=== PATIENT | female | born 1955 | race Caucasian/White ===

== ENCOUNTER 2017-05-10 08:22 | Day surgery (SDC) | payer BC, MEDICARE ==
[2017-05-08 14:17] VITALS: BMI 33.3
[~2017-05-10 08:22] MED LIST: DEXAMETHASONE SOD PHOSPHATE 10 MG/ML 1 ML VIAL IV ONE; DEXAMETHASONE SOD PHOSPHATE 4 MG/ML 1 ML VIAL IV ONE; FAMOTIDINE 20 MG/2 ML VIAL IV ONE; FAMOTIDINE 20 MG/2 ML VIAL IV PRN; LACTATED RINGERS 1,000 ML IV SCH; LIDOCAINE 1% 20 ML VIAL (10MG/ML) FOR IV START INTRADERMA PRN; ONDANSETRON 4 MG/2 ML VIAL IVP ONE; ceFAZolin 1,000 MG in DEXTROSE/WATER 1 50ML.BAG IV ONE; fentaNYL (PF) 50 MCG/ML 2 ML AMP IV PRN
[2017-05-10 09:01] LABS: Glucose,Whole Blood 120 mg/dL (75-99)
[2017-05-10] MEDS ORDERED: MIDAZOLAM 2 MG/2 ML VIAL ONE (09:25)
[2017-05-10] MEDS ORDERED: SUCCINYLCHOLINE CHLORIDE VIAL 200 MG/10 ML VIAL IV ONE (09:25)
[2017-05-10] MEDS ORDERED: PROPOFOL 10 MG/ML 20 ML VIAL IV ONE (09:25)
[2017-05-10] MEDS ORDERED: PHENYLEPHRINE-0.9% NACL SYG 1 MG/10 ML SYRINGE ONE (09:25)
[2017-05-10] MEDS ORDERED: ePHEDrine SULFATE/0.9% NACL/PF 50 MG/5 ML SYRINGE IV ONE (09:25)
[2017-05-10] MEDS ORDERED: DEXAMETHASONE SOD PHOS (MDV) 100 MG/10 ML VIAL ONE (09:25)
[2017-05-10] MEDS ORDERED: fentaNYL (PF) 50 MCG/ML 2 ML AMP ONE (09:25)
[2017-05-10] MEDS ORDERED: LACTATED RINGERS 1,000 ML IV ONE ×2 (09:58→11:47)
[2017-05-10] MEDS ORDERED: LIDOCAINE 1%-EPI 1:100,000 30 ML VIAL SUBMUCOSAL ONE ×2 (10:04→11:46)
[2017-05-10 12:11] VITALS: TEMP 97.2
[2017-05-10 12:19] LABS: Glucose,Whole Blood 179 mg/dL (75-99)
--- NOTE | 2017-05-10 12:39 | P.OP ---
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 Anesthesia: KARTHIKEYANA Surgeon: Eamon Linda Estimated Blood Loss (ml): 10 Pathology: other (As above) Condition: stable Disposition: PACU Indications for Procedure: This patient is 3 lesions that she is concerned about. She has an exophytic fungating mass on the right nasal LR rim. This went bleeds when rubbed. She has another lesion of the nasal tip was also friable that she is concerned about and she has a skin-type mass of the right buttock that is quite large and is protuberant. She is requesting surgical removal of all these lesions. We will be performing frozen section on the nasal tip and right nasal alar rim. All risks, benefits, and alternative therapies were discussed in detail. Consent was obtained and all questions were answered. Operative Findings: Frozen sections showed clean margins on the nasal tip and right nasal alar rim lesions. Both of them were cancer. Description of Procedure: This patient was taken to the operative room and placed in the supine position. A general inhalation anesthetic was administered to the patient by mask and subsequently intubated with a cuffed endotracheal tube by the department of anesthesia with a functioning IV line in place. The patient was monitored throughout the entire case by the department of anesthesia. The face was sterilely prepped and draped in usual fashion and these lesions were marked. The nasal tip lesion measured 2.1 x 1 cm and the right nasal alar rim measured 2.3 x 2 cm. We marked these lesions anesthetize these lesions with lidocaine 1% with epinephrine 1 100,000. 10 minutes were allowed wait for full vasoconstrictive effects to take place. The nasal tip lesion was excised for sampling and sent for frozen section. It came back as a cancer. We then made a wider excision measuring 2.1 x 1 cm and sent this for frozen section and all margins came back negative for tumor. We then did extensive undermining and raised bilateral advancement flaps with a secondary defect measuring 4.2 x 2 cm. We rotated the skin into position and developed an H-type incision with removal of burrows triangles. We rotated the skin into position and close the defect with use advancement flaps. We closed the deep subcutaneous tissue with a 4-0 Monocryl we closed the skin with a 6-0 nylon in a running nonlocking fashion. Excellent approximation was obtained. Attention was then paid to the right nasal alar rim lesion which measured 2.3 x 2 cm. This was excised with a 15 blade and delicate plastic scissors and a Brown-Adson forceps. We sent the specimen for frozen section and all margins were negative for tumor. We took a secondary medial margin and sent that for frozen section which came back negative for tumor. We then prepped the right postauricular region and harvested a 4 x 2 cm area of skin from the postauricular region defatted this skin and cut to size and placed it as an overlay graft. We did extensive undermining in all directions and the donor site and we closed the donor site in a complex fashion utilizing a 4-0 Monocryl in the deep subcutaneous tissue. 4-0 Monocryl in the mid dermal layer and the skin was closed with a 50 rapid Vicryl in a running nonlocking fashion. Excellent approximation was obtained. The skin again was cut to size and placed as an overlay graft a bolster dressing was applied and the patient tolerated this well. Attention was then paid to the right buttocks which was sterilely prepped and draped anesthetized and this large 4 cm mass was excised with a 15 blade. This measured 4 x 4 cm. We did extensive undermining in all directions. We developed an H-type incision and utilized in advancement flap for closure measuring a secondary defect of 8 x 8 cm. We rotated the skin into position and close this large defect. Excellent closure was obtained the patient tolerated this well and follow-up will be in the office in 1 week. Dressings were applied accordingly.
[2017-05-10 15:13] VITALS: RESP 18
[2017-05-10 16:11] VITALS: BP 131/86; PULSE 99
== END 2017-05-10 16:32 | disposition home or self-care (01) ==
LOC: OR 08:22
PROVIDERS: ATTEND Otolaryngology
DX: C44.311 Basal cell carcinoma of skin of nose (principal); L57.8 Other skin changes due to chronic exposure to nonionizing radiation; L57.0 Actinic keratosis; D17.39 Benign lipomatous neoplasm of skin and subcutaneous tissue of other sites; D68.9 Coagulation defect, unspecified; F32.9 Major depressive disorder, single episode, unspecified; E11.9 Type 2 diabetes mellitus without complications; J43.9 Emphysema, unspecified; G25.0 Essential tremor; I10 Essential (primary) hypertension; E78.5 Hyperlipidemia, unspecified; M79.7 Fibromyalgia; Z86.718 Personal history of other venous thrombosis and embolism; Z86.711 Personal history of pulmonary embolism; Z86.73 Personal history of transient ischemic attack (TIA), and cerebral infarction without residual deficits; Z79.2 Long term (current) use of antibiotics; Z79.01 Long term (current) use of anticoagulants; Z79.84 Long term (current) use of oral hypoglycemic drugs; Z79.52 Long term (current) use of systemic steroids; Z79.899 Other long term (current) drug therapy; Z87.891 Personal history of nicotine dependence
CPT/HCPCS: 88304; 88305; 88331; 88332; 14060; 11643; 15260; 14301; 14302; J2250; J0330; J2405; J3010; J0690; J1100; J2370; J2704

== ENCOUNTER 2018-03-18 23:41 | Inpatient (IN) | payer BC, MEDICARE ==
[2018-03-19] MEDS: SODIUM CHLORIDE 0.9% 500 ML 500 ML IV SCH (00:27)
[2018-03-19 00:40] LABS: Basophils % (A) 0 %; Eosinophils # (A) 0.1 k/uL (0-0.7); Eosinophils % (A) 0 %; HCT 39.8 % (34.0-46.0); Lymphocytes # (A) 1.9 k/uL (1.0-4.8); Lymphocytes % (A) 14 %; MCH 28.2 pg (25.0-35.0); MCHC 32.7 g/dL (31.0-37.0); MCV 86.4 fL (80.0-100.0); Mean Platelet Volume 7.1; Monocytes # (A) 1.1 k/uL (0-1.0); Monocytes % (A) 8 %; Neutrophils # (A) 9.7 k/uL (1.3-7.7); Neutrophils % (A) 73 %; Platelet Count 315 k/uL (150-450); RDW 15.4 % (11.5-15.5); WBC 13.3 k/uL (3.8-10.6)
[2018-03-19 00:58] LABS: Albumin 4.2 g/dL (3.5-5.0); Calcium 9.8 mg/dL (8.4-10.2); Total Bilirubin 0.8 mg/dL (0.2-1.3); Total Protein 7.3 g/dL (6.3-8.2)
[2018-03-19 01:00] LABS: INR 0.9 (<1.2); Partial Thromboplastin Time 23.9 sec (22.0-30.0); Prothrombin Time 9.7 sec (9.0-12.0)
[2018-03-19 01:02] LABS: Potassium 4.4 mmol/L (3.5-5.1)
[2018-03-19 01:12] LABS: Creatine Kinase MB 9.4 ng/mL (0.0-2.4); Troponin I 0.027 ng/mL (0.000-0.034)
[2018-03-19] MEDS ORDERED: SODIUM CHLORIDE 0.9% 1,000 ML IV ONE (01:15)
--- NOTE | 2018-03-19 01:30 | XR ---
EXAMINATION TYPE: XR chest 2V DATE OF EXAM: 03/19/2018 COMPARISON: January 20, 2017 HISTORY: Fever TECHNIQUE: Frontal and lateral views of the chest are obtained. FINDINGS: There is some patchy infiltrate in the left lung. The right lung is fairly clear. Heart si ze is normal. Thoracic aorta is atheromatous. There is no heart failure. There are chest leads. There is neurostimulator in the lower thoracic spine. IMPRESSION: New patchy infiltrate in the left lung consistent with pneumonia compared to old exam. N ormal heart.
[2018-03-19] MEDS ORDERED: AZITHROMYCIN 500 MG in SODIUM CHLORIDE 0.9% 250 ML IVPB STA (01:59)
--- NOTE | 2018-03-19 02:05 | ED ---
General Adult HPI - General Chief complaint: Nausea/Vomiting/Diarrhea Stated complaint: Confusion Poss Stroke Time Seen by Provider: 03/19/18 00:00 Source: patient, family Mode of arrival: wheelchair Limitations: no limitations - History of Present Illness Initial comments: Sole is a 62-year-old female is brought to the emergency department today by her for evaluation of altered mental status. History is provided primarily by the . He reports that over the course of the week and the patient was feeling unwell she had multiple episodes of nonbloody nonbilious emesis and persistent nausea. She would not eat or drink throughout the weekend. He reports that he has mostly been sleeping and has been hard to wake. He noticed that her breathing sounded crackly though she wasn't coughing he was concerned she may be developing pneumonia or COPD exacerbation. He became concerned that she may be getting sick so he brought to the ER for evaluation. Patient is sleeping comfortably upon exam, she appears overtly dehydrated, she wakes to voice or touch. She answers questions slowly but appropriately. Patient just reports feeling generalized malaise. - Related Data Home Medications Medication Instructions Recorded Confirmed DULoxetine HCL [Cymbalta] 60 mg PO QAM 06/19/14 05/08/17 Montelukast [Singulair] 10 mg PO HS 06/19/14 05/10/17 Verapamil HCl [Calan] 120 mg PO QAM 06/19/14 05/10/17 OLANZapine [ZyPREXA] 10 mg PO TID 06/23/14 05/10/17 Acetaminophen Tab [Tylenol] 1,000 mg PO Q6HR PRN 03/19/17 05/10/17 Albuterol Sulfate [Proventil Hfa] 1 - 2 puff INHALATION Q6HR PRN 03/19/17 Apixaban [Eliquis] 5 mg PO BID 03/19/17 05/08/17 Atorvastatin [Lipitor] 10 mg PO HS 03/19/17 05/10/17 Gabapentin [Neurontin] 600 mg PO TID 03/19/17 05/10/17 Metoprolol Tartrate [Lopressor] 25 mg PO BID 03/19/17 05/08/17 traMADol HCl [Ultram] 50 mg PO Q8HR PRN 03/19/17 05/10/17 Lisinopril [Zestril] 20 mg PO QAM 05/08/17 05/10/17 Previous Rx's Medication Instructions Recorded Hydrochlorothiazide [Hydrodiuril] 25 mg PO DAILY #30 tab 12/18/16 metFORMIN HCL [Glucophage] 500 mg PO BID-W/MEALS #60 tab 12/18/16 Amoxicillin/Potassium Clav 1 each PO Q12HR #20 tab 05/10/17 [Augmentin 875-125 Tablet] Meloxicam [Mobic] 15 mg PO DAILY #14 tab 05/10/17 Allergies Allergy/AdvReac Type Severity Reaction Status Date / Time No Known Allergies Allergy Verified 03/18/18 23:53 Review of Systems ROS Statement: Those systems with pertinent positive or pertinent negative responses have been documented in the HPI. ROS Other: All systems not noted in ROS Statement are negative. Past Medical History Past Medical History: Asthma, COPD, CVA/TIA, Diabetes Mellitus, Fibromyalgia, Hyperlipidemia, Hypertension, Musculoskeletal Disorder, Osteoarthritis (OA), Pulmonary Embolus (PE), Skin Disorder Additional Past Medical History / Comment(s): current skin lesions to right nasal area and rt buttocks.hx. migraines, chronic low back pain, urinary incontinence History of Any Multi-Drug Resistant Organisms: None Reported Past Surgical History: Back Surgery, Cholecystectomy, Hysterectomy, Joint Replacement, Orthopedic Surgery Additional Past Surgical History / Comment(s): Back pain procedures, pain stimulator implant in back, left wrist surg with pins since removed, colonoscopy , total L hip arthroplasty. Past Anesthesia/Blood Transfusion Reactions: No Reported Reaction Additional Past Anesthesia/Blood Transfusion Reaction / Comment(s): no hx blood transfusion Past Psychological History: Anxiety, Depression Smoking Status: Former smoker - Past Family History Mother Family Medical History: COPD Additional Family Medical History / Comment(s): Mother at the age of 78yrs. Father Family Medical History: Myocardial Infarction ([place]) Additional Family Medical History / Comment(s): Father of a massive [place] at the age of 50 yrs. Pt is not sure if schrapnel may have moved to his heart-he had injury in WWII. Sister(s) Family Medical History: Cancer General Exam - General Exam Comments Initial Comments: Physical Exam GENERAL: Profoundly dehydrated HENT: Dry mucous membranes EYES: PERRL, EOMI PULMONARY: Crackles at the left lung olson CARDIOVASCULAR: Tachycardic, regular ABDOMEN: Soft and nontender with normal bowel sounds. SKIN: Dry : Deferred NEUROLOGIC: Patient is alert and oriented x3 But slow and delayed MUSCULOSKELETAL: Normal extremities with adequate strength and full range of motion. No lower extremity swelling or edema. No calf tenderness. PSYCHIATRIC: Normal psychiatric evaluation. Limitations: no limitations Limitations: no limitations Course Vital Signs 03/18/18 03/19/18 23:48 00:44 Temperature 99 F Pulse Rate 110 H 111 H Respiratory 20 18 Rate Blood Pressure 93/54 111/84 O2 Sat by Pulse 91 L 94 L Oximetry EKG Findings - EKG Comments: EKG Findings:: EKG was obtained at 12:30 AM, rate is 111 rhythm is sinus, leftward axis with evidence of LVH, normal intervals, NJ 152, QRS 72, QTc 448. There is no acute ST elevations or depressions evidence of acute skin or infarction Medical Decision Making - Medical Decision Making Patient was seen and evaluated history was obtained from patient and at bedside next line history and physical exam are concerning for pneumonia with left-sided crackles, tachycardia, fever, patient also appears to be per family dehydrated Sepsis workup was initiated IV fluids infusing Workup confirms left-sided pneumonia as well as acute kidney injury patient has a baseline creatinine of 0.8 creatinine today is 2.2 Rocephin and azithromycin were ordered for treatment of community-acquired pneumonia Additional IV fluids ordered Vergara catheter was ordered for accurate urine output assessment Patient care was discussed with the patient's primary care physician Dr. Hartley who recommends admission with a consult pulmonology for management of patient's COPD in the setting of pneumonia Admission orders placed Patient was reassessed at 2 AM, she received 2 L of IV fluids, she remains tachycardic with oxygen saturation has improved, skin turgor is improving. We' ll continue to fluid resuscitate upon admission. - Lab Data Result diagrams: 03/19/18 00:21 03/19/18 00:21 Lab Results 03/19/18 03/19/18 03/19/18 Range/Units 00:21 00:21 00:21 WBC 13.3 H (3.8-10.6) k/uL RBC 4.60 (3.80-5.40) m/uL Hgb 13.0 (11.4-16.0) gm/dL Hct 39.8 (34.0-46.0) % MCV 86.4 (80.0-100.0) fL MCH 28.2 (25.0-35.0) pg MCHC 32.7 (31.0-37.0) g/dL RDW 15.4 (11.5-15.5) % Plt Count 315 (150-450) k/uL Neutrophils % 73 % Lymphocytes % 14 % Monocytes % 8 % Eosinophils % 0 % Basophils % 0 % Neutrophils # 9.7 H (1.3-7.7) k/uL Lymphocytes # 1.9 (1.0-4.8) k/uL Monocytes # 1.1 H (0-1.0) k/uL Eosinophils # 0.1 (0-0.7) k/uL Basophils # 0.0 (0-0.2) k/uL PT (9.0-12.0) sec INR (<1.2) APTT (22.0-30.0) sec Sodium 136 L (137-145) mmol/L Potassium 4.4 (3.5-5.1) mmol/L Chloride 99 (98-107) mmol/L Carbon Dioxide 24 (22-30) mmol/L Anion Gap 13 mmol/L BUN 40 H (7-17) mg/dL Creatinine 2.20 H (0.52-1.04) mg/dL Est GFR (CKD-EPI)AfAm 27 (>60 ml/min/1.73 sqM) Est GFR (CKD-EPI)NonAf 23 (>60 ml/min/1.73 sqM) Glucose 137 H (74-99) mg/dL Plasma Lactic Acid Refugio 1.3 (0.7-2.0) mmol/L Calcium 9.8 (8.4-10.2) mg/dL Total Bilirubin 0.8 (0.2-1.3) mg/dL AST 29 (14-36) U/L ALT 33 (9-52) U/L Alkaline Phosphatase 102 (38-126) U/L Total Creatine Kinase (30-135) U/L CK-MB (CK-2) (0.0-2.4) ng/mL CK-MB (CK-2) Rel Index Troponin I (0.000-0.034) ng/mL Total Protein 7.3 (6.3-8.2) g/dL Albumin 4.2 (3.5-5.0) g/dL Influenza Type A RNA (Not Detectd) Influenza Type B (PCR) (Not Detectd) 03/19/18 03/19/18 03/19/18 Range/Units 00:21 00:21 00:21 WBC (3.8-10.6) k/uL RBC (3.80-5.40) m/uL Hgb (11.4-16.0) gm/dL Hct (34.0-46.0) % MCV (80.0-100.0) fL MCH (25.0-35.0) pg MCHC (31.0-37.0) g/dL RDW (11.5-15.5) % Plt Count (150-450) k/uL Neutrophils % % Lymphocytes % % Monocytes % % Eosinophils % % Basophils % % Neutrophils # (1.3-7.7) k/uL Lymphocytes # (1.0-4.8) k/uL Monocytes # (0-1.0) k/uL Eosinophils # (0-0.7) k/uL Basophils # (0-0.2) k/uL PT 9.7 (9.0-12.0) sec INR 0.9 (<1.2) APTT 23.9 (22.0-30.0) sec Sodium (137-145) mmol/L Potassium (3.5-5.1) mmol/L Chloride (98-107) mmol/L Carbon Dioxide (22-30) mmol/L Anion Gap mmol/L BUN (7-17) mg/dL Creatinine (0.52-1.04) mg/dL Est GFR (CKD-EPI)AfAm (>60 ml/min/1.73 sqM) Est GFR (CKD-EPI)NonAf (>60 ml/min/1.73 sqM) Glucose (74-99) mg/dL Plasma Lactic Acid Refugio (0.7-2.0) mmol/L Calcium (8.4-10.2) mg/dL Total Bilirubin (0.2-1.3) mg/dL AST (14-36) U/L ALT (9-52) U/L Alkaline Phosphatase (38-126) U/L Total Creatine Kinase 278 H (30-135) U/L CK-MB (CK-2) 9.4 H (0.0-2.4) ng/mL CK-MB (CK-2) Rel Index 3.4 Troponin I 0.027 (0.000-0.034) ng/mL Total Protein (6.3-8.2) g/dL Albumin (3.5-5.0) g/dL Influenza Type A RNA Not Detected (Not Detectd) Influenza Type B (PCR) Not Detected (Not Detectd) Disposition Clinical Impression: Sepsis, Community acquired pneumonia, Acute kidney injury, Dehydration Disposition: ADMITTED IP TO THIS HOSP Condition: Stable Is patient prescribed a controlled substance at d/c from ED?: No Referrals: Farzad Hartley MD [Primary Care Provider] - 1-2 days
[2018-03-19] MEDS ORDERED: IPRATROPIUM-ALBUTEROL 3 ML NEB INHALATION PRN (02:06)
[2018-03-19 02:50] LABS: Amorphous Sediment,Urine Occasional /hpf; Appearance,Urine Turbid (Clear); Bacteria,Urine Rare /hpf; Bilirubin,Urine 1+ (Negative); Blood,Urine Negative (Negative); Color,Urine Dark Brown; Glucose,Urine (UA) Trace (Negative); Hyaline Casts,Urine 214 /lpf (0-2); Ketones,Urine Trace (Negative); Leukocyte Esterase,Urine Negative (Negative); Mucus,Urine Occasional /hpf; Nitrite,Urine Negative (Negative); PH, Urine 5.5 (5.0-8.0); Protein,Urine 2+ (Negative); RBC,Urine 1 /hpf (0-5); Specific Gravity,Urine 1.025 (1.001-1.035); Squamous Epithelial Cell,Urine 6 /hpf (0-4)
[2018-03-19] MEDS: SODIUM CHLORIDE 0.9% 1,000 ML IV SCH ×4 (04:13→21:16)
[2018-03-19 07:51] LABS: HCT 38.3 % (34.0-46.0); HGB 12.2 gm/dL (11.4-16.0); Hypochromasia Moderate; MCH 28.9 pg (25.0-35.0); MCHC 31.8 g/dL (31.0-37.0); Mean Platelet Volume 6.9; Platelet Count 249 k/uL (150-450); RBC 4.21 m/uL (3.80-5.40); RDW 15.2 % (11.5-15.5); WBC 11.9 k/uL (3.8-10.6)
[2018-03-19 08:45] LABS: Calcium 8.4 mg/dL (8.4-10.2); Potassium 4.4 mmol/L (3.5-5.1)
[2018-03-19 08:51] LABS: Lymphocytes # (M) 3.57 k/uL (1.0-4.8); Monocytes # (M) 0.83 k/uL (0-1.0); Neutrophils % (M) 63 %; Nucleated Red Blood Cells 0 /100 WBC (0-0); Total Cells Counted 100
[2018-03-19 08:52] LABS: Polychromasia Present
[2018-03-19] MEDS ORDERED: OLANZapine 10 MG TAB PO SCH (09:00)
[2018-03-19] MEDS: GABAPENTIN 300 MG CAP PO SCH ×3 (09:16→21:21)
[2018-03-19] MEDS: APIXABAN 5 MG TAB PO SCH ×2 (09:16→21:22)
[2018-03-19] MEDS: DULoxetine HCL 60 MG CAPSULE.DR PO SCH (09:16)
[2018-03-19] MEDS: METOPROLOL TARTRATE 25 MG TAB PO SCH ×2 (09:17→21:22)
[2018-03-19] MEDS: predniSONE 20 MG TAB PO SCH (09:17)
--- NOTE | 2018-03-19 09:51 | P.HPIM ---
History of Present Illness H&P Date: 03/19/18 Chief Complaint: Weakness and fatigue This is a 62-year-old white female patient well-known to me. She has a history of COPD. She is a former smoker and has schizophrenia type mental illness. She is somewhat slow but awake during my exam today. From her ER history, she been having emesis multiple episodes over the past several days that were nonbloody bilious. She was not eating or drinking anything. She had been sleeping heavily during these episodes. She had some abnormal breath sounds and her and brought emergency room. This morning she is somnolent but awake she is eating slowly, her mental status seems consistent with my previous visits for her, and is due to long use of antipsychotics. She denies any chest pains or pressures this time denies any shortness of breath, no nausea or vomiting recently. She denies any recent bowel movement in several days. Review of Systems All systems: negative Past Medical History Past Medical History: Asthma, Cancer, COPD, CVA/TIA, Diabetes Mellitus, Fibromyalgia, Hyperlipidemia, Hypertension, Musculoskeletal Disorder, Osteoarthritis (OA), Pulmonary Embolus (PE), Skin Disorder Additional Past Medical History / Comment(s): 3 PEs-involved bilateral lungs, CVA with some increased memory problems, NIDDM type II, neuropathy bilateral legs/feet, migraines, chronic low back pain, skin cancer removed from nose, urinary incontinence at times, lately stool loose and has some incontinence of stool. History of Any Multi-Drug Resistant Organisms: None Reported Past Surgical History: Back Surgery, Cholecystectomy, Hysterectomy, Joint Replacement, Orthopedic Surgery Additional Past Surgical History / Comment(s): Back pain procedures, has pain stimulator implant in back, left wrist surg with pins since removed, colonoscopy , total L hip arthroplasty, bilateral cataract removals, 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 Past Anesthesia/Blood Transfusion Reactions: No Reported Reaction Additional Past Anesthesia/Blood Transfusion Reaction / Comment(s): no hx blood transfusion Past Psychological History: Schizophrenia (?) Smoking Status: Former smoker - Past Family History Mother Family Medical History: COPD Additional Family Medical History / Comment(s): Mother at the age of 78yrs. Father Family Medical History: Myocardial Infarction ([place]) Additional Family Medical History / Comment(s): Father of a massive [place] at the age of 50 yrs. Pt is not sure if ovidio may have moved to his heart-he had injury in WWII. Sister(s) Family Medical History: Cancer Medications and Allergies Home Medications Medication Instructions Recorded Confirmed Type DULoxetine HCL [Cymbalta] 60 mg PO QAM 06/19/14 05/08/17 History Montelukast [Singulair] 10 mg PO HS 06/19/14 05/10/17 History Verapamil HCl [Calan] 120 mg PO QAM 06/19/14 05/10/17 History OLANZapine [ZyPREXA] 10 mg PO TID 06/23/14 05/10/17 History Hydrochlorothiazide [Hydrodiuril] 25 mg PO DAILY #30 tab 12/18/16 05/10/17 Rx metFORMIN HCL [Glucophage] 500 mg PO BID-W/MEALS #60 tab 12/18/16 05/10/17 Rx Acetaminophen Tab [Tylenol] 1,000 mg PO Q6HR PRN 03/19/17 05/10/17 History Albuterol Sulfate [Proventil Hfa] 1 - 2 puff INHALATION Q6HR PRN 03/19/17 History Apixaban [Eliquis] 5 mg PO BID 03/19/17 05/08/17 History Atorvastatin [Lipitor] 10 mg PO HS 03/19/17 05/10/17 History Gabapentin [Neurontin] 600 mg PO TID 03/19/17 05/10/17 History Metoprolol Tartrate [Lopressor] 25 mg PO BID 03/19/17 05/08/17 History traMADol HCl [Ultram] 50 mg PO Q8HR PRN 03/19/17 05/10/17 History Lisinopril [Zestril] 20 mg PO QAM 05/08/17 05/10/17 History Amoxicillin/Potassium Clav 1 each PO Q12HR #20 tab 05/10/17 Rx [Augmentin 875-125 Tablet] Meloxicam [Mobic] 15 mg PO DAILY #14 tab 05/10/17 Rx Allergies Allergy/AdvReac Type Severity Reaction Status Date / Time No Known Allergies Allergy Verified 03/18/18 23:53 Physical Exam Vitals: Vital Signs Temp Pulse Pulse Resp BP BP Pulse Ox 03/19/18 08:10 97.7 F 104 H 20 128/87 92 L 03/19/18 06:23 98 16 108/70 03/19/18 06:00 100/64 03/19/18 05:51 87 16 86/60 93 L 03/19/18 04:16 88 16 93 L 03/19/18 00:44 111 H 18 111/84 94 L 03/18/18 23:48 99 F 110 H 20 93/54 91 L Intake and Output 03/18/18 03/19/18 03/19/18 22:59 06:59 14:59 Other: Weight 90.265 kg GENERAL: Somnolent, dehydrated and in no acute distress. HEAD: Atraumatic, normocephalic. EYES: Pupils equal round and reactive to light, extraocular movements intact, sclera anicteric, conjunctiva are normal. ENT:nares patent, oropharynx clear without exudates. Somewhat moist mucous membranes. Lips are cracked and dry. NECK: Normal range of motion, supple without lymphadenopathy or JVD, no thyromegaly LUNGS: Breath sounds coarse with rhonchi greater on the left than the right. There is intermittent neck story wheezes noted. No rails. HEART: Regular rate and rhythm without murmurs, rubs or gallops.S1S2 Normal ABDOMEN: Soft, nontender, normoactive bowel sounds. No guarding, no rebound. No masses appreciated. EXTREMITIES: Normal range of motion, no pitting or edema. No clubbing or cyanosis. NEUROLOGICAL: Cranial nerves II through XII grossly intact. Slowed speech, PSYCH: Normal mood, somewhat flat affect, but this is consistent with her baseline. SKIN: Warm, Dry, normal turgor, no rashes or lesions noted. Results CBC & Chem 7: 03/19/18 07:20 03/19/18 07:20 Labs: Abnormal Lab Results - Last 24 Hours (Table) 03/19/18 03/19/18 03/19/18 Range/Units 00:21 00:21 00:21 WBC 13.3 H (3.8-10.6) k/uL Neutrophils # 9.7 H (1.3-7.7) k/uL Monocytes # 1.1 H (0-1.0) k/uL Sodium 136 L (137-145) mmol/L Chloride (98-107) mmol/L BUN 40 H (7-17) mg/dL Creatinine 2.20 H (0.52-1.04) mg/dL Glucose 137 H (74-99) mg/dL Total Creatine Kinase 278 H (30-135) U/L CK-MB (CK-2) 9.4 H (0.0-2.4) ng/mL Urine Appearance (Clear) Urine Protein (Negative) Urine Glucose (UA) (Negative) Urine Ketones (Negative) Urine Bilirubin (Negative) Ur Squamous Epith Cells (0-4) /hpf Amorphous Sediment (None) /hpf Urine Bacteria (None) /hpf Hyaline Casts (0-2) /lpf Urine Mucus (None) /hpf 03/19/18 03/19/18 03/19/18 Range/Units 01:49 07:20 07:20 WBC 11.9 H (3.8-10.6) k/uL Neutrophils # (1.3-7.7) k/uL Monocytes # (0-1.0) k/uL Sodium (137-145) mmol/L Chloride 108 H (98-107) mmol/L BUN 39 H (7-17) mg/dL Creatinine 1.91 H (0.52-1.04) mg/dL Glucose 123 H (74-99) mg/dL Total Creatine Kinase (30-135) U/L CK-MB (CK-2) (0.0-2.4) ng/mL Urine Appearance Turbid H (Clear) Urine Protein 2+ H (Negative) Urine Glucose (UA) Trace H (Negative) Urine Ketones Trace H (Negative) Urine Bilirubin 1+ H (Negative) Ur Squamous Epith Cells 6 H (0-4) /hpf Amorphous Sediment Occasional H (None) /hpf Urine Bacteria Rare H (None) /hpf Hyaline Casts 214 H (0-2) /lpf Urine Mucus Occasional H (None) /hpf Chest x-ray: report reviewed (Left lung pneumonia) Thrombosis Risk Factor Assmnt - DVT/VTE Prophylaxis DVT/VTE Prophylaxis: Pharmacologic Prophylaxis ordered (He'll continue on her Elequis for history of embolism) - Choose All That Apply Any of the Below Risk Factors Present?: Yes Each Factor Represents 1 point: Abnormal pulmonary function (COPD), Obesity ( BMI >25), Sepsis (< 1month), Serious lung disease incl. pneumonia (< 1month) Each Risk Factor Represents 2 Points: Age 61-74 years, Malignancy Each Risk Factor Represents 3 Points: History of DVT/PE Other congenital or acquired thrombophilia - If yes, enter type in comment: No Thrombosis Risk Factor Assessment Total Risk Factor Score: 11 Thrombosis Risk Factor Assessment Level: High Risk Assessment and Plan (1) History of pulmonary embolism Current Visit: Yes Status: Acute Code(s): Z86.711 - PERSONAL HISTORY OF PULMONARY EMBOLISM SNOMED Code(s): 463168351 (2) Acute renal failure Current Visit: Yes Status: Acute Code(s): N17.9 - ACUTE KIDNEY FAILURE, UNSPECIFIED SNOMED Code(s): 08634107 (3) Acute kidney injury Current Visit: Yes Status: Acute Code(s): N17.9 - ACUTE KIDNEY FAILURE, UNSPECIFIED SNOMED Code(s): 68723093 (4) Community acquired pneumonia Current Visit: Yes Status: Acute Code(s): J18.9 - PNEUMONIA, UNSPECIFIED ORGANISM SNOMED Code(s): 930818975 (5) Dehydration Current Visit: Yes Status: Acute Code(s): E86.0 - DEHYDRATION SNOMED Code( s): 84389963 (6) COPD (chronic obstructive pulmonary disease) Current Visit: No Status: Acute Code(s): J44.9 - CHRONIC OBSTRUCTIVE PULMONARY DISEASE, UNSPECIFIED SNOMED Code(s): 96301093 Plan: I'll restart her azithromycin and Rocephin for community-acquired pneumonia and history of COPD. Starting on prednisone. I will hold her olanzapine for 5 days while she receives he azithromycin. She'll continue on DuoNeb updrafts as needed. We'll consult pulmonology due to her history of multiple pulmonary embolisms and this pneumonia. Due to dehydration we'll continue to rehydrate her with IV fluids. Rate is currently 200 MLS per hour, will drop that to 100 miles per hour. Repeat labs in a.m. Weight on home sales consultant recommendations. We'll add Pepcid for GI prophylaxis She'll be reevaluated in the next 24 hours.
[2018-03-19 11:42] LABS: Glucose,Whole Blood 149 mg/dL (75-99)
[2018-03-19] MEDS: FAMOTIDINE 20 MG TAB PO SCH (12:02)
[2018-03-19] MEDS: guaiFENesin 600 MG TABLET.ER PO SCH ×2 (12:02→21:22)
[2018-03-19] MEDS: INSULIN ASPART 100 UNIT/ML 1 ML 10 ML VIAL SQ SCH ×3 (12:03→21:23)
[2018-03-19 16:24] LABS: Glucose,Whole Blood 145 mg/dL (75-99)
[2018-03-19 17:08] LABS: Glucose,Whole Blood 153 mg/dL (75-99)
--- NOTE | 2018-03-19 17:09 | CONS ---
CONSULTATION PULMONARY/CRITICAL CARE CONSULTATION: DATE OF CONSULTATION: 03/19/2018 REASON FOR CONSULTATION: Nausea, vomiting, diarrhea, confusion and possible stroke. This is a 62-year-old female who was brought into the emergency room on March 18 for evaluation of mental status changes. The history was apparently provided by the . He reported the patient having about a week's worth of not feeling well. She had apparently significant nausea and emesis. She did not eat or drink very much throughout the most recent weekend. She had been very sleepy and very difficult to wake. Her breathing started to be crackly and she was coughing. He was concerned about possible pneumonia or COPD exacerbation. Because of this and mental status changes, the patient was brought to the ER and evaluated. When seen by the ER physician she did answer questions slowly but appropriately. She was very lethargic and sleepy but did arouse appropriately. His evaluation was that of possible sepsis and community-acquired pneumonia with acute kidney injury and dehydration. Her current medications include: 1. Cymbalta. 2. Singulair. 3. Calan. 4. Zyprexa. 5. Tylenol. 6. Proventil. 7. Eliquis. 8. Lipitor. 9. Neurontin. 10.Lopressor. 11.Ultram. 12.Zestril. Apparently at some time or another she had also been on Mobic, Augmentin, Glucophage and HydroDIURIL. ALLERGIES: DENIED. MEDICAL HISTORY: Includes: 1. Asthma/COPD. 2. CVA. 3. Diabetes. 4. Fibromyalgia. 5. Hyperlipidemia. 6. Hypertension. 7. Osteoarthritis. 8. Pulmonary embolism. 9. Multiple recurrent soft tissue infections/lesions to the area of the right nostril and buttocks area. 10.History of migraine cephalgia. 11.Chronic low back pain. 12.Urinary incontinence. SURGICAL HISTORY: Includes: 1. Back surgery. 2. Cholecystectomy. 3. Hysterectomy. 4. Joint replacement. 5. Colonoscopy. 6. Pain stimulator implant. 7. Wrist surgery. 8. Multiple other procedures. SOCIAL HISTORY: Positive for previous tobacco use. Denies alcohol or illicit drug use. FAMILY HISTORY: Positive for COPD, myocardial infarction and some other minor medical problems. REVIEW OF SYSTEMS: Unreliable. The patient is unable to give her review of systems and in fact, when I ask her about what brought her into the hospital, she completely does not talk about mental status changes, sleepiness, lethargy, nausea, vomiting, but rather says she was short of breath and having some cough. PHYSICAL EXAMINATION: Current vital signs include a temperature 98.4, heart rate 81, respiratory rate 20, blood pressure 111/75, mean 87, two-liter saturation 98%. She appears in no acute distress. She is very lethargic and sleepy. She speaks in a monotone voice. She speaks very slowly. She does arouse and answer questions. The reliability of her answers is not known. HEENT examination is grossly unremarkable. Nasal oxygen in place. NECK: Supple. Full range of motion. No adenopathy. Neck veins are flat. No thyromegaly. Cardiovascular examination reveals regular rhythm and rate. S1, S2 normal. Heart rate about 75 to 80 beats per minute. No S3, S4. No distinct murmur noted. Lungs reveal a few scattered expiratory wheezes and rhonchi. Breath sounds are diminished. There is prolongation. Breath sounds are equal bilaterally but diminished throughout. Abdomen is obese. Bowel sounds are heard. Extremities are intact. No cyanosis, clubbing or edema. Skin without rash. Neurologic examination is not reliable. She does move all 4 extremities. IMAGING: She had a chest x-ray done on 03/19/2018. It shows some patchy infiltrate in the left lung, possibly consistent with pneumonia. The right lung is mostly clear. LAB DATA: Reviewed. White count 11.9, down from 13.3, hemoglobin 12.2, hematocrit 38.3, platelet count 349,000. PT, INR, PTT all normal. Sodium 138, potassium 4.4, chloride 108, CO2 22. Anion gap is 8. BUN and creatinine were 39 and 1.91, down from 40 and 2.20. The patient's troponin is 0.027. Her urine is dark brown and turbid. There is 2+ protein. There is trace glucose and trace ketones. There is 1+ bilirubin. Leukocyte esterase was negative. There was 6 squamous epithelial cells with occasional sediment, rare urine bacteria, 214 hyaline casts and occasional urinary mucus. Influenza studies were both negative. MEDICATIONS: Reviewed. From the pulmonary standpoint, she is on Zithromax and Rocephin as antibiotics. That is appropriate. She is on DuoNeb updrafts and that is appropriate. She is getting prednisone 40 mg a day. I will add some Symbicort 160/4.5 two puffs twice a day. ASSESSMENT: 1. Left-sided pneumonia in a patient with mild chronic obstructive pulmonary disease exacerbation. 2. History of chronic obstructive pulmonary disease. 3. Mental status changes of unclear etiology. If not already done, drug screen should be done. 4. History of cerebrovascular accident. 5. Diabetes mellitus. 6. Fibromyalgia. 7. Hyperlipidemia. 8. History of hypertension. 9. History of degenerative joint disease. 10.History of pulmonary embolism. 11.History of recurrent cellulitis and soft tissue infection. 12.History of migraine cephalgia. 13.History of urinary stress incontinence. PLAN: The patient will have Symbicort added to her regimen. No additional recommendations are made. We will also do a drug screen. Will continue to follow closely. Her mental status changes are concerning. Will continue to watch closely and make additional recommendations where appropriate. MMODL / IJN: [id number] /
[2018-03-19 17:12] LABS: Hemoglobin A1C 6.9 % (4.0-6.0)
[2018-03-19] MEDS: SYMBICORT 160-4.5 MCG INHALER INHALATION SCH (19:31)
[2018-03-19 20:27] LABS: Glucose,Whole Blood 167 mg/dL (75-99)
[2018-03-19] MEDS: MONTELUKAST 10 MG TAB PO SCH (21:22)
[2018-03-19] MEDS: ATORVASTATIN 10 MG TAB PO SCH (21:22)
[2018-03-19] MEDS: ACETAMINOPHEN TAB 500 MG TAB PO PRN (23:30)
[2018-03-20 02:47] LABS: Urine Alcohol Negative (Negative); Urine Barbiturate Positive (Negative); Urine Cocaine Negative (Negative); Urine Methadone Negative (Negative); Urine Opiates Negative (Negative); Urine Phencyclidine Negative (Negative)
[2018-03-20] MEDS: SODIUM CHLORIDE 0.9% 1,000 ML IV SCH ×2 (05:22→17:48)
[2018-03-20 07:04] LABS: Glucose,Whole Blood 126 mg/dL (75-99)
[2018-03-20 07:51] LABS: Basophils % (A) 0 %; Eosinophils # (A) 0.1 k/uL (0-0.7); Eosinophils % (A) 1 %; HCT 33.3 % (34.0-46.0); HGB 10.4 gm/dL (11.4-16.0); Hypochromasia Slight; Lymphocytes # (A) 1.7 k/uL (1.0-4.8); Lymphocytes % (A) 26 %; MCH 27.7 pg (25.0-35.0); MCHC 31.1 g/dL (31.0-37.0); MCV 89.1 fL (80.0-100.0); Mean Platelet Volume 6.4; Monocytes # (A) 0.4 k/uL (0-1.0); Monocytes % (A) 5 %; Neutrophils # (A) 4.1 k/uL (1.3-7.7); Neutrophils % (A) 64 %; Platelet Count 261 k/uL (150-450); RBC 3.74 m/uL (3.80-5.40); RDW 15.3 % (11.5-15.5); WBC 6.4 k/uL (3.8-10.6)
[2018-03-20] MEDS: INSULIN ASPART 100 UNIT/ML 1 ML 10 ML VIAL SQ SCH ×4 (07:54→20:27)
[2018-03-20 07:55] LABS: Anion Gap 6 mmol/L; Blood Urea Nitrogen 28 mg/dL (7-17); Carbon Dioxide 26 mmol/L (22-30); Chloride 108 mmol/L (98-107); Glucose 114 mg/dL (74-99); Potassium 4.5 mmol/L (3.5-5.1); Sodium 140 mmol/L (137-145)
[2018-03-20] MEDS ORDERED: AZITHROMYCIN 500 MG in SODIUM CHLORIDE 0.9% 250 ML IVPB SCH (09:00)
[2018-03-20] MEDS: DULoxetine HCL 60 MG CAPSULE.DR PO SCH (09:13)
[2018-03-20] MEDS: GABAPENTIN 300 MG CAP PO SCH ×3 (09:13→21:08)
[2018-03-20] MEDS: APIXABAN 5 MG TAB PO SCH ×2 (09:13→20:27)
[2018-03-20] MEDS: guaiFENesin 600 MG TABLET.ER PO SCH ×2 (09:13→20:26)
[2018-03-20] MEDS: predniSONE 20 MG TAB PO SCH (09:13)
[2018-03-20] MEDS: SYMBICORT 160-4.5 MCG INHALER INHALATION SCH ×2 (09:16→19:28)
[2018-03-20] MEDS: FAMOTIDINE 20 MG TAB PO SCH (09:16)
[2018-03-20] MEDS: METOPROLOL TARTRATE 25 MG TAB PO SCH ×2 (09:16→20:26)
[2018-03-20] MEDS: traMADol 50 MG TAB PO PRN ×2 (10:04→21:08)
[2018-03-20 11:21] LABS: Glucose,Whole Blood 149 mg/dL (75-99)
--- NOTE | 2018-03-20 13:50 | P.PN ---
Subjective This is a 62-year-old white female patient well-known to me. She has a history of COPD. She is a former smoker and has schizophrenia type mental illness. She is somewhat slow but awake during my exam today. From her ER history, she been having emesis multiple episodes over the past several days that were nonbloody bilious. She was not eating or drinking anything. She had been sleeping heavily during these episodes. She had some abnormal breath sounds and her and brought emergency room. This morning she is somnolent but awake she is eating slowly, her mental status seems consistent with my previous visits for her, and is due to long use of antipsychotics. She denies any chest pains or pressures this time denies any shortness of breath, no nausea or vomiting recently. She denies any recent bowel movement in several days. 03/20/2018: Patient is feeling a bit better today. She reports that she doesn' t have any significant chest pain or pressure. She does feel short of breath, but it is improved. She is coughing and asked about some Robitussin. We discussed that she is currently taking long-acting guaifenesin tablets at this time. She is tolerating regular diet and was eating right immediately before my exam. She denies a recent bowel movement was urinating normally. Pulmonology it seen her due to her pneumonia, history of COPD and multiple pulmonary embolism. The recommendations were reviewed. She remains on Rocephin and azithromycin. Anticoagulation for Elequis. [facility]. She remains on oxygen at 3 L/m via nasal cannula. Objective - Vital Signs Vital signs: Vital Signs Temp 98.2 F 03/20/18 04:51 Pulse 63 03/20/18 12:35 Resp 16 03/20/18 12:35 BP 148/89 03/20/18 12:35 Pulse Ox 97 03/20/18 12:35 Intake & Output 03/19/18 03/20/18 03/20/18 18:59 06:59 18:59 Intake Total 800 1600 Output Total 1000 400 Balance -200 1200 Intake: Intake, IV Titration 800 1600 Amount Sodium Chloride 0.9% 1, 800 1600 000 ml @ 100 mls/hr IV . Q10H [facility] Rx#:[id number] Output: Urine 1000 400 Uretheral (Vergara) 1000 400 Other: Voiding Method Indwelling Catheter Indwelling Catheter Indwelling Catheter - Exam GENERAL: Somnolent, dehydrated and in no acute distress. NECK: Normal range of motion, supple without lymphadenopathy or JVD, no thyromegaly LUNGS: Breath sounds coarse with rhonchi greater on the left than the right. There is intermittent inspiratory wheezes noted. No rales. HEART: Regular rate and rhythm without murmurs, rubs or gallops.S1S2 Normal ABDOMEN: Soft, nontender, normoactive bowel sounds. No guarding, no rebound. No masses appreciated. EXTREMITIES: Normal range of motion, no pitting or edema. No clubbing or cyanosis. NEUROLOGICAL: Cranial nerves II through XII grossly intact. Slowed speech, PSYCH: Normal mood, somewhat flat affect, but this is consistent with her baseline. SKIN: Warm, Dry, normal turgor, no rashes or lesions noted. - Labs CBC & Chem 7: 03/20/18 06:38 03/20/18 06:38 Labs: Abnormal Lab Results - Last 24 Hours (Table) 03/19/18 03/19/18 03/19/18 Range/Units 07:20 16:20 16:45 RBC (3.80-5.40) m/uL Hgb (11.4-16.0) gm/dL Hct (34.0-46.0) % Chloride (98-107) mmol/L BUN (7-17) mg/dL Glucose (74-99) mg/dL POC Glucose (mg/dL) 145 H (75-99) mg/dL Hemoglobin A1c 6.9 H (4.0-6.0) % Urine Barbiturates Positive H (Negative) ng/mL 03/19/18 03/19/18 03/20/18 Range/Units 17:06 20:25 06:38 RBC 3.74 L (3.80-5.40) m/uL Hgb 10.4 L (11.4-16.0) gm/dL Hct 33.3 L (34.0-46.0) % Chloride (98-107) mmol/L BUN (7-17) mg/dL Glucose (74-99) mg/dL POC Glucose (mg/dL) 153 H 167 H (75-99) mg/dL Hemoglobin A1c (4.0-6.0) % Urine Barbiturates (Negative) ng/mL 03/20/18 03/20/18 03/20/18 Range/Units 06:38 07:02 11:19 RBC (3.80-5.40) m/uL Hgb (11.4-16.0) gm/dL Hct (34.0-46.0) % Chloride 108 H (98-107) mmol/L BUN 28 H (7-17) mg/dL Glucose 114 H (74-99) mg/dL POC Glucose (mg/dL) 126 H 149 H (75-99) mg/dL Hemoglobin A1c (4.0-6.0) % Urine Barbiturates (Negative) ng/mL Microbiology - Last 24 Hours (Table) 03/19/18 00:21 Blood Culture - Preliminary Blood No Growth after 24 hours Assessment and Plan (1) Community acquired pneumonia Current Visit: Yes Status: Acute Code(s): J18.9 - PNEUMONIA, UNSPECIFIED ORGANISM SNOMED Code(s): 248652522 (2) History of pulmonary embolism Current Visit: Yes Status: Chronic Code(s): Z86.711 - PERSONAL HISTORY OF PULMONARY EMBOLISM SNOMED Code(s): 533527871 (3) Acute renal failure Current Visit: Yes Status: Acute Code(s): N17.9 - ACUTE KIDNEY FAILURE, UNSPECIFIED SNOMED Code(s): 34900669 (4) Acute kidney injury Current Visit: Yes Status: Acute Code(s): N17.9 - ACUTE KIDNEY FAILURE, UNSPECIFIED SNOMED Code(s): 79568373 (5) Dehydration Current Visit: Yes Status: Acute Code(s): E86.0 - DEHYDRATION SNOMED Code( s): 43389215 (6) COPD (chronic obstructive pulmonary disease) Current Visit: Yes Status: Chronic Code(s): J44.9 - CHRONIC OBSTRUCTIVE PULMONARY DISEASE, UNSPECIFIED SNOMED Code(s): 77002903 (7) Anemia Current Visit: Yes Status: Acute Code(s): D64.9 - ANEMIA, UNSPECIFIED SNOMED Code(s): 770664811 Plan: She will continue on azithromycin and Rocephin for antibiotics. She will continue on Elequis red granulation. She'll remain on DuoNeb updrafts. Mouth she added Symbicort which she'll continue on. She'll continue oxygen to keep her sats above 92% room air. She has prednisone ordered along with NovoLog scale controlled diabetes. Accu-Cheks were reviewed today. She'll continue on guaifenesin for expectorant She'll be reevaluated next 24 hours. We'll wait on further consult recommendations. Repeat labs in a.m.
--- NOTE | 2018-03-20 14:55 | P.PN ---
Subjective Progress Note Date: 03/20/18 Principal diagnosis: Dyspnea secondary to left-sided pneumonia. The patient is seen today 03/20/2017 in follow-up on the regular medical floor. She is currently awake and alert in no acute distress. Alert today compared to yesterday. Still somewhat bronchospastic and wheezy. Maintaining O2 saturations in the 90s on room air. She's been afebrile. Hemodynamically stable. White count 6.0. Hemoglobin 10.4. Creatinine 0.77. She is currently on bronchodilators, Symbicort, Singulair and prednisone. Empiric antibiotics in the form of ceftriaxone. Objective - Vital Signs Vital signs: Vital Signs Temp 98.2 F 03/20/18 04:51 Pulse 63 03/20/18 12:35 Resp 16 03/20/18 12:35 BP 148/89 03/20/18 12:35 Pulse Ox 97 03/20/18 12:35 Intake & Output 03/19/18 03/20/18 03/20/18 18:59 06:59 18:59 Intake Total 800 1600 900 Output Total 1000 400 Balance -200 1200 900 Intake: Intake, IV Titration 800 1600 900 Amount Azithromycin 500 mg In 250 Sodium Chloride 0.9% 250 ml @ 250 mls/hr IVPB DAILY [facility] Rx#:[id number] Sodium Chloride 0.9% 1, 800 1600 600 000 ml @ 100 mls/hr IV . Q10H [facility] Rx#:[id number] cefTRIAXone 1,000 mg In 50 Sodium Chloride 0.9% 50 ml @ 100 mls/hr IVPB Q24HR [facility] Rx#:[id number] Output: Urine 1000 400 Uretheral (Vergara) 1000 400 Other: Voiding Method Indwelling Catheter Indwelling Catheter Indwelling Catheter - Exam GENERAL EXAM: Alert, active, comfortable in no apparent distress. On room air. HEAD: Normocephalic. EYES: Normal reaction of pupils, equal size. NOSE: Clear with pink turbinates. THROAT: No erythema or exudates. NECK: No masses, no JVD. CHEST: No chest wall deformity. LUNGS: Equal air entry with lateral end expiratory wheeze, crackles in left base. CVS: S1 and S2 normal with no audible murmur, regular rhythm. ABDOMEN: No hepatosplenomegaly, normal bowel sounds, no guarding or rigidity. SPINE: No scoliosis or deformity SKIN: No rashes CENTRAL NERVOUS SYSTEM: No focal deficits, tone is normal in all 4 extremities. EXTREMITIES: There is no peripheral edema. No clubbing, no cyanosis. Peripheral pulses are intact. - Labs CBC & Chem 7: 03/20/18 06:38 03/20/18 06:38 Labs: Abnormal Lab Results - Last 24 Hours (Table) 03/19/18 03/19/18 03/19/18 Range/Units 07:20 16:20 16:45 RBC (3.80-5.40) m/uL Hgb (11.4-16.0) gm/dL Hct (34.0-46.0) % Chloride (98-107) mmol/L BUN (7-17) mg/dL Glucose (74-99) mg/dL POC Glucose (mg/dL) 145 H (75-99) mg/dL Hemoglobin A1c 6.9 H (4.0-6.0) % Urine Barbiturates Positive H (Negative) ng/mL 03/19/18 03/19/18 03/20/18 Range/Units 17:06 20:25 06:38 RBC 3.74 L (3.80-5.40) m/uL Hgb 10.4 L (11.4-16.0) gm/dL Hct 33.3 L (34.0-46.0) % Chloride (98-107) mmol/L BUN (7-17) mg/dL Glucose (74-99) mg/dL POC Glucose (mg/dL) 153 H 167 H (75-99) mg/dL Hemoglobin A1c (4.0-6.0) % Urine Barbiturates (Negative) ng/mL 03/20/18 03/20/18 03/20/18 Range/Units 06:38 07:02 11:19 RBC (3.80-5.40) m/uL Hgb (11.4-16.0) gm/dL Hct (34.0-46.0) % Chloride 108 H (98-107) mmol/L BUN 28 H (7-17) mg/dL Glucose 114 H (74-99) mg/dL POC Glucose (mg/dL) 126 H 149 H (75-99) mg/dL Hemoglobin A1c (4.0-6.0) % Urine Barbiturates (Negative) ng/mL Microbiology - Last 24 Hours (Table) 03/19/18 00:21 Blood Culture - Preliminary Blood No Growth after 24 hours Assessment and Plan Assessment: Impression: #1 Acute hypoxic respiratory failure secondary to left-sided pneumonia with mild chronic obstructive pulmonary disease exacerbation. #2 History of chronic obstructive pulmonary disease. #3 Altered mental status of unclear etiology. Drug screen positive for barbiturates. #4 History of CVA. #5 Diabetes mellitus. #6 Fibromyalgia. #7 Hyperlipidemia. #8 Hypertension. #9 Degenerative joint disease. #10 History of pulmonary embolism. #11 History of recurrent cellulitis and soft tissue infections. #12 History of migraines. #13 History of urinary stress incontinence. Plan: The patient was seen and evaluated by Dr. Crews. We'll continue with the current treatment plan for now. Continue DuoNeb inhalations, Symbicort, prednisone, Singulair. She is on antibiotics in the form of ceftriaxone. Increase her activity as tolerated. We'll continue to follow. I, the cosigning physician, performed a history & physical examination of the patient. Lungs sounds crackles in left posterior base. Maintaining good O2 saturations in the 90s on 3 L/m per nasal cannula. I discussed the assessment and plan of care with my nurse practitioner, Flor Marsh. I attest to the above note as dictated by her.
[2018-03-20 16:54] LABS: Glucose,Whole Blood 206 mg/dL (75-99)
[2018-03-20 20:18] LABS: Glucose,Whole Blood 174 mg/dL (75-99)
[2018-03-20] MEDS: MONTELUKAST 10 MG TAB PO SCH (20:26)
[2018-03-20] MEDS: ATORVASTATIN 10 MG TAB PO SCH (20:26)
[2018-03-21] MEDS: SODIUM CHLORIDE 0.9% 1,000 ML IV SCH ×3 (04:40→12:12)
[2018-03-21] MEDS: traMADol 50 MG TAB PO PRN ×2 (04:41→21:13)
[2018-03-21 06:54] LABS: Glucose,Whole Blood 93 mg/dL (75-99)
[2018-03-21] MEDS: INSULIN ASPART 100 UNIT/ML 1 ML 10 ML VIAL SQ SCH ×4 (07:28→21:14)
[2018-03-21 07:48] LABS: Basophils % (A) 0 %; Eosinophils % (A) 1 %; HCT 34.2 % (34.0-46.0); HGB 10.6 gm/dL (11.4-16.0); Lymphocytes # (A) 2.2 k/uL (1.0-4.8); Lymphocytes % (A) 26 %; MCH 27.3 pg (25.0-35.0); MCHC 31.1 g/dL (31.0-37.0); MCV 87.8 fL (80.0-100.0); Monocytes # (A) 0.4 k/uL (0-1.0); Monocytes % (A) 5 %; Neutrophils # (A) 5.7 k/uL (1.3-7.7); Neutrophils % (A) 66 %; Platelet Count 276 k/uL (150-450); RBC 3.89 m/uL (3.80-5.40); RDW 15.1 % (11.5-15.5); WBC 8.6 k/uL (3.8-10.6)
[2018-03-21] MEDS: APIXABAN 5 MG TAB PO SCH ×2 (07:48→21:13)
[2018-03-21] MEDS: predniSONE 20 MG TAB PO SCH (07:48)
[2018-03-21] MEDS: GABAPENTIN 300 MG CAP PO SCH ×3 (07:48→21:13)
[2018-03-21] MEDS: METOPROLOL TARTRATE 25 MG TAB PO SCH ×2 (07:49→16:50)
[2018-03-21] MEDS: FAMOTIDINE 20 MG TAB PO SCH (07:49)
[2018-03-21] MEDS: guaiFENesin 600 MG TABLET.ER PO SCH ×2 (07:49→21:13)
[2018-03-21] MEDS: DULoxetine HCL 60 MG CAPSULE.DR PO SCH (07:49)
[2018-03-21] MEDS: AZITHROMYCIN 500 MG TAB PO SCH (07:49)
[2018-03-21 08:07] LABS: Anion Gap 4 mmol/L; Blood Urea Nitrogen 18 mg/dL (7-17); Carbon Dioxide 28 mmol/L (22-30); Chloride 108 mmol/L (98-107); Glucose 101 mg/dL (74-99); Magnesium 1.7 mg/dL (1.6-2.3); Potassium 3.7 mmol/L (3.5-5.1); Sodium 140 mmol/L (137-145)
[2018-03-21] MEDS: SYMBICORT 160-4.5 MCG INHALER INHALATION SCH ×2 (09:14→20:25)
[2018-03-21 11:19] LABS: Glucose,Whole Blood 142 mg/dL (75-99)
--- NOTE | 2018-03-21 11:27 | P.PN ---
Subjective This is a 62-year-old white female patient well-known to me. She has a history of COPD. She is a former smoker and has schizophrenia type mental illness. She is somewhat slow but awake during my exam today. From her ER history, she been having emesis multiple episodes over the past several days that were nonbloody bilious. She was not eating or drinking anything. She had been sleeping heavily during these episodes. She had some abnormal breath sounds and her and brought emergency room. This morning she is somnolent but awake she is eating slowly, her mental status seems consistent with my previous visits for her, and is due to long use of antipsychotics. She denies any chest pains or pressures this time denies any shortness of breath, no nausea or vomiting recently. She denies any recent bowel movement in several days. 03/20/2018: Patient is feeling a bit better today. She reports that she doesn' t have any significant chest pain or pressure. She does feel short of breath, but it is improved. She is coughing and asked about some Robitussin. We discussed that she is currently taking long-acting guaifenesin tablets at this time. She is tolerating regular diet and was eating right immediately before my exam. She denies a recent bowel movement was urinating normally. Pulmonology it seen her due to her pneumonia, history of COPD and multiple pulmonary embolism. The recommendations were reviewed. She remains on Rocephin and azithromycin. Anticoagulation for Elequis. DuoNeb updrafts. She remains on oxygen at 3 L/m via nasal cannula. 03/21/2018: Patient is complaining of no bowel movement since Sunday. We will start her on MiraLAX this time. She denies any chest pains, pressures. She does have shortness of breath with exertion but not at rest. It is improved. She reports some productive coughing. She is on guaifenesin long-acting for this. She remains on Rocephin, azithromycin, anticoagulation with Elequis, DuoNeb updrafts, and oxygen at standby at this time. She is tolerating her diet. Pulmonology consult and recommendations noted. Her kidney function as of now returned normal. Her white blood cell count is now returned to normal. Objective - Vital Signs Vital signs: Vital Signs Temp 97.7 F 03/21/18 05:00 Pulse 90 03/21/18 05:00 Resp 18 03/21/18 05:00 BP 160/92 03/21/18 05:24 Pulse Ox 95 03/21/18 05:00 Intake & Output 03/20/18 03/21/18 03/21/18 18:59 06:59 18:59 Intake Total 900 1600 Output Total 2400 3200 Balance 900 -800 -3200 Intake: Intake, IV Titration 900 1600 Amount Azithromycin 500 mg In 250 Sodium Chloride 0.9% 250 ml @ 250 mls/hr IVPB DAILY [facility] Rx#:[id number] Sodium Chloride 0.9% 1, 600 1600 000 ml @ 100 mls/hr IV . Q10H [facility] Rx#:[id number] cefTRIAXone 1,000 mg In 50 Sodium Chloride 0.9% 50 ml @ 100 mls/hr IVPB Q24HR [facility] Rx#:[id number] Output: Urine 2400 3200 Uretheral (Vergara) 2400 Other: Voiding Method Indwelling Catheter Indwelling Catheter Indwelling Catheter # Voids 1 - Exam GENERAL: Somnolent, dehydrated and in no acute distress. NECK: Normal range of motion, supple without lymphadenopathy or JVD, no thyromegaly LUNGS: Breath sounds coarse with rhonchi greater on the left than the right. There is intermittent inspiratory wheezes noted. No rales. Lung sounds seemed minimally improved from 1 day ago HEART: Regular rate and rhythm without murmurs, rubs or gallops.S1S2 Normal ABDOMEN: Soft, nontender, normoactive bowel sounds. No guarding, no rebound. No masses appreciated. EXTREMITIES: Normal range of motion, no pitting or edema. No clubbing or cyanosis. NEUROLOGICAL: Cranial nerves II through XII grossly intact. Slowed speech, PSYCH: Normal mood, somewhat flat affect, but this is consistent with her baseline. SKIN: Warm, Dry, normal turgor, no rashes or lesions noted. - Labs CBC & Chem 7: 03/21/18 07:23 03/21/18 07:23 Labs: Abnormal Lab Results - Last 24 Hours (Table) 03/20/18 03/20/18 03/21/18 Range/Units 16:53 20:16 07:23 Hgb 10.6 L (11.4-16.0) gm/dL Chloride (98-107) mmol/L BUN (7-17) mg/dL Glucose (74-99) mg/dL POC Glucose (mg/dL) 206 H 174 H (75-99) mg/dL 03/21/18 03/21/18 Range/Units 07:23 11:18 Hgb (11.4-16.0) gm/dL Chloride 108 H (98-107) mmol/L BUN 18 H (7-17) mg/dL Glucose 101 H (74-99) mg/dL POC Glucose (mg/dL) 142 H (75-99) mg/dL Microbiology - Last 24 Hours (Table) 03/19/18 00:21 Blood Culture - Preliminary Blood No Growth after 48 hours Assessment and Plan (1) Community acquired pneumonia Current Visit: Yes Status: Acute Code(s): J18.9 - PNEUMONIA, UNSPECIFIED ORGANISM SNOMED Code(s): 607323557 (2) History of pulmonary embolism Current Visit: Yes Status: Chronic Code(s): Z86.711 - PERSONAL HISTORY OF PULMONARY EMBOLISM SNOMED Code(s): 668293987 (3) Acute renal failure Current Visit: Yes Status: Acute Code(s): N17.9 - ACUTE KIDNEY FAILURE, UNSPECIFIED SNOMED Code(s): 93550958 (4) Acute kidney injury Current Visit: Yes Status: Acute Code(s): N17.9 - ACUTE KIDNEY FAILURE, UNSPECIFIED SNOMED Code(s): 90830061 (5) Dehydration Current Visit: Yes Status: Acute Code(s): E86.0 - DEHYDRATION SNOMED Code( s): 97936117 (6) COPD (chronic obstructive pulmonary disease) Current Visit: Yes Status: Chronic Code(s): J44.9 - CHRONIC OBSTRUCTIVE PULMONARY DISEASE, UNSPECIFIED SNOMED Code(s): 89048170 (7) Anemia Current Visit: Yes Status: Acute Code(s): D64.9 - ANEMIA, UNSPECIFIED SNOMED Code(s): 049206022 Plan: She will continue on azithromycin and Rocephin for antibiotics. She will continue on Elequis or anticoagulation. She'll remain on DuoNeb updrafts. And Symbicort She'll continue oxygen to keep her sats above 92% room air. Currently it is on standby. She has prednisone ordered along with NovoLog scale controlled diabetes. Accu-Cheks were reviewed today. She'll continue on guaifenesin for expectorant She'll be reevaluated next 24 hours. I will add MiraLAX to her regimen We'll wait on further consult recommendations. Repeat labs in a.m. Possible discharge in the next 24-48 hours
[2018-03-21] MEDS: POLYETHYLENE GLYCOL 3350 17 GM POWD.PACK PO SCH (12:12)
[2018-03-21] MEDS ORDERED: LISINOPRIL 10 MG TAB PO STA (12:21)
--- NOTE | 2018-03-21 13:30 | P.PN ---
Subjective Progress Note Date: 03/21/18 Principal diagnosis: Dyspnea secondary to left-sided pneumonia. The patient is seen today 03/21/2017 in follow-up for her COPD exacerbation. He is currently awake and alert in no acute distress. Resting fairly comfortably in bed. She is maintaining O2 saturations in the 90s on 2 L/m per nasal cannula. She's been afebrile. Hypertensive. A culture reveals no growth to date. White count 8.6. Hemoglobin 10.6. Creatinine 0.63. She remains on antibiotics, bronchodilators, steroids. Objective - Vital Signs Vital signs: Vital Signs Temp 97.9 F 03/21/18 11:54 Pulse 69 03/21/18 11:54 Resp 17 03/21/18 11:54 BP 192/114 03/21/18 12:09 Pulse Ox 94 L 03/21/18 11:54 Intake & Output 03/20/18 03/21/18 03/21/18 18:59 06:59 18:59 Intake Total 900 1600 Output Total 2400 3200 Balance 900 -800 -3200 Intake: Intake, IV Titration 900 1600 Amount Azithromycin 500 mg In 250 Sodium Chloride 0.9% 250 ml @ 250 mls/hr IVPB DAILY JUAN DAVID Rx#:[id number] Sodium Chloride 0.9% 1, 600 1600 000 ml @ 100 mls/hr IV . Q10H JUAN DAVID Rx#:[id number] cefTRIAXone 1,000 mg In 50 Sodium Chloride 0.9% 50 ml @ 100 mls/hr IVPB Q24HR JUAN DAVID Rx#:[id number] Output: Urine 2400 3200 Uretheral (Vergara) 2400 Other: Voiding Method Indwelling Catheter Indwelling Catheter Indwelling Catheter # Voids 1 - Exam GENERAL EXAM: Alert, active, comfortable in no apparent distress. On 2 liters per minute per nasal cannula. HEAD: Normocephalic. EYES: Normal reaction of pupils, equal size. NOSE: Clear with pink turbinates. THROAT: No erythema or exudates. NECK: No masses, no JVD. CHEST: No chest wall deformity. LUNGS: Equal air entry with lateral end expiratory wheeze, crackles in left base. CVS: S1 and S2 normal with no audible murmur, regular rhythm. ABDOMEN: No hepatosplenomegaly, normal bowel sounds, no guarding or rigidity. SPINE: No scoliosis or deformity SKIN: No rashes CENTRAL NERVOUS SYSTEM: No focal deficits, tone is normal in all 4 extremities. EXTREMITIES: There is no peripheral edema. No clubbing, no cyanosis. Peripheral pulses are intact. - Labs CBC & Chem 7: 03/21/18 07:23 03/21/18 07:23 Labs: Abnormal Lab Results - Last 24 Hours (Table) 03/20/18 03/20/18 03/21/18 Range/Units 16:53 20:16 07:23 Hgb 10.6 L (11.4-16.0) gm/dL Chloride (98-107) mmol/L BUN (7-17) mg/dL Glucose (74-99) mg/dL POC Glucose (mg/dL) 206 H 174 H (75-99) mg/dL 03/21/18 03/21/18 Range/Units 07:23 11:18 Hgb (11.4-16.0) gm/dL Chloride 108 H (98-107) mmol/L BUN 18 H (7-17) mg/dL Glucose 101 H (74-99) mg/dL POC Glucose (mg/dL) 142 H (75-99) mg/dL Microbiology - Last 24 Hours (Table) 03/19/18 00:21 Blood Culture - Preliminary Blood No Growth after 48 hours Assessment and Plan Assessment: Impression: #1 Acute hypoxic respiratory failure secondary to left-sided pneumonia with mild chronic obstructive pulmonary disease exacerbation. #2 History of chronic obstructive pulmonary disease. #3 Altered mental status of unclear etiology. Drug screen positive for barbiturates. #4 History of CVA. #5 Diabetes mellitus. #6 Fibromyalgia. #7 Hyperlipidemia. #8 Hypertension. #9 Degenerative joint disease. #10 History of pulmonary embolism. #11 History of recurrent cellulitis and soft tissue infections. #12 History of migraines. #13 History of urinary stress incontinence. Plan: The patient was seen and evaluated by Dr. Crews. She has been slow to progress. Perhaps discharge in the morning. Continue DuoNeb inhalations, Symbicort, prednisone, Singulair. She is on antibiotics in the form of ceftriaxone. Increase her activity as tolerated. We'll continue to follow. I, the cosigning physician, performed a history & physical examination of the patient. Lungs sounds crackles in left posterior base. Maintaining good O2 saturations in the 90s on 2 L/m per nasal cannula. I discussed the assessment and plan of care with my nurse practitioner, Flor Marsh. I attest to the above note as dictated by her.
--- NOTE | 2018-03-21 13:54 | CDI ---
Documentation Clarification Form Date: 03/21/2018 1:42:37 PM From: Laurie Lira RN, CCDS Admit Date: 03/19/2018 2:10:00 AM Patient Name: Shari Tabares Visit Number: [id number] ATTENTION: The Clinical Documentation Specialists (CDI) and [facility] Coding Staff appreciate your assistance in clarifying documentation. Please respond to the clarification below the line at the bottom and electronically sign. The CDI & [facility] Coding staff will review the response and follow-up if needed. Please note: Queries are made part of the Legal Health Record. If you have any questions, please contact the author of this message via ITS. Dr. Farzad Hartley Altered Mental Status was documented in the H&P and progress notes and requires further specificity. History/Risk Factors: CECIL, CAP, Dehydration all this admission Clinical Indicators: 03/20 Attending Progress Note: "Altered mental status of unclear etiology. " Labs: WBC 13.3/11.9, BUN 40/39, Cr 2.2/1.91 U/A:+ CXR:"New patchy infiltrate in the left lung consistent with pneumonia." Treatment: Zithromax 500mg IVPB QD Ceftriaxone 1gm IVPB q 24 hrs 2.5L IVF Bolus In your professional opinion, please clarify the etiology of the Altered Mental Status, if known. --->Encephalopathy (specify Type- Metabolic, Toxic, Etc and Underlying Medical Illness) Other condition (please specify) Unable to determine (Last Revision: May 2017) MTDD
--- NOTE | 2018-03-21 14:15 | CDI ---
Documentation Clarification Form Date: 03/21/2018 1:58:41 PM From: Laurie Lira RN, CCDS Admit Date: 03/19/2018 2:10:00 AM Patient Name: Shari Tabares Visit Number: [id number] ATTENTION: The Clinical Documentation Specialists (CDI) and [facility] Coding Staff appreciate your assistance in clarifying documentation. Please respond to the clarification below the line at the bottom and electronically sign. The CDI & [facility] Coding staff will review the response and follow-up if needed. Please note: Queries are made part of the Legal Health Record. If you have any questions, please contact the author of this message via ITS. Dr. Farzad Hartley A diagnosis of anemia is documented in your 03/20 and 03/21 progress notes and lacks specificity to accurately reflect your patients severity of condition and clarification is needed. History/Risk Factors: Asthma, COPD, Dm II, Fibromyalgia, Hyperlipidemia, HTN Clinical indicators: Hemoglobin: 13/12.2/10.4/10.6 Hematocrit: 39.8/38.3/33.3/34.2 Treatment: Lab Monitoring Eliquis 5 mg Po BID 2.5L IVF Bolus, followed by 100cc/hr decreased to KVO In order to capture the severity of condition, please clarify the type of anemia and etiology if known: Acute on chronic blood loss anemia Chronic blood loss anemia Iron deficiency anemia Drug induced anemia Anemia due to malignancy Nutritional anemia Anemia of chronic disease Unable to determine Other, please specify (Last Revision: November 2016) MTDD
[2018-03-21 16:48] LABS: Glucose,Whole Blood 184 mg/dL (75-99)
[2018-03-21] MEDS: hydrALAZINE HCL 25 MG TAB PO SCH ×2 (17:37→23:08)
[2018-03-21 20:34] LABS: Glucose,Whole Blood 155 mg/dL (75-99)
[2018-03-21] MEDS: ATORVASTATIN 10 MG TAB PO SCH (21:12)
[2018-03-21] MEDS: VERAPAMIL SR 120 MG TABLET.ER PO SCH (21:12)
[2018-03-21] MEDS: LISINOPRIL 20 MG TAB PO SCH (21:13)
[2018-03-21] MEDS: MONTELUKAST 10 MG TAB PO SCH (21:14)
[2018-03-22] MEDS: hydrALAZINE HCL 25 MG TAB PO SCH ×4 (05:41→22:54)
[2018-03-22 07:01] LABS: Glucose,Whole Blood 91 mg/dL (75-99)
[2018-03-22] MEDS: SYMBICORT 160-4.5 MCG INHALER INHALATION SCH ×2 (07:17→19:33)
[2018-03-22] MEDS: INSULIN ASPART 100 UNIT/ML 1 ML 10 ML VIAL SQ SCH ×4 (07:36→21:13)
--- NOTE | 2018-03-22 07:47 | XR ---
EXAMINATION TYPE: XR chest 2V DATE OF EXAM: 03/22/2018 COMPARISON: Prior chest x-ray 03/19/2018 HISTORY: Pneumonia TECHNIQUE: Frontal and lateral views of the chest are obtained. FINDINGS: Patient is rotated. Aorta is dense. Thoracic cord stimulator is overlying appropriate posit ion and stable. There are cardiac leads. There is no focal air space opacity, pleural effusion, or pn eumothorax seen. The cardiac silhouette size is within normal limits. The osseous structures are i ntact. IMPRESSION: No acute cardiopulmonary process. There is improved aeration.
[2018-03-22 08:44] LABS: Anion Gap 8 mmol/L; Blood Urea Nitrogen 14 mg/dL (7-17); Calcium 9.3 mg/dL (8.4-10.2); Carbon Dioxide 29 mmol/L (22-30); Chloride 104 mmol/L (98-107); Glucose 95 mg/dL (74-99); Potassium 3.7 mmol/L (3.5-5.1); Sodium 141 mmol/L (137-145)
[2018-03-22] MEDS: AZITHROMYCIN 500 MG TAB PO SCH (09:30)
[2018-03-22] MEDS: APIXABAN 5 MG TAB PO SCH ×2 (09:30→21:12)
[2018-03-22] MEDS: GABAPENTIN 300 MG CAP PO SCH ×3 (09:31→21:10)
[2018-03-22] MEDS: DULoxetine HCL 60 MG CAPSULE.DR PO SCH (09:31)
[2018-03-22] MEDS: METOPROLOL TARTRATE 25 MG TAB PO SCH (09:31)
[2018-03-22] MEDS: LISINOPRIL 20 MG TAB PO SCH ×2 (09:31→21:12)
[2018-03-22] MEDS: FAMOTIDINE 20 MG TAB PO SCH (09:31)
[2018-03-22] MEDS: guaiFENesin 600 MG TABLET.ER PO SCH ×2 (09:31→21:12)
[2018-03-22] MEDS: predniSONE 20 MG TAB PO SCH (09:33)
[2018-03-22] MEDS: VERAPAMIL SR 120 MG TABLET.ER PO SCH (09:33)
[2018-03-22] MEDS: POLYETHYLENE GLYCOL 3350 17 GM POWD.PACK PO SCH (09:33)
--- NOTE | 2018-03-22 11:25 | CDI ---
Documentation Clarification Form Date: 03/21/2018 1:58:00 PM From: Laurie Lira RN, CCS Admit Date: 03/19/2018 2:10:00 AM Patient Name: Shari Tabares Visit Number: [id number] Discharge Date: ATTENTION: The Clinical Documentation Specialists (CDI) and [facility] Coding Staff appreciate your assistance in clarifying documentation. Please respond to the clarification below the line at the bottom and electronically sign. The CDI & [facility] Coding staff will review the response and follow-up if needed. Please note: Queries are made part of the Legal Health Record. If you have any questions, please contact the author of this message via ITS. Dr. Farzad Hartley: A diagnosis of anemia is documented in your 03/20 and 03/21 progress notes and lacks specificity to accurately reflect your patients severity of condition and clarification is needed. History/Risk Factors: Clinical indicators: Hemoglobin: 13/12.2/10.4/10.6 Hematocrit: 39.8/38.3/33.3/34.2 Treatment: Lab Monitoring Eliquis 5 mg Po BID 2.5L IVF Bolus, followed by 100cc/hr decreased to KVO In order to capture the severity of condition, please clarify the type of anemia and etiology if known: Acute blood loss anemia Acute on chronic blood loss anemia Chronic blood loss anemia Iron deficiency anemia Hemolytic anemia Drug induced anemia Nutritional anemia Anemia of chronic kidney disease --->Unable to determine Other, please specify (Last Revision: November 2016) MTDD
[2018-03-22 11:44] LABS: Glucose,Whole Blood 124 mg/dL (75-99)
[2018-03-22] MEDS: METOPROLOL TARTRATE 50 MG TAB PO SCH ×2 (12:22→21:13)
--- NOTE | 2018-03-22 12:52 | P.PN ---
Subjective This is a 62-year-old white female patient well-known to me. She has a history of COPD. She is a former smoker and has schizophrenia type mental illness. She is somewhat slow but awake during my exam today. From her ER history, she been having emesis multiple episodes over the past several days that were nonbloody bilious. She was not eating or drinking anything. She had been sleeping heavily during these episodes. She had some abnormal breath sounds and her and brought emergency room. This morning she is somnolent but awake she is eating slowly, her mental status seems consistent with my previous visits for her, and is due to long use of antipsychotics. She denies any chest pains or pressures this time denies any shortness of breath, no nausea or vomiting recently. She denies any recent bowel movement in several days. 03/20/2018: Patient is feeling a bit better today. She reports that she doesn' t have any significant chest pain or pressure. She does feel short of breath, but it is improved. She is coughing and asked about some Robitussin. We discussed that she is currently taking long-acting guaifenesin tablets at this time. She is tolerating regular diet and was eating right immediately before my exam. She denies a recent bowel movement was urinating normally. Pulmonology it seen her due to her pneumonia, history of COPD and multiple pulmonary embolism. The recommendations were reviewed. She remains on Rocephin and azithromycin. Anticoagulation for Elequis. DuoNeb updrafts. She remains on oxygen at 3 L/m via nasal cannula. 03/21/2018: Patient is complaining of no bowel movement since Sunday. We will start her on MiraLAX this time. She denies any chest pains, pressures. She does have shortness of breath with exertion but not at rest. It is improved. She reports some productive coughing. She is on guaifenesin long-acting for this. She remains on Rocephin, azithromycin, anticoagulation with Elequis, DuoNeb updrafts, and oxygen at standby at this time. She is tolerating her diet. Pulmonology consult and recommendations noted. Her kidney function as of now returned normal. Her white blood cell count is now returned to normal. 03/22/2018: Patient is doing well. She is on MiraLAX for some constipation. She denies any chest pains, pressures, shortness breath rest. She does have minimal and exertion. She does have wheezing with exertion. She is currently on long-acting guaifenesin, Rocephin, azithromycin. Repeat chest x-ray is clear today. She is on Elequis for anticoagulation. While her oxygen status remains well and she only intermittently and toxin, her blood pressures have been significantly elevated. We restarted her home verapamil lisinopril last night, so also on hydralazine 25 mg 4 times a day metoprolol 25 mg twice a day. Increased her low metoprolol to 50 mg twice a day. Objective - Vital Signs Vital signs: Vital Signs Temp 98.1 F 03/22/18 12:18 Pulse 72 03/22/18 12:18 Resp 17 03/22/18 12:18 BP 209/118 03/22/18 12:18 Pulse Ox 94 L 03/22/18 12:18 Intake & Output 03/21/18 03/22/18 03/22/18 18:59 06:59 18:59 Intake Total 440 320 Output Total 3200 2150 Balance -2760 -1830 Intake: Intake, IV Titration 440 320 Amount Sodium Chloride 0.9% 1, 400 000 ml @ 100 mls/hr IV . Q10H JUAN DAVID Rx#:[id number] Sodium Chloride 0.9% 1, 40 320 000 ml @ 20 mls/hr IV . Q24H JUAN DAVID Rx#:[id number] Oral 0 Output: Urine 3200 2150 Other: Voiding Method Indwelling Catheter Indwelling Catheter Indwelling Catheter - Exam GENERAL: Somnolent, dehydrated and in no acute distress. NECK: Normal range of motion, supple without lymphadenopathy or JVD, no thyromegaly LUNGS: Breath sounds coarse with rhonchi greater on the left than the right. There is intermittent inspiratory wheezes noted. No rales. Lung sounds seemed minimally improved from 1 day ago HEART: Regular rate and rhythm without murmurs, rubs or gallops.S1S2 Normal ABDOMEN: Soft, nontender, normoactive bowel sounds. No guarding, no rebound. No masses appreciated. EXTREMITIES: Normal range of motion, no pitting or edema. No clubbing or cyanosis. NEUROLOGICAL: Cranial nerves II through XII grossly intact. Slowed speech, PSYCH: Normal mood, somewhat flat affect, but this is consistent with her baseline. SKIN: Warm, Dry, normal turgor, no rashes or lesions noted. - Labs CBC & Chem 7: 03/21/18 07:23 03/22/18 07:04 Labs: Abnormal Lab Results - Last 24 Hours (Table) 03/21/18 03/21/18 03/22/18 Range/Units 16:47 20:33 11:43 POC Glucose (mg/dL) 184 H 155 H 124 H (75-99) mg/dL Microbiology - Last 24 Hours (Table) 03/19/18 00:21 Blood Culture - Preliminary Blood No Growth after 72 hours Assessment and Plan (1) Community acquired pneumonia Current Visit: Yes Status: Acute Code(s): J18.9 - PNEUMONIA, UNSPECIFIED ORGANISM SNOMED Code(s): 533626272 (2) History of pulmonary embolism Current Visit: Yes Status: Chronic Code(s): Z86.711 - PERSONAL HISTORY OF PULMONARY EMBOLISM SNOMED Code(s): 360742000 (3) Acute renal failure Narrative/Plan: Resolved Current Visit: Yes Status: Acute Code(s): N17.9 - ACUTE KIDNEY FAILURE, UNSPECIFIED SNOMED Code(s): 77786911 (4) Acute kidney injury Narrative/Plan: Resolved Current Visit: Yes Status: Acute Code(s): N17.9 - ACUTE KIDNEY FAILURE, UNSPECIFIED SNOMED Code(s): 13593876 (5) Dehydration Narrative/Plan: Resolved Current Visit: Yes Status: Acute Code(s): E86.0 - DEHYDRATION SNOMED Code( s): 38260655 (6) COPD (chronic obstructive pulmonary disease) Current Visit: Yes Status: Chronic Code(s): J44.9 - CHRONIC OBSTRUCTIVE PULMONARY DISEASE, UNSPECIFIED SNOMED Code(s): 37180306 (7) Normocytic hypochromic anemia Narrative/Plan: Of unknown etiology, probably hospital derived Current Visit: Yes Status: Acute Code(s): D50.9 - IRON DEFICIENCY ANEMIA, UNSPECIFIED SNOMED Code(s): 59447702 (8) Accelerated hypertension Current Visit: Yes Status: Acute Code(s): I10 - ESSENTIAL (PRIMARY) HYPERTENSION SNOMED Code(s): 04265205 Plan: She will continue on azithromycin and Rocephin for antibiotics. She will continue on Elequis or anticoagulation. She'll remain on DuoNeb updrafts. And Symbicort She'll continue oxygen to keep her sats above 92% room air. Currently it is on standby. She has prednisone ordered along with NovoLog scale controlled diabetes. Accu-Cheks were reviewed today. She'll continue on guaifenesin for expectorant As her blood pressure still remains elevated with her metoprolol 25 mg twice a day He, lisinopril, hydralazine, and verapamil, I'll increase her metoprolol 50 mg twice a day, increase her lisinopril to 20 mg twice a day continue those 2 medications same. Most likely this is from the prednisone and her frequent coughing. She'll be reevaluated next 24 hours. We'll wait on further consult recommendations. Repeat labs in a.m. Possible discharge in the next 24 hrs
--- NOTE | 2018-03-22 13:26 | P.PN ---
Subjective Progress Note Date: 03/22/18 Principal diagnosis: Dyspnea secondary to left-sided pneumonia. The patient is seen today 03/22/2018 in follow-up on the regular medical floor. She is currently resting comfortably in bed. She is awake and alert in no acute distress. She is currently maintaining good O2 saturations in the 90s on 2 L/m per nasal cannula. Chest x-ray shows clearing of the left lower lobe infiltrate. No acute cardiopulmonary process. She's been afebrile. Somewhat hypertensive. The cultures reveal no growth. Creatinine 0.59. She is currently on Symbicort and Singulair. Antibiotics in the form of ceftriaxone and azithromycin. Blood pressure medications being adjusted. Objective - Vital Signs Vital signs: Vital Signs Temp 98.1 F 03/22/18 12:18 Pulse 72 03/22/18 12:18 Resp 17 03/22/18 12:18 BP 209/118 03/22/18 12:18 Pulse Ox 94 L 03/22/18 12:18 Intake & Output 03/21/18 03/22/18 03/22/18 18:59 06:59 18:59 Intake Total 440 320 Output Total 3200 2150 Balance -2760 -1830 Intake: Intake, IV Titration 440 320 Amount Sodium Chloride 0.9% 1, 400 000 ml @ 100 mls/hr IV . Q10H JUAN DAVID Rx#:[id number] Sodium Chloride 0.9% 1, 40 320 000 ml @ 20 mls/hr IV . Q24H JUAN DAVID Rx#:[id number] Oral 0 Output: Urine 3200 2150 Other: Voiding Method Indwelling Catheter Indwelling Catheter Indwelling Catheter - Exam GENERAL EXAM: Alert, comfortable in no apparent distress. On 2 liters per minute per nasal cannula. HEAD: Normocephalic. EYES: Normal reaction of pupils, equal size. NOSE: Clear with pink turbinates. THROAT: No erythema or exudates. NECK: No masses, no JVD. CHEST: No chest wall deformity. LUNGS: Equal air entry with lateral end expiratory wheeze, crackles in left base. Diminished. CVS: S1 and S2 normal with no audible murmur, regular rhythm. ABDOMEN: No hepatosplenomegaly, normal bowel sounds, no guarding or rigidity. SPINE: No scoliosis or deformity SKIN: No rashes CENTRAL NERVOUS SYSTEM: No focal deficits, tone is normal in all 4 extremities. EXTREMITIES: There is no peripheral edema. No clubbing, no cyanosis. Peripheral pulses are intact. - Labs CBC & Chem 7: 03/21/18 07:23 03/22/18 07:04 Labs: Abnormal Lab Results - Last 24 Hours (Table) 03/21/18 03/21/18 03/22/18 Range/Units 16:47 20:33 11:43 POC Glucose (mg/dL) 184 H 155 H 124 H (75-99) mg/dL Microbiology - Last 24 Hours (Table) 03/19/18 00:21 Blood Culture - Preliminary Blood No Growth after 72 hours Assessment and Plan Assessment: Impression: #1 Acute hypoxic respiratory failure secondary to left-sided pneumonia with mild chronic obstructive pulmonary disease exacerbation. Chest x-ray from 03/22 reveals no acute cardiopulmonary process. Improved aeration. #2 History of chronic obstructive pulmonary disease. #3 Altered mental status of unclear etiology. Drug screen positive for barbiturates. #4 History of CVA. #5 Diabetes mellitus. #6 Fibromyalgia. #7 Hyperlipidemia. #8 Hypertension. #9 Degenerative joint disease. #10 History of pulmonary embolism. #11 History of recurrent cellulitis and soft tissue infections. #12 History of migraines. #13 History of urinary stress incontinence. Plan: The patient was seen and evaluated by Dr. Crews. Chest x-ray and labs reviewed. Her chest x-ray reveals clearing of the left lower lobe infiltrate. No acute pulmonary process. Continue Symbicort, prednisone, Singulair. She is on antibiotics in the form of ceftriaxone and azithromycin. Blood pressure medications being adjusted. Increase her activity as tolerated. We'll continue to follow. I, the cosigning physician, performed a history & physical examination of the patient. Lungs sounds clear anterior and posteriorly. Maintaining good O2 saturations in the 90s on 2 L/m per nasal cannula. I discussed the assessment and plan of care with my nurse practitioner, Flor Marsh. I attest to the above note as dictated by her.
[2018-03-22 16:48] LABS: Glucose,Whole Blood 172 mg/dL (75-99)
[2018-03-22] MEDS: SODIUM CHLORIDE 0.9% 1,000 ML IV SCH (17:13)
[2018-03-22] MEDS: traMADol 50 MG TAB PO PRN (17:58)
[2018-03-22 20:22] LABS: Glucose,Whole Blood 243 mg/dL (75-99)
[2018-03-22] MEDS: MONTELUKAST 10 MG TAB PO SCH (21:12)
[2018-03-22] MEDS: ATORVASTATIN 10 MG TAB PO SCH (21:13)
[2018-03-23] MEDS: traMADol 50 MG TAB PO PRN ×3 (04:35→17:39)
[2018-03-23] MEDS: hydrALAZINE HCL 50 MG TAB PO SCH ×5 (04:35→21:34)
[2018-03-23 06:53] LABS: Glucose,Whole Blood 98 mg/dL (75-99)
[2018-03-23] MEDS: guaiFENesin 600 MG TABLET.ER PO SCH ×2 (07:26→21:33)
[2018-03-23] MEDS: APIXABAN 5 MG TAB PO SCH ×2 (07:26→21:32)
[2018-03-23] MEDS: GABAPENTIN 300 MG CAP PO SCH ×3 (07:26→21:34)
[2018-03-23] MEDS: METOPROLOL TARTRATE 50 MG TAB PO SCH ×2 (07:26→21:38)
[2018-03-23] MEDS: INSULIN ASPART 100 UNIT/ML 1 ML 10 ML VIAL SQ SCH ×4 (07:27→21:37)
[2018-03-23] MEDS: DULoxetine HCL 60 MG CAPSULE.DR PO SCH (07:27)
[2018-03-23] MEDS: AZITHROMYCIN 500 MG TAB PO SCH (07:27)
[2018-03-23] MEDS: VERAPAMIL SR 120 MG TABLET.ER PO SCH (07:27)
[2018-03-23] MEDS: POLYETHYLENE GLYCOL 3350 17 GM POWD.PACK PO SCH (07:27)
[2018-03-23] MEDS: FAMOTIDINE 20 MG TAB PO SCH (07:27)
[2018-03-23] MEDS: LISINOPRIL 20 MG TAB PO SCH ×2 (07:27→21:34)
[2018-03-23] MEDS: ACETAMINOPHEN TAB 500 MG TAB PO PRN ×2 (07:33→15:17)
[2018-03-23] MEDS: SYMBICORT 160-4.5 MCG INHALER INHALATION SCH ×2 (08:31→20:24)
[2018-03-23 11:13] LABS: Glucose,Whole Blood 99 mg/dL (75-99)
--- NOTE | 2018-03-23 11:49 | P.PN ---
Progress Note - Text She continues to have elevated blood pressures even after medication adjustment. This most likely from a current headache, the steroids and her current antibiotics. We'll make adjustments, continue to monitor. Expect discharge later this afternoon.
[2018-03-23] MEDS: SODIUM CHLORIDE 0.9% 1,000 ML IV SCH (12:33)
--- NOTE | 2018-03-23 12:44 | P.PN ---
Subjective Progress Note Date: 03/23/18 Principal diagnosis: Dyspnea secondary to left-sided pneumonia. The patient is seen today 03/23/2018 in follow-up on the regular medical floor. She is currently awake and alert in no acute distress. She is breathing better today as compared to yesterday. Currently maintaining good O2 saturations in the mid 90s on room air. She's been afebrile. She is still having issues with hypertension as high as 188/118 earlier this morning. Currently 138/88. Medications are being adjusted. Objective - Vital Signs Vital signs: Vital Signs Temp 97.4 F L 03/23/18 11:54 Pulse 55 L 03/23/18 11:54 Resp 18 03/23/18 11:54 BP 138/88 03/23/18 12:28 Pulse Ox 94 L 03/23/18 11:54 Intake & Output 03/22/18 03/23/18 03/23/18 18:59 06:59 18:59 Intake Total 50 860 Output Total 1999 2200 Balance -1950 -1340 Intake: Intake, IV Titration 50 200 Amount Sodium Chloride 0.9% 1, 200 000 ml @ 20 mls/hr IV . Q24H JUAN DAVID Rx#:[id number] cefTRIAXone 1,000 mg In 50 Sodium Chloride 0.9% 50 ml @ 100 mls/hr IVPB Q24HR JUAN DAVID Rx#:[id number] Oral 660 Output: Urine 19990 Uretheral (Vergara) 200 Other: Voiding Method Indwelling Catheter Indwelling Catheter Toilet # Voids 1 1 # Bowel Movements 1 1 - Exam GENERAL EXAM: Alert, comfortable in no apparent distress. On room air. HEAD: Normocephalic. EYES: Normal reaction of pupils, equal size. NOSE: Clear with pink turbinates. THROAT: No erythema or exudates. NECK: No masses, no JVD. CHEST: No chest wall deformity. LUNGS: Equal air entry with bilateral end expiratory wheeze. Diminished. CVS: S1 and S2 normal with no audible murmur, regular rhythm. ABDOMEN: No hepatosplenomegaly, normal bowel sounds, no guarding or rigidity. SPINE: No scoliosis or deformity SKIN: No rashes CENTRAL NERVOUS SYSTEM: No focal deficits, tone is normal in all 4 extremities. EXTREMITIES: There is no peripheral edema. No clubbing, no cyanosis. Peripheral pulses are intact. - Labs CBC & Chem 7: 01/31/19 07:23 03/22/18 07:04 Labs: Abnormal Lab Results - Last 24 Hours (Table) 03/22/18 03/22/18 Range/Units 16:47 20:20 POC Glucose (mg/dL) 172 H 243 H (75-99) mg/dL Microbiology - Last 24 Hours (Table) 03/19/18 00:21 Blood Culture - Preliminary Blood No Growth after 96 hours Assessment and Plan Assessment: Impression: #1 Acute hypoxic respiratory failure secondary to left-sided pneumonia with mild chronic obstructive pulmonary disease exacerbation. Chest x-ray from 03/22 reveals no acute cardiopulmonary process. Improved aeration. #2 History of chronic obstructive pulmonary disease. #3 Altered mental status of unclear etiology. Drug screen positive for barbiturates. #4 History of CVA. #5 Diabetes mellitus. #6 Fibromyalgia. #7 Hyperlipidemia. #8 Hypertension. #9 Degenerative joint disease. #10 History of pulmonary embolism. #11 History of recurrent cellulitis and soft tissue infections. #12 History of migraines. #13 History of urinary stress incontinence. Plan: The patient was seen and evaluated by Dr. Crews. She is cleared for discharge from the pulmonary standpoint. Continue Symbicort, prednisone, Singulair. Complete a course of antibiotics. Follow-up in our office in 1-2 weeks' time. I, the cosigning physician, performed a history & physical examination of the patient. Lungs sounds faint end expiratory wheeze. Diminished. Maintaining good O2 saturations in the 90s on room air. I discussed the assessment and plan of care with my nurse practitioner, Flor Marsh. I attest to the above note as dictated by her.
[2018-03-23 17:10] LABS: Glucose,Whole Blood 110 mg/dL (75-99)
[2018-03-23 21:01] LABS: Glucose,Whole Blood 96 mg/dL (75-99)
[2018-03-23] MEDS: ATORVASTATIN 10 MG TAB PO SCH (21:32)
[2018-03-23] MEDS: MONTELUKAST 10 MG TAB PO SCH (21:32)
[2018-03-24 05:55] VITALS: RESP 16
[2018-03-24] MEDS: ACETAMINOPHEN TAB 500 MG TAB PO PRN (06:26)
[2018-03-24] MEDS: hydrALAZINE HCL 50 MG TAB PO SCH ×3 (06:27→16:44)
[2018-03-24] MEDS: METOPROLOL TARTRATE 50 MG TAB PO SCH ×2 (06:27→16:43)
[2018-03-24] MEDS: traMADol 50 MG TAB PO PRN (06:27)
[2018-03-24 06:51] LABS: Glucose,Whole Blood 121 mg/dL (75-99)
[2018-03-24] MEDS: INSULIN ASPART 100 UNIT/ML 1 ML 10 ML VIAL SQ SCH ×2 (07:09→12:53)
[2018-03-24] MEDS: SYMBICORT 160-4.5 MCG INHALER INHALATION SCH (07:21)
[2018-03-24] MEDS: LISINOPRIL 20 MG TAB PO SCH ×2 (08:29→16:44)
[2018-03-24] MEDS: FAMOTIDINE 20 MG TAB PO SCH (08:29)
[2018-03-24] MEDS: GABAPENTIN 300 MG CAP PO SCH ×2 (08:29→16:44)
[2018-03-24] MEDS: guaiFENesin 600 MG TABLET.ER PO SCH (08:30)
[2018-03-24] MEDS: APIXABAN 5 MG TAB PO SCH (08:30)
[2018-03-24] MEDS: DULoxetine HCL 60 MG CAPSULE.DR PO SCH (08:31)
[2018-03-24] MEDS: POLYETHYLENE GLYCOL 3350 17 GM POWD.PACK PO SCH (08:31)
[2018-03-24] MEDS: VERAPAMIL SR 120 MG TABLET.ER PO SCH (08:31)
--- NOTE | 2018-03-24 09:18 | CT ---
EXAMINATION TYPE: CT brain wo con DATE OF EXAM: 03/24/2018 COMPARISON: -17 HISTORY: [facility] CT DLP: 924.[address] of the brain was performed. The ventricles, basal cisterns and sulci overlying the cerebral convexities demonstrate mild enlargem ent. There is no evidence for intracranial hemorrhage or sulcal effacement. There is decreased attenuation about the periventricular white matter and deep white matter of both c erebral hemispheres, compatible with chronic small vessel ischemia. Differential diagnosis does inclu de demyelination. No mass effects are seen.No midline shift. Osseous calvarium is intact. If symptoms persist consider MRI. IMPRESSION: 1. Age related atrophic and chronic small vessel ischemic change without acute intracranial process s een at this time.
[2018-03-24 10:04] LABS: Calcium 9.9 mg/dL (8.4-10.2); Magnesium 2.1 mg/dL (1.6-2.3); Potassium 4.3 mmol/L (3.5-5.1)
[2018-03-24 11:05] LABS: Glucose,Whole Blood 96 mg/dL (75-99)
[2018-03-24 12:46] VITALS: BP 163/87; PULSE 58; TEMP 97.4
--- NOTE | 2018-03-25 10:09 | P.DS ---
Providers Date of admission: 03/19/18 02:10 Expected date of discharge: 03/24/18 Attending physician: Farzad Hartley Consults: 03/19/18 02:06 Consult Physician Routine Consulting Provider: Fausto Crews Reason/Comments: established COPD patient Do you want consulting provider notified?: Yes, Notify in am Primary care physician: Farzad Hartley - Discharge Diagnosis(es) (1) Community acquired pneumonia Status: Acute (2) History of pulmonary embolism Status: Chronic (3) Acute renal failure Status: Acute (4) Acute kidney injury Status: Acute (5) Dehydration Status: Acute (6) COPD (chronic obstructive pulmonary disease) Status: Chronic (7) Normocytic hypochromic anemia Status: Acute (8) Accelerated hypertension Status: Acute Hospital Course: This is a 62-year-old white female patient well-known to me. She has a history of COPD. She is a former smoker and has schizophrenia type mental illness. She is somewhat slow but awake during my exam today. From her ER history, she been having emesis multiple episodes over the past several days that were nonbloody bilious. She was not eating or drinking anything. She had been sleeping heavily during these episodes. She had some abnormal breath sounds and her and brought emergency room. This morning she is somnolent but awake she is eating slowly, her mental status seems consistent with my previous visits for her, and is due to long use of antipsychotics. She denies any chest pains or pressures this time denies any shortness of breath, no nausea or vomiting recently. She denies any recent bowel movement in several days. 03/20/2018: Patient is feeling a bit better today. She reports that she doesn' t have any significant chest pain or pressure. She does feel short of breath, but it is improved. She is coughing and asked about some Robitussin. We discussed that she is currently taking long-acting guaifenesin tablets at this time. She is tolerating regular diet and was eating right immediately before my exam. She denies a recent bowel movement was urinating normally. Pulmonology it seen her due to her pneumonia, history of COPD and multiple pulmonary embolism. The recommendations were reviewed. She remains on Rocephin and azithromycin. Anticoagulation for Elequis. DuoNeb updrafts. She remains on oxygen at 3 L/m via nasal cannula. 03/21/2018: Patient is complaining of no bowel movement since Sunday. We will start her on MiraLAX this time. She denies any chest pains, pressures. She does have shortness of breath with exertion but not at rest. It is improved. She reports some productive coughing. She is on guaifenesin long-acting for this. She remains on Rocephin, azithromycin, anticoagulation with Elequis, DuoNeb updrafts, and oxygen at standby at this time. She is tolerating her diet. Pulmonology consult and recommendations noted. Her kidney function as of now returned normal. Her white blood cell count is now returned to normal. 03/22/2018: Patient is doing well. She is on MiraLAX for some constipation. She denies any chest pains, pressures, shortness breath rest. She does have minimal and exertion. She does have wheezing with exertion. She is currently on long-acting guaifenesin, Rocephin, azithromycin. Repeat chest x-ray is clear today. She is on Elequis for anticoagulation. While her oxygen status remains well and she only intermittently and toxin, her blood pressures have been significantly elevated. We restarted her home verapamil lisinopril last night, so also on hydralazine 25 mg 4 times a day metoprolol 25 mg twice a day. Increased her low metoprolol to 50 mg twice a day. 03/23/2018: patient still having labile BP. will adjust her meds and plan D/C today or tomorrow depending on results Addendum She continues to have a headache, which may be contributing to her bp elevation. Stat CT brain negative for eval of abnormalities. Will tweak BP meds and reevaluate 03/24/2018: pt BP doing somewhat better. Will D/C and have her f/u for BP check in office in 1 day. She will continue on Meds started here Patient Condition at Discharge: Stable Plan - Discharge Summary Discharge Rx Participant: No New Discharge Prescriptions: New Budesonide-Formot 160-4.5 Mcg [Symbicort 160-4.5 Mcg Inhaler] 2 puff INHALATION RT-BID #1 puff hydrALAZINE HCL [Apresoline] 50 mg PO QID #120 tab Lisinopril [Zestril] 20 mg PO BID #60 tab Metoprolol Tartrate [Lopressor] 50 mg PO BID #60 tab Continue DULoxetine HCL [Cymbalta] 120 mg PO QAM Montelukast [Singulair] 10 mg PO HS OLANZapine [ZyPREXA] 30 mg PO HS metFORMIN HCL [Glucophage] 500 mg PO BID-W/MEALS #60 tab Acetaminophen Tab [Tylenol] 1,000 mg PO Q6HR PRN PRN Reason: Pain traMADol HCl [Ultram] 50 - 100 mg PO Q8HR PRN PRN Reason: Pain Gabapentin [Neurontin] 600 mg PO TID Albuterol Sulfate [Proventil Hfa] 2 puff INHALATION RT-Q6H PRN PRN Reason: Dyspnea Apixaban [Eliquis] 5 mg PO BID Atorvastatin [Lipitor] 10 mg PO HS Nystatin 1 applic TOPICAL TID Verapamil HCl [Verapamil ER] 120 mg PO DAILY ALPRAZolam [Xanax] 0.5 mg PO BID PRN PRN Reason: Agitation Or Acute Anxiety Discontinued Metoprolol Tartrate [Lopressor] 12.5 mg PO BID Lisinopril [Zestril] 20 mg PO QAM Discharge Medication List DULoxetine HCL [Cymbalta] 120 mg PO QAM 06/19/14 [History] Montelukast [Singulair] 10 mg PO HS 06/19/14 [History] OLANZapine [ZyPREXA] 30 mg PO HS 06/23/14 [History] metFORMIN HCL [Glucophage] 500 mg PO BID-W/MEALS #60 tab 12/18/16 [Rx] Acetaminophen Tab [Tylenol] 1,000 mg PO Q6HR PRN 03/19/17 [History] Albuterol Sulfate [Proventil Hfa] 2 puff INHALATION RT-Q6H PRN 03/19/17 [History ] Apixaban [Eliquis] 5 mg PO BID 03/19/17 [History] Atorvastatin [Lipitor] 10 mg PO HS 03/19/17 [History] Gabapentin [Neurontin] 600 mg PO TID 03/19/17 [History] traMADol HCl [Ultram] 50 - 100 mg PO Q8HR PRN 03/19/17 [History] Nystatin 1 applic TOPICAL TID 03/19/18 [History] Verapamil HCl [Verapamil ER] 120 mg PO DAILY 03/19/18 [History] ALPRAZolam [Xanax] 0.5 mg PO BID PRN 03/21/18 [History] Budesonide-Formot 160-4.5 Mcg [Symbicort 160-4.5 Mcg Inhaler] 2 puff INHALATION RT-BID #1 puff 03/24/18 [Rx] Lisinopril [Zestril] 20 mg PO BID #60 tab 03/24/18 [Rx] Metoprolol Tartrate [Lopressor] 50 mg PO BID #60 tab 03/24/18 [Rx] hydrALAZINE HCL [Apresoline] 50 mg PO QID #120 tab 03/24/18 [Rx] Follow up Appointment(s)/Referral(s): Farzad Hartley MD [Primary Care Provider] - 1-2 days (OFFICE CLOSED AT TIME OF DISCHARGE, PLEASE CALL TO MAKE AN APPOINTMENT) [facility] Visiting Nurse, [NON-STAFF] - 1 Week Patient Instructions/Handouts: Metoprolol (By mouth), Lisinopril (By mouth), Hydralazine (By mouth), Budesonide/Formoterol (By breathing), Dehydration (DC), Acute Kidney Injury (DC), How to Take a Blood Pressure (DC), COPD (Chronic Obstructive Pulmonary Disease) (DC), Sepsis (GEN), Community Acquired Pneumonia (DC), Hypertensive Crisis (DC), Hypertension (DC), Anemia (DC), Encephalopathy ( DC) Discharge Disposition: HOME WITH HOME HEALTH SERVICES
== END 2018-03-24 17:16 | disposition home health service (06) | DRG 193 ==
LOC: EC 23:41 → 4SSUR 03-19 02:10 → 3NMEDONC 03-19 06:12
PROVIDERS: ADMIT Family Medicine; ATTEND Family Medicine
DX: J18.9 Pneumonia, unspecified organism (principal); J96.01 Acute respiratory failure with hypoxia; J44.0 Chronic obstructive pulmonary disease with (acute) lower respiratory infection; J44.1 Chronic obstructive pulmonary disease with (acute) exacerbation; N17.9 Acute kidney failure, unspecified; D50.9 Iron deficiency anemia, unspecified; E78.5 Hyperlipidemia, unspecified; E86.0 Dehydration; F20.9 Schizophrenia, unspecified; I10 Essential (primary) hypertension; K59.00 Constipation, unspecified; M19.90 Unspecified osteoarthritis, unspecified site; M79.7 Fibromyalgia; Z79.01 Long term (current) use of anticoagulants; Z79.1 Long term (current) use of non-steroidal anti-inflammatories (NSAID); Z79.84 Long term (current) use of oral hypoglycemic drugs; Z79.899 Other long term (current) drug therapy; Z82.49 Family history of ischemic heart disease and other diseases of the circulatory system; Z82.5 Family history of asthma and other chronic lower respiratory diseases; Z85.828 Personal history of other malignant neoplasm of skin; Z86.711 Personal history of pulmonary embolism; Z87.891 Personal history of nicotine dependence; Z90.710 Acquired absence of both cervix and uterus; Z96.643 Presence of artificial hip joint, bilateral; I69.311 Memory deficit following cerebral infarction; E11.40 Type 2 diabetes mellitus with diabetic neuropathy, unspecified; Z98.42 Cataract extraction status, left eye; Z98.41 Cataract extraction status, right eye; Z90.49 Acquired absence of other specified parts of digestive tract
CPT/HCPCS: 36415; 70450; 71046; 80048; 80053; 80306; 81001; 82550; 82553; 83036; 83605; 83735; 84443; 84484; 85025; 85610; 85730; 87040; 87502; 93005; 94640; 94760; 96361; 96365; 96366; 96367; 99285

== ENCOUNTER 2018-06-03 17:37 | Emergency (ER) | payer BC, MEDICARE ==
[2018-06-03 17:42] VITALS: RESP 18
--- NOTE | 2018-06-03 18:32 | CT ---
EXAMINATION TYPE: CT brain cspine wo con DATE OF EXAM: 06/03/2018 COMPARISON: CT brain March 24, 2018 HISTORY: Fall today with possible injury CT DLP: 1429.9 mGycm. Automated Exposure Control for Dose Reduction was Utilized. TECHNIQUE: CT scan of the head and cervical spine are performed without contrast. FINDINGS: There is no acute intracranial hemorrhage or midline shift identified. There is ventricul ar and sulcal prominence. There is low-attenuation in the deep and periventricular white matter . The globes are intact and the visualized sinuses are clear. The calvarium is intact. Cervical spine is visualized in its entirety from C1 through upper thoracic levels and demonstrates s traightened alignment without evidence of acute fracture or dislocation. Prevertebral soft tissue ap pears within normal limits. The C1-C2 articulation is within normal limits on the coronal images. V ertebral body heights are maintained. There is mild disc space narrowing with moderate anterior spurr ing C5-C6 level. Thyroid gland is small in size. Respiratory motion artifact degradation lung apices is seen. Spinal canal is grossly preserved. IMPRESSION: 1. There is no acute fracture or dislocation evident in the cervical spine. 2. No acute intracranial hemorrhage or midline shift is seen. Mild to moderate diffuse cerebral atrop hy and chronic small vessel ischemic change redemonstrated without significant interval change.
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
--- NOTE | 2018-06-03 19:00 | XR ---
EXAMINATION TYPE: XR Hip Bilateral and AP pelvis DATE OF EXAM: 06/03/2018 COMPARISON: NONE HISTORY: Pain after fall injury. TECHNIQUE: A single AP view of the pelvis is obtained. Two views of the bilateral hips are obtained. FINDINGS: There is no acute fracture/dislocation evident in the pelvis. The sacroiliac joints appea r symmetric and unremarkable. There is partial visualization of stimulator or pain device in the left mid to lower abdomen. Rounded 1.6 cm density over right sacroiliac joint could reflect phlebolith. Two views of bilateral hip show no acute fracture or dislocation. Metallic hardware from left hip art hroplasty is satisfactory in position. Right hip shows mild to moderate axial joint space loss and a cetabular spurring. Overlying soft tissue is unremarkable bilaterally. IMPRESSION: There is no acute fracture or dislocation in the pelvis or either hip.
--- NOTE | 2018-06-03 19:02 | XR ---
EXAMINATION TYPE: XR lumbar spine 2 or 3V DATE OF EXAM: 06/03/2018 CLINICAL HISTORY: Pain after fall injury. TECHNIQUE: Frontal and lateral images of the lumbar spine are obtained. COMPARISON: CT lumbar spine September 16, 2015 FINDINGS: There are 5 lumbar type vertebral bodies redemonstrated. The lumbar spine shows stable gr katlyn 1 anterolisthesis of L4 on L5 without evidence of acute fracture or dislocation. Vertebral body h eights remain within normal limits. Stable mild disc space narrowing L4-L5 level. Redemonstration of posterior stimulator device terminating in the lower thoracic spinal canal. Cholecystectomy clips are redemonstrated. There is some facet arthropathy lower lumbar spine again seen. IMPRESSION: No acute fracture or dislocation is seen in the lumbar spine.
--- NOTE | 2018-06-03 19:04 | XR ---
EXAMINATION TYPE: XR sacrum coccyx DATE OF EXAM: 06/03/2018 COMPARISON: CT lumbar spine 2016 HISTORY: Fall injury with pain. TECHNIQUE: 2 views of sacrum and coccyx are obtained. FINDINGS: Lucency from overlying bowel gas is noted making evaluation suboptimal. In addition there i s demineralization seen making evaluation suboptimal. Exam also suboptimal due to patient's large bod y habitus. No acute displaced sacral or coccygeal fracture is clearly seen. Sacroiliac joints are suraj rly well-maintained. Spinal Stimulator device is partially imaged. IMPRESSION: Suboptimal study without acute displaced sacrococcygeal fracture.
[2018-06-03] MEDS ORDERED: IBUPROFEN 600 MG TAB PO STA (19:25)
[2018-06-03 19:50] VITALS: BP 101/67; PULSE 73; TEMP 97.8
== END 2018-06-03 19:50 | disposition home or self-care (01) ==
LOC: EC 17:37
DX: R55 Syncope and collapse (principal); M53.3 Sacrococcygeal disorders, not elsewhere classified; J44.9 Chronic obstructive pulmonary disease, unspecified; M79.7 Fibromyalgia; E78.5 Hyperlipidemia, unspecified; I10 Essential (primary) hypertension; G62.9 Polyneuropathy, unspecified; M19.90 Unspecified osteoarthritis, unspecified site; F20.9 Schizophrenia, unspecified; Z86.73 Personal history of transient ischemic attack (TIA), and cerebral infarction without residual deficits; Z86.711 Personal history of pulmonary embolism; Z85.828 Personal history of other malignant neoplasm of skin; Z96.642 Presence of left artificial hip joint; Z98.890 Other specified postprocedural states; Z87.891 Personal history of nicotine dependence; Z79.01 Long term (current) use of anticoagulants; Z79.899 Other long term (current) drug therapy; W01.0XXA Fall on same level from slipping, tripping and stumbling without subsequent striking against object, initial encounter; Y93.01 Activity, walking, marching and hiking; Y92.000 Kitchen of unspecified non-institutional (private) residence as the place of occurrence of the external cause
CPT/HCPCS: 70450; 72100; 72125; 72220; 73521; 99284

== ENCOUNTER 2018-06-04 16:46 | Inpatient (IN) | payer BC, MEDICARE ==
[2018-06-04] MEDS ORDERED: SODIUM CHLORIDE 0.9% 1,000 ML IV ONE (17:13)
--- NOTE | 2018-06-04 17:19 | ED ---
Neuro HPI - General Chief Complaint: Neuro Symptoms/Deficit Stated Complaint: weakness/confusion Time Seen by Provider: 06/04/18 17:06 Source: patient, RN notes reviewed, old records reviewed Mode of arrival: ambulatory Limitations: no limitations - History of Present Illness Is the patient presenting with stroke symptoms?: No -: days(s) Initial Comments: This is a 62-year-old female the ER for evaluation regards to weakness. Weakness and not feeling well. Patient denies complaints of pain, just feels weak sleepy, patient was seen in emergency room yesterday for falls. Also had continued multiple falls today. Per family patient does have similar history or presentation in the past Location: other (No focal neurological deficits) Place: home Quality: weak Improves With: none Worsens With: none Associated Symptoms: malaise, weakness Treatments Prior to Arrival: none - Related Data Home Medications: Home Medications Medication Instructions Recorded Confirmed DULoxetine HCL [Cymbalta] 120 mg PO QAM 06/19/14 06/04/18 Montelukast [Singulair] 10 mg PO HS 06/19/14 06/04/18 OLANZapine [ZyPREXA] 30 mg PO HS 06/23/14 06/04/18 Apixaban [Eliquis] 5 mg PO BID 03/19/17 06/04/18 Atorvastatin [Lipitor] 10 mg PO HS 03/19/17 06/04/18 Gabapentin [Neurontin] 600 mg PO TID 03/19/17 06/04/18 traMADol HCl [Ultram] 50 - 100 mg PO Q8HR PRN 03/19/17 06/04/18 Verapamil HCl [Verapamil ER] 120 mg PO DAILY 03/19/18 06/04/18 ALPRAZolam [Xanax] 0.5 mg PO BID PRN 03/21/18 06/04/18 Bismuth Subsalicylate [Kaopectate] 262 mg PO DAILY 06/04/18 06/04/18 Butalb/APAP/Caff 50-325-40Mg 1 tab PO Q6H 06/04/18 06/04/18 [Fioricet 50-325-40] Previous Rx's Medication Instructions Recorded metFORMIN HCL [Glucophage] 500 mg PO BID-W/MEALS #60 tab 12/18/16 Budesonide-Formot 160-4.5 Mcg 2 puff INHALATION RT-BID #1 puff 03/24/18 [Symbicort 160-4.5 Mcg Inhaler] Lisinopril [Zestril] 20 mg PO BID #60 tab 03/24/18 Metoprolol Tartrate [Lopressor] 50 mg PO BID #60 tab 03/24/18 hydrALAZINE HCL [Apresoline] 50 mg PO QID #120 tab 03/24/18 Allergies/Adverse Reactions: Allergies Allergy/AdvReac Type Severity Reaction Status Date / Time No Known Allergies Allergy Verified 06/04/18 17:44 Review of Systems ROS Statement: Those systems with pertinent positive or pertinent negative responses have been documented in the HPI. ROS Other: All systems not noted in ROS Statement are negative. General Exam Limitations: no limitations General appearance: alert, in no apparent distress Head exam: Present: atraumatic, normocephalic, normal inspection Eye exam: Present: normal appearance, PERRL, EOMI. Absent: scleral icterus, conjunctival injection, periorbital swelling ENT exam: Present: normal exam, mucous membranes moist Neck exam: Present: normal inspection. Absent: tenderness, meningismus, lymphadenopathy Respiratory exam: Present: normal lung sounds bilaterally. Absent: respiratory distress, wheezes, rales, rhonchi, stridor Cardiovascular Exam: Present: regular rate, normal rhythm, normal heart sounds. Absent: systolic murmur, diastolic murmur, rubs, gallop, clicks GI/Abdominal exam: Present: soft, normal bowel sounds. Absent: distended, tenderness, guarding, rebound, rigid Extremities exam: Present: normal inspection, full ROM, normal capillary refill. Absent: tenderness, pedal edema, joint swelling, calf tenderness Back exam: Present: normal inspection Neurological exam: Present: alert, oriented X3, CN II-XII intact Psychiatric exam: Present: normal affect, normal mood Skin exam: Present: warm, dry, intact, normal color. Absent: rash Stroke MDM - Lab Data Result diagrams: 06/04/18 17:18 06/04/18 17:18 Lab Results 06/04/18 06/04/18 06/04/18 Range/Units 17:18 17:18 17:18 WBC 8.2 (3.8-10.6) k/uL RBC 4.40 (3.80-5.40) m/uL Hgb 12.6 (11.4-16.0) gm/dL Hct 38.6 (34.0-46.0) % MCV 87.7 (80.0-100.0) fL MCH 28.6 (25.0-35.0) pg MCHC 32.6 (31.0-37.0) g/dL RDW 16.1 H (11.5-15.5) % Plt Count 361 (150-450) k/uL Neutrophils % 72 % Lymphocytes % 21 % Monocytes % 4 % Eosinophils % 1 % Basophils % 0 % Neutrophils # 5.9 (1.3-7.7) k/uL Lymphocytes # 1.7 (1.0-4.8) k/uL Monocytes # 0.4 (0-1.0) k/uL Eosinophils # 0.1 (0-0.7) k/uL Basophils # 0.0 (0-0.2) k/uL Anisocytosis Slight PT (9.0-12.0) sec INR (<1.2) APTT (22.0-30.0) sec Sodium 139 (137-145) mmol/L Potassium 5.1 (3.5-5.1) mmol/L Chloride 103 (98-107) mmol/L Carbon Dioxide 25 (22-30) mmol/L Anion Gap 11 mmol/L BUN 43 H (7-17) mg/dL Creatinine 1.06 H (0.52-1.04) mg/dL Est GFR (CKD-EPI)AfAm 64 (>60 ml/min/1.73 sqM) Est GFR (CKD-EPI)NonAf 56 (>60 ml/min/1.73 sqM) Glucose 112 H (74-99) mg/dL POC Glucose (mg/dL) (75-99) mg/dL POC Glu Spiral Winding Machine Helper ID Calcium 10.4 H (8.4-10.2) mg/dL Phosphorus 4.1 (2.5-4.5) mg/dL Magnesium 2.2 (1.6-2.3) mg/dL Total Bilirubin 0.3 (0.2-1.3) mg/dL AST 18 (14-36) U/L ALT 31 (9-52) U/L Alkaline Phosphatase 109 (38-126) U/L Ammonia <9 (<30) umol/L Troponin I (0.000-0.034) ng/mL Total Protein 6.8 (6.3-8.2) g/dL Albumin 4.2 (3.5-5.0) g/dL Urine Color Urine Appearance (Clear) Urine pH (5.0-8.0) Ur Specific [place] (1.001-1.035) Urine Protein (Negative) Urine Glucose (UA) (Negative) Urine Ketones (Negative) Urine Blood (Negative) Urine Nitrite (Negative) Urine Bilirubin (Negative) Urine Urobilinogen (<2.0) mg/dL Ur Leukocyte Esterase (Negative) Urine RBC (0-5) /hpf Urine WBC (0-5) /hpf Amorphous Sediment (None) /hpf Urine Bacteria (None) /hpf Hyaline Casts (0-2) /lpf Urine Mucus (None) /hpf Urine Opiates Screen (NotDetected) Ur Oxycodone Screen (NotDetected) Urine Methadone Screen (NotDetected) Ur Propoxyphene Screen (NotDetected) Ur Barbiturates Screen (NotDetected) U Tricyclic Antidepress (NotDetected) Ur Phencyclidine Scrn (NotDetected) Ur Amphetamines Screen (NotDetected) U Methamphetamines Scrn (NotDetected) U Benzodiazepines Scrn (NotDetected) Urine Cocaine Screen (NotDetected) U Marijuana (THC) Screen (NotDetected) 06/04/18 06/04/18 06/04/18 Range/Units 17:18 17:18 17:29 WBC (3.8-10.6) k/uL RBC (3.80-5.40) m/uL Hgb (11.4-16.0) gm/dL Hct (34.0-46.0) % MCV (80.0-100.0) fL MCH (25.0-35.0) pg MCHC (31.0-37.0) g/dL RDW (11.5-15.5) % Plt Count (150-450) k/uL Neutrophils % % Lymphocytes % % Monocytes % % Eosinophils % % Basophils % % Neutrophils # (1.3-7.7) k/uL Lymphocytes # (1.0-4.8) k/uL Monocytes # (0-1.0) k/uL Eosinophils # (0-0.7) k/uL Basophils # (0-0.2) k/uL Anisocytosis PT 10.0 (9.0-12.0) sec INR 0.9 (<1.2) APTT 27.4 (22.0-30.0) sec Sodium (137-145) mmol/L Potassium (3.5-5.1) mmol/L Chloride (98-107) mmol/L Carbon Dioxide (22-30) mmol/L Anion Gap mmol/L BUN (7-17) mg/dL Creatinine (0.52-1.04) mg/dL Est GFR (CKD-EPI)AfAm (>60 ml/min/1.73 sqM) Est GFR (CKD-EPI)NonAf (>60 ml/min/1.73 sqM) Glucose (74-99) mg/dL POC Glucose (mg/dL) 112 H (75-99) mg/dL POC Glu Spiral Winding Machine Helper ID Vida Kovacs Calcium (8.4-10.2) mg/dL Phosphorus (2.5-4.5) mg/dL Magnesium (1.6-2.3) mg/dL Total Bilirubin (0.2-1.3) mg/dL AST (14-36) U/L ALT (9-52) U/L Alkaline Phosphatase (38-126) U/L Ammonia (<30) umol/L Troponin I <0.012 (0.000-0.034) ng/mL Total Protein (6.3-8.2) g/dL Albumin (3.5-5.0) g/dL Urine Color Urine Appearance (Clear) Urine pH (5.0-8.0) Ur Specific [place] (1.001-1.035) Urine Protein (Negative) Urine Glucose (UA) (Negative) Urine Ketones (Negative) Urine Blood (Negative) Urine Nitrite (Negative) Urine Bilirubin (Negative) Urine Urobilinogen (<2.0) mg/dL Ur Leukocyte Esterase (Negative) Urine RBC (0-5) /hpf Urine WBC (0-5) /hpf Amorphous Sediment (None) /hpf Urine Bacteria (None) /hpf Hyaline Casts (0-2) /lpf Urine Mucus (None) /hpf Urine Opiates Screen (NotDetected) Ur Oxycodone Screen (NotDetected) Urine Methadone Screen (NotDetected) Ur Propoxyphene Screen (NotDetected) Ur Barbiturates Screen (NotDetected) U Tricyclic Antidepress (NotDetected) Ur Phencyclidine Scrn (NotDetected) Ur Amphetamines Screen (NotDetected) U Methamphetamines Scrn (NotDetected) U Benzodiazepines Scrn (NotDetected) Urine Cocaine Screen (NotDetected) U Marijuana (THC) Screen (NotDetected) 06/04/18 Range/Units 18:41 WBC (3.8-10.6) k/uL RBC (3.80-5.40) m/uL Hgb (11.4-16.0) gm/dL Hct (34.0-46.0) % MCV (80.0-100.0) fL MCH (25.0-35.0) pg MCHC (31.0-37.0) g/dL RDW (11.5-15.5) % Plt Count (150-450) k/uL Neutrophils % % Lymphocytes % % Monocytes % % Eosinophils % % Basophils % % Neutrophils # (1.3-7.7) k/uL Lymphocytes # (1.0-4.8) k/uL Monocytes # (0-1.0) k/uL Eosinophils # (0-0.7) k/uL Basophils # (0-0.2) k/uL Anisocytosis PT (9.0-12.0) sec INR (<1.2) APTT (22.0-30.0) sec Sodium (137-145) mmol/L Potassium (3.5-5.1) mmol/L Chloride (98-107) mmol/L Carbon Dioxide (22-30) mmol/L Anion Gap mmol/L BUN (7-17) mg/dL Creatinine (0.52-1.04) mg/dL Est GFR (CKD-EPI)AfAm (>60 ml/min/1.73 sqM) Est GFR (CKD-EPI)NonAf (>60 ml/min/1.73 sqM) Glucose (74-99) mg/dL POC Glucose (mg/dL) (75-99) mg/dL POC Glu Spiral Winding Machine Helper ID Calcium (8.4-10.2) mg/dL Phosphorus (2.5-4.5) mg/dL Magnesium (1.6-2.3) mg/dL Total Bilirubin (0.2-1.3) mg/dL AST (14-36) U/L ALT (9-52) U/L Alkaline Phosphatase (38-126) U/L Ammonia (<30) umol/L Troponin I (0.000-0.034) ng/mL Total Protein (6.3-8.2) g/dL Albumin (3.5-5.0) g/dL Urine Color Yellow Urine Appearance Clear (Clear) Urine pH 5.5 (5.0-8.0) Ur Specific [place] 1.021 (1.001-1.035) Urine Protein Trace H (Negative) Urine Glucose (UA) Negative (Negative) Urine Ketones Negative (Negative) Urine Blood Negative (Negative) Urine Nitrite Negative (Negative) Urine Bilirubin Negative (Negative) Urine Urobilinogen <2.0 (<2.0) mg/dL Ur Leukocyte Esterase Small H (Negative) Urine RBC <1 (0-5) /hpf Urine WBC 8 H (0-5) /hpf Amorphous Sediment Rare H (None) /hpf Urine Bacteria Many H (None) /hpf Hyaline Casts 13 H (0-2) /lpf Urine Mucus Rare H (None) /hpf Urine Opiates Screen Not Detected (NotDetected) Ur Oxycodone Screen Not Detected (NotDetected) Urine Methadone Screen Not Detected (NotDetected) Ur Propoxyphene Screen Not Detected (NotDetected) Ur Barbiturates Screen Not Detected (NotDetected) U Tricyclic Antidepress Not Detected (NotDetected) Ur Phencyclidine Scrn Not Detected (NotDetected) Ur Amphetamines Screen Not Detected (NotDetected) U Methamphetamines Scrn Not Detected (NotDetected) U Benzodiazepines Scrn Detected H (NotDetected) Urine Cocaine Screen Not Detected (NotDetected) U Marijuana (THC) Screen Not Detected (NotDetected) - NIH Stroke Scale 1a. Level of Consciousness: (0) alert 1b. LOC Questions: (0) answers correctly 1c. LOC Commands: (0) performs tasks correctly 2. Best Gaze: (0) normal 3. Visual: (0) no visual loss 4. Facial Palsy: (0) normal symmetrical movement 5a. Motor Arm Left: (0) no drift 5b. Motor Arm Right: (0) no drift 6a. Motor Leg Left: (0) no drift 6b. Motor Leg Right: (0) no drift 7. Limb Ataxia: (0) absent 8. Sensory: (0) normal 9. Best Language: (0) no aphasia 10. Dysarthria: (0) normal 11. Extinction/Inattention: (0) no abnormality - Thrombolytic Inclusion/Exclusion Thrombolytic Exclusion Criteria: Symptom Onset > 3 Hours - Medical Decision Making 62 female the ER for evaluation of weakness weakness and multiple recent falls. No signs and symptoms of stroke. Patient is to be admitted for treatment of UTI rehydration - Radiology Data Radiology results: report reviewed (CT brain negative for acute disease chest x- rays negative for acute disease), image reviewed - EKG Data -: EKG Interpreted by Me (EKG shows) Past Medical History Past Medical History: Asthma, Cancer, COPD, CVA/TIA, Diabetes Mellitus, Fibromyalgia, Hyperlipidemia, Hypertension, Musculoskeletal Disorder, Osteoarthritis (OA), Pulmonary Embolus (PE), Skin Disorder Additional Past Medical History / Comment(s): 3 PEs-involved bilateral lungs, CVA with some increased memory problems, NIDDM type II, neuropathy bilateral legs/feet, migraines, chronic low back pain, skin cancer removed from nose, urinary incontinence at times, lately stool loose and has some incontinence of stool. History of Any Multi-Drug Resistant Organisms: None Reported Past Surgical History: Back Surgery, Cholecystectomy, Hysterectomy, Joint Repl acement, Orthopedic Surgery Additional Past Surgical History / Comment(s): Back pain procedures, has pain stimulator implant in back, left wrist surg with pins since removed, colonoscopy, total L hip arthroplasty, bilateral cataract removals, 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 Past Anesthesia/Blood Transfusion Reactions: No Reported Reaction Additional Past Anesthesia/Blood Transfusion Reaction / Comment(s): no hx blood transfusion Past Psychological History: Schizophrenia Smoking Status: Former smoker Past Alcohol Use History: None Reported Past Drug Use History: None Reported - Past Family History Mother Family Medical History: COPD Additional Family Medical History / Comment(s): Mother at the age of 78yrs. Father Family Medical History: Myocardial Infarction (IA) Additional Family Medical History / Comment(s): Father of a massive IA at the age of 50 yrs. Pt is not sure if schrapnel may have moved to his heart-he had injury in WWII. Sister(s) Family Medical History: Cancer Course Vital Signs 06/04/18 06/04/18 06/04/18 17:04 17:08 17:20 Temperature 97.8 F Pulse Rate 90 79 80 Respiratory 18 18 18 Rate Blood Pressure 103/73 82/55 84/60 O2 Sat by Pulse 94 L 94 L Oximetry 06/04/18 06/04/18 06/04/18 17:36 18:22 19:15 Temperature Pulse Rate 79 75 76 Respiratory 18 18 18 Rate Blood Pressure 105/80 142/82 135/95 O2 Sat by Pulse 96 98 95 Oximetry Disposition Clinical Impression: Weakness, Dehydration, UTI (urinary tract infection) Disposition: ADMITTED IP TO THIS HOSP Condition: Fair Is patient prescribed a controlled substance at d/c from ED?: No Referrals: Farzad Hartley MD [Primary Care Provider] - 1-2 days
[2018-06-04 17:27] LABS: Anisocytosis Slight; Basophils % (A) 0 %; Eosinophils # (A) 0.1 k/uL (0-0.7); Eosinophils % (A) 1 %; HCT 38.6 % (34.0-46.0); HGB 12.6 gm/dL (11.4-16.0); Lymphocytes # (A) 1.7 k/uL (1.0-4.8); Lymphocytes % (A) 21 %; MCH 28.6 pg (25.0-35.0); MCHC 32.6 g/dL (31.0-37.0); MCV 87.7 fL (80.0-100.0); Mean Platelet Volume 7.4; Monocytes # (A) 0.4 k/uL (0-1.0); Monocytes % (A) 4 %; Neutrophils # (A) 5.9 k/uL (1.3-7.7); Neutrophils % (A) 72 %; Platelet Count 361 k/uL (150-450); RDW 16.1 % (11.5-15.5); WBC 8.2 k/uL (3.8-10.6)
[2018-06-04] MEDS ORDERED: SODIUM CHLORIDE 0.9% 1,000 ML IV STA ×2 (17:34→19:45)
[2018-06-04 17:44] LABS: Albumin 4.2 g/dL (3.5-5.0); Calcium 10.4 mg/dL (8.4-10.2); Magnesium 2.2 mg/dL (1.6-2.3); Phosphorus 4.1 mg/dL (2.5-4.5); Potassium 5.1 mmol/L (3.5-5.1); Total Bilirubin 0.3 mg/dL (0.2-1.3); Total Protein 6.8 g/dL (6.3-8.2)
[2018-06-04 17:44] LABS: Glucose,Whole Blood 112 mg/dL (75-99)
[2018-06-04 17:47] LABS: INR 0.9 (<1.2); Partial Thromboplastin Time 27.4 sec (22.0-30.0)
--- NOTE | 2018-06-04 18:30 | CT ---
EXAMINATION: CT brain wo con DATE AND TIME: 06/04/2018 6:01 PM CLINICAL INDICATION: PHH; altered mental status TECHNIQUE: Standard departmental protocol COMPARISON: CT 06/03/2018 FINDINGS: The calvarium is intact. There is no intracranial hemorrhage. There is no intracranial mass or mass effect. No definite new intra-axial or extra-axial attenuation defect. The paranasal sinuses, middle ear cavities, and mastoid sinus air cells are clear. The orbits are unremarkable. IMPRESSION: NO ACUTE PROCESS.
--- NOTE | 2018-06-04 18:34 | XR ---
EXAMINATION: XR chest 2V DATE AND TIME: 06/04/2018 5:56 PM CLINICAL INDICATION: PHH; altered mental status TECHNIQUE: AP and lateral COMPARISON: 03/22/2018 FINDINGS: The lungs are clear. The pleural spaces are negative. The cardiac silhouette is mildly enlarged, and there is evidence of left atrial enlargement. The thor acic aorta is tortuous. The skeletal structures and soft tissues are negative for acute findings. IMPRESSION: NO ACUTE PROCESS.
[2018-06-04 19:07] LABS: Amorphous Sediment,Urine Rare /hpf; Appearance,Urine Clear (Clear); Bacteria,Urine Many /hpf; Bilirubin,Urine Negative (Negative); Blood,Urine Negative (Negative); Color,Urine Yellow; Glucose,Urine (UA) Negative (Negative); Hyaline Casts,Urine 13 /lpf (0-2); Ketones,Urine Negative (Negative); Leukocyte Esterase,Urine Small (Negative); Mucus,Urine Rare /hpf; Nitrite,Urine Negative (Negative); PH, Urine 5.5 (5.0-8.0); Protein,Urine Trace (Negative); RBC,Urine <1 /hpf (0-5); Specific Gravity,Urine 1.021 (1.001-1.035); Urobilinogen,Urine <2.0 mg/dL (<2.0); WBC,Urine 8 /hpf (0-5)
[2018-06-04 19:20] LABS: Amphetamine Screen,Urine Not Detected (NotDetected); Barbiturate Screen,Urine Not Detected (NotDetected); Benzodiazepines Screen,Urine Detected (NotDetected); Cocaine Screen,Urine Not Detected (NotDetected); Methadone Screen, Urine Not Detected (NotDetected); Opiate Screen,Urine Not Detected (NotDetected); Oxycodone Screen, Urine Not Detected (NotDetected); Phencyclidine Screen,Urine Not Detected (NotDetected); Tricyclic Antidepressant,Urine Not Detected (NotDetected); Urn Cannabinoid Scrn Not Detected (NotDetected)
[2018-06-04 22:16] VITALS: BMI 26.4
[2018-06-04 23:10] LABS: Glucose,Whole Blood 110 mg/dL (75-99)
[2018-06-05 06:37] LABS: Glucose,Whole Blood 99 mg/dL (75-99)
[2018-06-05] MEDS: SODIUM CHLORIDE 0.9% 1,000 ML IV SCH ×2 (08:45→19:54)
[2018-06-05] MEDS ORDERED: IPRATROPIUM-ALBUTEROL 3 ML NEB INHALATION PRN (11:12)
[2018-06-05] MEDS ORDERED: PANTOPRAZOLE 40 MG/10 ML VIAL IVP SCH (11:15)
[2018-06-05 12:02] LABS: Glucose,Whole Blood 96 mg/dL (75-99)
[2018-06-05] MEDS ORDERED: INSULIN ASPART (NovoLOG) 100 UNIT/ML VIAL SQ SCH (12:30)
[2018-06-05] MEDS: INSULIN ASPART (NovoLOG) 100 UNIT/ML VIAL SQ SCH ×3 (12:55→21:19)
[2018-06-05] MEDS: IPRATROPIUM-ALBUTEROL 3 ML NEB INHALATION SCH ×3 (13:36→20:41)
[2018-06-05] MEDS: hydrALAZINE HCL 50 MG TAB PO SCH ×3 (16:37→20:42)
[2018-06-05] MEDS: VERAPAMIL SR 120 MG TABLET.ER PO SCH (16:44)
[2018-06-05] MEDS: GABAPENTIN 300 MG CAP PO SCH ×2 (16:44→20:44)
[2018-06-05 17:11] LABS: Glucose,Whole Blood 105 mg/dL (75-99)
--- NOTE | 2018-06-05 17:16 | P.HPIM ---
History of Present Illness H&P Date: 06/05/18 Chief Complaint: Generalized weakness, fatigue ,confusion This is a 62-year-old female admitted with recent falls, generalized weakness, confusion and multiple other medical issues in a patient with history of COPD, former smoker, schizophrenia, and multiple other medical issues. No neuro deficits. NIH score 0 . EKG revealing normal sinus rhythm, troponin less than 0.012. Patient reports that she Follows with Dr. Smith, psychiatry. Denies any chest pain, palpitations, shortness of breath. Denies any nausea or vomiting or diarrhea. Denies syncope. Denies lightheadedness dizziness or focal deficits. Patient is a poor historian, no family currently at bedside, majority of information obtained from chart. Head CT and xray negative. Urine culture pending. Afebrile, normal WBC. Maintaining O2 sats of 90% on room air. Creatinine 1.06, potassium 5.1. Received IV fluid hydration in the ER. Review of Systems ROS Statement: Those systems with pertinent positive or pertinent negative responses have been documented in the HPI. ROS Other: All systems not noted in ROS Statement are negative. Past Medical History Past Medical History: Asthma, Cancer, COPD, CVA/TIA, Diabetes Mellitus, Fibromyalgia, Hyperlipidemia, Hypertension, Musculoskeletal Disorder, Osteoarthritis (OA), Pulmonary Embolus (PE), Skin Disorder Additional Past Medical History / Comment(s): 3 PEs-involved bilateral lungs, CVA with some increased memory problems, NIDDM type II, neuropathy bilateral legs/feet, migraines, chronic low back pain, skin cancer removed from nose, urinary incontinence at times, lately stool loose and has some incontinence of stool. History of Any Multi-Drug Resistant Organisms: None Reported Past Surgical History: Back Surgery, Cholecystectomy, Hysterectomy, Joint Replacement, Orthopedic Surgery Additional Past Surgical History / Comment(s): Back pain procedures, has pain stimulator implant in back, left wrist surg with pins since removed, colonoscopy, total L hip arthroplasty, bilateral cataract removals, 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 Past Anesthesia/Blood Transfusion Reactions: No Reported Reaction Additional Past Anesthesia/Blood Transfusion Reaction / Comment(s): no hx blood transfusion Past Psychological History: Schizophrenia Additional Psychological History / Comment(s): Pt resides with her spouse who is very helpful to patient. Spouse does work during the day so pt is alone at that time. Pt uses a cane or walker to ambulate. She no longer drives, her spouse takes her to appts, helps her manage her meds and assists her with getting cleaned up and dressed if necessary. He also assists her with meals. She has a lady, Rosie, who comes twice a week for companionship and she does housework. Smoking Status: Former smoker Past Alcohol Use History: None Reported Additional Past Alcohol Use History / Comment(s): Pt started smoking in 1972 and quit in February 2016. Past Drug Use History: None Reported Additional Drug Use History / Comment(s): occasional - Past Family History Mother Family Medical History: COPD Additional Family Medical History / Comment(s): Mother at the age of 78yrs. Father Family Medical History: Myocardial Infarction (NE) Additional Family Medical History / Comment(s): Father of a massive NE at the age of 50 yrs. Pt is not sure if ovidio may have moved to his heart-he had injury in WWII. Sister(s) Family Medical History: Cancer Medications and Allergies Home Medications Medication Instructions Recorded Confirmed Type DULoxetine HCL [Cymbalta] 120 mg PO QAM 06/19/14 06/04/18 History Montelukast [Singulair] 10 mg PO HS 06/19/14 06/04/18 History OLANZapine [ZyPREXA] 30 mg PO HS 06/23/14 06/04/18 History metFORMIN HCL [Glucophage] 500 mg PO BID-W/MEALS #60 tab 12/18/16 06/04/18 Rx Apixaban [Eliquis] 5 mg PO BID 03/19/17 06/04/18 History Atorvastatin [Lipitor] 10 mg PO HS 03/19/17 06/04/18 History Gabapentin [Neurontin] 600 mg PO TID 03/19/17 06/04/18 History traMADol HCl [Ultram] 50 - 100 mg PO Q8HR PRN 03/19/17 06/04/18 History Verapamil HCl [Verapamil ER] 120 mg PO DAILY 03/19/18 06/04/18 History ALPRAZolam [Xanax] 0.5 mg PO BID PRN 03/21/18 06/04/18 History Budesonide-Formot 160-4.5 Mcg 2 puff INHALATION RT-BID #1 puff 03/24/18 06/04/18 Rx [Symbicort 160-4.5 Mcg Inhaler] Lisinopril [Zestril] 20 mg PO BID #60 tab 03/24/18 06/04/18 Rx Metoprolol Tartrate [Lopressor] 50 mg PO BID #60 tab 03/24/18 06/04/18 Rx hydrALAZINE HCL [Apresoline] 50 mg PO QID #120 tab 03/24/18 06/04/18 Rx Ibuprofen [Motrin] 600 mg PO Q6HR PRN 06/05/18 06/05/18 History Allergies Allergy/AdvReac Type Severity Reaction Status Date / Time No Known Allergies Allergy Verified 06/04/18 17:44 Physical Exam Vitals: Vital Signs Temp Pulse Pulse Resp BP BP Pulse Ox 06/05/18 07:00 97.7 F 92 17 125/82 90 L 06/05/18 00:39 97.6 F 101 H 15 137/84 92 L 06/04/18 22:04 97.8 F 73 15 159/89 94 L 06/04/18 21:10 98.6 F 75 16 155/87 99 06/04/18 20:15 79 18 150/96 99 06/04/18 19:15 76 18 135/95 95 06/04/18 18:22 75 18 142/82 98 06/04/18 17:36 79 18 105/80 96 06/04/18 17:20 80 18 84/60 06/04/18 17:08 79 18 82/55 94 L 06/04/18 17:04 97.8 F 90 18 103/73 94 L Intake and Output 06/04/18 06/05/18 06/05/18 22:59 06:59 14:59 Intake Total 360 Balance 360 Intake: Oral 360 Other: Voiding Method Toilet Diaper # Voids 1 2 Weight 86.183 kg PHYSICAL EXAM: VITAL SIGNS: As above GENERAL: Sitting up in bed, no acute distress HEENT: Conjunctivae normal. eyes normal. Oral mucosa moist NECK: No JVD. No thyroid enlargement. No LNs CARDIOVASCULAR: S1, S2 regular. No murmur, rubs or gallops RESPIRATION: Breath sounds diminished in the bases. Occasional scattered rhonchi, no crackles. Occasional expiratory wheeze ABDOMEN: Soft, nontender . No guarding. no masses palpable. No guarding, no rigidity.Bowel sounds heard. LEGS: No edema. no swelling PSYCHIATRY: Alert and oriented -2, disoriented to time, mood and affect flat affect, slow speech NERVOUS SYSTEM: Cranial N 2-12 grossly normal. Moves all 4 limbs. Diffuse weakness ,No focal deficits. Skin: Warm, dry, normal turgor ,no ulcer no rash Results CBC & Chem 7: 06/04/18 17:18 06/04/18 17:18 Labs: Abnormal Lab Results - Last 24 Hours (Table) 06/04/18 06/04/18 06/04/18 Range/Units 17:18 17:18 17:29 RDW 16.1 H (11.5-15.5) % BUN 43 H (7-17) mg/dL Creatinine 1.06 H (0.52-1.04) mg/dL Glucose 112 H (74-99) mg/dL POC Glucose (mg/dL) 112 H (75-99) mg/dL Calcium 10.4 H (8.4-10.2) mg/dL Urine Protein (Negative) Ur Leukocyte Esterase (Negative) Urine WBC (0-5) /hpf Amorphous Sediment (None) /hpf Urine Bacteria (None) /hpf Hyaline Casts (0-2) /lpf Urine Mucus (None) /hpf U Benzodiazepines Scrn (NotDetected) 06/04/18 06/04/18 Range/Units 18:41 22:57 RDW (11.5-15.5) % BUN (7-17) mg/dL Creatinine (0.52-1.04) mg/dL Glucose (74-99) mg/dL POC Glucose (mg/dL) 110 H (75-99) mg/dL Calcium (8.4-10.2) mg/dL Urine Protein Trace H (Negative) Ur Leukocyte Esterase Small H (Negative) Urine WBC 8 H (0-5) /hpf Amorphous Sediment Rare H (None) /hpf Urine Bacteria Many H (None) /hpf Hyaline Casts 13 H (0-2) /lpf Urine Mucus Rare H (None) /hpf U Benzodiazepines Scrn Detected H (NotDetected) Thrombosis Risk Factor Assmnt - Choose All That Apply Any of the Below Risk Factors Present?: Yes Each Factor Represents 1 point: Abnormal pulmonary function (COPD), Obesity (BMI >25) Other Risk Factors: Yes Each Risk Factor Represents 2 Points: Age 61-74 years Thrombosis Risk Factor Assessment Total Risk Factor Score: 4 Thrombosis Risk Factor Assessment Level: Moderate Risk Assessment and Plan Assessment: -Generalized weakness, confusion secondary to possibly acute UTI, dehydration, acute renal failure -Recent falls, denies syncope -Possible acute UTI, cultures pending -Acute renal failure -Schizophrenia, history of -COPD -History of PE Plan: Continue on current medication regime ,monitoring and symptomatic treatment. Maintain IV fluid hydration. PT/OT consulted. Maintain nebulized bronchodilators both scheduled and prn. GI and DVT prophylaxis in place. Home meds have been reviewed and resumed. Further recommendations to follow. The impression and plan of care has been dictated as directed. : I performed a history and examination of this patient, discussed the same with the dictator. I agree with the dictator's note ,documented as a scribe. Any additional findings or plans will be noted.
[2018-06-05] MEDS ORDERED: hydrALAZINE HCL 25 MG TAB PO STA (18:24)
[2018-06-05] MEDS: METOPROLOL TARTRATE 50 MG TAB PO SCH (18:31)
[2018-06-05] MEDS: SYMBICORT 160-4.5 MCG INHALER INHALATION SCH (20:41)
[2018-06-05] MEDS: APIXABAN 5 MG TAB PO SCH (20:42)
[2018-06-05] MEDS: MONTELUKAST 10 MG TAB PO SCH (20:42)
[2018-06-05] MEDS: OLANZapine 10 MG TAB PO SCH (20:43)
[2018-06-05] MEDS: ATORVASTATIN 10 MG TAB PO SCH (20:43)
[2018-06-05 21:08] LABS: Glucose,Whole Blood 125 mg/dL (75-99)
[2018-06-06] MEDS: SODIUM CHLORIDE 0.9% 1,000 ML IV SCH ×2 (05:04→16:06)
[2018-06-06 07:03] LABS: Glucose,Whole Blood 98 mg/dL (75-99)
[2018-06-06] MEDS: INSULIN ASPART (NovoLOG) 100 UNIT/ML VIAL SQ SCH ×4 (07:12→21:21)
[2018-06-06] MEDS: GABAPENTIN 300 MG CAP PO SCH ×3 (08:24→20:15)
[2018-06-06] MEDS: hydrALAZINE HCL 50 MG TAB PO SCH ×4 (08:24→18:53)
[2018-06-06] MEDS: PANTOPRAZOLE 40 MG TABLET PO SCH (08:24)
[2018-06-06] MEDS: VERAPAMIL SR 120 MG TABLET.ER PO SCH (08:24)
[2018-06-06] MEDS: METOPROLOL TARTRATE 50 MG TAB PO SCH ×2 (08:24→18:53)
[2018-06-06] MEDS: APIXABAN 5 MG TAB PO SCH ×2 (08:24→20:15)
[2018-06-06] MEDS: DULoxetine HCL 60 MG CAPSULE.DR PO SCH (08:24)
[2018-06-06] MEDS: SYMBICORT 160-4.5 MCG INHALER INHALATION SCH ×2 (08:46→19:30)
[2018-06-06] MEDS: IPRATROPIUM-ALBUTEROL 3 ML NEB INHALATION SCH ×4 (08:46→19:29)
[2018-06-06 09:07] LABS: Anisocytosis Slight; Basophils % (A) 0 %; Eosinophils # (A) 0.1 k/uL (0-0.7); Eosinophils % (A) 1 %; HCT 38.3 % (34.0-46.0); HGB 12.1 gm/dL (11.4-16.0); Hypochromasia Slight; Lymphocytes # (A) 1.7 k/uL (1.0-4.8); Lymphocytes % (A) 25 %; MCHC 31.6 g/dL (31.0-37.0); MCV 88.6 fL (80.0-100.0); Mean Platelet Volume 7.4; Monocytes # (A) 0.3 k/uL (0-1.0); Monocytes % (A) 5 %; Neutrophils # (A) 4.6 k/uL (1.3-7.7); Neutrophils % (A) 68 %; Platelet Count 328 k/uL (150-450); RBC 4.32 m/uL (3.80-5.40); RDW 16.1 % (11.5-15.5); WBC 6.8 k/uL (3.8-10.6)
[2018-06-06 09:33] LABS: Blood Urea Nitrogen 15 mg/dL (7-17); Calcium 9.3 mg/dL (8.4-10.2); Carbon Dioxide 32 mmol/L (22-30); Glucose 114 mg/dL (74-99); Sodium 137 mmol/L (137-145)
[2018-06-06 09:43] LABS: Anion Gap -1 mmol/L; Chloride 106 mmol/L (98-107); Potassium 4.1 mmol/L (3.5-5.1)
[2018-06-06 11:47] LABS: Glucose,Whole Blood 115 mg/dL (75-99)
[2018-06-06] MEDS: ACETAMINOPHEN TAB 325 MG TAB PO PRN (16:17)
[2018-06-06 16:48] LABS: Glucose,Whole Blood 123 mg/dL (75-99)
[2018-06-06] MEDS: MONTELUKAST 10 MG TAB PO SCH (20:15)
[2018-06-06] MEDS: OLANZapine 10 MG TAB PO SCH (20:15)
[2018-06-06] MEDS: ATORVASTATIN 10 MG TAB PO SCH (20:15)
[2018-06-06 21:22] LABS: Glucose,Whole Blood 151 mg/dL (75-99)
[2018-06-07] MEDS: SODIUM CHLORIDE 0.9% 1,000 ML IV SCH ×2 (03:41→10:06)
[2018-06-07 07:04] LABS: Glucose,Whole Blood 105 mg/dL (75-99)
[2018-06-07 07:37] VITALS: RESP 14
[2018-06-07] MEDS: PANTOPRAZOLE 40 MG TABLET PO SCH (07:39)
[2018-06-07] MEDS: ACETAMINOPHEN TAB 325 MG TAB PO PRN ×2 (07:39→12:30)
[2018-06-07] MEDS: VERAPAMIL SR 120 MG TABLET.ER PO SCH (07:39)
[2018-06-07] MEDS: METOPROLOL TARTRATE 50 MG TAB PO SCH (07:39)
[2018-06-07] MEDS: DULoxetine HCL 60 MG CAPSULE.DR PO SCH (07:39)
[2018-06-07] MEDS: APIXABAN 5 MG TAB PO SCH (07:39)
[2018-06-07] MEDS: INSULIN ASPART (NovoLOG) 100 UNIT/ML VIAL SQ SCH (07:40)
[2018-06-07] MEDS: GABAPENTIN 300 MG CAP PO SCH (07:40)
[2018-06-07] MEDS: hydrALAZINE HCL 50 MG TAB PO SCH ×2 (07:40→12:27)
[2018-06-07] MEDS: IPRATROPIUM-ALBUTEROL 3 ML NEB INHALATION SCH ×2 (08:36→12:09)
[2018-06-07] MEDS: SYMBICORT 160-4.5 MCG INHALER INHALATION SCH (08:36)
[2018-06-07 10:17] LABS: Chloride 107 mmol/L (98-107)
[2018-06-07 10:19] LABS: Anion Gap 6 mmol/L; Blood Urea Nitrogen 12 mg/dL (7-17); Calcium 8.9 mg/dL (8.4-10.2); Carbon Dioxide 28 mmol/L (22-30); Glucose 157 mg/dL (74-99); Potassium 4.3 mmol/L (3.5-5.1); Sodium 141 mmol/L (137-145)
[2018-06-07 12:32] LABS: Glucose,Whole Blood 114 mg/dL (75-99)
--- NOTE | 2018-06-07 13:50 | CDI ---
Documentation Clarification Form Date: 06/07/2018 1:38:21 PM From: Lisy Greenberg RN, CCDS Admit Date: 06/06/2018 4:22:00 PM Patient Name: Shari Tabares Visit Number: [id number] Discharge Date: ATTENTION: The Clinical Documentation Specialists (CDI) and [facility] Coding Staff appreciate your assistance in clarifying documentation. Please respond to the clarification below the line at the bottom and electronically sign. The CDI & [facility] Coding staff will review the response and follow-up if needed. Please note: Queries are made part of the Legal Health Record. If you have any questions, please contact the author of this message via ITS. Dr. Farzad Hartley Confusion secondary to possibly acute uti, dehydration was documented in the H & P History/Risk Factors: 62 y/o female presents to the ED with weakness and confusion . Medical history of Asthma, Cancer, COPD, CVA/TIA, DM Fibromyalgia , HTN Clinical Indicators: Labs: UA Leukoyctes esterase small, wbc 8.0, urine bacteria many, hyaline casts 13. Cr 1.06 CT Brain : Negative for acute process Treatment: [place] ivpb, 0.9ns bolus and maintenance rate 100cc/hr In your professional opinion, please clarify the etiology of the Confusion, if known. * Acute Metabolic Encephalopathy secondary to UTI and dehydration? * Acute Metabolic Encephalopathy secondary to dehydration ? * Other condition (please specify) * Unable to determine (Last Revision: May 2017) MTDD
--- NOTE | 2018-06-07 14:24 | P.DS ---
Providers Date of admission: 06/06/18 16:22 Expected date of discharge: 06/07/18 Attending physician: Farzad Hartley Primary care physician: Farzad Hartley Hospital Course: Final Diagnoses; -Generalized weakness, confusion secondary to possibly acute UTI, dehydration, acute renal failure -Recent falls, denies syncope -Possible acute UTI, culture reported no crackles -Acute renal failure, improved -Schizophrenia, history of -COPD -History of PE -Hypertension Hospital course:This is a 62-year-old female admitted with recent falls, generalized weakness, confusion and multiple other medical issues in a patient with history of COPD, former smoker, schizophrenia, and multiple other medical issues. No neuro deficits. NIH score 0 . EKG revealing normal sinus rhythm, troponin less than 0.012. Patient reports that she Follows with Dr. Smith, psychiatry. Denies any chest pain, palpitations, shortness of breath. Denies any nausea or vomiting or diarrhea. Denies syncope. Denies lightheadedness dizziness or focal deficits. Patient is a poor historian, no family currently at bedside, majority of information obtained from chart. Head CT and xray negative. Urine culture pending. Afebrile, normal WBC. Maintaining O2 sats of 90% on room air. Creatinine 1.06, potassium 5.1. Received IV fluid hydration in the ER. Maintained on IV Rocephin and gentle IV fluid hydration. Urine cultures reporting no growth at 18 hours, blood cultures negative at 48 hours. Evaluated by PT/OT subacute rehab recommended at discharge. Maintained on nebulized bronchodilator Significant clinical improvement. Patient is being discharged to [facility] subacute rehab in a stable condition with guarded prognosis today. EXAM: GENERAL: Alert and oriented 3, no acute distress HEENT: Conjunctivae normal. eyes normal. Oral mucosa moist CARDIOVASCULAR: S1, S2 regular. No murmur, rubs or gallops RESPIRATION: Breath sounds diminished in the bases. Occasional scattered rhonchi, no crackles. ABDOMEN: Soft, nontender . No guarding. no masses palpable. No guarding, no rigidity.Bowel sounds heard. NERVOUS SYSTEM:No focal deficits. Microbiology 06/04/18 21:35 Blood Blood Culture - Preliminary No Growth after 48 hours 06/05/18 08:30 Urine,Clean Catch Urine Culture - Final The impression and plan of care has been dictated as directed. Dr.: I performed a history and examination of this patient, discussed the same with the dictator. I agree with the dictator's note ,documented as a scribe. Any additional findings or plans will be noted. Time taken: 35 minutes Patient Condition at Discharge: Stable Plan - Discharge Summary New Discharge Prescriptions: New Pantoprazole [Protonix] 40 mg PO DAILY tablet. INSULIN LISPRO (HumaLOG) [humaLOG] 0 unit SQ ACHS #1 vial Changed Lisinopril [Zestril] 10 mg PO BID #1 tab No Action DULoxetine HCL [Cymbalta] 120 mg PO QAM Montelukast [Singulair] 10 mg PO HS OLANZapine [ZyPREXA] 30 mg PO HS traMADol HCl [Ultram] 50 - 100 mg PO Q8HR PRN PRN Reason: Pain Gabapentin [Neurontin] 600 mg PO TID Apixaban [Eliquis] 5 mg PO BID Atorvastatin [Lipitor] 10 mg PO HS Verapamil HCl [Verapamil ER] 120 mg PO DAILY ALPRAZolam [Xanax] 0.5 mg PO BID PRN PRN Reason: Agitation Or Acute Anxiety Budesonide-Formot 160-4.5 Mcg [Symbicort 160-4.5 Mcg Inhaler] 2 puff INHALATION RT-BID #1 puff hydrALAZINE HCL [Apresoline] 50 mg PO QID #120 tab Metoprolol Tartrate [Lopressor] 50 mg PO BID #60 tab Ibuprofen [Motrin] 600 mg PO Q6HR PRN PRN Reason: Pain Discharge Medication List DULoxetine HCL [Cymbalta] 120 mg PO QAM 06/19/14 [History] Montelukast [Singulair] 10 mg PO HS 06/19/14 [History] OLANZapine [ZyPREXA] 30 mg PO HS 06/23/14 [History] Apixaban [Eliquis] 5 mg PO BID 03/19/17 [History] Atorvastatin [Lipitor] 10 mg PO HS 03/19/17 [History] Gabapentin [Neurontin] 600 mg PO TID 03/19/17 [History] traMADol HCl [Ultram] 50 - 100 mg PO Q8HR PRN 03/19/17 [History] Verapamil HCl [Verapamil ER] 120 mg PO DAILY 03/19/18 [History] ALPRAZolam [Xanax] 0.5 mg PO BID PRN 03/21/18 [History] Budesonide-Formot 160-4.5 Mcg [Symbicort 160-4.5 Mcg Inhaler] 2 puff INHALATION RT-BID #1 puff 03/24/18 [Rx] Metoprolol Tartrate [Lopressor] 50 mg PO BID #60 tab 03/24/18 [Rx] hydrALAZINE HCL [Apresoline] 50 mg PO QID #120 tab 03/24/18 [Rx] Ibuprofen [Motrin] 600 mg PO Q6HR PRN 06/05/18 [History] INSULIN LISPRO (HumaLOG) [humaLOG] 0 unit SQ ACHS #1 vial 06/07/18 [Rx] Lisinopril [Zestril] 10 mg PO BID #1 tab 06/07/18 [Rx] Pantoprazole [Protonix] 40 mg PO DAILY tablet. 06/07/18 [Rx] Follow up Appointment(s)/Referral(s): Lucy Franco, [NON-STAFF] - As Needed Farzad Hartley MD [Primary Care Provider] - 1-2 days
[2018-06-07 14:50] VITALS: BP 130/67; PULSE 69; TEMP 97.6
--- NOTE | 2018-06-07 22:44 | P.PN ---
Subjective Progress Note Date: 06/06/18 This is a 62-year-old female admitted with recent falls, generalized weakness, confusion and multiple other medical issues in a patient with history of COPD, former smoker, schizophrenia, and multiple other medical issues. No neuro deficits. NIH score 0 . EKG revealing normal sinus rhythm, troponin less than 0.012. Patient reports that she Follows with Dr. Smith, psychiatry. Denies any chest pain, palpitations, shortness of breath. Denies any nausea or vomiting or diarrhea. Denies syncope. Denies lightheadedness dizziness or focal deficits. Patient is a poor historian, no family currently at bedside, majority of information obtained from chart. Head CT and xray negative. Urine culture pendi ng. Afebrile, normal WBC. Maintaining O2 sats of 90% on room air. Creatinine 1.06, potassium 5.1. Received IV fluid hydration in the ER. Maintained on nebulized bronchodilators, IV Rocephin. Urine cultures and blood cultures reporting no growth. Afebrile. Significant clinical improvement. De nies chest pain, palpitations or increasing shortness of breath. Preauthorization in progress for subacute rehab. Objective - Vital Signs Vital signs: Vital Signs Temp 97.4 F L 06/06/18 18:46 Pulse 70 06/06/18 19:30 Resp 16 06/06/18 19:30 BP 155/91 06/06/18 19:19 Pulse Ox 97 06/06/18 18:46 Intake & Output 06/06/18 06/06/18 06/07/18 06:59 18:59 06:59 Intake Total 600 1204 Balance 600 1204 Intake: IV 850 Sodium Chloride 0.9% 1, 800 000 ml @ 100 mls/hr IV . Q10H JUAN DAVID Rx#:[id number] cefTRIAXone 1 gm In 50 Sodium Chloride 0.9% 50 ml @ 100 mls/hr IVPB Q24HR JUAN DAVID Rx#:[id number] Oral 600 354 Other: Voiding Method Toilet Bedside Commode Diaper # Voids 1 1 - Exam PHYSICAL EXAM: VITAL SIGNS: As above GENERAL: Sitting up in chair, no acute distress HEENT: Conjunctivae normal. eyes normal. Oral mucosa and moist NECK: No JVD. No thyroid enlargement. No LNs CARDIOVASCULAR: S1, S2 muffled. No murmur RESPIRATION: Breath sounds diminished in the bases. Rhonchorous bilaterally, no crackles. No bronchial breathing. ABDOMEN: Soft, nontender . No guarding. no masses palpable. No guarding, no rigidity.Bowel sounds heard. LEGS: No edema. no swelling PSYCHIATRY: Alert and oriented -3, mood and affect normal. NERVOUS SYSTEM: Cranial N 2-12 grossly normal. Moves all 4 limbs. Diffuse weakness No focal deficits. Skin: no ulcer no rash Joints: No active swelling. No inflammation. Lymphatic system. No LN neck axilla or groin. - Labs CBC & Chem 7: 06/06/18 08:50 06/07/18 09:11 Labs: Abnormal Lab Results - Last 24 Hours (Table) 06/05/18 06/06/18 06/06/18 Range/Units 21:05 08:50 08:50 RDW 16.1 H (11.5-15.5) % Carbon Dioxide 32 H (22-30) mmol/L Glucose 114 H (74-99) mg/dL POC Glucose (mg/dL) 125 H (75-99) mg/dL 06/06/18 06/06/18 Range/Units 11:36 16:35 RDW (11.5-15.5) % Carbon Dioxide (22-30) mmol/L Glucose (74-99) mg/dL POC Glucose (mg/dL) 115 H 123 H (75-99) mg/dL Microbiology - Last 24 Hours (Table) 06/05/18 08:30 Urine Culture - Final Urine,Clean Catch 06/04/18 21:35 Blood Culture - Preliminary Blood No Growth after 24 hours Assessment and Plan Assessment: -Generalized weakness, confusion, acute metabolic encephalopathy secondary to possibly acute UTI, dehydration, acute renal failure -Recent falls, denies syncope -Possible acute UTI -Acute renal failure -Schizophrenia, history of -COPD -History of PE Plan: Continue on current medication regime ,monitoring and symptomatic treatment. Maintain nebulized bronchodilators, antibiotics .PT/OT .GI and DVT prophylaxis in place. Preauthorization initiated for subacute rehab . Discharge planning in progress for tomorrow . Patient and family updated on discharge plans . Questions and concerns addressed .Further recommendations to follow. The impression and plan of care has been dictated as directed. : I performed a history and examination of this patient, discussed the same with the dictator. I agree with the dictator's note ,documented as a scribe. Any additional findings or plans will be noted.
== END 2018-06-07 16:03 | DRG 689 ==
LOC: EC 16:46 → 4SSUR 19:46 → OBSVTOIN 06-06 16:22
PROVIDERS: ADMIT Family Medicine; ATTEND Family Medicine
DX: N39.0 Urinary tract infection, site not specified (principal); G93.41 Metabolic encephalopathy; N17.9 Acute kidney failure, unspecified; E11.40 Type 2 diabetes mellitus with diabetic neuropathy, unspecified; R15.9 Full incontinence of feces; F20.9 Schizophrenia, unspecified; E86.0 Dehydration; M79.7 Fibromyalgia; M19.90 Unspecified osteoarthritis, unspecified site; E78.5 Hyperlipidemia, unspecified; G43.909 Migraine, unspecified, not intractable, without status migrainosus; G89.29 Other chronic pain; M54.5 Low back pain; R32 Unspecified urinary incontinence; I10 Essential (primary) hypertension; J44.9 Chronic obstructive pulmonary disease, unspecified; R29.6 Repeated falls; L98.9 Disorder of the skin and subcutaneous tissue, unspecified; Z79.01 Long term (current) use of anticoagulants; Z79.51 Long term (current) use of inhaled steroids; Z79.899 Other long term (current) drug therapy; Z86.73 Personal history of transient ischemic attack (TIA), and cerebral infarction without residual deficits; Z86.711 Personal history of pulmonary embolism; Z87.891 Personal history of nicotine dependence; Z85.828 Personal history of other malignant neoplasm of skin; Z90.710 Acquired absence of both cervix and uterus; Z96.9 Presence of functional implant, unspecified; Z96.642 Presence of left artificial hip joint; Z90.49 Acquired absence of other specified parts of digestive tract; Z98.42 Cataract extraction status, left eye; Z98.41 Cataract extraction status, right eye; Z82.5 Family history of asthma and other chronic lower respiratory diseases; Z82.49 Family history of ischemic heart disease and other diseases of the circulatory system; Z80.9 Family history of malignant neoplasm, unspecified
CPT/HCPCS: 36415; 70450; 71046; 80048; 80053; 80306; 81001; 82140; 83735; 84100; 84484; 85025; 85610; 85730; 87040; 87086; 93005; 94640; 96360; 96361; 99285

== ENCOUNTER 2018-08-24 13:12 | Observation (INO) | payer BC, MEDICARE ==
[2018-08-24] MEDS ORDERED: SODIUM CHLORIDE 0.9% 1,000 ML IV ONE (13:28)
--- NOTE | 2018-08-24 13:42 | ED ---
Altered Mental Status HPI - General Chief Complaint: Altered Mental Status Stated Complaint: Dizzy/Confused Time Seen by Provider: 08/24/18 13:25 Source: patient, RN notes reviewed, old records reviewed Mode of arrival: ambulatory Limitations: no limitations - History of Present Illness Initial Comments: This is a 63 female the ER for evaluation. Patient's presenting for evaluation regards to altered mental status. Patient is having slurred speech, nausea, vomiting, weakness multiple falls. Symptoms increasing 3 days MD Complaint: altered mental status, confusion, weakness, other (Multiple falls) -: days(s) (3) Severity: moderate Consistency of Symptoms: getting worse Context: history of similar presentation Associated Symptoms: nausea/vomiting, weakness - Related Data Home Medications Medication Instructions Recorded Confirmed DULoxetine HCL [Cymbalta] 120 mg PO QAM 06/19/14 08/24/18 Montelukast [Singulair] 10 mg PO HS 06/19/14 08/24/18 OLANZapine [ZyPREXA] 30 mg PO HS 06/23/14 08/24/18 Apixaban [Eliquis] 5 mg PO BID 03/19/17 08/24/18 Atorvastatin [Lipitor] 10 mg PO HS 03/19/17 08/24/18 Gabapentin [Neurontin] 600 mg PO TID 03/19/17 08/24/18 Verapamil HCl [Verapamil ER] 120 mg PO DAILY 03/19/18 08/24/18 INSULIN LISPRO (HumaLOG) [humaLOG] See Protocol SQ ACHS 08/24/18 08/24/18 Previous Rx's Medication Instructions Recorded Budesonide-Formot 160-4.5 Mcg 2 puff INHALATION RT-BID #1 puff 03/24/18 [Symbicort 160-4.5 Mcg Inhaler] Metoprolol Tartrate [Lopressor] 50 mg PO BID #60 tab 03/24/18 hydrALAZINE HCL [Apresoline] 50 mg PO QID #120 tab 03/24/18 Acetaminophen Tab [Tylenol] 650 mg PO Q4HR PRN tab 06/07/18 Ipratropium-Albuterol Nebulize 3 ml INHALATION RT-QID ampul.neb 06/07/18 [Duoneb 0.5 mg-3 mg/3 ml Soln] Lisinopril [Zestril] 10 mg PO BID #1 tab 06/07/18 Pantoprazole [Protonix] 40 mg PO DAILY tablet. 06/07/18 Allergies Allergy/AdvReac Type Severity Reaction Status Date / Time No Known Allergies Allergy Verified 08/24/18 13:58 Review of Systems ROS Statement: Those systems with pertinent positive or pertinent negative responses have been documented in the HPI. ROS Other: All systems not noted in ROS Statement are negative. Past Medical History Past Medical History: Asthma, Cancer, COPD, CVA/TIA, Diabetes Mellitus, Fibromyalgia, Hyperlipidemia, Hypertension, Musculoskeletal Disorder, Osteoarthritis (OA), Pulmonary Embolus (PE), Skin Disorder Additional Past Medical History / Comment(s): 3 PEs-involved bilateral lungs, CVA with some increased memory problems, NIDDM type II, neuropathy bilateral legs/feet, migraines, chronic low back pain, skin cancer removed from nose, urinary incontinence at times, lately stool loose and has some incontinence of stool. History of Any Multi-Drug Resistant Organisms: None Reported Past Surgical History: Back Surgery, Cholecystectomy, Hysterectomy, Joint Replacement, Orthopedic Surgery Additional Past Surgical History / Comment(s): Back pain procedures, has pain stimulator implant in back, left wrist surg with pins since removed, colonoscopy, total L hip arthroplasty, bilateral cataract removals, 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 Past Anesthesia/Blood Transfusion Reactions: No Reported Reaction Additional Past Anesthesia/Blood Transfusion Reaction / Comment(s): no hx blood transfusion Past Psychological History: Schizophrenia Smoking Status: Former smoker Past Alcohol Use History: None Reported Past Drug Use History: None Reported - Past Family History Mother Family Medical History: COPD Additional Family Medical History / Comment(s): Mother at the age of 78yrs. Father Family Medical History: Myocardial Infarction (AK) Additional Family Medical History / Comment(s): Father of a massive AK at the age of 50 yrs. Pt is not sure if ovidio may have moved to his heart-he had injury in WWII. Sister(s) Family Medical History: Cancer General Exam Limitations: no limitations General appearance: alert, in no apparent distress Head exam: Present: atraumatic, normocephalic, normal inspection Eye exam: Present: normal appearance, PERRL, EOMI. Absent: scleral icterus, conjunctival injection, periorbital swelling ENT exam: Present: normal exam, mucous membranes moist Neck exam: Present: normal inspection. Absent: tenderness, meningismus, lymphadenopathy Respiratory exam: Present: normal lung sounds bilaterally. Absent: respiratory distress, wheezes, rales, rhonchi, stridor Cardiovascular Exam: Present: regular rate, normal rhythm, normal heart sounds. Absent: systolic murmur, diastolic murmur, rubs, gallop, clicks GI/Abdominal exam: Present: soft, normal bowel sounds. Absent: distended, tenderness, guarding, rebound, rigid Extremities exam: Present: normal inspection, full ROM, normal capillary refill. Absent: tenderness, pedal edema, joint swelling, calf tenderness Back exam: Present: normal inspection Neurological exam: Present: alert, oriented X3, CN II-XII intact Psychiatric exam: Present: normal affect, normal mood Skin exam: Present: warm, dry, intact, normal color. Absent: rash Course Vital Signs 08/24/18 08/24/18 13:15 16:18 Temperature 98.2 F Pulse Rate 69 Respiratory 18 14 Rate Blood Pressure 110/72 O2 Sat by Pulse 94 L Oximetry - Reevaluation(s) Reevaluation #1: 08/24/18 13:41 Medical records reviewed Reevaluation #2: 08/24/18 16:36 Patient with no significant improvement in the ER still weak Medical Decision Making - Medical Decision Making 63 female the ER for evaluation patient presents today for evaluation of altered mental status and weakness. Patient be admitted for evaluation of possible accidental drug ingestion altered mental status and weakness - Lab Data Result diagrams: 08/24/18 13:30 08/24/18 13:30 Lab Results 08/24/18 08/24/18 08/24/18 Range/Units 13:30 13:30 13:30 WBC 6.6 (3.8-10.6) k/uL RBC 3.91 (3.80-5.40) m/uL Hgb 10.9 L (11.4-16.0) gm/dL Hct 34.0 (34.0-46.0) % MCV 86.9 (80.0-100.0) fL MCH 27.8 (25.0-35.0) pg MCHC 32.0 (31.0-37.0) g/dL RDW 15.6 H (11.5-15.5) % Plt Count 338 (150-450) k/uL Neutrophils % 69 % Lymphocytes % 23 % Monocytes % 5 % Eosinophils % 2 % Basophils % 0 % Neutrophils # 4.5 (1.3-7.7) k/uL Lymphocytes # 1.5 (1.0-4.8) k/uL Monocytes # 0.3 (0-1.0) k/uL Eosinophils # 0.1 (0-0.7) k/uL Basophils # 0.0 (0-0.2) k/uL PT 10.6 (9.0-12.0) sec INR 1.0 (<1.2) APTT 28.4 (22.0-30.0) sec Sodium 141 (137-145) mmol/L Potassium 4.4 (3.5-5.1) mmol/L Chloride 105 (98-107) mmol/L Carbon Dioxide 29 (22-30) mmol/L Anion Gap 7 mmol/L BUN 18 H (7-17) mg/dL Creatinine 0.80 (0.52-1.04) mg/dL Est GFR (CKD-EPI)AfAm 90 (>60 ml/min/1.73 sqM) Est GFR (CKD-EPI)NonAf 78 (>60 ml/min/1.73 sqM) Glucose 140 H (74-99) mg/dL POC Glucose (mg/dL) (75-99) mg/dL POC Glu Plug Overwrap Machine Tender ID Calcium 9.2 (8.4-10.2) mg/dL Phosphorus 3.7 (2.5-4.5) mg/dL Magnesium 2.2 (1.6-2.3) mg/dL Total Bilirubin 0.3 (0.2-1.3) mg/dL AST 22 (14-36) U/L ALT 28 (9-52) U/L Alkaline Phosphatase 89 (38-126) U/L Ammonia (<30) umol/L Creatine Kinase 78 (30-135) U/L Troponin I (0.000-0.034) ng/mL Total Protein 6.0 L (6.3-8.2) g/dL Albumin 3.4 L (3.5-5.0) g/dL TSH 2.110 (0.465-4.680) mIU/L Urine Color Urine Appearance (Clear) Urine pH (5.0-8.0) Ur Specific [place] (1.001-1.035) Urine Protein (Negative) Urine Glucose (UA) (Negative) Urine Ketones (Negative) Urine Blood (Negative) Urine Nitrite (Negative) Urine Bilirubin (Negative) Urine Urobilinogen (<2.0) mg/dL Ur Leukocyte Esterase (Negative) Urine Opiates Screen (NotDetected) Ur Oxycodone Screen (NotDetected) Urine Methadone Screen (NotDetected) Ur Propoxyphene Screen (NotDetected) Ur Barbiturates Screen (NotDetected) U Tricyclic Antidepress (NotDetected) Ur Phencyclidine Scrn (NotDetected) Ur Amphetamines Screen (NotDetected) U Methamphetamines Scrn (NotDetected) U Benzodiazepines Scrn (NotDetected) Urine Cocaine Screen (NotDetected) U Marijuana (THC) Screen (NotDetected) 08/24/18 08/24/18 08/24/18 Range/Units 13:30 13:30 13:30 WBC (3.8-10.6) k/uL RBC (3.80-5.40) m/uL Hgb (11.4-16.0) gm/dL Hct (34.0-46.0) % MCV (80.0-100.0) fL MCH (25.0-35.0) pg MCHC (31.0-37.0) g/dL RDW (11.5-15.5) % Plt Count (150-450) k/uL Neutrophils % % Lymphocytes % % Monocytes % % Eosinophils % % Basophils % % Neutrophils # (1.3-7.7) k/uL Lymphocytes # (1.0-4.8) k/uL Monocytes # (0-1.0) k/uL Eosinophils # (0-0.7) k/uL Basophils # (0-0.2) k/uL PT (9.0-12.0) sec INR (<1.2) APTT (22.0-30.0) sec Sodium (137-145) mmol/L Potassium (3.5-5.1) mmol/L Chloride (98-107) mmol/L Carbon Dioxide (22-30) mmol/L Anion Gap mmol/L BUN (7-17) mg/dL Creatinine (0.52-1.04) mg/dL Est GFR (CKD-EPI)AfAm (>60 ml/min/1.73 sqM) Est GFR (CKD-EPI)NonAf (>60 ml/min/1.73 sqM) Glucose (74-99) mg/dL POC Glucose (mg/dL) (75-99) mg/dL POC Glu Plug Overwrap Machine Tender ID Calcium (8.4-10.2) mg/dL Phosphorus (2.5-4.5) mg/dL Magnesium (1.6-2.3) mg/dL Total Bilirubin (0.2-1.3) mg/dL AST (14-36) U/L ALT (9-52) U/L Alkaline Phosphatase (38-126) U/L Ammonia <9 (<30) umol/L Creatine Kinase (30-135) U/L Troponin I <0.012 (0.000-0.034) ng/mL Total Protein (6.3-8.2) g/dL Albumin (3.5-5.0) g/dL TSH (0.465-4.680) mIU/L Urine Color Yellow Urine Appearance Clear (Clear) Urine pH 6.5 (5.0-8.0) Ur Specific [place] 1.013 (1.001-1.035) Urine Protein Negative (Negative) Urine Glucose (UA) Negative (Negative) Urine Ketones Negative (Negative) Urine Blood Negative (Negative) Urine Nitrite Negative (Negative) Urine Bilirubin Negative (Negative) Urine Urobilinogen <2.0 (<2.0) mg/dL Ur Leukocyte Esterase Negative (Negative) Urine Opiates Screen Not Detected (NotDetected) Ur Oxycodone Screen Not Detected (NotDetected) Urine Methadone Screen Not Detected (NotDetected) Ur Propoxyphene Screen Not Detected (NotDetected) Ur Barbiturates Screen Not Detected (NotDetected) U Tricyclic Antidepress Not Detected (NotDetected) Ur Phencyclidine Scrn Not Detected (NotDetected) Ur Amphetamines Screen Not Detected (NotDetected) U Methamphetamines Scrn Not Detected (NotDetected) U Benzodiazepines Scrn Detected H (NotDetected) Urine Cocaine Screen Not Detected (NotDetected) U Marijuana (THC) Screen Not Detected (NotDetected) 08/24/18 Range/Units 13:47 WBC (3.8-10.6) k/uL RBC (3.80-5.40) m/uL Hgb (11.4-16.0) gm/dL Hct (34.0-46.0) % MCV (80.0-100.0) fL MCH (25.0-35.0) pg MCHC (31.0-37.0) g/dL RDW (11.5-15.5) % Plt Count (150-450) k/uL Neutrophils % % Lymphocytes % % Monocytes % % Eosinophils % % Basophils % % Neutrophils # (1.3-7.7) k/uL Lymphocytes # (1.0-4.8) k/uL Monocytes # (0-1.0) k/uL Eosinophils # (0-0.7) k/uL Basophils # (0-0.2) k/uL PT (9.0-12.0) sec INR (<1.2) APTT (22.0-30.0) sec Sodium (137-145) mmol/L Potassium (3.5-5.1) mmol/L Chloride (98-107) mmol/L Carbon Dioxide (22-30) mmol/L Anion Gap mmol/L BUN (7-17) mg/dL Creatinine (0.52-1.04) mg/dL Est GFR (CKD-EPI)AfAm (>60 ml/min/1.73 sqM) Est GFR (CKD-EPI)NonAf (>60 ml/min/1.73 sqM) Glucose (74-99) mg/dL POC Glucose (mg/dL) 128 H (75-99) mg/dL POC Glu Plug Overwrap Machine Tender ID Junaid De Calcium (8.4-10.2) mg/dL Phosphorus (2.5-4.5) mg/dL Magnesium (1.6-2.3) mg/dL Total Bilirubin (0.2-1.3) mg/dL AST (14-36) U/L ALT (9-52) U/L Alkaline Phosphatase (38-126) U/L Ammonia (<30) umol/L Creatine Kinase (30-135) U/L Troponin I (0.000-0.034) ng/mL Total Protein (6.3-8.2) g/dL Albumin (3.5-5.0) g/dL TSH (0.465-4.680) mIU/L Urine Color Urine Appearance (Clear) Urine pH (5.0-8.0) Ur Specific [place] (1.001-1.035) Urine Protein (Negative) Urine Glucose (UA) (Negative) Urine Ketones (Negative) Urine Blood (Negative) Urine Nitrite (Negative) Urine Bilirubin (Negative) Urine Urobilinogen (<2.0) mg/dL Ur Leukocyte Esterase (Negative) Urine Opiates Screen (NotDetected) Ur Oxycodone Screen (NotDetected) Urine Methadone Screen (NotDetected) Ur Propoxyphene Screen (NotDetected) Ur Barbiturates Screen (NotDetected) U Tricyclic Antidepress (NotDetected) Ur Phencyclidine Scrn (NotDetected) Ur Amphetamines Screen (NotDetected) U Methamphetamines Scrn (NotDetected) U Benzodiazepines Scrn (NotDetected) Urine Cocaine Screen (NotDetected) U Marijuana (THC) Screen (NotDetected) - EKG Data -: EKG Interpreted by Me (EKG shows sinus rhythm rate of 65, MO 170, QRS 80, QTC 451) - Radiology Data Radiology results: report reviewed (CT brain CTA had not negative for acute disease), image reviewed Disposition Clinical Impression: Weakness, Altered mental status, Drug overdose, Dehydration Disposition: ADMITTED IP TO THIS [facility] Condition: Good Is patient prescribed a controlled substance at d/c from ED?: No Referrals: Farzad Hartley MD [Primary Care Provider] - 1-2 days
[2018-08-24 13:47] LABS: Basophils % (A) 0 %; Eosinophils # (A) 0.1 k/uL (0-0.7); Eosinophils % (A) 2 %; HGB 10.9 gm/dL (11.4-16.0); Lymphocytes # (A) 1.5 k/uL (1.0-4.8); Lymphocytes % (A) 23 %; MCH 27.8 pg (25.0-35.0); MCV 86.9 fL (80.0-100.0); Mean Platelet Volume 6.7; Monocytes # (A) 0.3 k/uL (0-1.0); Monocytes % (A) 5 %; Neutrophils # (A) 4.5 k/uL (1.3-7.7); Neutrophils % (A) 69 %; Platelet Count 338 k/uL (150-450); RBC 3.91 m/uL (3.80-5.40); RDW 15.6 % (11.5-15.5); WBC 6.6 k/uL (3.8-10.6)
[2018-08-24 13:49] LABS: Glucose,Whole Blood 128 mg/dL (75-99)
[2018-08-24 13:58] LABS: Albumin 3.4 g/dL (3.5-5.0); Calcium 9.2 mg/dL (8.4-10.2); Magnesium 2.2 mg/dL (1.6-2.3); Phosphorus 3.7 mg/dL (2.5-4.5); Potassium 4.4 mmol/L (3.5-5.1); Total Bilirubin 0.3 mg/dL (0.2-1.3)
[2018-08-24 14:01] LABS: Partial Thromboplastin Time 28.4 sec (22.0-30.0); Prothrombin Time 10.6 sec (9.0-12.0)
--- NOTE | 2018-08-24 14:21 | CT ---
EXAMINATION TYPE: CT brain wo con DATE OF EXAM: 08/24/2018 COMPARISON: 06/04/2018 HISTORY: confusion, dizziness CT DLP: 1044 mGycm Automated exposure control for dose reduction was used. FINDINGS: There is mild cerebral cortical atrophy. There is no mass effect nor midline shift. There is no sign of intracranial hemorrhage. Calvarium is intact. There is mild hypodensity in the periventricular whi te matter. IMPRESSION: CEREBRAL ATROPHY AND CHRONIC SMALL VESSEL ISCHEMIA. NO CHANGE.
--- NOTE | 2018-08-24 14:44 | CT ---
EXAMINATION TYPE: CT angio head neck DATE OF EXAM: 08/24/2018 HISTORY: Dizzy/confused COMPARISON: 01/20/2017 CT DLP: 462.1 mGycm. Automated Exposure Control for Dose Reduction was Utilized. TECHNIQUE: CTA scan of the neck is performed with IV Contrast, patient injected with 50 mL of Isovue 370, axial images are obtained, coronal and sagittal reformatted images are reviewed. Three-D recons tructed images are created on an independent workstation and reviewed. FINDINGS: There is normal branching pattern of the great vessels on the aortic arch. There is bilateral arteria l flow in the vertebral arteries. There is arterial flow in the common internal and external carotid arteries bilaterally. There is fairly wide patency of the carotid arteries. There is no evidence of c arotid artery aneurysm or dissection. There is arterial flow in the anterior middle and posterior cerebral arteries. There is arterial flow in the vertebrobasilar artery system. There is normal contrast opacification of the venous sinuses. There is no evidence of hemodynamic stenosis. There is no mass effect. There is no evidence of aneury sm or neovascularity. IMPRESSION: Negative CT angiogram of the neck. Negative CT angiogram of the brain.
[2018-08-24 14:49] LABS: Appearance,Urine Clear (Clear); Bilirubin,Urine Negative (Negative); Blood,Urine Negative (Negative); Color,Urine Yellow; Glucose,Urine (UA) Negative (Negative); Ketones,Urine Negative (Negative); Leukocyte Esterase,Urine Negative (Negative); Nitrite,Urine Negative (Negative); PH, Urine 6.5 (5.0-8.0); Protein,Urine Negative (Negative); Specific Gravity,Urine 1.013 (1.001-1.035); Urobilinogen,Urine <2.0 mg/dL (<2.0)
[2018-08-24 14:58] LABS: Amphetamine Screen,Urine Not Detected (NotDetected); Barbiturate Screen,Urine Not Detected (NotDetected); Benzodiazepines Screen,Urine Detected (NotDetected); Cocaine Screen,Urine Not Detected (NotDetected); Methadone Screen, Urine Not Detected (NotDetected); Opiate Screen,Urine Not Detected (NotDetected); Oxycodone Screen, Urine Not Detected (NotDetected); Phencyclidine Screen,Urine Not Detected (NotDetected); Tricyclic Antidepressant,Urine Not Detected (NotDetected); Urn Cannabinoid Scrn Not Detected (NotDetected)
[2018-08-24] MEDS ORDERED: IPRATROPIUM-ALBUTEROL 3 ML NEB INHALATION PRN (15:20)
[2018-08-24] MEDS ORDERED: NALOXONE 0.4 MG/ML 1 ML VIAL IV STA (15:20)
[2018-08-24] MEDS ORDERED: SODIUM CHLORIDE 0.9% 1,000 ML IV STA (15:20)
[2018-08-24] MEDS ORDERED: IPRATROPIUM-ALBUTEROL 3 ML NEB INHALATION STA (15:20)
[2018-08-24] MEDS ORDERED: methylPREDNISolone SOD SUCCI 125 MG/2 ML VIAL IV STA (15:20)
[2018-08-24 17:59] VITALS: BMI 34.3
[2018-08-24] MEDS: methylPREDNISolone SOD SUCCI 125 MG/2 ML VIAL IV SCH (23:59)
[2018-08-25] MEDS: methylPREDNISolone SOD SUCCI 125 MG/2 ML VIAL IV SCH ×4 (05:53→23:59)
[2018-08-25 11:31] LABS: Glucose,Whole Blood 246 mg/dL (75-99)
[2018-08-25 11:49] LABS: Basophils % (A) 0 %; Eosinophils % (A) 0 %; HCT 38.1 % (34.0-46.0); HGB 12.2 gm/dL (11.4-16.0); Hypochromasia Slight; Lymphocytes # (A) 0.9 k/uL (1.0-4.8); Lymphocytes % (A) 7 %; MCH 27.9 pg (25.0-35.0); MCHC 31.9 g/dL (31.0-37.0); MCV 87.4 fL (80.0-100.0); Mean Platelet Volume 7.4; Monocytes # (A) 0.2 k/uL (0-1.0); Monocytes % (A) 2 %; Neutrophils # (A) 11.4 k/uL (1.3-7.7); Neutrophils % (A) 90 %; Platelet Count 357 k/uL (150-450); RBC 4.35 m/uL (3.80-5.40); RDW 15.9 % (11.5-15.5); WBC 12.7 k/uL (3.8-10.6)
[2018-08-25 12:01] LABS: African American GFR (CKD) >90 (>60 ml/min/1.73 sqM); Anion Gap 8 mmol/L; Blood Urea Nitrogen 15 mg/dL (7-17); Carbon Dioxide 28 mmol/L (22-30); Chloride 103 mmol/L (98-107); Glucose 231 mg/dL (74-99); Potassium 4.2 mmol/L (3.5-5.1); Sodium 139 mmol/L (137-145)
--- NOTE | 2018-08-25 12:07 | XR ---
EXAMINATION TYPE: XR chest 2V DATE OF EXAM: 08/25/2018 COMPARISON: 06/04/2018 TECHNIQUE: PA and lateral views submitted. HISTORY: Pneumonia FINDINGS: Bilateral subsegmental atelectasis. No pleural effusion or pneumothorax. Catheter overlying the verte bral column. Surgical clips in the gallbladder fossa. Atherosclerotic change aorta. IMPRESSION: 1. Bibasilar atelectasis or early infiltrate.
[2018-08-25] MEDS: INSULIN ASPART (NovoLOG) 100 UNIT/ML VIAL SQ SCH ×3 (12:20→22:15)
--- NOTE | 2018-08-25 13:26 | P.HPIM ---
History of Present Illness H&P Date: 08/25/18 Chief Complaint: Weakness and falls This is a 63-year-old white female well-known to me. 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 She remains on anticoagulation via Elequis. She comes in with complaints emergency room of three-day history of increasing weakness, dysuria and cough. She was very somnolent and not easily arousable emergency room. She takes medications for schizophrenia as well. She has significant smoking history and takes DuoNeb and Symbicort at home for this. She is a type II diabetic is on Humalog at home for this. She takes tramadol and gabapentin for her low back pain. She is on Xanax and duloxetine, and Zyprexa for her schizophrenia. She takes atorvastatin lisinopril, metoprolol, and verapamil for hypertension and hyperlipidemia. This morning she is improved. She is less confused. Having some coughing and still weak. Her is at bedside. She currently denies any chest pains, pressures, nausea or vomiting. Past Medical History Past Medical History: Asthma, Cancer, COPD, CVA/TIA, Diabetes Mellitus (Insulin- dependent), Fibromyalgia, Hyperlipidemia, Hypertension, Musculoskeletal Disorder (Chronic low back pain), Neurologic Disorder (Neuropathy lower extremities), Osteoarthritis (OA), Pulmonary Embolus (PE) (3 on chronic anticoagulation), Skin Disorder History of Any Multi-Drug Resistant Organisms: None Reported Past Surgical History: Back Surgery, Cholecystectomy, Hysterectomy, Joint Replacement (Left total hip arthroplasty), Orthopedic Surgery (Left wrist ORIF,) Additional Past Surgical History / Comment(s): Back pain stimulator implant lumbar cataract removals, 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 Past Anesthesia/Blood Transfusion Reactions: No Reported Reaction Additional Past Anesthesia/Blood Transfusion Reaction / Comment(s): no hx blood transfusion Past Psychological History: Schizophrenia Additional Psychological History / Comment(s): Pt resides with her spouse who is very helpful to patient. Spouse does work during the day so pt is alone at that time. Pt uses a cane or walker to ambulate. She no longer drives, her spouse takes her to appts, helps her manage her meds and assists her with getting cleaned up and dressed if necessary. He also assists her with meals. She has a lady, Rosie, who comes twice a week for companionship and she does housework. Smoking Status: Former smoker Past Alcohol Use History: None Reported Additional Past Alcohol Use History / Comment(s): Pt started smoking in 1972 and quit in February 2016. Past Drug Use History: None Reported Additional Drug Use History / Comment(s): occasional - Past Family History Mother History Unknown: Yes Family Medical History: COPD Additional Family Medical History / Comment(s): Mother at the age of 78yrs. Father History Unknown: Yes Family Medical History: Myocardial Infarction (IA) Additional Family Medical History / Comment(s): Father of a massive IA at the age of 50 yrs. Pt is not sure if ovidio may have moved to his heart-he had injury in WWII. Sister(s) Family Medical History: Cancer Medications and Allergies Home Medications Medication Instructions Recorded Confirmed Type DULoxetine HCL [Cymbalta] 120 mg PO QAM 06/19/14 08/24/18 History Montelukast [Singulair] 10 mg PO HS 06/19/14 08/24/18 History OLANZapine [ZyPREXA] 30 mg PO HS 06/23/14 08/24/18 History Apixaban [Eliquis] 5 mg PO BID 03/19/17 08/24/18 History Atorvastatin [Lipitor] 10 mg PO HS 03/19/17 08/24/18 History Gabapentin [Neurontin] 600 mg PO TID 03/19/17 08/24/18 History Verapamil HCl [Verapamil ER] 120 mg PO DAILY 03/19/18 08/24/18 History Budesonide-Formot 160-4.5 Mcg 2 puff INHALATION RT-BID #1 puff 03/24/18 08/24/18 Rx [Symbicort 160-4.5 Mcg Inhaler] Metoprolol Tartrate [Lopressor] 50 mg PO BID #60 tab 03/24/18 08/24/18 Rx hydrALAZINE HCL [Apresoline] 50 mg PO QID #120 tab 03/24/18 08/24/18 Rx Acetaminophen Tab [Tylenol] 650 mg PO Q4HR PRN tab 06/07/18 08/24/18 Rx Ipratropium-Albuterol Nebulize 3 ml INHALATION RT-QID ampul.neb 06/07/18 08/24/18 Rx [Duoneb 0.5 mg-3 mg/3 ml Soln] Lisinopril [Zestril] 10 mg PO BID #1 tab 06/07/18 08/24/18 Rx Pantoprazole [Protonix] 40 mg PO DAILY tablet. 06/07/18 08/24/18 Rx INSULIN LISPRO (HumaLOG) [humaLOG] See Protocol SQ ACHS 08/24/18 08/24/18 History ALPRAZolam [Xanax] 0.5 mg PO BID 08/25/18 08/25/18 History traMADol HCL [Ultram] 50 mg PO Q8H PRN 08/25/18 08/25/18 History Allergies Allergy/AdvReac Type Severity Reaction Status Date / Time No Known Allergies Allergy Verified 08/24/18 13:58 Physical Exam Vitals: Vital Signs Temp Pulse Pulse Resp BP BP Pulse Ox 08/25/18 07:00 97.6 F 71 16 147/83 95 08/25/18 02:12 97.9 F 79 17 174/94 92 L 08/24/18 20:00 17 08/24/18 19:21 97.4 F L 61 17 153/92 97 08/24/18 17:31 97.4 F L 61 18 146/89 92 L 08/24/18 16:56 63 08/24/18 16:49 64 08/24/18 16:18 14 08/24/18 13:15 98.2 F 69 18 110/72 94 L Intake and Output 08/24/18 08/25/18 08/25/18 22:59 06:59 14:59 Intake Total 1799 Balance 1799 Intake: Intake, IV Titration 1799 Amount Sodium Chloride 0.9% 1, 800 000 ml @ 100 mls/hr IV . Q10H STA Rx#:[id number] Sodium Chloride 0.9% 1, 999 000 ml @ 999 mls/hr IV . Q1H1M ONE Rx#:[id number] Other: Voiding Method Bedpan # Voids 4 GENERAL: Fatigue well-nourished and in no acute distress. HEAD: Atraumatic, normocephalic. EYES: Pupils equal round and reactive to light, extraocular movements intact, sclera anicteric, conjunctiva are normal. ENT:nares patent, oropharynx clear without exudates. Moist mucous membranes. NECK: Normal range of motion, supple without lymphadenopathy or JVD, no thyromegaly LUNGS: Breath sounds coarse, worse the right base to auscultation bilaterally and equal. No wheezes rales or rhonchi. HEART: Regular rate and rhythm without murmurs, rubs or gallops.S1S2 Normal ABDOMEN: Soft, nontender, normoactive bowel sounds. No guarding, no rebound. No masses appreciated. EXTREMITIES: Normal range of motion, no pitting or edema. No clubbing or cyanosis. NEUROLOGICAL: Cranial nerves II through XII grossly intact. Normal speech, normal gait. PSYCH: Normal mood, flat affect. SKIN: Warm, Dry, normal turgor, no rashes or lesions noted. Results CBC & Chem 7: 08/25/18 11:25 08/25/18 11:25 Labs: Abnormal Lab Results - Last 24 Hours (Table) 08/24/18 08/24/18 08/24/18 Range/Units 13:30 13:30 13:30 WBC (3.8-10.6) k/uL Hgb 10.9 L (11.4-16.0) gm/dL RDW 15.6 H (11.5-15.5) % Neutrophils # (1.3-7.7) k/uL Lymphocytes # (1.0-4.8) k/uL BUN 18 H (7-17) mg/dL Glucose 140 H (74-99) mg/dL POC Glucose (mg/dL) (75-99) mg/dL Total Protein 6.0 L (6.3-8.2) g/dL Albumin 3.4 L (3.5-5.0) g/dL U Benzodiazepines Scrn Detected H (NotDetected) 08/24/18 08/25/18 08/25/18 Range/Units 13:47 11:19 11:25 WBC 12.7 H (3.8-10.6) k/uL Hgb (11.4-16.0) gm/dL RDW 15.9 H (11.5-15.5) % Neutrophils # 11.4 H (1.3-7.7) k/uL Lymphocytes # 0.9 L (1.0-4.8) k/uL BUN (7-17) mg/dL Glucose (74-99) mg/dL POC Glucose (mg/dL) 128 H 246 H (75-99) mg/dL Total Protein (6.3-8.2) g/dL Albumin (3.5-5.0) g/dL U Benzodiazepines Scrn (NotDetected) 08/25/18 Range/Units 11:25 WBC (3.8-10.6) k/uL Hgb (11.4-16.0) gm/dL RDW (11.5-15.5) % Neutrophils # (1.3-7.7) k/uL Lymphocytes # (1.0-4.8) k/uL BUN (7-17) mg/dL Glucose 231 H (74-99) mg/dL POC Glucose (mg/dL) (75-99) mg/dL Total Protein (6.3-8.2) g/dL Albumin (3.5-5.0) g/dL U Benzodiazepines Scrn (NotDetected) Microbiology - Last 24 Hours (Table) 08/24/18 13:30 Urine Culture - Preliminary Urine,Catheterized Thrombosis Risk Factor Assmnt - DVT/VTE Prophylaxis DVT/VTE Prophylaxis: Pharmacologic Prophylaxis ordered (She'll remain on her Elequis) - Choose All That Apply Any of the Below Risk Factors Present?: Yes Each Factor Represents 1 point: Abnormal pulmonary function (COPD), Medical pt on bed rest, Obesity (BMI >25) Other Risk Factors: Yes Each Risk Factor Represents 2 Points: Age 61-74 years Each Risk Factor Represents 3 Points: History of DVT/PE Other congenital or acquired thrombophilia - If yes, enter type in comment: No Thrombosis Risk Factor Assessment Total Risk Factor Score: 8 Thrombosis Risk Factor Assessment Level: High Risk Assessment and Plan (1) COPD with acute exacerbation Current Visit: Yes Status: Acute Code(s): J44.1 - CHRONIC OBSTRUCTIVE PULMONARY DISEASE W (ACUTE) EXACERBATION SNOMED Code(s): 374655543 (2) Schizophrenia Current Visit: Yes Status: Acute Code(s): F20.9 - SCHIZOPHRENIA, UNSPECIFIED SNOMED Code(s): 28562208 (3) IDDM (insulin dependent diabetes mellitus) Current Visit: Yes Status: Acute Code(s): E11.9 - TYPE 2 DIABETES MELLITUS WITHOUT COMPLICATIONS; Z79.4 - [facility] (CURRENT) USE OF INSULIN SNOMED Code(s): 76320746 (4) Leukocytosis Current Visit: Yes Status: Acute Code(s): D72.829 - ELEVATED WHITE BLOOD CELL COUNT, UNSPECIFIED SNOMED Code(s): 468567571 (5) Altered mental status Current Visit: Yes Status: Acute Code(s): R41.82 - ALTERED MENTAL STATUS, UNSPECIFIED SNOMED Code(s): 039236960 (6) Dehydration Current Visit: Yes Status: Acute Code(s): E86.0 - DEHYDRATION SNOMED Code(s): 46271210 (7) Weakness Current Visit: Yes Status: Acute Code(s): R53.1 - WEAKNESS SNOMED Code(s): 44108260 (8) UTI (urinary tract infection) Current Visit: No Status: Acute Code(s): N39.0 - URINARY TRACT INFECTION, SITE NOT SPECIFIED SNOMED Code(s): 13856720 (9) Essential (primary) hypertension Current Visit: Yes Status: Acute Code(s): I10 - ESSENTIAL (PRIMARY) HYPERTENSION SNOMED Code(s): 71154472 (10) Pure hypercholesterolemia Current Visit: Yes Status: Acute Code(s): E78.00 - PURE HYPERCHO LESTEROLEMIA, UNSPECIFIED SNOMED Code(s): 616210384 (11) Hx pulmonary embolism Current Visit: Yes Status: Acute Code(s): Z86.711 - PERSONAL HISTORY OF PULMONARY EMBOLISM SNOMED Code(s): 977745414 (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 She'll continue on methylprednisolone starting emergency room. I will add Rocephin 1 g daily. She'll remain on NovoLog scale. We'll wait on a hemoglobin A1c. Due to her somnolence, I'll hold off on the dose of her Zyprexa, continue duloxetine, hold her Xanax this time. She'll continue on lisinopril metoprolol and verapamil for her hypertension. Continue pantoprazole for GI prophylaxis. She'll have repeat labs in a.m. along with chest x-ray. She'll be reevaluated next 24 hours. We'll consult physical therapy
[2018-08-25] MEDS: hydrALAZINE HCL 50 MG TAB PO SCH ×2 (16:20→21:40)
[2018-08-25] MEDS: APIXABAN 5 MG TAB PO SCH ×2 (16:20→23:57)
[2018-08-25] MEDS: PANTOPRAZOLE 40 MG TABLET PO SCH (16:20)
[2018-08-25] MEDS: LISINOPRIL 10 MG TAB PO SCH ×2 (16:20→23:55)
[2018-08-25] MEDS: METOPROLOL TARTRATE 50 MG TAB PO SCH ×2 (16:20→23:55)
[2018-08-25 16:46] LABS: Glucose,Whole Blood 234 mg/dL (75-99)
[2018-08-25] MEDS: VERAPAMIL SR 120 MG TABLET.ER PO SCH (18:51)
[2018-08-25] MEDS: SYMBICORT 160-4.5 MCG INHALER INHALATION SCH (20:29)
[2018-08-25] MEDS ORDERED: OLANZapine 10 MG TAB PO SCH (21:00)
[2018-08-25] MEDS ORDERED: MONTELUKAST 10 MG TAB PO SCH (21:00)
[2018-08-25] MEDS ORDERED: ATORVASTATIN 10 MG TAB PO SCH (21:00)
[2018-08-25 21:54] LABS: Glucose,Whole Blood 187 mg/dL (75-99)
[2018-08-26] MEDS: methylPREDNISolone SOD SUCCI 125 MG/2 ML VIAL IV SCH (05:50)
[2018-08-26 07:27] LABS: Glucose,Whole Blood 196 mg/dL (75-99)
[2018-08-26] MEDS: VERAPAMIL SR 120 MG TABLET.ER PO SCH (07:43)
[2018-08-26] MEDS: PANTOPRAZOLE 40 MG TABLET PO SCH (07:43)
[2018-08-26] MEDS: APIXABAN 5 MG TAB PO SCH (07:43)
[2018-08-26] MEDS: INSULIN ASPART (NovoLOG) 100 UNIT/ML VIAL SQ SCH ×3 (07:44→17:16)
[2018-08-26] MEDS: LISINOPRIL 10 MG TAB PO SCH (07:44)
[2018-08-26] MEDS: METOPROLOL TARTRATE 50 MG TAB PO SCH (07:44)
[2018-08-26] MEDS: hydrALAZINE HCL 50 MG TAB PO SCH ×3 (07:44→17:16)
[2018-08-26] MEDS: ACETAMINOPHEN TAB 325 MG TAB PO PRN ×2 (07:48→14:11)
[2018-08-26 07:50] VITALS: RESP 16
[2018-08-26] MEDS ORDERED: DULoxetine HCL 60 MG CAPSULE.DR PO SCH (09:00)
--- NOTE | 2018-08-26 09:03 | XR ---
EXAMINATION TYPE: XR chest 2V DATE OF EXAM: 08/26/2018 COMPARISON: 08/25/2018 TECHNIQUE: PA and lateral views submitted. HISTORY: Pneumonia FINDINGS: Bilateral subsegmental atelectasis. No pleural effusion or pneumothorax. Catheter overlying the verte bral column. Surgical clips in the gallbladder fossa. Atherosclerotic change aorta. Generative change of the spine. IMPRESSION: 1. Bibasilar atelectasis or early infiltrate stable.
[2018-08-26 09:10] LABS: Basophils % (A) 0 %; Eosinophils # (A) 0.2 k/uL (0-0.7); Eosinophils % (A) 1 %; HCT 36.3 % (34.0-46.0); HGB 11.2 gm/dL (11.4-16.0); Hypochromasia Slight; Lymphocytes # (A) 0.9 k/uL (1.0-4.8); Lymphocytes % (A) 5 %; MCH 26.7 pg (25.0-35.0); MCHC 30.8 g/dL (31.0-37.0); MCV 86.8 fL (80.0-100.0); Mean Platelet Volume 7.3; Monocytes # (A) 0.8 k/uL (0-1.0); Monocytes % (A) 5 %; Neutrophils # (A) 15.8 k/uL (1.3-7.7); Neutrophils % (A) 89 %; Platelet Count 372 k/uL (150-450); RBC 4.19 m/uL (3.80-5.40); RDW 15.9 % (11.5-15.5); WBC 17.8 k/uL (3.8-10.6)
[2018-08-26 09:39] LABS: African American GFR (CKD) >90 (>60 ml/min/1.73 sqM); Anion Gap 10 mmol/L; Blood Urea Nitrogen 15 mg/dL (7-17); Calcium 9.3 mg/dL (8.4-10.2); Carbon Dioxide 26 mmol/L (22-30); Chloride 105 mmol/L (98-107); Glucose 223 mg/dL (74-99); Potassium 3.8 mmol/L (3.5-5.1); Sodium 141 mmol/L (137-145)
[2018-08-26] MEDS: SYMBICORT 160-4.5 MCG INHALER INHALATION SCH (09:51)
[2018-08-26 10:36] LABS: Hemoglobin A1C 6.9 % (4.0-6.0)
[2018-08-26] MEDS ORDERED: INSULIN DETEMIR (LEVEMIR) 100 UNIT/ML SYR SQ SCH (11:15)
[2018-08-26 11:26] LABS: Glucose,Whole Blood 204 mg/dL (75-99)
[2018-08-26 15:00] VITALS: BP 175/92; PULSE 77; TEMP 97.5
--- NOTE | 2018-08-26 15:41 | P.DS ---
Providers Date of admission: 08/24/18 16:34 Expected date of discharge: 08/26/18 Attending physician: Farzad Hartley Primary care physician: Farzad Hartley [facility] Course: Final Diagnoses: -(1) COPD with acute exacerbation Current Visit: Yes Status: Acute Code(s): J44.1 - CHRONIC OBSTRUCTIVE PULMONARY DISEASE W (ACUTE) EXACERBATION SNOMED Code(s): 889065815 (2) Schizophrenia Current Visit: Yes Status: Acute Code(s): F20.9 - SCHIZOPHRENIA, UNSPECIFIED SNOMED Code(s): 34490311 (3) IDDM (insulin dependent diabetes mellitus), hemoglobin A1c 6.9 Current Visit: Yes Status: Acute Code(s): E11.9 - TYPE 2 DIABETES MELLITUS WITHOUT COMPLICATIONS; Z79.4 - CLINICAL PSYCHOLOGIST (CURRENT) USE OF INSULIN SNOMED Code(s): 24133876 (4) Leukocytosis Current Visit: Yes Status: Acute Code(s): D72.829 - ELEVATED WHITE BLOOD CELL COUNT, UNSPECIFIED SNOMED Code(s): 563701821 (5) Altered mental status, metabolic and toxic encephalopathy, multifactorial, secondary to acute COPD infection, possible early pneumonia, and possibly medication induced. Current Visit: Yes Status: Acute Code(s): R41.82 - ALTERED MENTAL STATUS, UNSPECIFIED SNOMED Code(s): 864960594 (6) Dehydration Current Visit: Yes Status: Acute Code(s): E86.0 - DEHYDRATION SNOMED Code(s): 16027698 (7) Weakness Current Visit: Yes Status: Acute Code(s): R53.1 - WEAKNESS SNOMED Code(s): 53206159 (8) Possible acute UTI (urinary tract infection), culture reporting no growth at 18 hours Current Visit: No Status: Acute Code(s): N39.0 - URINARY TRACT INFECTION, SITE NOT SPECIFIED SNOMED Code(s): 45750397 (9) Essential (primary) hypertension Current Visit: Yes Status: Acute Code(s): I10 - ESSENTIAL (PRIMARY) HYPERTENSION SNOMED Code(s): 56821015 (10) Pure hypercholesterolemia Current Visit: Yes Status: Acute Code(s): E78.00 - PURE HYPERCHOLESTEROLEMIA, UNSPECIFIED SNOMED Code(s): 544065692 (11) Hx pulmonary embolism Current Visit: Yes Status: Acute Code(s): Z86.711 - PERSONAL HISTORY OF PULMONARY EMBOLISM SNOMED Code(s): 645782942 (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 She remains on anticoagulation via Elequis. She comes in with complaints emergency room of three-day history of increasing weakness, dysuria and cough. She was very somnolent and not easily arousable emergency room. She takes medications for schizophrenia as well. She has significant smoking history and takes DuoNeb and Symbicort at home for this. She is a type II diabetic is on Humalog at home for this. She takes tramadol and gabapentin for her low back pain. She is on Xanax and duloxetine, and Zyprexa for her schizophrenia. She takes atorvastatin lisinopril, metoprolol, and verapamil for hypertension and hyperlipidemia. This morning she is improved. She is less confused. Having some coughing and still weak. Her is at bedside. She currently denies any chest pains, pressures, nausea or vomiting. Maintain on IV antibiotics, medications adjusted including Zyprexa dose decreased. Evaluated by PT with home at [place] recommended. Denies chest pain, palpitations or shortness of breath .Significant clinical improvement. Patient is being discharged home in a stable condition with Prognosis. Microbiology 08/24/18 13:30 Urine,Catheterized Urine Culture - Final GENERAL: Alert and oriented 3, standing up at bedside, no acute distress. LUNGS: Bilateral Air entry improved, less coarse, No wheezes rales or rhonchi. HEART: Regular rate and rhythm without murmurs, rubs or gallops.S1S2 Normal ABDOMEN: Soft, nontender, normoactive bowel sounds. No guarding, no rebound. No masses appreciated. NEUROLOGICAL: Cranial nerves II through XII grossly intact. Normal speech, normal gait. No focal deficits. The impression and plan of care has been dictated as directed. : I performed a history and examination of this patient, discussed the same with the dictator. I agree with the dictator's note ,documented as a scribe. Any additional findings or plans will be noted. Time taken: 35 minutes Patient Condition at Discharge: Stable Plan - Discharge Summary Discharge Rx Participant: No New Discharge Prescriptions: New Cefuroxime Axetil [Ceftin] 500 mg PO BID #10 tab predniSONE 10 mg PO DIRECTED #30 tab INSULIN LISPRO (HumaLOG) [humaLOG] 0 unit SQ ACHS #1 vial Continue DULoxetine HCL [Cymbalta] 120 mg PO QAM Montelukast [Singulair] 10 mg PO HS Gabapentin [Neurontin] 600 mg PO TID Apixaban [Eliquis] 5 mg PO BID Atorvastatin [Lipitor] 10 mg PO HS Verapamil HCl [Verapamil ER] 120 mg PO DAILY Budesonide-Formot 160-4.5 Mcg [Symbicort 160-4.5 Mcg Inhaler] 2 puff INHALATION RT-BID #1 puff hydrALAZINE HCL [Apresoline] 50 mg PO QID #120 tab Metoprolol Tartrate [Lopressor] 50 mg PO BID #60 tab Pantoprazole [Protonix] 40 mg PO DAILY tablet. Lisinopril [Zestril] 10 mg PO BID #1 tab Acetaminophen Tab [Tylenol] 650 mg PO Q4HR PRN tab PRN Reason: Fever and/ or MILD Pain Ipratropium-Albuterol Nebulize [Duoneb 0.5 mg-3 mg/3 ml Soln] 3 ml INHALATION RT-QID #0 ampul.neb Changed OLANZapine [ZyPREXA] 20 mg PO HS #0 Discontinued traMADol HCL [Ultram] 50 mg PO Q8H PRN PRN Reason: Pain ALPRAZolam [Xanax] 0.5 mg PO BID Discharge Medication List DULoxetine HCL [Cymbalta] 120 mg PO QAM 06/19/14 [History] Montelukast [Singulair] 10 mg PO HS 06/19/14 [History] Apixaban [Eliquis] 5 mg PO BID 03/19/17 [History] Atorvastatin [Lipitor] 10 mg PO HS 03/19/17 [History] Gabapentin [Neurontin] 600 mg PO TID 03/19/17 [History] Verapamil HCl [Verapamil ER] 120 mg PO DAILY 03/19/18 [History] Budesonide-Formot 160-4.5 Mcg [Symbicort 160-4.5 Mcg Inhaler] 2 puff INHALATION RT-BID #1 puff 03/24/18 [Rx] Metoprolol Tartrate [Lopressor] 50 mg PO BID #60 tab 03/24/18 [Rx] hydrALAZINE HCL [Apresoline] 50 mg PO QID #120 tab 03/24/18 [Rx] Acetaminophen Tab [Tylenol] 650 mg PO Q4HR PRN tab 06/07/18 [Rx] Lisinopril [Zestril] 10 mg PO BID #1 tab 06/07/18 [Rx] Pantoprazole [Protonix] 40 mg PO DAILY tablet. 06/07/18 [Rx] Cefuroxime Axetil [Ceftin] 500 mg PO BID #10 tab 08/26/18 [Rx] INSULIN LISPRO (HumaLOG) [humaLOG] 0 unit SQ ACHS #1 vial 08/26/18 [Rx] Ipratropium-Albuterol Nebulize [Duoneb 0.5 mg-3 mg/3 ml Soln] 3 ml INHALATION RT-QID #0 ampul.neb 08/26/18 [Rx] OLANZapine [ZyPREXA] 20 mg PO HS #0 08/26/18 [Rx] predniSONE 10 mg PO DIRECTED #30 tab 08/26/18 [Rx] Follow up Appointment(s)/Referral(s): Farzad Hartley MD [Primary Care Provider] - 08/30/18 3:30 pm [facility] Visiting Nurse, [NON-STAFF] - Ambulatory/Diagnostic Orders: Complete Blood Count w/diff [LAB.AMB] Time Frame: 3 Days, Location: None Selected Patient Instructions/Handouts: Weakness (DC)
[2018-08-26] MEDS ORDERED: methylPREDNISolone SOD SUCCI 40 MG/ML 1 ML VIAL IV SCH (16:00)
[2018-08-26 17:16] LABS: Glucose,Whole Blood 205 mg/dL (75-99)
[2018-08-27] MEDS ORDERED: INSULIN DETEMIR (LEVEMIR) 100 UNIT/ML SYR SQ SCH (07:00)
== END 2018-08-26 17:54 | disposition home health service (06) ==
LOC: EC 13:12 → 4SSUR 16:34
PROVIDERS: ADMIT Family Medicine; ATTEND Family Medicine
DX: J44.1 Chronic obstructive pulmonary disease with (acute) exacerbation (principal); F20.9 Schizophrenia, unspecified; E11.41 Type 2 diabetes mellitus with diabetic mononeuropathy; G57.93 Unspecified mononeuropathy of bilateral lower limbs; D72.829 Elevated white blood cell count, unspecified; R41.82 Altered mental status, unspecified; G92 Toxic encephalopathy; E86.0 Dehydration; I10 Essential (primary) hypertension; E78.00 Pure hypercholesterolemia, unspecified; J98.11 Atelectasis; G89.29 Other chronic pain; M54.5 Low back pain; E78.5 Hyperlipidemia, unspecified; M79.7 Fibromyalgia; R47.81 Slurred speech; R11.2 Nausea with vomiting, unspecified; R30.0 Dysuria; R29.6 Repeated falls; M19.90 Unspecified osteoarthritis, unspecified site; R41.3 Other amnesia; G43.909 Migraine, unspecified, not intractable, without status migrainosus; R32 Unspecified urinary incontinence; R15.9 Full incontinence of feces; E66.9 Obesity, unspecified; Z68.34 Body mass index [BMI] 34.0-34.9, adult; Z85.828 Personal history of other malignant neoplasm of skin; Z86.711 Personal history of pulmonary embolism; Z86.73 Personal history of transient ischemic attack (TIA), and cerebral infarction without residual deficits; Z90.49 Acquired absence of other specified parts of digestive tract; Z79.899 Other long term (current) drug therapy; Z79.4 Long term (current) use of insulin; Z79.51 Long term (current) use of inhaled steroids; Z79.891 Long term (current) use of opiate analgesic; Z79.01 Long term (current) use of anticoagulants; Z87.891 Personal history of nicotine dependence; Z82.5 Family history of asthma and other chronic lower respiratory diseases; Z82.49 Family history of ischemic heart disease and other diseases of the circulatory system; Z80.9 Family history of malignant neoplasm, unspecified
CPT/HCPCS: 96376 ×3; 96361 ×3; 96365; 96375; 99285; 36415; 94640 ×3; 93005; 97162; 97165; 84134; 80053; 80048 ×2; 82140; 82550; 83735; 84100; 84443; 84484; 85025 ×3; 85610; 85730; 81003; 80306; 87086; 83036; 71046 ×2; 70496; 70450; 70498; G0378 ×3; J2310; J2920; J2930 ×3; J0696; Q9967

== ENCOUNTER 2018-09-15 13:37 | Inpatient (IN) | payer BC, MEDICARE ==
--- NOTE | 2018-09-15 14:35 | ED ---
General Adult HPI - General Chief complaint: Altered Mental Status Stated complaint: WEAKNESS Time Seen by Provider: 09/15/18 13:39 Source: family, EMS Mode of arrival: EMS Limitations: altered mental status - History of Present Illness Initial comments: Dictation was produced using [employer] dictation software. please excuse any grammatical, word or spelling errors. Chief Complaint: 63-year-old female presents with somnolence and altered mental status. History of Present Illness: 63-year-old female she was brought in by EMS. EMS was called because patient was very lethargic. EMS noted the patient had very low blood pressure upon arrival. Patient has been in her usual state of health on Sunday and Sunday. This morning she woke feeling okay but very tired. Over the progressive next several hours she began feeling more weak. Patient became to point where she wasn't able to stand up under her own power when she normally is able to do. Patient recently battled urinary tract infections. Chart review shows that patient was recently admitted to the hospital for similar situation. She was discharged after 24 hours with good diagnosis of metabolic encephalopathy. There is concern that patient's symptoms were secondary to polypharmacy. Patient able to provide some yes and no answers. She denies any pain complaints. Denies any coughing. Patient does complain of some mild back pain that is chronic in nature to her. The ROS documented in this emergency department record has been reviewed and confirmed by me. Those systems with pertinent positive or negative responses have been documented in the HPI. All other systems are other negative and/or noncontributory. PHYSICAL EXAM: General Impression: Alert and oriented x3, pale, lethargic HEENT: Normocephalic atraumatic, extra-ocular movements intact, pupils equal and reactive to light bilaterally, mucous membranes moist. Cardiovascular: Heart regular rate and rhythm, S1&S2 audible, no murmurs, rubs or gallops Chest: Lungs clear to auscultation bilaterally, no rhonchi, no wheeze, no rales Abdomen: Bowel sounds present, abdomen soft, non-tender, non-distended, no organomegaly Musculoskeletal: weak pulses peripherally, no peripheral edema Motor: no focal deficits noted Neurological: CN II-XII grossly intact, no focal motor or sensory deficits noted Skin: Increased capillary refill ED course: 63-year-old female presents with lethargy and severe weakness. Vital signs upon arrival shows blood pressure 82/47, rest of vital signs within acceptable limits. Medications were reviewed. Patient given 2 L of IV fluids. There is concerns of sepsis. Patient given fluids based on ideal body weight.Patient has no focal neurologic findings she does however appear sleepy. Laboratory evaluation obtained. CBC unremarkable. Coag panel unremarkable. Blood gases are negative. Metabolic panel shows elevation of renal markers. Creatinine 1.43. Rest of labs unremarkable. Urinalysis negative. CT of the brain unremarkable. Patient given intravenous fluids. She is given 1500 mL of fluids with good improvement of blood pressure up to 95/65. Clinical presentation is concerning for polypharmacy and dehydration. Discussed patient case with Dr. Diaz who is willing to accept care for the patient. He is baton twirler for Dr. Hartley. EKG interpretation: Ventricular rate 66, normal sinus rhythm, ME interval 194, care 70, QTc 448. No ME prolongation, no QTC prolongation, no ST or T-wave changes noted. EKG compared to 08/24/2018 showing no changes. Overall, this EKG is unremarkable - Related Data Home Medications Medication Instructions Recorded Confirmed DULoxetine HCL [Cymbalta] 120 mg PO QAM 06/19/14 09/15/18 Montelukast [Singulair] 10 mg PO HS 06/19/14 09/15/18 Apixaban [Eliquis] 5 mg PO BID 03/19/17 09/15/18 Atorvastatin [Lipitor] 10 mg PO HS 03/19/17 09/15/18 Gabapentin [Neurontin] 600 mg PO TID 03/19/17 09/15/18 Verapamil HCl [Verapamil ER] 120 mg PO DAILY 03/19/18 09/15/18 ALPRAZolam [Xanax] 0.5 mg PO BID 09/15/18 09/15/18 OLANZapine [ZyPREXA] 30 mg PO HS 09/15/18 09/15/18 diphenhydrAMINE HCL [Benadryl] 25 mg PO HS 09/15/18 09/15/18 traMADol HCL [Ultram] 50 mg PO Q8H 09/15/18 09/15/18 Previous Rx's Medication Instructions Recorded Budesonide-Formot 160-4.5 Mcg 2 puff INHALATION RT-BID #1 puff 03/24/18 [Symbicort 160-4.5 Mcg Inhaler] Metoprolol Tartrate [Lopressor] 50 mg PO BID #60 tab 03/24/18 hydrALAZINE HCL [Apresoline] 50 mg PO QID #120 tab 03/24/18 Acetaminophen Tab [Tylenol] 650 mg PO Q4HR PRN tab 06/07/18 Lisinopril [Zestril] 10 mg PO BID #1 tab 06/07/18 Pantoprazole [Protonix] 40 mg PO DAILY tablet. 06/07/18 INSULIN LISPRO (HumaLOG) [humaLOG] 0 unit SQ ACHS #1 vial 08/26/18 Ipratropium-Albuterol Nebulize 3 ml INHALATION RT-QID #0 ampul.neb 08/26/18 [Duoneb 0.5 mg-3 mg/3 ml Soln] Allergies Allergy/AdvReac Type Severity Reaction Status Date / Time No Known Allergies Allergy Verified 09/15/18 14:32 Review of Systems ROS Statement: Those systems with pertinent positive or pertinent negative responses have been documented in the HPI. ROS Other: All systems not noted in ROS Statement are negative. Past Medical History Past Medical History: Asthma, Cancer, COPD, CVA/TIA, Diabetes Mellitus, Fibromyalgia, Hyperlipidemia, Hypertension, Musculoskeletal Disorder, Neurologic Disorder, Osteoarthritis (OA), Pulmonary Embolus (PE), Skin Disorder Additional Past Medical History / Comment(s): 3 PEs-involved bilateral lungs, CVA with some increased memory problems, NIDDM type II, neuropathy bilateral legs/feet, migraines, chronic low back pain, skin cancer removed from nose, urinary incontinence at times, lately stool loose and has some incontinence of stool. History of Any Multi-Drug Resistant Organisms: None Reported Past Surgical History: Back Surgery, Cholecystectomy, Hysterectomy, Joint Replacement, Orthopedic Surgery Additional Past Surgical History / Comment(s): Back pain stimulator implant lumbar cataract removals, 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 Past Anesthesia/Blood Transfusion Reactions: No Reported Reaction Additional Past Anesthesia/Blood Transfusion Reaction / Comment(s): no hx blood transfusion Past Psychological History: Schizophrenia Smoking Status: Former smoker Past Alcohol Use History: None Reported Past Drug Use History: None Reported - Past Family History Mother History Unknown: Yes Family Medical History: COPD Additional Family Medical History / Comment(s): Mother at the age of 78yrs. Father History Unknown: Yes Family Medical History: Myocardial Infarction ([place]) Additional Family Medical History / Comment(s): Father of a massive DE at the age of 50 yrs. Pt is not sure if christinpnel may have moved to his heart-he had injury in WWII. Sister(s) Family Medical History: Cancer General Exam Limitations: altered mental status Course Vital Signs 09/15/18 09/15/18 09/15/18 13:45 15:00 15:41 Temperature 98.8 F Pulse Rate 66 56 L 58 L Respiratory 16 16 16 Rate Blood Pressure 82/47 80/60 85/57 O2 Sat by Pulse 92 L 95 95 Oximetry 09/15/18 16:00 Temperature 97.4 F L Pulse Rate 62 Respiratory 16 Rate Blood Pressure 94/64 O2 Sat by Pulse 96 Oximetry Medical Decision Making - Lab Data Result diagrams: 09/15/18 14:42 09/15/18 14:42 Lab Results 09/15/18 09/15/18 09/15/18 Range/Units 14:42 14:42 14:42 WBC 8.8 (3.8-10.6) k/uL RBC 3.46 L (3.80-5.40) m/uL Hgb 10.2 L (11.4-16.0) gm/dL Hct 31.3 L (34.0-46.0) % MCV 90.4 (80.0-100.0) fL MCH 29.4 (25.0-35.0) pg MCHC 32.5 (31.0-37.0) g/dL RDW 16.9 H (11.5-15.5) % Plt Count 337 (150-450) k/uL Neutrophils % 73 % Lymphocytes % 17 % Monocytes % 6 % Eosinophils % 1 % Basophils % 1 % Neutrophils # 6.3 (1.3-7.7) k/uL Lymphocytes # 1.5 (1.0-4.8) k/uL Monocytes # 0.5 (0-1.0) k/uL Eosinophils # 0.1 (0-0.7) k/uL Basophils # 0.1 (0-0.2) k/uL Anisocytosis Slight PT (9.0-12.0) sec INR (<1.2) APTT (22.0-30.0) sec VBG pH (7.31-7.41) VBG pCO2 (37-51) mmHg VBG HCO3 (24-28) mmol/L Sodium 138 (137-145) mmol/L Potassium 4.9 (3.5-5.1) mmol/L Chloride 101 (98-107) mmol/L Carbon Dioxide 30 (22-30) mmol/L Anion Gap 7 mmol/L BUN 14 (7-17) mg/dL Creatinine 1.43 H (0.52-1.04) mg/dL Est GFR (CKD-EPI)AfAm 44 (>60 ml/min/1.73 sqM) Est GFR (CKD-EPI)NonAf 39 (>60 ml/min/1.73 sqM) Glucose 143 H (74-99) mg/dL Plasma Lactic Acid Refugio (0.7-2.0) mmol/L Calcium 8.7 (8.4-10.2) mg/dL Total Bilirubin 0.3 (0.2-1.3) mg/dL AST 15 (14-36) U/L ALT 18 (9-52) U/L Alkaline Phosphatase 82 (38-126) U/L Ammonia (<30) umol/L Creatine Kinase 28 L (30-135) U/L Total Protein 5.7 L (6.3-8.2) g/dL Albumin 3.4 L (3.5-5.0) g/dL Urine Color Yellow Urine Appearance Clear (Clear) Urine pH 7.0 (5.0-8.0) Ur Specific Downing 1.014 (1.001-1.035) Urine Protein Negative (Negative) Urine Glucose (UA) Negative (Negative) Urine Ketones Negative (Negative) Urine Blood Negative (Negative) Urine Nitrite Negative (Negative) Urine Bilirubin Negative (Negative) Urine Urobilinogen <2.0 (<2.0) mg/dL Ur Leukocyte Esterase Negative (Negative) 09/15/18 09/15/18 09/15/18 Range/Units 14:42 14:42 15:10 WBC (3.8-10.6) k/uL RBC (3.80-5.40) m/uL Hgb (11.4-16.0) gm/dL Hct (34.0-46.0) % MCV (80.0-100.0) fL MCH (25.0-35.0) pg MCHC (31.0-37.0) g/dL RDW (11.5-15.5) % Plt Count (150-450) k/uL Neutrophils % % Lymphocytes % % Monocytes % % Eosinophils % % Basophils % % Neutrophils # (1.3-7.7) k/uL Lymphocytes # (1.0-4.8) k/uL Monocytes # (0-1.0) k/uL Eosinophils # (0-0.7) k/uL Basophils # (0-0.2) k/uL Anisocytosis PT 10.4 (9.0-12.0) sec INR 1.0 (<1.2) APTT 28.3 (22.0-30.0) sec VBG pH 7.35 (7.31-7.41) VBG pCO2 55 H (37-51) mmHg VBG HCO3 30 H (24-28) mmol/L Sodium (137-145) mmol/L Potassium (3.5-5.1) mmol/L Chloride (98-107) mmol/L Carbon Dioxide (22-30) mmol/L Anion Gap mmol/L BUN (7-17) mg/dL Creatinine (0.52-1.04) mg/dL Est GFR (CKD-EPI)AfAm (>60 ml/min/1.73 sqM) Est GFR (CKD-EPI)NonAf (>60 ml/min/1.73 sqM) Glucose (74-99) mg/dL Plasma Lactic Acid Refugio 1.5 (0.7-2.0) mmol/L Calcium (8.4-10.2) mg/dL Total Bilirubin (0.2-1.3) mg/dL AST (14-36) U/L ALT (9-52) U/L Alkaline Phosphatase (38-126) U/L Ammonia <9 (<30) umol/L Creatine Kinase (30-135) U/L Total Protein (6.3-8.2) g/dL Albumin (3.5-5.0) g/dL Urine Color Urine Appearance (Clear) Urine pH (5.0-8.0) Ur Specific Downing (1.001-1.035) Urine Protein (Negative) Urine Glucose (UA) (Negative) Urine Ketones (Negative) Urine Blood (Negative) Urine Nitrite (Negative) Urine Bilirubin (Negative) Urine Urobilinogen (<2.0) mg/dL Ur Leukocyte Esterase (Negative) Disposition Clinical Impression: Hypotension Disposition: ADMITTED IP TO THIS HOSP Condition: Fair Referrals: Farzad Hartley MD [Primary Care Provider] - 1-2 days Decision Time: 16:23
[2018-09-15] MEDS ORDERED: SODIUM CHLORIDE 0.9% 1,000 ML IV STA (14:36)
[2018-09-15] MEDS: SODIUM CHLORIDE 0.9% 500 ML 500 ML IV SCH ×3 (14:46→16:08)
[2018-09-15 14:59] LABS: Anisocytosis Slight; Basophils # (A) 0.1 k/uL (0-0.2); Basophils % (A) 1 %; Eosinophils # (A) 0.1 k/uL (0-0.7); Eosinophils % (A) 1 %; HCT 31.3 % (34.0-46.0); HGB 10.2 gm/dL (11.4-16.0); Lymphocytes # (A) 1.5 k/uL (1.0-4.8); Lymphocytes % (A) 17 %; MCH 29.4 pg (25.0-35.0); MCHC 32.5 g/dL (31.0-37.0); MCV 90.4 fL (80.0-100.0); Mean Platelet Volume 7.1; Monocytes # (A) 0.5 k/uL (0-1.0); Monocytes % (A) 6 %; Neutrophils # (A) 6.3 k/uL (1.3-7.7); Neutrophils % (A) 73 %; Platelet Count 337 k/uL (150-450); RBC 3.46 m/uL (3.80-5.40); RDW 16.9 % (11.5-15.5); WBC 8.8 k/uL (3.8-10.6)
[2018-09-15 15:04] LABS: Appearance,Urine Clear (Clear); Bilirubin,Urine Negative (Negative); Blood,Urine Negative (Negative); Color,Urine Yellow; Glucose,Urine (UA) Negative (Negative); Ketones,Urine Negative (Negative); Leukocyte Esterase,Urine Negative (Negative); Nitrite,Urine Negative (Negative); Partial Thromboplastin Time 28.3 sec (22.0-30.0); Protein,Urine Negative (Negative); Prothrombin Time 10.4 sec (9.0-12.0); Specific Gravity,Urine 1.014 (1.001-1.035); Urobilinogen,Urine <2.0 mg/dL (<2.0)
[2018-09-15 15:08] LABS: Albumin 3.4 g/dL (3.5-5.0); Calcium 8.7 mg/dL (8.4-10.2); Potassium 4.9 mmol/L (3.5-5.1); Total Bilirubin 0.3 mg/dL (0.2-1.3); Total Protein 5.7 g/dL (6.3-8.2)
[2018-09-15 15:09] LABS: Ammonia <9 umol/L (<30); Lactic Acid, Venous 1.5 mmol/L (0.7-2.0)
[2018-09-15 15:19] LABS: VBG PH 7.35 (7.31-7.41)
--- NOTE | 2018-09-15 15:31 | CT ---
EXAMINATION TYPE: CT brain wo con DATE OF EXAM: 09/15/2018 COMPARISON: Prior CT brain 08/24/2018 HISTORY: Increased weakness. Pt hx COPD, stroke CT DLP: 1054.4 mGycm Automated exposure control for dose reduction was used. Helical acquisition through the brain FINDINGS: Periventricular white matter shows patchy low attenuation as on prior head CT. There is no hemorrhage or hydrocephalus. Cerebral vascular calcifications are present. The orbits show symmetric appearance . IMPRESSION: STABLE EXAM, NO ACUTE ABNORMALITY.
--- NOTE | 2018-09-15 15:35 | XR ---
EXAMINATION TYPE: XR chest 1V portable DATE OF EXAM: 09/15/2018 COMPARISON: Prior chest x-ray 08/26/2018 HISTORY: Fever, altered mental status, urinary tract infection TECHNIQUE: Single frontal view of the chest is obtained. FINDINGS: Technique is apical lordotic. Aorta is dense. Mediastinum appears widened, heart appears e nlarged. No evident pneumothorax or pleural effusion. Thoracic cord stimulator is present. There are overlying cardiac leads. No evident airspace disease. IMPRESSION: Prominence of the mediastinum and heart could be due to technique, follow-up PA and late ral chest x-ray may be of benefit.
[2018-09-15] MEDS ORDERED: ONDANSETRON 4 MG/2 ML VIAL IVP PRN (16:23)
[2018-09-15] MEDS ORDERED: ACETAMINOPHEN TAB 325 MG TAB PO PRN (16:23)
[2018-09-15] MEDS ORDERED: NALOXONE 0.4 MG/ML 1 ML VIAL IV PRN (16:23)
[2018-09-15] MEDS ORDERED: IPRATROPIUM-ALBUTEROL 3 ML NEB INHALATION PRN (16:28)
--- NOTE | 2018-09-15 16:36 | XR ---
EXAMINATION TYPE: XR chest 2V DATE OF EXAM: 09/15/2018 COMPARISON: Prior chest x-ray 09/15/2018 and earlier time HISTORY: Altered mental status, urinary tract infection, abnormal chest x-ray TECHNIQUE: Frontal and lateral views of the chest are obtained. FINDINGS: Patient is rotated, there are overlying cardiac leads. Aorta appears dense, possibly ectat ic. Central vascularity is prominent. No pneumothorax or pleural effusion. Thoracic cord stimulator i s present. Heart possibly within normal limits accounting for technique. Lung volumes are low. Right hemidiaphragm appears elevated. IMPRESSION: Prominence of the central vascularity may be related to expiratory rotated exam
[2018-09-15] MEDS: SODIUM CHLORIDE 0.9% 1,000 ML IV SCH (17:12)
[2018-09-15] MEDS: IPRATROPIUM-ALBUTEROL 3 ML NEB INHALATION SCH (19:37)
[2018-09-15] MEDS: SYMBICORT 160-4.5 MCG INHALER INHALATION SCH (19:37)
[2018-09-15] MEDS: ATORVASTATIN 10 MG TAB PO SCH (20:29)
[2018-09-15] MEDS: APIXABAN 5 MG TAB PO SCH (20:29)
[2018-09-15 20:52] LABS: Glucose,Whole Blood 121 mg/dL (75-99)
[2018-09-16] MEDS: SODIUM CHLORIDE 0.9% 1,000 ML IV SCH ×3 (00:03→17:51)
[2018-09-16] MEDS: PANTOPRAZOLE 40 MG TABLET PO SCH (05:06)
[2018-09-16] MEDS: IPRATROPIUM-ALBUTEROL 3 ML NEB INHALATION SCH ×4 (07:18→19:57)
[2018-09-16] MEDS: SYMBICORT 160-4.5 MCG INHALER INHALATION SCH ×2 (07:18→19:57)
--- NOTE | 2018-09-16 08:33 | P.CRDCN ---
History of Present Illness Consult date: 09/16/18 Requesting physician: Tito Diaz Jr Consult reason: hypotension Chief complaint: Lethargy History of present illness: This is a 63-year-old female, history was obtained from recent and past medical records as the patient is somewhat confused this morning. She has past medical history significant for coronary artery disease with prior angioplasty 10-15 years ago, COPD, prior smoking history, hypertension, hyperlipidemia, asthma. She was brought to the emergency center via EMS, apparently EMS was called because the patient was quite lethargic. On EMS arrival was noted that the patient had low blood pressure. Patient had been in her usual state of health on Sunday and Sunday. According to the emergency room notes patient recently had a urinary tract infection. Her blood pressure on arrival to the emergency room was 82/40 with a heart rate in the 60s, afebrile, 92% on room air. A CAT scan of the brain was performed on arrival here which did not reveal any acute abnormality. Chest x-ray showed prominence of the mediastinotomy and heart which could be secondary to technique. EKG on arrival here showed normal sinus rhythm with nonspecific ST-T wave changes. Wh ite blood cell count 8.8, hemoglobin 10.2, platelet count 337. Sodium 138, potassium 4.9, BUN 14, creatinine 1.4. Troponin 0.012. Looking back over the past few months, it appears that the patient's a baseline creatinine is around 0.6. Patient does take Eliquis at home for history of pulmonary embolism. At the time of my examination this morning, she sitting up at the chair bedside, unsure exactly of why she is here. Past Medical History Past Medical History: Asthma, Cancer, COPD, CVA/TIA, Diabetes Mellitus, Fibromyalgia, Hyperlipidemia, Hypertension, Musculoskeletal Disorder, Neurologic Disorder, Osteoarthritis (OA), Pulmonary Embolus (PE), Skin Disorder Additional Past Medical History / Comment(s): 3 PEs-involved bilateral lungs, CVA with some increased memory problems, NIDDM type II, neuropathy bilateral legs/feet, migraines, chronic low back pain, skin cancer removed from nose, urinary incontinence at times, lately stool loose and has some incontinence of stool. History of Any Multi-Drug Resistant Organisms: None Reported Past Surgical History: Back Surgery, Cholecystectomy, Hysterectomy, Joint Replacement, Orthopedic Surgery Additional Past Surgical History / Comment(s): Back pain stimulator implant lumbar cataract removals, 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 Past Anesthesia/Blood Transfusion Reactions: No Reported Reaction Additional Past Anesthesia/Blood Transfusion Reaction / Comment(s): no hx blood transfusion Past Psychological History: Schizophrenia Additional Psychological History / Comment(s): Pt resides with her spouse who is very helpful to patient. Spouse does work during the day so pt is alone at that time. Pt uses a cane or walker to ambulate. She no longer drives, her spouse takes her to appts, helps her manage her meds and assists her with getting cleaned up and dressed if necessary. He also assists her with meals. She has a lady, Rosie, who comes twice a week for companionship and she does housework. Smoking Status: Former smoker Past Alcohol Use History: None Reported Additional Past Alcohol Use History / Comment(s): Pt started smoking in 1972 and quit in February 2016. Past Drug Use History: None Reported Additional Drug Use History / Comment(s): occasional - Past Family History Mother History Unknown: Yes Family Medical History: COPD Additional Family Medical History / Comment(s): Mother at the age of 78yrs. Father History Unknown: Yes Family Medical History: Myocardial Infarction ([place]) Additional Family Medical History / Comment(s): Father of a massive [place] at the age of 50 yrs. Pt is not sure if ovidio may have moved to his heart-he had injury in WWII. Sister(s) Family Medical History: Cancer Medications and Allergies Home Medications Medication Instructions Recorded Confirmed Type DULoxetine HCL [Cymbalta] 120 mg PO QAM 06/19/14 09/15/18 History Montelukast [Singulair] 10 mg PO 06/19/14 09/15/18 History Apixaban [Eliquis] 5 mg PO BID 03/19/17 09/15/18 History Atorvastatin [Lipitor] 10 mg PO HS 03/19/17 09/15/18 History Gabapentin [Neurontin] 600 mg PO TID 03/19/17 09/15/18 History Verapamil HCl [Verapamil ER] 120 mg PO DAILY 03/19/18 09/15/18 History Budesonide-Formot 160-4.5 Mcg 2 puff INHALATION RT-BID #1 puff 03/24/18 09/15/18 Rx [Symbicort 160-4.5 Mcg Inhaler] Metoprolol Tartrate [Lopressor] 50 mg PO BID #60 tab 03/24/18 09/15/18 Rx hydrALAZINE HCL [Apresoline] 50 mg PO QID #120 tab 03/24/18 09/15/18 Rx Acetaminophen Tab [Tylenol] 650 mg PO Q4HR PRN tab 06/07/18 09/15/18 Rx Lisinopril [Zestril] 10 mg PO BID #1 tab 06/07/18 09/15/18 Rx Pantoprazole [Protonix] 40 mg PO DAILY tablet. 06/07/18 09/15/18 Rx INSULIN LISPRO (HumaLOG) [humaLOG] 0 unit SQ ACHS #1 vial 08/26/18 09/15/18 Rx Ipratropium-Albuterol Nebulize 3 ml INHALATION RT-QID #0 ampul.neb 08/26/18 09/15/18 Rx [Duoneb 0.5 mg-3 mg/3 ml Soln] ALPRAZolam [Xanax] 0.5 mg PO BID 09/15/18 09/15/18 History OLANZapine [ZyPREXA] 30 mg PO HS 09/15/18 09/15/18 History diphenhydrAMINE HCL [Benadryl] 25 mg PO HS 09/15/18 09/15/18 History traMADol HCL [Ultram] 50 mg PO Q8H 09/15/18 09/15/18 History Allergies Allergy/AdvReac Type Severity Reaction Status Date / Time No Known Allergies Allergy Verified 09/15/18 14:32 Physical Exam Vitals: Vital Signs Temp Pulse Pulse Resp BP BP Pulse Ox 09/16/18 07:30 84 09/16/18 07:20 80 09/16/18 04:00 98.3 F 70 16 134/74 100 09/16/18 00:00 98.3 F 72 16 142/84 100 09/15/18 20:00 98 F 62 16 133/85 88 L 09/15/18 19:44 80 09/15/18 19:38 82 09/15/18 19:30 98 09/15/18 18:04 98 F 59 L 18 101/57 92 L 09/15/18 17:09 97.6 F 56 L 16 98/73 96 09/15/18 16:37 97.5 F L 65 16 100/75 96 09/15/18 16:00 97.4 F L 62 16 94/64 96 09/15/18 15:41 58 L 16 85/57 95 09/15/18 15:00 56 L 16 80/60 95 09/15/18 13:45 98.8 F 66 16 82/47 92 L Intake and Output 09/15/18 09/16/18 09/16/18 22:59 06:59 14:59 Intake Total 2500 0 0 Output Total 300 2 Balance 2200 -2 0 Intake: Amount of Fluid Infused ( 2500 ml) Oral 0 0 Output: Urine 300 2 Other: # Voids 2 Weight 92.1 kg GENERAL EXAM: Alert, comfortable in no apparent distress. On room air. HEAD: Normocephalic. EYES: Normal reaction of pupils, equal size. NOSE: Clear with pink turbinates. THROAT: No erythema or exudates. NECK: No masses, no JVD. CHEST: No chest wall deformity. LUNGS: Equal air entry with bilateral end expiratory wheeze. Diminished. CVS: S1 and S2 normal with no audible murmur, regular rhythm. ABDOMEN: No hepatosplenomegaly, normal bowel sounds, no guarding or rigidity. SPINE: No scoliosis or deformity SKIN: No rashes CENTRAL NERVOUS SYSTEM: No focal deficits, tone is normal in all 4 extremities. EXTREMITIES: There is no peripheral edema. No clubbing, no cyanosis. Peripheral pulses are intact. Results 09/15/18 14:42 09/15/18 14:42 Cardiac Enzymes 09/15/18 09/16/18 Range/Units 14:42 01:46 AST 15 (14-36) U/L Troponin I <0.012 (0.000-0.034) ng/mL Coagulation 09/15/18 Range/Units 14:42 PT 10.4 (9.0-12.0) sec APTT 28.3 (22.0-30.0) sec CBC 09/15/18 Range/Units 14:42 WBC 8.8 (3.8-10.6) k/uL RBC 3.46 L (3.80-5.40) m/uL Hgb 10.2 L (11.4-16.0) gm/dL Hct 31.3 L (34.0-46.0) % Plt Count 337 (150-450) k/uL Comprehensive Metabolic Panel 09/15/18 Range/Units 14:42 Sodium 138 (137-145) mmol/L Potassium 4.9 (3.5-5.1) mmol/L Chloride 101 (98-107) mmol/L Carbon Dioxide 30 (22-30) mmol/L BUN 14 (7-17) mg/dL Creatinine 1.43 H (0.52-1.04) mg/dL Glucose 143 H (74-99) mg/dL Calcium 8.7 (8.4-10.2) mg/dL AST 15 (14-36) U/L ALT 18 (9-52) U/L Alkaline Phosphatase 82 (38-126) U/L Total Protein 5.7 L (6.3-8.2) g/dL Albumin 3.4 L (3.5-5.0) g/dL Current Medications Generic Name Dose Route Start Last Admin Trade Name Freq PRN Reason Stop Dose Admin Acetaminophen 650 mg 09/15/18 16:25 Tylenol Tab PO Q4HR PRN Fever and/ or MILD Pain Albuterol/Ipratropium 3 ml 09/15/18 20:00 09/16/18 07:18 Duoneb 0.5 Mg-3 Mg/3 Ml Soln INHALATION 3 ml RT-QID JUAN DAVID Administration Albuterol/Ipratropium 3 ml 09/15/18 16:28 Duoneb 0.5 Mg-3 Mg/3 Ml Soln INHALATION RT-Q4H PRN Shortness Of Breath Apixaban 5 mg 09/15/18 21:00 09/15/18 20:29 Eliquis PO Not Given BID JUAN DAVID Atorvastatin Calcium 10 mg 09/15/18 21:00 09/15/18 20:29 Lipitor PO Not Given HS JUAN DAVID Budesonide/Formoterol Fumarate 2 puff 09/15/18 20:00 09/16/18 07:18 Symbicort 160-4.5 Mcg Inhaler INHALATION 2 puff RT-BID JUAN DAVID Administration Sodium Chloride 1,000 mls @ 120 mls/hr 09/15/18 16:30 09/16/18 00:03 Saline 0.9% IV 120 mls/hr .[id number] JUAN DAVID Administration Naloxone HCl 0.2 mg 09/15/18 16:23 Narcan IV Q2M PRN Opioid Reversal Ondansetron HCl 4 mg 09/15/18 16:23 Zofran IVP Q8HR PRN Nausea And Vomiting Pantoprazole Sodium 40 mg 09/16/18 07:30 09/16/18 05:06 Protonix PO Not Given [id number] JUAND AVID Intake and Output 09/15/18 09/16/18 09/16/18 22:59 06:59 14:59 Intake Total 2500 0 0 Output Total 300 2 Balance 2200 -2 0 Intake: Amount of Fluid Infused ( 2500 ml) Oral 0 0 Output: Urine 300 2 Other: # Voids 2 Weight 92.1 kg 09/15/18 14:42 09/15/18 14:42 EKG Interpretations (text) EKG shows normal sinus rhythm with nonspecific ST-T wave changes Assessment and Plan Plan: Assessment and plan #1 hypotension #2 mild renal insufficiency, likely secondary to dehydration #3 known history of coronary artery disease with prior stent placements approximately 10-15 years ago #4 history of PE #5 hypertension history #6 hyperlipidemia 7 prior history of smoking #8 asthma #9 recent UTI #10 history of CVA #11 diabetes Plan We will obtain an echocardiogram with Doppler study. Patient is currently receiving IV fluids at 100 mL per hour. Her verapamil and beta wandy currently on hold. We will continue to monitor blood pressures, obtaining orthostatics as well. Further recommendations to follow. DNP note has been reviewed, I agree with a documented findings and plan of care. Patient was seen and examined.
[2018-09-16] MEDS: APIXABAN 5 MG TAB PO SCH ×2 (08:47→20:09)
[2018-09-16] MEDS ORDERED: PANTOPRAZOLE 40 MG TABLET PO SCH (09:00)
[2018-09-16 11:51] LABS: Glucose,Whole Blood 181 mg/dL (75-99)
[2018-09-16] MEDS: INSULIN ASPART (NovoLOG) 100 UNIT/ML VIAL SQ SCH ×3 (12:09→21:43)
[2018-09-16 16:52] LABS: Glucose,Whole Blood 131 mg/dL (75-99)
--- NOTE | 2018-09-16 17:20 | P.HPIM ---
History of Present Illness H&P Date: 09/16/18 Chief Complaint: Increasing weakness, inability to stand or walk This is a 63-year-old white female with history of multiple PEs and TIAs. Anticoagulation via Elequis. She comes in with complaints emergency room of three-day history of increasing weakness, inability to stand or walk, drowsiness. EMS reported very low blood pressure upon arrival. Systolic blood pressure on arrival to the ER 82/47, heart rate 66, maintaining O2 sats of 92% on room air .Recent UTI, current UA negative. She has significant smoking history and takes DuoNeb and Symbicort at home for this. She is a type II diabetic is on Humalog. She takes gabapentin for her low back pain. She is on duloxetine, and Zyprexa for her schizophrenia. On her recent visit this month for metabolic encephalopathy, possibly medication induced- patient's Xanax and Ultram were discontinued with the Zyprexa dose decreased; her current home med list does not reflect this. She takes atorvastatin lisinopril, metoprolol, and verapamil for hypertension and hyperlipidemia. She currently denies any chest pains, pressures, nausea or vomiting. Patient received fluid boluses of 1.5 L. BUN 14, Creatinine 1.43. CBC, coag panel unremarkable. Brain CT unremarkable. EKG reportedly normal sinus rhythm compared with prior EKG of 08/24/2018, no changes. Afebrile, normal WBC. Hemoglobin 10.2. Patient unsure of what brought her into the hospital, majority of information obtained from ER record, staff and . Cardiology consulted. Review of Systems ROS Statement: Those systems with pertinent positive or pertinent negative responses have been documented in the HPI. ROS Other: All systems not noted in ROS Statement are negative. Past Medical History Past Medical History: Asthma, Cancer, COPD, CVA/TIA, Diabetes Mellitus, Fibromyalgia, Hyperlipidemia, Hypertension, Musculoskeletal Disorder, Neurologic Disorder, Osteoarthritis (OA), Pulmonary Embolus (PE), Skin Disorder Additional Past Medical History / Comment(s): 3 PEs-involved bilateral lungs, CVA with some increased memory problems, NIDDM type II, neuropathy bilateral legs/feet, migraines, chronic low back pain, skin cancer removed from nose, urinary incontinence at times, lately stool loose and has some incontinence of stool. History of Any Multi-Drug Resistant Organisms: None Reported Past Surgical History: Back Surgery, Cholecystectomy, Hysterectomy, Joint Replacement, Orthopedic Surgery Additional Past Surgical History / Comment(s): Back pain stimulator implant lumbar cataract removals, 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 Past Anesthesia/Blood Transfusion Reactions: No Reported Reaction Additional Past Anesthesia/Blood Transfusion Reaction / Comment(s): no hx blood transfusion Past Psychological History: Schizophrenia Additional Psychological History / Comment(s): Pt resides with her spouse who is very helpful to patient. Spouse does work during the day so pt is alone at that time. Pt uses a cane or walker to ambulate. She no longer drives, her spouse takes her to [employer], helps her manage her meds and assists her with getting cleaned up and dressed if necessary. He also assists her with meals. She has a lady, Rosie, who comes twice a week for companionship and she does housework. Smoking Status: Former smoker Past Alcohol Use History: None Reported Additional Past Alcohol Use History / Comment(s): Pt started smoking in 1972 and quit in February 2016. Past Drug Use History: None Reported Additional Drug Use History / Comment(s): occasional - Past Family History Mother History Unknown: Yes Family Medical History: COPD Additional Family Medical History / Comment(s): Mother at the age of 78yrs. Father History Unknown: Yes Family Medical History: Myocardial Infarction (AL) Additional Family Medical History / Comment(s): Father of a massive AL at the age of 50 yrs. Pt is not sure if ovidio may have moved to his heart-he had injury in WWII. Sister(s) Family Medical History: Cancer Medications and Allergies Home Medications Medication Instructions Recorded Confirmed Type DULoxetine HCL [Cymbalta] 120 mg PO QAM 06/19/14 09/15/18 History Montelukast [Singulair] 10 mg PO HS 06/19/14 09/15/18 History Apixaban [Eliquis] 5 mg PO BID 03/19/17 09/15/18 History Atorvastatin [Lipitor] 10 mg PO HS 03/19/17 09/15/18 History Gabapentin [Neurontin] 600 mg PO TID 03/19/17 09/15/18 History Verapamil HCl [Verapamil ER] 120 mg PO DAILY 03/19/18 09/15/18 History Budesonide-Formot 160-4.5 Mcg 2 puff INHALATION RT-BID #1 puff 03/24/18 09/15/18 Rx [Symbicort 160-4.5 Mcg Inhaler] Metoprolol Tartrate [Lopressor] 50 mg PO BID #60 tab 03/24/18 09/15/18 Rx hydrALAZINE HCL [Apresoline] 50 mg PO QID #120 tab 03/24/18 09/15/18 Rx Acetaminophen Tab [Tylenol] 650 mg PO Q4HR PRN tab 06/07/18 09/15/18 Rx Lisinopril [Zestril] 10 mg PO BID #1 tab 06/07/18 09/15/18 Rx Pantoprazole [Protonix] 40 mg PO DAILY tablet. 06/07/18 09/15/18 Rx INSULIN LISPRO (HumaLOG) [humaLOG] 0 unit SQ ACHS #1 vial 08/26/18 09/15/18 Rx Ipratropium-Albuterol Nebulize 3 ml INHALATION RT-QID #0 ampul.neb 08/26/18 09/15/18 Rx [Duoneb 0.5 mg-3 mg/3 ml Soln] ALPRAZolam [Xanax] 0.5 mg PO BID 09/15/18 09/15/18 History OLANZapine [ZyPREXA] 30 mg PO HS 09/15/18 09/15/18 History diphenhydrAMINE HCL [Benadryl] 25 mg PO HS 09/15/18 09/15/18 History traMADol HCL [Ultram] 50 mg PO Q8H 09/15/18 09/15/18 History Allergies Allergy/AdvReac Type Severity Reaction Status Date / Time No Known Allergies Allergy Verified 09/15/18 14:32 Physical Exam Vitals: Vital Signs Temp Pulse Pulse Resp BP BP BP 09/16/18 11:56 80 20 09/16/18 11:55 167/96 141/82 09/16/18 11:20 84 09/16/18 11:10 80 09/16/18 08:00 97.5 F L 80 18 09/16/18 07:30 84 09/16/18 07:20 80 09/16/18 04:00 98.3 F 70 16 09/16/18 00:00 98.3 F 72 16 09/15/18 20:00 98 F 62 16 09/15/18 19:44 80 09/15/18 19:38 82 09/15/18 19:30 09/15/18 18:04 98 F 59 L 18 09/15/18 17:09 97.6 F 56 L 16 98/73 09/15/18 16:37 97.5 F L 65 16 100/75 09/15/18 16:00 97.4 F L 62 16 94/64 09/15/18 15:41 58 L 16 85/57 09/15/18 15:00 56 L 16 80/60 09/15/18 13:45 98.8 F 66 16 82/47 BP Pulse Ox 09/16/18 11:56 91 L 09/16/18 11:55 166/96 09/16/18 11:20 09/16/18 11:10 09/16/18 08:00 191/87 96 09/16/18 07:30 09/16/18 07:20 09/16/18 04:00 134/74 100 09/16/18 00:00 142/84 100 09/15/18 20:00 133/85 88 L 09/15/18 19:44 09/15/18 19:38 09/15/18 19:30 98 09/15/18 18:04 101/57 92 L 09/15/18 17:09 96 09/15/18 16:37 96 09/15/18 16:00 96 09/15/18 15:41 95 09/15/18 15:00 95 09/15/18 13:45 92 L Intake and Output 09/15/18 09/16/18 09/16/18 22:59 06:59 14:59 Intake Total 2500 0 240 Output Total 300 2 Balance 2200 -2 240 Intake: Amount of Fluid Infused ( 2500 ml) Oral 0 240 Output: Urine 300 2 Other: Voiding Method Toilet # Voids 1 # Bowel Movements 0 Weight 92.1 kg Results CBC & Chem 7: 09/15/18 14:42 09/15/18 14:42 Labs: Abnormal Lab Results - Last 24 Hours (Table) 09/15/18 09/15/18 09/15/18 Range/Units 14:42 14:42 15:10 RBC 3.46 L (3.80-5.40) m/uL Hgb 10.2 L (11.4-16.0) gm/dL Hct 31.3 L (34.0-46.0) % RDW 16.9 H (11.5-15.5) % VBG pCO2 55 H (37-51) mmHg VBG HCO3 30 H (24-28) mmol/L Creatinine 1.43 H (0.52-1.04) mg/dL Glucose 143 H (74-99) mg/dL POC Glucose (mg/dL) (75-99) mg/dL Creatine Kinase 28 L (30-135) U/L Total Protein 5.7 L (6.3-8.2) g/dL Albumin 3.4 L (3.5-5.0) g/dL 09/15/18 09/16/18 Range/Units 20:51 11:50 RBC (3.80-5.40) m/uL Hgb (11.4-16.0) gm/dL Hct (34.0-46.0) % RDW (11.5-15.5) % VBG pCO2 (37-51) mmHg VBG HCO3 (24-28) mmol/L Creatinine (0.52-1.04) mg/dL Glucose (74-99) mg/dL POC Glucose (mg/dL) 121 H 181 H (75-99) mg/dL Creatine Kinase (30-135) U/L Total Protein (6.3-8.2) g/dL Albumin (3.5-5.0) g/dL Microbiology - Last 24 Hours (Table) 09/15/18 14:42 Urine Culture - Preliminary Urine,Catheterized Thrombosis Risk Factor Assmnt - Choose All That Apply Any of the Below Risk Factors Present?: Yes Each Factor Represents 1 point: Abnormal pulmonary function (COPD) Each Risk Factor Represents 2 Points: Age 61-74 years Each Risk Factor Represents 3 Points: History of DVT/PE Thrombosis Risk Factor Assessment Total Risk Factor Score: 6 Thrombosis Risk Factor Assessment Level: High Risk Assessment and Plan Assessment: (1) hypotension secondary to dehydration (2) Dehydration Current Visit: Yes Status: Acute Code(s): E86.0 - DEHYDRATION SNOMED Code(s): 03030590 (3) Acute renal failure secondary to the above (4) Altered mental status, metabolic and toxic encephalopathy, multifactorial, secondary to dehydration, acute renal failure, possibly medication induced. Current Visit: Yes Status: Acute Code(s): R41.82 - ALTERED MENTAL STATUS, UNSPECIFIED SNOMED Code(s): 291994337 (5) Weakness Current Visit: Yes Status: Acute Code(s): R53.1 - WEAKNESS SNOMED Code(s): 41647237 (6) Schizophrenia Current Visit: Yes Status: Acute Code(s): F20.9 - SCHIZOPHRENIA, UNSPECIFIED SNOMED Code(s): 57674511 (7) IDDM (insulin dependent diabetes mellitus), hemoglobin A1c 6.9 Current Visit: Yes Status: Acute Code(s): E11.9 - TYPE 2 DIABETES MELLITUS WITHOUT COMPLICATIONS; Z79.4 - [place] (CURRENT) USE OF INSULIN SNOMED Code(s): 82903644 (8) COPD, stable (9) Essential (primary) hypertension Current Visit: Yes Status: Acute Code(s): I10 - ESSENTIAL (PRIMARY) HYPERTENSION SNOMED Code(s): 57976073 (10) hypercholesterolemia Current Visit: Yes Status: Acute Code(s): E78.00 - PURE HYPERCHOLESTEROLEMIA, UNSPECIFIED SNOMED Code(s): 460138333 (11) Hx pulmonary embolism Current Visit: Yes Status: Acute Code(s): Z86.711 - PERSONAL HISTORY OF PULMONARY EMBOLISM SNOMED Code(s): 467646474 (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 On recent last visit in August 2018, decrease Zyprexa dose and discontinued Ultram and Xanax. Patient's home med list today reflects increased Zyprexa dose with Xanax and Ultram active. Home meds reviewed, majority on hold. Xanax and Ultram will be discontinued. Zyprexa decreased to 20 mg again, but currently will remain on hold. Evaluated by cardiology with verapamil and beta wandy currently on hold. Close monitoring of blood pressure, antihypertensives accordingly as BP permits as per cardiology. PT/OT. Echo pending. Further recommendations to follow. The impression and plan of care has been dictated as directed. : I performed a history and examination of this patient, discussed the same with the dictator. I agree with the dictator's note ,documented as a scribe. Any additional findings or plans will be noted. Time taken: 35 minutes
[2018-09-16] MEDS: METOPROLOL TARTRATE 50 MG TAB PO SCH ×2 (17:50→20:09)
[2018-09-16] MEDS: ATORVASTATIN 10 MG TAB PO SCH (20:09)
[2018-09-16 20:50] LABS: Glucose,Whole Blood 100 mg/dL (75-99)
[2018-09-17] MEDS: SODIUM CHLORIDE 0.9% 1,000 ML IV SCH ×3 (03:40→17:16)
[2018-09-17 05:43] LABS: Glucose,Whole Blood 128 mg/dL (75-99)
[2018-09-17] MEDS: INSULIN ASPART (NovoLOG) 100 UNIT/ML VIAL SQ SCH ×4 (05:44→21:14)
[2018-09-17] MEDS: METOPROLOL TARTRATE 50 MG TAB PO SCH ×2 (05:46→20:06)
[2018-09-17] MEDS: PANTOPRAZOLE 40 MG TABLET PO SCH (05:46)
[2018-09-17 07:00] LABS: Anisocytosis Slight; Basophils % (A) 1 %; Eosinophils # (A) 0.1 k/uL (0-0.7); Eosinophils % (A) 1 %; HCT 35.5 % (34.0-46.0); HGB 11.2 gm/dL (11.4-16.0); Lymphocytes # (A) 1.6 k/uL (1.0-4.8); Lymphocytes % (A) 23 %; MCH 28.5 pg (25.0-35.0); MCHC 31.6 g/dL (31.0-37.0); MCV 90.2 fL (80.0-100.0); Mean Platelet Volume 6.9; Monocytes # (A) 0.3 k/uL (0-1.0); Monocytes % (A) 5 %; Neutrophils # (A) 4.8 k/uL (1.3-7.7); Neutrophils % (A) 68 %; Platelet Count 348 k/uL (150-450); RBC 3.93 m/uL (3.80-5.40); RDW 16.7 % (11.5-15.5)
[2018-09-17 07:01] LABS: African American GFR (CKD) >90 (>60 ml/min/1.73 sqM); Anion Gap 7 mmol/L; Blood Urea Nitrogen 8 mg/dL (7-17); Calcium 9.3 mg/dL (8.4-10.2); Carbon Dioxide 29 mmol/L (22-30); Chloride 103 mmol/L (98-107); Glucose 123 mg/dL (74-99); Non-African American GFR(CKD) 84 (>60 ml/min/1.73 sqM); Sodium 139 mmol/L (137-145)
[2018-09-17] MEDS: APIXABAN 5 MG TAB PO SCH ×2 (08:31→21:12)
[2018-09-17] MEDS: SYMBICORT 160-4.5 MCG INHALER INHALATION SCH ×2 (08:39→22:02)
[2018-09-17] MEDS: IPRATROPIUM-ALBUTEROL 3 ML NEB INHALATION SCH ×4 (08:39→22:02)
[2018-09-17] MEDS ORDERED: FLUDROCORTISONE 0.1 MG TAB PO SCH (11:00)
[2018-09-17] MEDS ORDERED: LISINOPRIL 10 MG TAB PO STA (11:28)
[2018-09-17 12:01] LABS: Glucose,Whole Blood 120 mg/dL (75-99)
--- NOTE | 2018-09-17 12:31 | ECHOF ---
Referral Reason:hypotension MEASUREMENTS -------- HEIGHT: 162.6 cm WEIGHT: 92.1 kg BP: 134/74 RVIDd: 2.9 cm (< 3.3) IVSd: 1.6 cm (0.6 - 1.1) LVIDd: 3.8 cm (3.9 - 5.3) LVPWd: 1.7 cm (0.6 - 1.1) IVSs: 1.8 cm LVIDs: 3.4 cm LVPWs: 1.1 cm LA Diam: 4.7 cm (2.7 - 3.8) LAESV Index (A-L): 43.32 ml/m Ao Diam: 3.5 cm (2.0 - 3.7) AV Cusp: 1.9 cm (1.5 - 2.6) LA Diam: 3.9 cm (2.7 - 3.8) MV EXCURSION: 22.213 mm (> 18.000) MV EF SLOPE: 159 mm/s (70 - 150) EPSS: 0.3 cm MV E Jose: 0.55 m/s MV DecT: 149 ms MV A Jose: 1.89 m/s MV E/A Ratio: 0.29 RAP: 5.00 mmHg RVSP: 40.70 mmHg Dm, Chol, Copd FINDINGS -------- Sinus rhythm. This was a technically adequate study. The left ventricular size is normal. There is moderate concentric left ventricular hypertrophy. O verall left ventricular systolic function is normal with, an EF between 55 - 60 %. The right ventricle is normal in size. The left atrium is markedly dilated. LA is severely dilated >40 ml/m2 The right atrial size is normal. There is mild aortic valve sclerosis. There is no evidence of aortic regurgitation. Mild mitral annular calcification present. Mild mitral regurgitation is present. Mild tricuspid regurgitation present. There is mild pulmonary hypertension. The right ventricular systolic pressure, as measured by Doppler, is 40.70mmHg. There is no pulmonic regurgitation present. The aortic root size is normal. Echo free space represents a pericardial fat pad. CONCLUSIONS -------- 1. The left ventricular size is normal. 2. There is moderate concentric left ventricular hypertrophy. 3. Overall left ventricular systolic function is normal with, an EF between 55 - 60 %. 4. The right ventricle is normal in size. 5. The left atrium is markedly dilated. 6. LA is severely dilated >40 ml/m2 7. The right atrial size is normal. 8. There is mild aortic valve sclerosis. 9. Mild mitral annular calcification present. 10. Mild mitral regurgitation is present. 11. Mild tricuspid regurgitation present. 12. There is mild pulmonary hypertension. 13. The right ventricular systolic pressure, as measured by Doppler, is 40.70mmHg. 14. There is no pulmonic regurgitation present. 15. The aortic root size is normal. 16. Echo free space represents a pericardial fat pad. [employer] PRINT OPERATOR: Neva Brice RDCS
--- NOTE | 2018-09-17 12:41 | P.PN ---
Subjective Progress Note Date: 09/17/18 This is a 63-year-old female, history was obtained from recent and past medical records as the patient is somewhat confused this morning. She has past medical history significant for coronary artery disease with prior angioplasty 10-15 years ago, COPD, prior smoking history, hypertension, hyper lipidemia, asthma. She was brought to the emergency center via EMS, apparently EMS was called because the patient was quite lethargic. On EMS arrival was noted that the patient had low blood pressure. Patient had been in her usual state of health on Sunday and Sunday. According to the emergency room notes patient recently had a urinary tract infection. Her blood pressure on arrival to the emergency room was 82/40 with a heart rate in the 60s, afebrile, 92% on room air. A CAT scan of the brain was performed on arrival here which did not reveal any acute abnormality. Chest x-ray showed prominence of the mediastinotomy and heart which could be secondary to technique. EKG on arrival here showed normal sinus rhythm with nonspecific ST-T wave changes. White blood cell count 8.8, hemoglobin 10.2, platelet count 337. Sodium 138, potassium 4.9, BUN 14, creatinine 1.4. Troponin 0.012. Looking back over the past few months, it appears that the patient's a baseline creatinine is around 0.6. Patient does take Eliquis at home for history of pulmonary embolism. At the time of my exa mination this morning, she sitting up at the chair bedside, unsure exactly of why she is here. 09/17/2018 patient was seen and examined this morning, sitting up in the chair at bedside, overall feeling much better. Her echo remains pending. Blood pressure 180/106 sitting and 148/80 standing, we will continue with the beta wandy and resume the lisinopril 10 mg daily. At this time we will hold off on any Florinef . Objective - Vital Signs Vital signs: Vital Signs Temp 98.3 F 09/17/18 08:00 Pulse 80 09/17/18 11:51 Resp 20 09/17/18 08:00 BP 181/106 09/17/18 08:00 Pulse Ox 95 09/17/18 08:00 Intake & Output 09/16/18 09/17/18 09/17/18 18:59 06:59 18:59 Intake Total 480 200 240 Balance 480 200 240 Weight 93.5 kg Intake: Oral 480 200 240 Other: Voiding Method Toilet # Voids 5 6 # Bowel Movements 0 - Exam GENERAL EXAM: Alert, comfortable in no apparent distress. On room air. HEAD: Normocephalic. EYES: Normal reaction of pupils, equal size. NOSE: Clear with pink turbinates. THROAT: No erythema or exudates. NECK: No masses, no JVD. CHEST: No chest wall deformity. LUNGS: Equal air entry with bilateral end expiratory wheeze. Diminished. CVS: S1 and S2 normal with no audible murmur, regular rhythm. ABDOMEN: No hepatosplenomegaly, normal bowel sounds, no guarding or rigidity. SPINE: No scoliosis or deformity SKIN: No rashes CENTRAL NERVOUS SYSTEM: No focal deficits, tone is normal in all 4 extremities. EXTREMITIES: There is no peripheral edema. No clubbing, no cyanosis. Peripheral pulses are intact. - Labs CBC & Chem 7: 09/17/18 05:54 09/17/18 05:54 Labs: Abnormal Lab Results - Last 24 Hours (Table) 09/16/18 09/16/18 09/17/18 Range/Units 16:48 20:48 05:41 Hgb (11.4-16.0) gm/dL RDW (11.5-15.5) % Glucose (74-99) mg/dL POC Glucose (mg/dL) 131 H 100 H 128 H (75-99) mg/dL 09/17/18 09/17/18 09/17/18 Range/Units 05:54 05:54 11:46 Hgb 11.2 L (11.4-16.0) gm/dL RDW 16.7 H (11.5-15.5) % Glucose 123 H (74-99) mg/dL POC Glucose (mg/dL) 120 H (75-99) mg/dL Microbiology - Last 24 Hours (Table) 09/15/18 14:42 Urine Culture - Final Urine,Catheterized 09/15/18 14:42 Blood Culture - Preliminary Blood No Growth after 24 hours Assessment and Plan Plan: Assessment and plan #1 hypotension #2 mild renal insufficiency, likely secondary to dehydration #3 known history of coronary artery disease with prior stent placements approximately 10-15 years ago #4 history of PE #5 hypertension history #6 hyperlipidemia 7 prior history of smoking #8 asthma #9 recent UTI #10 history of CVA #11 diabetes Plan We will review the echocardiogram with Doppler study. Resume lisinopril 10 mg daily and continue beta wandy. Discontinue Florinef. DNP note has been reviewed, I agree with a documented findings and plan of care. Patient was seen and examined.
[2018-09-17 14:06] LABS: Hemoglobin A1C 7.3 % (4.0-6.0)
[2018-09-17 16:58] LABS: Glucose,Whole Blood 130 mg/dL (75-99)
--- NOTE | 2018-09-17 17:27 | P.PN ---
Subjective Progress Note Date: 09/17/18 This is a 63-year-old white female with history of multiple PEs and TIAs. Anticoagulation via Elequis. She comes in with complaints emergency room of three-day history of increasing weakness, inability to stand or walk, drowsiness. EMS reported very low blood pressure upon arrival. Systolic blood pressure on arrival to the ER 82/47, heart rate 66, maintaining O2 sats of 92% on room air .Recent UTI, current UA negative. She has significant smoking history and takes DuoNeb and Symbicort at home for this. She is a type II diabetic is on Humalog. She takes gabapentin for her low back pain. She is on duloxetine, and Zyprexa for her schizophrenia. On her recent visit this month for metabolic encephalopathy, possibly medication induced- patient's Xanax and Ultram were discontinued with the Zyprexa dose decreased; her current home med list does not reflect this. She takes atorvastatin lisinopril, metoprolol, and verapamil for hypertension and hyperlipidemia. She currently denies any chest pains, pressures, nausea or vomiting. Patient received fluid boluses of 1.5 L. BUN 14, Creatinine 1.43. CBC, coag panel unremarkable. Brain CT unremarkable. EKG reportedly normal sinus rhythm compared with prior EKG of 08/24/2018, no changes. Afebrile, normal WBC. Hemoglobin 10.2. Patient unsure of what brought her into the hospital, majority of information obtained from ER record, staff and . Cardiology consulted. Received IV fluid hydration,. Positive orthostatic hypotension with systolic blood pressure 180/106 sitting and 148/80 standing. No Florinef at this time. Evaluated by cardiology with beta wandy and RANDOLPH inhibitor resumed. Echo reporting preserved LV function, EF 55-60%. Denies chest pain, palpitations or shortness of breath. Denies lightheadedness dizziness or focal deficits. Objective - Vital Signs Vital signs: Vital Signs Temp 98.3 F 09/17/18 08:00 Pulse 86 09/17/18 08:51 Resp 20 09/17/18 08:00 BP 181/106 09/17/18 08:00 Pulse Ox 95 09/17/18 08:00 Intake & Output 09/16/18 09/17/18 09/17/18 18:59 06:59 18:59 Intake Total 480 200 240 Balance 480 200 240 Weight 93.5 kg Intake: Oral 480 200 240 Other: Voiding Method Toilet # Voids 5 6 # Bowel Movements 0 - Exam GENERAL: Sitting up in chair, alert and oriented 3, no acute distress HEAD: Atraumatic, normocephalic. EYES: Pupils equal round and reactive to light, extraocular movements intact, sclera anicteric, conjunctiva are normal. ENT:nares patent, oropharynx clear without exudates. Moist mucous membranes. NECK: Normal range of motion, supple without lymphadenopathy or JVD, no thyromegaly LUNGS: Breath sounds coarse, No wheezes rales or rhonchi. HEART: Regular rate and rhythm without murmurs, rubs or gallops.S1S2 Normal ABDOMEN: Soft, nontender, normoactive bowel sounds. No guarding, no rebound. No masses appreciated. EXTREMITIES: Normal range of motion, no pitting or edema. No clubbing or cyanosis. NEUROLOGICAL: Cranial nerves II through XII grossly intact. Normal speech, normal gait. PSYCH: Normal mood, flat affect. SKIN: Warm, Dry, normal turgor, no rashes or lesions noted. - Labs CBC & Chem 7: 09/17/18 05:54 09/17/18 05:54 Labs: Abnormal Lab Results - Last 24 Hours (Table) 09/16/18 09/16/18 09/16/18 Range/Units 11:50 16:48 20:48 Hgb (11.4-16.0) gm/dL RDW (11.5-15.5) % Glucose (74-99) mg/dL POC Glucose (mg/dL) 181 H 131 H 100 H (75-99) mg/dL 09/17/18 09/17/18 09/17/18 Range/Units 05:41 05:54 05:54 Hgb 11.2 L (11.4-16.0) gm/dL RDW 16.7 H (11.5-15.5) % Glucose 123 H (74-99) mg/dL POC Glucose (mg/dL) 128 H (75-99) mg/dL Microbiology - Last 24 Hours (Table) 09/15/18 14:42 Urine Culture - Final Urine,Catheterized 09/15/18 14:42 Blood Culture - Preliminary Blood No Growth after 24 hours Assessment and Plan Assessment: (1) orthostatic hypotension secondary to dehydration (2) Dehydration Current Visit: Yes Status: Acute Code(s): E86.0 - DEHYDRATION SNOMED Code(s): 76822313 (3) Acute renal failure secondary to the above (4) Altered mental status, metabolic and toxic encephalopathy, multifactorial, secondary to dehydration, acute renal failure, possibly medication induced. Current Visit: Yes Status: Acute Code(s): R41.82 - ALTERED MENTAL STATUS, UNSPECIFIED SNOMED Code(s): 365824455 (5) Weakness Current Visit: Yes Status: Acute Code(s): R53.1 - WEAKNESS SNOMED Code(s): 45911270 (6) Schizophrenia Current Visit: Yes Status: Acute Code(s): F20.9 - SCHIZOPHRENIA, UNSPECIFIED SNOMED Code(s): 76962988 (7) IDDM (insulin dependent diabetes mellitus), hemoglobin A1c 6.9 Current Visit: Yes Status: Acute Code(s): E11.9 - TYPE 2 DIABETES MELLITUS WITHOUT COMPLICATIONS; Z79.4 - [place] (CURRENT) USE OF INSULIN SNOMED Code(s): 45881717 (8) COPD, stable (9) Essential (primary) hypertension Current Visit: Yes Status: Acute Code(s): I10 - ESSENTIAL (PRIMARY) HYPERTENSION SNOMED Code(s): 09452585 (10) hypercholesterolemia Current Visit: Yes Status: Acute Code(s): E78.00 - PURE HYPERCHOLESTEROLEMIA, UNSPECIFIED SNOMED Code(s): 538358895 (11) Hx pulmonary embolism Current Visit: Yes Status: Acute Code(s): Z86.711 - PERSONAL HISTORY OF PULMONARY EMBOLISM SNOMED Code(s): 247695292 (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 Discussed with patient, on last visit decreased Zyprexa dose and discontinued Ultram and Xanax; we will proceed with this. Close monitoring of blood pressure, antihypertensives accordingly as BP permits as per cardiology. Blood pressures improving, will add on decreased dose of Zyprexa. Potential discharge home later pending improved blood pressures. The impression and plan of care has been dictated as directed. : I performed a history and examination of this patient, discussed the same with the dictator. I agree with the dictator's note ,documented as a scribe. Any additional findings or plans will be noted. Time taken: 35 minutes
[2018-09-17] MEDS: OLANZapine 10 MG TAB PO SCH ×2 (17:35→21:12)
[2018-09-17] MEDS: ACETAMINOPHEN TAB 325 MG TAB PO PRN (20:05)
[2018-09-17 20:21] LABS: Glucose,Whole Blood 159 mg/dL (75-99)
[2018-09-17] MEDS: ATORVASTATIN 10 MG TAB PO SCH (21:12)
[2018-09-18 03:14] VITALS: TEMP 98.5
[2018-09-18 06:21] LABS: Glucose,Whole Blood 143 mg/dL (75-99)
[2018-09-18] MEDS: PANTOPRAZOLE 40 MG TABLET PO SCH (06:43)
[2018-09-18] MEDS: INSULIN ASPART (NovoLOG) 100 UNIT/ML VIAL SQ SCH ×3 (06:44→17:01)
[2018-09-18] MEDS: IPRATROPIUM-ALBUTEROL 3 ML NEB INHALATION SCH ×3 (08:15→15:55)
[2018-09-18] MEDS: SYMBICORT 160-4.5 MCG INHALER INHALATION SCH (08:15)
[2018-09-18] MEDS: APIXABAN 5 MG TAB PO SCH (08:48)
[2018-09-18] MEDS: METOPROLOL TARTRATE 50 MG TAB PO SCH (08:48)
[2018-09-18] MEDS ORDERED: LISINOPRIL 10 MG TAB PO SCH (09:00)
[2018-09-18] MEDS ORDERED: VERAPAMIL SR 120 MG TABLET.ER PO SCH (09:00)
[2018-09-18 10:07] VITALS: RESP 16
--- NOTE | 2018-09-18 11:03 | P.DS ---
Providers Date of admission: 09/15/18 16:24 Expected date of discharge: 09/18/18 Attending physician: Tito Diaz Consults: 09/15/18 16:24 Consult Physician Routine Consulting Provider: Magno Wesley Consult Reason/Comments: hypotension Do you want consulting provider notified?: Yes Primary care physician: Farzad [place] Hospital Course: Final Diagnoses: (1) orthostatic hypotension secondary to dehydration, resolved (2) Dehydration Current Visit: Yes Status: Acute Code(s): E86.0 - DEHYDRATION SNOMED Code(s): 35448974 (3) Acute renal failure secondary to the above (4) Altered mental status, metabolic and toxic encephalopathy, multifactorial, secondary to dehydration, acute renal failure, possibly medication induced. Current Visit: Yes Status: Acute Code(s): R41.82 - ALTERED MENTAL STATUS, UNSPECIFIED SNOMED Code(s): 107652479 (5) Weakness Current Visit: Yes Status: Acute Code(s): R53.1 - WEAKNESS SNOMED Code(s): 55625506 (6) Schizophrenia Current Visit: Yes Status: Acute Code(s): F20.9 - SCHIZOPHRENIA, UNSPECIFIED SNOMED Code(s): 58482433 (7) IDDM (insulin dependent diabetes mellitus), hemoglobin A1c 6.9 Current Visit: Yes Status: Acute Code(s): E11.9 - TYPE 2 DIABETES MELLITUS WITHOUT COMPLICATIONS; Z79.4 - MULE SPINNER (CURRENT) USE OF INSULIN SNOMED Code(s): 48300448 (8) COPD, stable (9) Essential (primary) hypertension Current Visit: Yes Status: Acute Code(s): I10 - ESSENTIAL (PRIMARY) HYPERTENSION SNOMED Code(s): 81592410 (10) hypercholesterolemia Current Visit: Yes Status: Acute Code(s): E78.00 - PURE HYPERCHOLESTEROLEMIA, UNSPECIFIED SNOMED Code(s): 616345311 (11) Hx pulmonary embolism Current Visit: Yes Status: Acute Code(s): Z86.711 - PERSONAL HISTORY OF PULMONARY EMBOLISM SNOMED Code(s): 405547648 (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 Anticoagulation via Elequis. She comes in with complaints emergency room of three-day history of increasing weakness, inability to stand or walk, drowsiness. EMS reported very low blood pressure upon arrival. Systolic blood pressure on arrival to the ER 82/47, heart rate 66, maintaining O2 sats of 92% on room air .Recent UTI, current UA negative. She has significant smoking history and takes DuoNeb and Symbicort at home for this. She is a type II diabetic is on Humalog. She takes gabapentin for her low back pain. She is on duloxetine, and Zyprexa for her schizophrenia. On her recent visit this month for metabolic encephalopathy, possibly medication induced- patient's Xanax and Ultram were discontinued with the Zyprexa dose decreased; her current home med list does not reflect this. She takes atorvastatin lisinopril, metoprolol, and verapamil for hypertension and hyperlipidemia. She currently denies any chest pains, pressures, nausea or vomiting. Patient received fluid boluses of 1.5 L. BUN 14, Creatinine 1.43. CBC, coag panel unremarkable. Brain CT unremarkable. EKG reportedly normal sinus rhythm compared with prior EKG of 08/24/2018, no changes. Afebrile, normal WBC. Hemoglobin 10.2. Patient unsure of what brought her into the hospital, majority of information obtained from ER record, staff and . Cardiology consulted. Received IV fluid hydration,. Positive orthostatic hypotension with systolic blood pressure 180/106 sitting and 148/80 standing. No Florinef at this time. Evaluated by cardiology with beta wandy and RANDOLPH inhibitor resumed. Echo reporting preserved LV function, EF 55-60%. Denies chest pain, palpitations or shortness of breath. Denies lightheadedness dizziness or focal deficits. Significant clinical improvement. Cleared by cardiology for discharge. Patient is being discharged home in a stable condition with guarded prognosis. Xanax and Ultram have been discontinued from patient's home med regime with the Zyprexa dose decreased to 20 mg daily at bedtime. - Exam GENERAL: alert and oriented 3, no acute distress HEAD: Atraumatic, normocephalic. LUNGS: Breath sounds coarse, No wheezes rales or rhonchi. HEART: Regular rate and rhythm without murmurs, rubs or gallops.S1S2 Normal ABDOMEN: Soft, nontender, normoactive bowel sounds. No guarding, no rebound. No masses appreciated. NEUROLOGICAL: Cranial nerves II through XII grossly intact. Normal speech, normal gait. No gross focal deficits The impression and plan of care has been dictated as directed. : I performed a history and examination of this patient, discussed the same with the dictator. I agree with the dictator's note ,documented as a scribe. Any additional findings or plans will be noted. Time Taken: 35 min. Patient Condition at Discharge: Stable Plan - Discharge Summary Discharge Rx Participant: No New Discharge Prescriptions: Continue DULoxetine HCL [Cymbalta] 120 mg PO QAM Montelukast [Singulair] 10 mg PO HS Gabapentin [Neurontin] 600 mg PO TID Apixaban [Eliquis] 5 mg PO BID Atorvastatin [Lipitor] 10 mg PO HS Budesonide-Formot 160-4.5 Mcg [Symbicort 160-4.5 Mcg Inhaler] 2 puff INHAL ATION RT-BID #1 puff Metoprolol Tartrate [Lopressor] 50 mg PO BID #60 tab Pantoprazole [Protonix] 40 mg PO DAILY tablet. Acetaminophen Tab [Tylenol] 650 mg PO Q4HR PRN tab PRN Reason: Fever and/ or MILD Pain Ipratropium-Albuterol Nebulize [Duoneb 0.5 mg-3 mg/3 ml Soln] 3 ml INHALATION RT-QID #0 ampul.neb INSULIN LISPRO (HumaLOG) [humaLOG] 0 unit SQ ACHS #1 vial diphenhydrAMINE HCL [Benadryl] 25 mg PO HS Changed Lisinopril [Zestril] 10 mg PO DAILY #1 tab OLANZapine [ZyPREXA] 20 mg PO HS #0 Discontinued Verapamil HCl [Verapamil ER] 120 mg PO DAILY hydrALAZINE HCL [Apresoline] 50 mg PO QID #120 tab ALPRAZolam [Xanax] 0.5 mg PO BID traMADol HCL [Ultram] 50 mg PO Q8H Discharge Medication List DULoxetine HCL [Cymbalta] 120 mg PO QAM 06/19/14 [History] Montelukast [Singulair] 10 mg PO HS 06/19/14 [History] Apixaban [Eliquis] 5 mg PO BID 03/19/17 [History] Atorvastatin [Lipitor] 10 mg PO HS 03/19/17 [History] Gabapentin [Neurontin] 600 mg PO TID 03/19/17 [History] Budesonide-Formot 160-4.5 Mcg [Symbicort 160-4.5 Mcg Inhaler] 2 puff INHALATION RT-BID #1 puff 03/24/18 [Rx] Metoprolol Tartrate [Lopressor] 50 mg PO BID #60 tab 03/24/18 [Rx] Acetaminophen Tab [Tylenol] 650 mg PO Q4HR PRN tab 06/07/18 [Rx] Pantoprazole [Protonix] 40 mg PO DAILY tablet. 06/07/18 [Rx] INSULIN LISPRO (HumaLOG) [humaLOG] 0 unit SQ ACHS #1 vial 08/26/18 [Rx] Ipratropium-Albuterol Nebulize [Duoneb 0.5 mg-3 mg/3 ml Soln] 3 ml INHALATION RT-QID #0 ampul.neb 08/26/18 [Rx] diphenhydrAMINE HCL [Benadryl] 25 mg PO HS 09/15/18 [History] Lisinopril [Zestril] 10 mg PO DAILY #1 tab 09/17/18 [Rx] OLANZapine [ZyPREXA] 20 mg PO HS #0 09/17/18 [Rx] Follow up Appointment(s)/Referral(s): Don Nichols MD [STAFF PHYSICIAN] - 2 Weeks (Please call office for follow up appointment. Latest available appointment is at 4:30. Crm Analyst from previous consult.) Farzad Hartley MD [Primary Care Provider] - 09/25/18 3:00 pm (With Roxi RODRIGUEZ. Latest available appointment - please call ahead of time to cancel if you cannot get transportation.) [facility] Visiting Nurse, [NON-STAFF] - Ambulatory/Diagnostic Orders: Complete Blood Count w/diff [LAB.AMB] Time Frame: 3 Days, Location: None Selected Patient Instructions/Handouts: Hypotension (DC), ANUSHA Hose (DC)
[2018-09-18 11:45] LABS: Glucose,Whole Blood 166 mg/dL (75-99)
[2018-09-18] MEDS: metFORMIN 500 MG TAB PO SCH ×2 (11:59→17:28)
--- NOTE | 2018-09-18 12:42 | P.PN ---
Subjective Progress Note Date: 09/18/18 This is a 63-year-old female, history was obtained from recent and past medical records as the patient is somewhat confused this morning. She has past medical history significant for coronary artery disease with prior angioplasty 10-15 years ago, COPD, prior smoking history, hypertension, hyper lipidemia, asthma. She was brought to the emergency center via EMS, apparently EMS was called because the patient was quite lethargic. On EMS arrival was noted that the patient had low blood pressure. Patient had been in her usual state of health on Sunday and Sunday. According to the emergency room notes patient recently had a urinary tract infection. Her blood pressure on arrival to the emergency room was 82/40 with a heart rate in the 60s, afebrile, 92% on room air. A CAT scan of the brain was performed on arrival here which did not reveal any acute abnormality. Chest x-ray showed prominence of the mediastinotomy and heart which could be secondary to technique. EKG on arrival here showed normal sinus rhythm with nonspecific ST-T wave changes. White blood cell count 8.8, hemoglobin 10.2, platelet count 337. Sodium 138, potassium 4.9, BUN 14, creatinine 1.4. Troponin 0.012. Looking back over the past few months, it appears that the patient's a baseline creatinine is around 0.6. Patient does take Eliquis at home for history of pulmonary embolism. At the time of my exa mination this morning, she sitting up at the chair bedside, unsure exactly of why she is here. 09/17/2018 patient was seen and examined this morning, sitting up in the chair at bedside, overall feeling much better. Her echo remains pending. Blood pressure 180/106 sitting and 148/80 standing, we will continue with the beta wandy and resume the lisinopril 10 mg daily. At this time we will hold off on any Florinef . 09/18/2018 Patient was seen and examined this morning, feeling the best she has so far according to her. Eager to be discharged home today. Blood pressure 150/90 this morning. Objective - Vital Signs Vital signs: Vital Signs Temp 98.5 F 09/18/18 03:12 Pulse 80 09/18/18 11:18 Resp 16 09/18/18 08:00 BP 145/102 09/18/18 08:00 Pulse Ox 97 09/18/18 08:00 Intake & Output 09/17/18 09/18/18 09/18/18 18:59 06:59 18:59 Intake Total 720 120 240 Output Total 400 Balance 320 120 240 Weight 92.7 kg Intake: Oral 720 120 240 Output: Urine 400 Other: Voiding Method Toilet # Voids 2 - Exam GENERAL EXAM: Alert, comfortable in no apparent distress. On room air. HEAD: Normocephalic. EYES: Normal reaction of pupils, equal size. NOSE: Clear with pink turbinates. THROAT: No erythema or exudates. NECK: No masses, no JVD. CHEST: No chest wall deformity. LUNGS: Equal air entry with bilateral end expiratory wheeze. Diminished. CVS: S1 and S2 normal with no audible murmur, regular rhythm. ABDOMEN: No hepatosplenomegaly, normal bowel sounds, no guarding or rigidity. SPINE: No scoliosis or deformity SKIN: No rashes CENTRAL NERVOUS SYSTEM: No focal deficits, tone is normal in all 4 extremities. EXTREMITIES: There is no peripheral edema. No clubbing, no cyanosis. Peripheral pulses are intact. - Labs CBC & Chem 7: 09/17/18 05:54 09/17/18 05:54 Labs: Abnormal Lab Results - Last 24 Hours (Table) 09/17/18 09/17/18 09/17/18 Range/Units 05:54 16:55 20:20 POC Glucose (mg/dL) 130 H 159 H (75-99) mg/dL Hemoglobin A1c 7.3 H (4.0-6.0) % 09/18/18 09/18/18 Range/Units 06:20 11:41 POC Glucose (mg/dL) 143 H 166 H (75-99) mg/dL Hemoglobin A1c (4.0-6.0) % Microbiology - Last 24 Hours (Table) 09/15/18 14:42 Blood Culture - Preliminary Blood No Growth after 48 hours Assessment and Plan Plan: Assessment and plan #1 hypotension #2 mild renal insufficiency, likely secondary to dehydration #3 known history of coronary artery disease with prior stent placements approximately 10-15 years ago #4 history of PE #5 hypertension history #6 hyperlipidemia 7 prior history of smoking #8 asthma #9 recent UTI #10 history of CVA #11 diabetes Plan Echocardiogram with Doppler study revealed a normal left ventricular systolic function. Patient may be able to be discharged home today from our standpoint, we will make a follow-up appointment in the office post discharge. DNP note has been reviewed, I agree with a documented findings and plan of care. Patient was seen and examined.
[2018-09-18 13:51] VITALS: BP 135/106
[2018-09-18 15:57] VITALS: PULSE 78
[2018-09-18 16:32] LABS: Glucose,Whole Blood 108 mg/dL (75-99)
[2018-09-18] MEDS: ACETAMINOPHEN TAB 325 MG TAB PO PRN (17:27)
== END 2018-09-18 18:06 | disposition home health service (06) | DRG 682 ==
LOC: EC 13:37 → 3SCARD 16:24
PROVIDERS: ADMIT Family Medicine; ATTEND Family Medicine
DX: N17.9 Acute kidney failure, unspecified (principal); G92 Toxic encephalopathy; E11.41 Type 2 diabetes mellitus with diabetic mononeuropathy; G57.93 Unspecified mononeuropathy of bilateral lower limbs; F20.9 Schizophrenia, unspecified; J44.9 Chronic obstructive pulmonary disease, unspecified; I10 Essential (primary) hypertension; E78.00 Pure hypercholesterolemia, unspecified; I25.10 Atherosclerotic heart disease of native coronary artery without angina pectoris; E86.0 Dehydration; I95.9 Hypotension, unspecified; E78.5 Hyperlipidemia, unspecified; G89.29 Other chronic pain; I95.1 Orthostatic hypotension; M79.7 Fibromyalgia; Z79.51 Long term (current) use of inhaled steroids; Z79.899 Other long term (current) drug therapy; Z82.49 Family history of ischemic heart disease and other diseases of the circulatory system; Z82.5 Family history of asthma and other chronic lower respiratory diseases; Z79.4 Long term (current) use of insulin; Z79.01 Long term (current) use of anticoagulants; Z90.49 Acquired absence of other specified parts of digestive tract; Z90.89 Acquired absence of other organs; Z85.828 Personal history of other malignant neoplasm of skin; Z90.710 Acquired absence of both cervix and uterus; Z87.891 Personal history of nicotine dependence; Z95.5 Presence of coronary angioplasty implant and graft; Z86.73 Personal history of transient ischemic attack (TIA), and cerebral infarction without residual deficits; Z86.711 Personal history of pulmonary embolism; Z80.8 Family history of malignant neoplasm of other organs or systems; Z83.6 Family history of other diseases of the respiratory system; Z87.440 Personal history of urinary (tract) infections
CPT/HCPCS: 36415; 70450; 71045; 71046; 80048; 80053; 81003; 82140; 82550; 82803; 83036; 83605; 84484; 85025; 85610; 85730; 87040; 87086; 93005; 93306; 94640; 94760; 96360; 96361; 99285

== ENCOUNTER 2018-10-23 09:14 | Inpatient (IN) | payer BC, MEDICARE ==
[2018-10-23] MEDS ORDERED: methylPREDNISolone SOD SUCCI 125 MG/2 ML VIAL IV STA (09:35)
[2018-10-23] MEDS ORDERED: IPRATROPIUM-ALBUTEROL 3 ML NEB INHALATION STA ×3 (09:35→12:51)
[2018-10-23 09:57] LABS: Anisocytosis Slight; Basophils % (A) 0 %; Eosinophils # (A) 0.1 k/uL (0-0.7); Eosinophils % (A) 2 %; HCT 35.2 % (34.0-46.0); HGB 11.2 gm/dL (11.4-16.0); Lymphocytes # (A) 1.5 k/uL (1.0-4.8); Lymphocytes % (A) 19 %; MCH 28.1 pg (25.0-35.0); MCHC 31.9 g/dL (31.0-37.0); Mean Platelet Volume 6.6; Monocytes # (A) 0.5 k/uL (0-1.0); Monocytes % (A) 6 %; Neutrophils # (A) 5.6 k/uL (1.3-7.7); Neutrophils % (A) 71 %; Platelet Count 314 k/uL (150-450); RDW 16.1 % (11.5-15.5); WBC 7.8 k/uL (3.8-10.6)
[2018-10-23 10:05] LABS: Albumin 3.6 g/dL (3.5-5.0); Calcium 9.3 mg/dL (8.4-10.2); Magnesium 2.1 mg/dL (1.6-2.3); Potassium 4.1 mmol/L (3.5-5.1); Total Bilirubin 0.4 mg/dL (0.2-1.3); Total Protein 6.2 g/dL (6.3-8.2)
[2018-10-23 10:07] LABS: INR 0.9 (<1.2); Partial Thromboplastin Time 25.8 sec (22.0-30.0)
--- NOTE | 2018-10-23 10:09 | ED ---
Fall HPI - General Chief Complaint: Fall Stated Complaint: fall, weakness Time Seen by Provider: 10/23/18 09:24 Source: patient, family Mode of arrival: wheelchair - History of Present Illness Initial Comments: 63-year-old female with extensive past medical history including diabetes, COPD, previous CVAs and TIAs, fibromyalgia, hypertension presenting today with for frequent falls, generalized weakness, cough increased sputum. History was obtained from who is bedside as well as patient. She states she has felt overall weakness. She states that she has some mild shortness of breath she denies any chest pain. She states she feels as though she is wheezin g and has had increased cough and sputum production. Denies hemoptysis or unilateral leg swelling. Patient states she is compliant with her anticoagulation therapy. Pulses that she has had multiple falls from losing her balance. Patient states she just feels weak all over. She denies it being u nilateral. Family denies any speech changes or noted strokelike symptoms. Patietn states she fell a week ago obtaining a left "black eye" denies LOC. States she has had a slight headache since. Denies neck, back or extremity pain. Remaining ROS (-). Upon arrival patient has obvious trauma to face. - Related Data Home Medications Medication Instructions Recorded Confirmed DULoxetine HCL [Cymbalta] 120 mg PO QAM 06/19/14 10/23/18 Montelukast [Singulair] 10 mg PO HS 06/19/14 10/23/18 Apixaban [Eliquis] 5 mg PO BID 03/19/17 10/23/18 Atorvastatin [Lipitor] 10 mg PO HS 03/19/17 10/23/18 Gabapentin [Neurontin] 600 mg PO TID 03/19/17 10/23/18 INSULIN LISPRO (HumaLOG) [humaLOG] See Protocol SQ ACHS PRN 10/23/18 10/23/18 Verapamil HCl [Verapamil ER] 120 mg PO DAILY 10/23/18 10/23/18 hydrALAZINE HCL [Apresoline] 50 mg PO QID 10/23/18 10/23/18 Previous Rx's Medication Instructions Recorded Budesonide-Formot 160-4.5 Mcg 2 puff INHALATION RT-BID #1 puff 03/24/18 [Symbicort 160-4.5 Mcg Inhaler] Metoprolol Tartrate [Lopressor] 50 mg PO BID #60 tab 03/24/18 Acetaminophen Tab [Tylenol] 650 mg PO Q4HR PRN tab 06/07/18 Pantoprazole [Protonix] 40 mg PO DAILY tablet. 06/07/18 Lisinopril [Zestril] 10 mg PO DAILY #1 tab 09/17/18 OLANZapine [ZyPREXA] 20 mg PO HS #0 09/17/18 Allergies Allergy/AdvReac Type Severity Reaction Status Date / Time No Known Allergies Allergy Verified 10/23/18 10:07 Review of Systems ROS Statement: Those systems with pertinent positive or pertinent negative responses have been documented in the HPI. ROS Other: All systems not noted in ROS Statement are negative. Past Medical History Past Medical History: Asthma, Cancer, COPD, CVA/TIA, Diabetes Mellitus, Fibromyalgia, Hyperlipidemia, Hypertension, Musculoskeletal Disorder, Neurologic Disorder, Osteoarthritis (OA), Pulmonary Embolus (PE), Skin Disorder Additional Past Medical History / Comment(s): 3 PEs-involved bilateral lungs, CVA with some increased memory problems, NIDDM type II, neuropathy bilateral legs/feet, migraines, chronic low back pain, skin cancer removed from nose, urinary incontinence at times, lately stool loose and has some incontinence of stool. History of Any Multi-Drug Resistant Organisms: None Reported Past Surgical History: Back Surgery, Cholecystectomy, Hysterectomy, Joint Replacement, Orthopedic Surgery Additional Past Surgical History / Comment(s): Back pain stimulator implant lumbar cataract removals, 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 Past Anesthesia/Blood Transfusion Reactions: No Reported Reaction Additional Past Anesthesia/Blood Transfusion Reaction / Comment(s): no hx blood transfusion Past Psychological History: Schizophrenia Smoking Status: Former smoker Past Alcohol Use History: None Reported Past Drug Use History: None Reported - Past Family History Mother History Unknown: Yes Family Medical History: COPD Additional Family Medical History / Comment(s): Mother at the age of 78yrs. Father History Unknown: Yes Family Medical History: Myocardial Infarction ([place]) Additional Family Medical History / Comment(s): Father of a massive [place] at the age of 50 yrs. Pt is not sure if cariel may have moved to his heart-he had injury in WWII. Sister(s) Family Medical History: Cancer General Exam - General Exam Comments Initial Comments: General: The patient is awake and alert, in no distress, and does not appear acutely ill. Eye: +2 mm pupils are equal, round and reactive to light, extra-ocular movement s are intact. No nystagmus. There is normal conjunctiva bilaterally. No signs of icterus. Ears, nose, mouth and throat: There are moist mucous membranes and no oral lesi ons. No raccoon or Mosley sign. No blood in the tympanic membranes. Neck: The neck is supple, there is no tenderness or JVD. No midline or paravertebral tenderness of the cervical thoracic or lumbar spine. Cardiovascular: There is a regular rate and rhythm. No murmur, rub or gallop is appreciated. Respiratory: respirations are non-labored, breath sounds are equal. Expiratory wheezes as well as rales more significant left side than the right. No stridor, or rhonchi. Gastrointestinal: Soft, non-distended, non-tender abdomen without masses or organomegaly noted. There is no rebound or guarding present. Musculoskeletal: Normal ROM, no tenderness. Strength 5/5. Sensation intact. Radial and DP pulses equal bilaterally 2+. Neurological: A&O x 3. CN II-XII intact, There are no obvious motor or sensory deficits. Coordination appears grossly intact. Speech is normal. No pronator drift. Finger to nose smooth and coordinated. Skin: Skin is warm and dry and no rashes or lesions are noted. B/l LE edema. Psychiatric: Cooperative, appropriate mood & affect, normal judgment. Limitations: no limitations Course Vital Signs 10/23/18 10/23/18 10/23/18 09:19 09:45 09:53 Temperature 97.8 F Pulse Rate 80 70 71 Respiratory 18 16 Rate Blood Pressure 111/76 131/82 O2 Sat by Pulse 92 L 97 Oximetry 10/23/18 10/23/18 10/23/18 10:04 11:34 11:46 Temperature Pulse Rate 71 74 72 Respiratory Rate Blood Pressure O2 Sat by Pulse Oximetry 10/23/18 10/23/18 10/23/18 13:19 13:29 13:30 Temperature Pulse Rate 76 77 78 Respiratory 18 Rate Blood Pressure 128/80 O2 Sat by Pulse 92 L Oximetry 10/23/18 13:44 Temperature Pulse Rate Respiratory Rate Blood Pressure O2 Sat by Pulse 89 L Oximetry Medical Decision Making - Medical Decision Making 63yo female presented for chief complaint of generalized weakness frequent falls. She also states she has had increased cough phlegm. Patient's lungs sound wheezy as well as rales. Patient does have bilateral lower extremity edema however BMP within acceptable limits. Patient's EKG no acute findings. Patient does not appear in respiratory distress. Patient states she did improve it of symptoms with 3 DuoNeb treatments however still has some slight shortness of breath. Patient denies any chest pain. Troponin negative. Laboratory studies appear near baseline. Patient had no acute intracranial or cervical spine findings. No fracture the facial bones and patient has intact visual acui ty of the left eye. No pain with extraocular eye movements. Patient has no focal deficits on exam. Given increased phlegm production, rales on examination mostly left-sided I feel patient most likely has a developing pneumonia. Patient was given ceftriaxone as well as steroids in the emergency department. Patient also has noted hypoxia. No elevation of heart rate. At this time I feel is appropriate patient be admitted for hypoxia COPD exacerbation and possible clinical pneumonia. I discussed the case with the nurse practitioner covering for Naeem patient's primary care provider who is agreeable to this admission and care plan at this time. No further orders. I discussed this case in addition with attending provider Dr. Cardona, prior to speaking with the admitting provider he was agreeable to plan. I do recommend a social work consultation. For frequent falls as I do not feel patient is safe in her home. - Lab Data Result diagrams: 10/23/18 09:30 10/23/18 09:30 Lab Results 10/23/18 10/23/18 10/23/18 Range/Units 09:30 09:30 09:30 WBC 7.8 (3.8-10.6) k/uL RBC 4.00 (3.80-5.40) m/uL Hgb 11.2 L (11.4-16.0) gm/dL Hct 35.2 (34.0-46.0) % MCV 88.0 (80.0-100.0) fL MCH 28.1 (25.0-35.0) pg MCHC 31.9 (31.0-37.0) g/dL RDW 16.1 H (11.5-15.5) % Plt Count 314 (150-450) k/uL Neutrophils % 71 % Lymphocytes % 19 % Monocytes % 6 % Eosinophils % 2 % Basophils % 0 % Neutrophils # 5.6 (1.3-7.7) k/uL Lymphocytes # 1.5 (1.0-4.8) k/uL Monocytes # 0.5 (0-1.0) k/uL Eosinophils # 0.1 (0-0.7) k/uL Basophils # 0.0 (0-0.2) k/uL Anisocytosis Slight PT (9.0-12.0) sec INR (<1.2) APTT (22.0-30.0) sec Sodium 139 (137-145) mmol/L Potassium 4.1 (3.5-5.1) mmol/L Chloride 103 (98-107) mmol/L Carbon Dioxide 27 (22-30) mmol/L Anion Gap 9 mmol/L BUN 18 H (7-17) mg/dL Creatinine 0.83 (0.52-1.04) mg/dL Est GFR (CKD-EPI)AfAm 86 (>60 ml/min/1.73 sqM) Est GFR (CKD-EPI)NonAf 75 (>60 ml/min/1.73 sqM) Glucose 192 H (74-99) mg/dL Plasma Lactic Acid [place] 1.3 (0.7-2.0) mmol/L Calcium 9.3 (8.4-10.2) mg/dL Magnesium 2.1 (1.6-2.3) mg/dL Total Bilirubin 0.4 (0.2-1.3) mg/dL AST 16 (14-36) U/L ALT 21 (9-52) U/L Alkaline Phosphatase 101 (38-126) U/L Troponin I (0.000-0.034) ng/mL NT-Pro-B Natriuret Pep pg/mL Total Protein 6.2 L (6.3-8.2) g/dL Albumin 3.6 (3.5-5.0) g/dL Urine Color Urine Appearance (Clear) Urine pH (5.0-8.0) Ur Specific [place] (1.001-1.035) Urine Protein (Negative) Urine Glucose (UA) (Negative) Urine Ketones (Negative) Urine Blood (Negative) Urine Nitrite (Negative) Urine Bilirubin (Negative) Urine Urobilinogen (<2.0) mg/dL Ur Leukocyte Esterase (Negative) 10/23/18 10/23/18 10/23/18 Range/Units 09:30 09:30 09:30 WBC (3.8-10.6) k/uL RBC (3.80-5.40) m/uL Hgb (11.4-16.0) gm/dL Hct (34.0-46.0) % MCV (80.0-100.0) fL MCH (25.0-35.0) pg MCHC (31.0-37.0) g/dL RDW (11.5-15.5) % Plt Count (150-450) k/uL Neutrophils % % Lymphocytes % % Monocytes % % Eosinophils % % Basophils % % Neutrophils # (1.3-7.7) k/uL Lymphocytes # (1.0-4.8) k/uL Monocytes # (0-1.0) k/uL Eosinophils # (0-0.7) k/uL Basophils # (0-0.2) k/uL Anisocytosis PT 10.0 (9.0-12.0) sec INR 0.9 (<1.2) APTT 25.8 (22.0-30.0) sec Sodium (137-145) mmol/L Potassium (3.5-5.1) mmol/L Chloride (98-107) mmol/L Carbon Dioxide (22-30) mmol/L Anion Gap mmol/L BUN (7-17) mg/dL Creatinine (0.52-1.04) mg/dL Est GFR (CKD-EPI)AfAm (>60 ml/min/1.73 sqM) Est GFR (CKD-EPI)NonAf (>60 ml/min/1.73 sqM) Glucose (74-99) mg/dL Plasma Lactic Acid [place] (0.7-2.0) mmol/L Calcium (8.4-10.2) mg/dL Magnesium (1.6-2.3) mg/dL Total Bilirubin (0.2-1.3) mg/dL AST (14-36) U/L ALT (9-52) U/L Alkaline Phosphatase (38-126) U/L Troponin I <0.012 (0.000-0.034) ng/mL NT-Pro-B Natriuret Pep 158 pg/mL Total Protein (6.3-8.2) g/dL Albumin (3.5-5.0) g/dL Urine Color Urine Appearance (Clear) Urine pH (5.0-8.0) Ur Specific [place] (1.001-1.035) Urine Protein (Negative) Urine Glucose (UA) (Negative) Urine Ketones (Negative) Urine Blood (Negative) Urine Nitrite (Negative) Urine Bilirubin (Negative) Urine Urobilinogen (<2.0) mg/dL Ur Leukocyte Esterase (Negative) 10/23/18 Range/Units 12:25 WBC (3.8-10.6) k/uL RBC (3.80-5.40) m/uL Hgb (11.4-16.0) gm/dL Hct (34.0-46.0) % MCV (80.0-100.0) fL MCH (25.0-35.0) pg MCHC (31.0-37.0) g/dL RDW (11.5-15.5) % Plt Count (150-450) k/uL Neutrophils % % Lymphocytes % % Monocytes % % Eosinophils % % Basophils % % Neutrophils # (1.3-7.7) k/uL Lymphocytes # (1.0-4.8) k/uL Monocytes # (0-1.0) k/uL Eosinophils # (0-0.7) k/uL Basophils # (0-0.2) k/uL Anisocytosis PT (9.0-12.0) sec INR (<1.2) APTT (22.0-30.0) sec Sodium (137-145) mmol/L Potassium (3.5-5.1) mmol/L Chloride (98-107) mmol/L Carbon Dioxide (22-30) mmol/L Anion Gap mmol/L BUN (7-17) mg/dL Creatinine (0.52-1.04) mg/dL Est GFR (CKD-EPI)AfAm (>60 ml/min/1.73 sqM) Est GFR (CKD-EPI)NonAf (>60 ml/min/1.73 sqM) Glucose (74-99) mg/dL Plasma Lactic Acid [place] (0.7-2.0) mmol/L Calcium (8.4-10.2) mg/dL Magnesium (1.6-2.3) mg/dL Total Bilirubin (0.2-1.3) mg/dL AST (14-36) U/L ALT (9-52) U/L Alkaline Phosphatase (38-126) U/L Troponin I (0.000-0.034) ng/mL NT-Pro-B Natriuret Pep pg/mL Total Protein (6.3-8.2) g/dL Albumin (3.5-5.0) g/dL Urine Color Light Yellow Urine Appearance Clear (Clear) Urine pH 6.5 (5.0-8.0) Ur Specific [place] 1.005 (1.001-1.035) Urine Protein Negative (Negative) Urine Glucose (UA) Negative (Negative) Urine Ketones Negative (Negative) Urine Blood Negative (Negative) Urine Nitrite Negative (Negative) Urine Bilirubin Negative (Negative) Urine Urobilinogen <2.0 (<2.0) mg/dL Ur Leukocyte Esterase Negative (Negative) - EKG Data EKG Comments: Ventricular rate 70 bpm, ID interval 184 ms, QRS Station 82 ms, QT/QTc 412/453. This is normal sinus. There is no ST elevation or depression. Possible left ventricular hypertrophy noted given the voltage criteria. No acute findings. EKG personally interpreted. Disposition Clinical Impression: COPD exacerbation, Generalized weakness, Hypoxia, Cough, Pneumonia Disposition: ADMITTED IP TO THIS HOSP Condition: Stable Is patient prescribed a controlled substance at d/c from ED?: No Referrals: Farzad Hartley MD [Primary Care Provider] - 1-2 days Time of Disposition: 13:40 Decision to Admit Reason: Admit from EC Decision Date: 10/23/18 Decision Time: 13:40
--- NOTE | 2018-10-23 10:40 | XR ---
EXAMINATION TYPE: XR chest 2V DATE OF EXAM: 10/23/2018 COMPARISON: 09/15/2018 INDICATION: Weakness TECHNIQUE: Frontal and lateral views of the chest are obtained. FINDINGS: The heart size is normal. The pulmonary vasculature is normal. The lungs are clear. Stimulator leads are within the thoracic region IMPRESSION: 1. No acute pulmonary process.
--- NOTE | 2018-10-23 10:48 | CT ---
EXAMINATION TYPE: CT brain melia frost con DATE OF EXAM: 10/23/2018 COMPARISON: 09/15/2018 HISTORY: Fall, weakness CT DLP: 1297.4 mGycm, Automated exposure control for dose reduction was used. CONTRAST: Patient injected with 0 mL of Isovue 300. CT of the brain is performed utilizing 3 mm thick sections through the posterior fossa and 3 mm thick sections through the remaining calvarium. Study is performed within 24 hours of arrival to the hospital. No abnormal hyperdensity is present to suggest an acute intracranial hemorrhage. No mass lesion is evident. No acute infarcts are evident. There is diffuse periventricular white matter hypodensity, likely on the basis of chronic white matter ischemic changes. Findings are similar to August 2018. Ventricles and sulci are appropriate for the patient age. Paranasal sinuses and mastoid air cells within the [id number] are clear. There is diffuse soft tissue swelling with underlying hematoma within the subcutaneous tissues along the left frontal region. IMPRESSIONS: 1. Chronic appearing periventricular white matter ischemic changes. 2. Superficial soft tissue swelling with broad hematoma over the left frontal region. CT cervical spine. COMPARISON: None CT of the cervical spine is performed in the axial plane at 2 mm thick sections. Reconstructed image s in the coronal, and sagittal plane are reviewed on the computer. No acute fractures are evident. Results cervical kyphosis present. This could be related to patient positioning. Disc heights are preserved. Vertebral body heights are preserved. No spinal canal stenosis is evident. There is some uncovertebral joint hypertrophy within the lower cervical spine with minimal foraminal narrowing. IMPRESSIONS: 1. Very mild degenerative changes within the cervical spine. 2. No acute osseous abnormality.
--- NOTE | 2018-10-23 10:50 | CT ---
EXAMINATION TYPE: CT facial bones wo con DATE OF EXAM: 10/23/2018 COMPARISON: None HISTORY: fall CT DLP: included in brain/c-spine dose mGycm CONTRAST: 0 mL of Isovue 300 The paranasal sinuses are examined in the axial plane at 2 mm thick sections. Reconstructed images i n the coronal plane were obtained. There is dental amalgam scatter artifact The maxillary sinuses are clear. There is prior ethmoidectomy. The sphenoid sinuses are clear. The frontal sinuses are clear. Maxillary spine is intact. Zygomatic arches are intact. Greater wings of sphenoid are normal. The septum is evaluated. There is septal deviation to the left. There is prior bilateral uncinectomies. IMPRESSIONS: 1. No acute posttraumatic changes facial bones.
[2018-10-23 12:37] LABS: Appearance,Urine Clear (Clear); Bilirubin,Urine Negative (Negative); Blood,Urine Negative (Negative); Color,Urine Light Yellow; Glucose,Urine (UA) Negative (Negative); Ketones,Urine Negative (Negative); Leukocyte Esterase,Urine Negative (Negative); Nitrite,Urine Negative (Negative); PH, Urine 6.5 (5.0-8.0); Protein,Urine Negative (Negative); Specific Gravity,Urine 1.005 (1.001-1.035); Urobilinogen,Urine <2.0 mg/dL (<2.0)
[2018-10-23] MEDS: GABAPENTIN 300 MG CAP PO SCH (21:22)
[2018-10-23] MEDS: hydrALAZINE HCL 50 MG TAB PO SCH (21:22)
[2018-10-23] MEDS: ZOLPIDEM 5 MG TAB PO PRN (21:25)
[2018-10-23] MEDS: methylPREDNISolone SOD SUCCI 125 MG/2 ML VIAL IV SCH (23:55)
[2018-10-24] MEDS: hydrALAZINE HCL 50 MG TAB PO SCH ×4 (04:47→23:36)
[2018-10-24] MEDS: LISINOPRIL 10 MG TAB PO SCH (04:47)
[2018-10-24] MEDS: methylPREDNISolone SOD SUCCI 125 MG/2 ML VIAL IV SCH ×4 (04:47→23:36)
[2018-10-24] MEDS: SYMBICORT 160-4.5 MCG INHALER INHALATION SCH ×2 (07:59→19:41)
[2018-10-24] MEDS: IPRATROPIUM-ALBUTEROL 3 ML NEB INHALATION PRN ×2 (07:59→11:12)
[2018-10-24] MEDS: AZITHROMYCIN 500 MG TAB PO SCH (09:35)
[2018-10-24] MEDS: PANTOPRAZOLE 40 MG TABLET PO SCH (09:35)
[2018-10-24] MEDS: DULoxetine HCL 60 MG CAPSULE.DR PO SCH (09:35)
[2018-10-24] MEDS: GABAPENTIN 300 MG CAP PO SCH ×3 (09:37→23:36)
[2018-10-24] MEDS: METOPROLOL TARTRATE 50 MG TAB PO SCH ×2 (09:37→19:58)
[2018-10-24] MEDS: APIXABAN 5 MG TAB PO SCH ×2 (09:37→19:59)
[2018-10-24] MEDS: guaiFENesin 600 MG TABLET.ER PO SCH ×2 (09:37→19:58)
[2018-10-24] MEDS: VERAPAMIL SR 120 MG TABLET.ER PO SCH (10:17)
[2018-10-24 10:57] LABS: Glucose,Whole Blood 279 mg/dL (75-99)
[2018-10-24] MEDS: INSULIN ASPART (NovoLOG) 100 UNIT/ML VIAL SQ SCH ×3 (12:42→20:56)
[2018-10-24] MEDS: amLODIPine 5 MG TAB PO SCH (15:00)
[2018-10-24] MEDS: ACETAMINOPHEN TAB 325 MG TAB PO PRN ×2 (15:01→19:58)
[2018-10-24] MEDS: IPRATROPIUM-ALBUTEROL 3 ML NEB INHALATION SCH ×2 (15:50→19:43)
--- NOTE | 2018-10-24 16:09 | P.HPIM ---
History of Present Illness H&P Date: 10/24/18 This is a 63-year-old white female with history of multiple PEs,TIAs, anticoagulation via Eliquis, fibromyalgia, CAD with prior angioplasty and stenting, COPD, prior nicotine dependence, hypertension, hyperlipidemia, chronic asthma and multiple other medical issues presented to the ER with frequent f alls, generalized weakness, mild shortness of breath with productive cough. Reports compliancy with medication regimen including Eliquis. Reports feeling increased generalized weakness, losing her balance, sustaining multiple falls. Patient currently has bruising under her left "black eye "secondary to a fall of last week. Denies syncope, unilateral weakness, speech changes or visual changes. Denies neck, back or extremity pain. Denies LOC. CT of brain/C-spine reported chronic paraventricular white matter ischemic changes, similar to prior study superficial soft tissue swelling with hematoma over the left frontal region. A CT reporting no acute posttraumatic changes facial bones. Chest x-ray prominent nonacute. EKG reporting normal sinus rhythm. Troponin negative 1 Magnesium 2.1, potassium 4.1. Denies chest pain, palpitations. Afebrile, normal WBC. Glucose on admission 192. UA negative. 92% on room air on admission., currently requiring 3 L nasal cannula maintaining O2 sats in the 90s. Placed on scheduled nebulized bronchodilators, systemic IV steroids, antibiotics. Review of Systems ROS Statement: Those systems with pertinent positive or pertinent negative responses have been documented in the HPI. ROS Other: All systems not noted in ROS Statement are negative. Past Medical History Past Medical History: Asthma, Cancer, COPD, CVA/TIA, Diabetes Mellitus, Fibromyalgia, Hyperlipidemia, Hypertension, Musculoskeletal Disorder, Neurologic Disorder, Osteoarthritis (OA), Pulmonary Embolus (PE), Skin Disorder Additional Past Medical History / Comment(s): 3 PEs-involved bilateral lungs, CVA with some increased memory problems, NIDDM type II, neuropathy bilateral legs/feet, migraines, chronic low back pain, skin cancer removed from nose, urinary incontinence at times, lately stool loose and has some incontinence of stool. History of Any Multi-Drug Resistant Organisms: None Reported Past Surgical History: Back Surgery, Cholecystectomy, Hysterectomy, Joint Replacement, Orthopedic Surgery Additional Past Surgical History / Comment(s): Back pain stimulator implant lumbar cataract removals, 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 Past Anesthesia/Blood Transfusion Reactions: No Reported Reaction Additional Past Anesthesia/Blood Transfusion Reaction / Comment(s): no hx blood transfusion Past Psychological History: Schizophrenia Smoking Status: Former smoker Past Alcohol Use History: None Reported Past Drug Use History: None Reported - Past Family History Mother History Unknown: Yes Family Medical History: COPD Additional Family Medical History / Comment(s): Mother at the age of 78yrs. Father History Unknown: Yes Family Medical History: Myocardial Infarction ([place]) Additional Family Medical History / Comment(s): Father of a massive [place] at the age of 50 yrs. Pt is not sure if ovidio may have moved to his heart-he had injury in WWII. Sister(s) Family Medical History: Cancer Medications and Allergies Home Medications Medication Instructions Recorded Confirmed Type DULoxetine HCL [Cymbalta] 120 mg PO QAM 06/19/14 10/23/18 History Montelukast [Singulair] 10 mg PO HS 06/19/14 10/23/18 History Apixaban [Eliquis] 5 mg PO BID 03/19/17 10/23/18 History Atorvastatin [Lipitor] 10 mg PO HS 03/19/17 10/23/18 History Gabapentin [Neurontin] 600 mg PO TID 03/19/17 10/23/18 History Budesonide-Formot 160-4.5 Mcg 2 puff INHALATION RT-BID #1 puff 03/24/18 10/23/18 Rx [Symbicort 160-4.5 Mcg Inhaler] Metoprolol Tartrate [Lopressor] 50 mg PO BID #60 tab 03/24/18 10/23/18 Rx Acetaminophen Tab [Tylenol] 650 mg PO Q4HR PRN tab 06/07/18 10/23/18 Rx Pantoprazole [Protonix] 40 mg PO DAILY tablet. 06/07/18 10/23/18 Rx Lisinopril [Zestril] 10 mg PO DAILY #1 tab 09/17/18 10/23/18 Rx OLANZapine [ZyPREXA] 20 mg PO HS #0 09/17/18 10/23/18 Rx INSULIN LISPRO (HumaLOG) [humaLOG] See Protocol SQ ACHS PRN 10/23/18 10/23/18 History Verapamil HCl [Verapamil ER] 120 mg PO DAILY 10/23/18 10/23/18 History hydrALAZINE HCL [Apresoline] 50 mg PO QID 10/23/18 10/23/18 History Allergies Allergy/AdvReac Type Severity Reaction Status Date / Time No Known Allergies Allergy Verified 10/23/18 10:07 Physical Exam Vitals: Vital Signs Temp Pulse Pulse Resp BP BP Pulse Ox 10/24/18 08:00 72 10/24/18 05:42 166/92 10/24/18 05:18 98.4 F 107 H 16 199/96 91 L 10/23/18 21:30 97.6 F 97 20 169/76 92 L 10/23/18 21:07 98.0 F 93 16 163/102 90 L 10/23/18 17:21 98 F 81 16 146/89 93 L 10/23/18 16:30 98.0 F 76 18 131/84 94 L 10/23/18 15:00 75 18 139/85 94 L 10/23/18 13:44 89 L 10/23/18 13:30 78 18 128/80 92 L 10/23/18 13:29 77 10/23/18 13:19 76 10/23/18 11:46 72 10/23/18 11:34 74 10/23/18 10:04 71 10/23/18 09:53 71 10/23/18 09:45 70 16 131/82 97 10/23/18 09:19 97.8 F 80 18 111/76 92 L Intake and Output 10/23/18 10/24/18 10/24/18 22:59 06:59 14:59 Intake Total 590 Balance 590 Intake: Oral 590 Other: Voiding Method Diaper Incontinent # Voids 1 3 1 GENERAL: Sitting up in chair, alert and oriented 3, no acute distress HEAD: Atraumatic, normocephalic. EYES: Pupils equal round and reactive to light, extraocular movements intact, sclera anicteric, conjunctiva are normal. Left black eye with bruising under the left eye. No raccoon eye. ENT:nares patent, oropharynx clear without exudates. Moist mucous membranes. NECK: Normal range of motion, supple without lymphadenopathy or JVD, no thyromegaly LUNGS: Increased respiratory effort .Breath sounds coarse, positive wheezes, expiratory rales and rhonchi. HEART: Regular rate and rhythm without murmurs, rubs or gallops.S1S2 Normal ABDOMEN: Soft, nontender, normoactive bowel sounds. No guarding, no rebound. No masses appreciated. EXTREMITIES: Normal range of motion, no pitting or edema. No clubbing or cyanosis. NEUROLOGICAL: Cranial nerves II through XII grossly intact. Strength and sensation grossly intact. Possible essential tremors. PSYCH: Normal mood, flat affect. SKIN: Warm, Dry, normal turgor, no rashes or lesions noted. Results CBC & Chem 7: 10/23/18 09:30 10/23/18 09:30 Labs: Abnormal Lab Results - Last 24 Hours (Table) 10/23/18 10/23/18 Range/Units 09:30 09:30 Hgb 11.2 L (11.4-16.0) gm/dL RDW 16.1 H (11.5-15.5) % BUN 18 H (7-17) mg/dL Glucose 192 H (74-99) mg/dL Total Protein 6.2 L (6.3-8.2) g/dL Thrombosis Risk Factor Assmnt - Choose All That Apply Any of the Below Risk Factors Present?: Yes Each Factor Represents 1 point: Abnormal pulmonary function (COPD), Obesity (BMI >25), Serious lung disease incl. pneumonia (< 1month) Each Risk Factor Represents 2 Points: Age 61-74 years, Malignancy Other congenital or acquired thrombophilia - If yes, enter type in comment: No Thrombosis Risk Factor Assessment Total Risk Factor Score: 7 Thrombosis Risk Factor Assessment Level: High Risk Assessment and Plan Assessment: (1) acute COPD exacerbation, possible early pneumonia (2) acute hypoxic respiratory failure secondary to the above (3)generalized weakness, status post multiple falls Current Visit: Yes Status: Acute Code(s): R53.1 - WEAKNESS SNOMED Code(s): 61075008 (4) Altered mental status, metabolic and toxic encephalopathy, etiology unclear , possibly COPD exacerbation, possible pneumonia, possibly med induced Current Visit: Yes Status: Acute Code(s): R41.82 - ALTERED MENTAL STATUS, UNSPECIFIED SNOMED Code(s): 813327627 (5) Schizophrenia Current Visit: Yes Status: Acute Code(s): F20.9 - SCHIZOPHRENIA, UNSPECIFIED SNOMED Code(s): 54378096 (6) IDDM (insulin dependent diabetes mellitus) Current Visit: Yes Status: Acute Code(s): E11.9 - TYPE 2 DIABETES MELLITUS WITHOUT COMPLICATIONS; Z79.4 - LONGTERM (CURRENT) USE OF INSULIN SNOMED Code(s): 94469660 (7) Essential (primary) hypertension Current Visit: Yes Status: Acute Code(s): I10 - ESSENTIAL (PRIMARY) HYPERTENSION SNOMED Code(s): 15746506 (8) hypercholesterolemia Current Visit: Yes Status: Acute Code(s): E78.00 - PURE HYPERCHOLESTEROLEMIA, UNSPECIFIED SNOMED Code(s): 732346823 (9) Hx pulmonary embolism, on Eliquis Current Visit: Yes Status: Acute Code(s): Z86.711 - PERSONAL HISTORY OF PULMONARY EMBOLISM SNOMED Code(s): 251668790 (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 PT/OT evaluated. Social work consult regarding potential subacute rehab in a patient with history of multiple falls. Regarding falls, anticoagulation will need to be further discussed. Patient will need a nebulizer machine at discharge, discussed with case management. Neurology con sulted regarding tremors, denies prior diagnosis of Parkinson's. GI and DVT prophylaxis in place. Home medications have been reviewed and resumed accordingly. Prognosis guarded given multiple complex medical issues. Further recommendations to follow. The impression and plan of care has been dictated as directed. : I performed a history and examination of this patient, discussed the same with the dictator. I agree with the dictator's note ,documented as a scribe. Any additional findings or plans will be noted. Time taken: 35 minutes
[2018-10-24 17:02] LABS: Glucose,Whole Blood 313 mg/dL (75-99)
[2018-10-24] MEDS: ATORVASTATIN 10 MG TAB PO SCH (19:58)
[2018-10-24] MEDS: MONTELUKAST 10 MG TAB PO SCH (19:59)
[2018-10-24] MEDS: OLANZapine 10 MG TAB PO SCH (19:59)
[2018-10-24 20:31] LABS: Glucose,Whole Blood 296 mg/dL (75-99)
[2018-10-25] MEDS: methylPREDNISolone SOD SUCCI 125 MG/2 ML VIAL IV SCH (05:57)
[2018-10-25 06:52] LABS: Glucose,Whole Blood 190 mg/dL (75-99)
[2018-10-25] MEDS: INSULIN ASPART (NovoLOG) 100 UNIT/ML VIAL SQ SCH ×6 (07:44→21:43)
[2018-10-25] MEDS: METOPROLOL TARTRATE 50 MG TAB PO SCH ×2 (07:45→21:43)
[2018-10-25] MEDS: guaiFENesin 600 MG TABLET.ER PO SCH ×2 (07:45→21:43)
[2018-10-25] MEDS: amLODIPine 5 MG TAB PO SCH (07:45)
[2018-10-25] MEDS: DULoxetine HCL 60 MG CAPSULE.DR PO SCH (07:45)
[2018-10-25] MEDS: LISINOPRIL 10 MG TAB PO SCH (07:45)
[2018-10-25] MEDS: AZITHROMYCIN 500 MG TAB PO SCH (07:45)
[2018-10-25] MEDS: hydrALAZINE HCL 50 MG TAB PO SCH ×4 (07:45→21:44)
[2018-10-25] MEDS: VERAPAMIL SR 120 MG TABLET.ER PO SCH (07:45)
[2018-10-25] MEDS: GABAPENTIN 300 MG CAP PO SCH ×3 (07:46→21:44)
[2018-10-25] MEDS: PANTOPRAZOLE 40 MG TABLET PO SCH (07:46)
[2018-10-25] MEDS: APIXABAN 5 MG TAB PO SCH ×2 (07:46→21:43)
[2018-10-25 07:49] LABS: African American GFR (CKD) >90 (>60 ml/min/1.73 sqM); Anion Gap 7 mmol/L; Blood Urea Nitrogen 23 mg/dL (7-17); Calcium 9.7 mg/dL (8.4-10.2); Carbon Dioxide 31 mmol/L (22-30); Chloride 101 mmol/L (98-107); Glucose 189 mg/dL (74-99); Potassium 4.3 mmol/L (3.5-5.1); Sodium 139 mmol/L (137-145)
[2018-10-25 08:35] LABS: Anisocytosis Slight; Basophils % (A) 0 %; Eosinophils % (A) 0 %; HGB 11.4 gm/dL (11.4-16.0); Lymphocytes # (A) 1.1 k/uL (1.0-4.8); Lymphocytes % (A) 6 %; MCH 28.7 pg (25.0-35.0); MCHC 32.5 g/dL (31.0-37.0); MCV 88.2 fL (80.0-100.0); Mean Platelet Volume 7.1; Monocytes # (A) 0.6 k/uL (0-1.0); Monocytes % (A) 4 %; Neutrophils # (A) 15.7 k/uL (1.3-7.7); Neutrophils % (A) 89 %; Platelet Count 384 k/uL (150-450); RBC 3.97 m/uL (3.80-5.40); RDW 16.5 % (11.5-15.5); WBC 17.6 k/uL (3.8-10.6)
[2018-10-25] MEDS: IPRATROPIUM-ALBUTEROL 3 ML NEB INHALATION SCH ×4 (08:58→20:28)
[2018-10-25] MEDS: SYMBICORT 160-4.5 MCG INHALER INHALATION SCH ×2 (08:58→20:29)
[2018-10-25 11:39] LABS: Glucose,Whole Blood 203 mg/dL (75-99)
[2018-10-25] MEDS: INSULIN DETEMIR (LEVEMIR) 100 UNIT/ML SYR SQ SCH (11:43)
[2018-10-25] MEDS: methylPREDNISolone SOD SUCCI 40 MG/ML 1 ML VIAL IV SCH ×2 (11:43→19:12)
[2018-10-25] MEDS: ACETAMINOPHEN TAB 325 MG TAB PO PRN ×2 (12:57→19:12)
--- NOTE | 2018-10-25 14:55 | P.PN ---
Subjective Progress Note Date: 10/25/18 This is a 63-year-old white female with history of multiple PEs,TIAs, anticoagulation via Eliquis, fibromyalgia, CAD with prior angioplasty and stenting, COPD, prior nicotine dependence, hypertension, hyperlipidemia, chronic asthma and multiple other medical issues presented to the ER with frequent falls, generalized weakness, mild shortness of breath with productive cough. Reports compliancy with medication regimen including Eliquis. Reports feeling increased generalized weakness, losing her balance, sustaining multiple falls. Patient currently has bruising under her left "black eye "secondary to a fall of last week. Denies syncope, unilateral weakness, speech changes or visual changes. Denies neck, back or extremity pain. Denies LOC. CT of brain/C-spine reported chronic paraventricular white matter ischemic changes, similar to prior study superficial soft tissue swelling with hematoma over the left frontal region. A CT reporting no acute posttraumatic changes facial bones. Chest x-ray prominent nonacute. EKG reporting normal sinus rhythm. Troponin negative 1 Magnesium 2.1, potassium 4.1. Denies chest pain, palpitations. Afebrile, normal WBC. Glucose on admission 192. UA negative. 92% on room air on admission., currently requiring 3 L nasal cannula maintaining O2 sats in the 90s. Placed on scheduled nebulized bronchodilators, systemic IV steroids, antibiotics. 10/25/2018 continues on nebulized bronchodilators, steroids, antibiotics. Maintaining O2 sats in the 90s on 2 L nasal cannula. Evaluated by OT with subacute rehab recommended at discharge. Blood sugars uncontrolled. Afebrile, WBC 17.6. Preliminary blood cultures no growth at 24 hours. Neurology consult in place, recommendations pending. Objective - Vital Signs Vital signs: Vital Signs Temp 98.0 F 10/25/18 04:39 Pulse 76 10/25/18 09:07 Resp 16 10/25/18 04:39 BP 181/106 10/25/18 04:39 Pulse Ox 94 L 10/25/18 04:39 Intake & Output 10/24/18 10/25/18 10/25/18 18:59 06:59 18:59 Intake Total 960 Output Total 450 Balance 510 Intake: Oral 960 Output: Urine 450 Other: Voiding Method Bedside Commode Bedside Commode Incontinent # Voids 1 2 - Exam GENERAL: Sitting up in chair, alert and oriented 3, no acute distress HEAD: Atraumatic, normocephalic. EYES: Pupils equal round and reactive to light, extraocular movements intact, sclera anicteric, conjunctiva are normal. Left black eye with bruising under the left eye. No raccoon eye. ENT:nares patent, oropharynx clear without exudates. Moist mucous membranes. NECK: Normal range of motion, supple without lymphadenopathy or JVD, no thyromegaly LUNGS: Nonlabored, Coarse scattered rhonchi,end expiration. HEART: Regular rate and rhythm without murmurs, rubs or gallops.S1S2 Normal ABDOMEN: Soft, nontender, normoactive bowel sounds. No guarding, no rebound. No masses appreciated. EXTREMITIES: Normal range of motion, no pitting or edema. No clubbing or cyanos is. NEUROLOGICAL: Cranial nerves II through XII grossly intact. Strength and sensation grossly intact. Possible essential tremors. PSYCH: Normal mood, flat affect. SKIN: Warm, Dry, normal turgor, no rashes or lesions noted. - Labs CBC & Chem 7: 10/25/18 07:08 10/25/18 07:08 Labs: Abnormal Lab Results - Last 24 Hours (Table) 10/24/18 10/24/18 10/24/18 Range/Units 10:55 16:59 20:30 WBC (3.8-10.6) k/uL RDW (11.5-15.5) % Neutrophils # (1.3-7.7) k/uL Carbon Dioxide (22-30) mmol/L BUN (7-17) mg/dL Glucose (74-99) mg/dL POC Glucose (mg/dL) 279 H 313 H 296 H (75-99) mg/dL 10/25/18 10/25/18 10/25/18 Range/Units 06:51 07:08 07:08 WBC 17.6 H (3.8-10.6) k/uL RDW 16.5 H (11.5-15.5) % Neutrophils # 15.7 H (1.3-7.7) k/uL Carbon Dioxide 31 H (22-30) mmol/L BUN 23 H (7-17) mg/dL Glucose 189 H (74-99) mg/dL POC Glucose (mg/dL) 190 H (75-99) mg/dL Microbiology - Last 24 Hours (Table) 10/23/18 09:30 Blood Culture - Preliminary Blood No Growth after 24 hours Assessment and Plan Assessment: (1) acute COPD exacerbation, possible early pneumonia (2) acute hypoxic respiratory failure secondary to the above (3)generalized weakness, status post multiple falls Current Visit: Yes Status: Acute Code(s): R53.1 - WEAKNESS SNOMED Code(s): 96638019 (4) Altered mental status, metabolic and toxic encephalopathy, etiology unclear , possibly COPD exacerbation, possible pneumonia, possibly med induced Current Visit: Yes Status: Acute Code(s): R41.82 - ALTERED MENTAL STATUS, UNSPECIFIED SNOMED Code(s): 099902322 (5) Schizophrenia Current Visit: Yes Status: Acute Code(s): F20.9 - SCHIZOPHRENIA, UNSPECIFIED SNOMED Code(s): 47664805 (6) IDDM (insulin dependent diabetes mellitus) Current Visit: Yes Status: Acute Code(s): E11.9 - TYPE 2 DIABETES MELLITUS WITHOUT COMPLICATIONS; Z79.4 - JUNIOR SYSTEMS ENGINEER (CURRENT) USE OF INSULIN SNOMED Code(s): 34499637 (7) Essential (primary) hypertension Current Visit: Yes Status: Acute Code(s): I10 - ESSENTIAL (PRIMARY) HYPERTENSION SNOMED Code(s): 46696456 (8) hypercholesterolemia Current Visit: Yes Status: Acute Code(s): E78.00 - PURE HYPERCHOLESTEROLEMIA, UNSPECIFIED SNOMED Code(s): 891239186 (9) Hx pulmonary embolism, on Eliquis Current Visit: Yes Status: Acute Code(s): Z86.711 - PERSONAL HISTORY OF PULMONARY EMBOLISM SNOMED Code(s): 924340164 (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 Neurology consult in place, recommendations pending. Titrating steroids. Levemir and pre-meal insulin added to med regime, close monitoring of Accu-Cheks. PT/OT. Discussed subacute rehab with both patient and significant other, both in agreement with. Potential subacute rehab at discharge. The impression and plan of care has been dictated as directed. : I performed a history and examination of this patient, discussed the same with the dictator. I agree with the dictator's note ,documented as a scribe. Any additional findings or plans will be noted. Time taken: 35 minutes
[2018-10-25 17:16] LABS: Glucose,Whole Blood 187 mg/dL (75-99)
[2018-10-25 20:23] LABS: Glucose,Whole Blood 235 mg/dL (75-99)
[2018-10-25] MEDS: ATORVASTATIN 10 MG TAB PO SCH (21:43)
[2018-10-25] MEDS: OLANZapine 10 MG TAB PO SCH (21:43)
[2018-10-25] MEDS: MONTELUKAST 10 MG TAB PO SCH (21:43)
[2018-10-25] MEDS: ZOLPIDEM 5 MG TAB PO PRN (23:20)
[2018-10-26] MEDS ORDERED: hydrALAZINE HCL 25 MG TAB PO STA (00:33)
[2018-10-26] MEDS: ACETAMINOPHEN TAB 325 MG TAB PO PRN ×4 (02:03→20:22)
[2018-10-26] MEDS: methylPREDNISolone SOD SUCCI 40 MG/ML 1 ML VIAL IV SCH ×3 (04:19→20:21)
[2018-10-26 07:24] LABS: Glucose,Whole Blood 172 mg/dL (75-99)
[2018-10-26] MEDS: GABAPENTIN 300 MG CAP PO SCH ×3 (08:14→22:50)
[2018-10-26] MEDS: APIXABAN 5 MG TAB PO SCH ×2 (08:14→20:21)
[2018-10-26] MEDS: guaiFENesin 600 MG TABLET.ER PO SCH ×2 (08:14→20:21)
[2018-10-26] MEDS: VERAPAMIL SR 120 MG TABLET.ER PO SCH (08:14)
[2018-10-26] MEDS: PANTOPRAZOLE 40 MG TABLET PO SCH (08:15)
[2018-10-26] MEDS: DULoxetine HCL 60 MG CAPSULE.DR PO SCH (08:15)
[2018-10-26] MEDS: INSULIN DETEMIR (LEVEMIR) 100 UNIT/ML SYR SQ SCH (08:15)
[2018-10-26] MEDS: amLODIPine 5 MG TAB PO SCH (08:15)
[2018-10-26] MEDS: LISINOPRIL 10 MG TAB PO SCH (08:15)
[2018-10-26] MEDS: INSULIN ASPART (NovoLOG) 100 UNIT/ML VIAL SQ SCH ×7 (08:15→20:21)
[2018-10-26] MEDS: METOPROLOL TARTRATE 50 MG TAB PO SCH ×2 (08:15→20:22)
[2018-10-26] MEDS: AZITHROMYCIN 500 MG TAB PO SCH (08:15)
[2018-10-26] MEDS: hydrALAZINE HCL 50 MG TAB PO SCH ×4 (08:17→22:49)
[2018-10-26] MEDS: SYMBICORT 160-4.5 MCG INHALER INHALATION SCH ×2 (08:41→20:26)
[2018-10-26] MEDS: IPRATROPIUM-ALBUTEROL 3 ML NEB INHALATION SCH ×4 (08:41→20:26)
--- NOTE | 2018-10-26 10:03 | P.CNNES ---
History of Present Illness Consult date: 10/25/18 Reason for Consult: Tremors Chief complaint: Tremors History of Present Illness: REFERRING PHYSICIAN: Bernie Benitez HISTORY OF PRESENT ILLNESS: Thank you for allowing me to evaluate Ms. Shari Tabares. Ms. Manuelito Swenson is a 63-year-old woman with past medical history of diabetes, COPD, stroke, fibromyalgia, hypertension presented to [facility] after a fall with generalized weakness, consulting neurology for tremors. Patient states that she's been having her tremor for years, and her tremor has never been evaluated. Patient drinks beer, but very rarely. Patient states that her mother and grandmother both had similar tremors. The tremor doesn't really bother her a ton, but would like to get some relief if possible. PAST MEDICAL HISTORY: Diabetes, COPD, stroke, fibromyalgia, hypertension, osteoarthritis, PE, hyperlipidemia, peripheral neuropathy, migraines, chronic low back pain, skin cancer, schizophrenia PAST SURGICAL HISTORY: Back surgery, cholecystectomy, hysterectomy, back pain stimulator implant, cataract removal HOME MEDICATIONS: Duloxetine, Singulair, gabapentin, Eliquis, atorvastatin, Symbicort, metoprolol, pantoprazole, lisinopril, olanzapine, hydralazine, verapamil, insulin ALLERGIES: No known ALLERGIES SOCIAL HISTORY: Former smoker. FAMILY HISTORY: Mother had COPD. Father had [place] at age 50. Sister with cancer REVIEW OF SYSTEMS: The 14 systems are reviewed and no additional points are identified compared to the review of systems documented history and physical PHYSICAL EXAMINATION: VITAL SIGNS: Temperature 98.0 HR 78 respiratory rate 16 blood pressure 181/106 O2 saturation 94% on 2 L via nasal cannula GEN.: NAD, pleasant and cooperative HEENT: NCAT, sclera without icterus NECK: Supple SKIN AND EXTREMITIES: Warm to touch, no edema NEURO: MENTAL STATUS: Patient alert and oriented to self, place, time. Able to name t he current president. Speech fluent, able to name and repeat, following all commands readily. No right and left disorientation, neglect. CRANIAL NERVES II THROUGH XII: II: Pupils are equal and reactive to light symmetrically. No afferent pupillary defect. Visual olson are intact. III, IV, : No ptosis. Extraocular movements full. No nystagmus. V: Facial sensation intact from V1-3. VII. No clear facial asymmetry. VIII: Hearing intact to finger rub bilaterally. IX, X: Symmetric palate elevation. XI: Shoulder shrug intact. XII: Tongue midline without fasciculation or atrophy. MOTOR: Normal bulk/tone. No pronator drift. Strength is 5/5 throughout all 4 extremities. High frequency tremor with action that resolves when patient resting. SENSORY: Intact to light touch in all 4 extremities. REFLEXES: 2+ throughout. Toes are downgoing. COORDINATION: Finger to nose intact. No dysmetria. Archimedes spiral consistent with essential tremor DIAGNOSTIC TESTING: LABORATORY: WBC 17.6 hemoglobin 11.4 platelets 384 sodium 139 potassium 4.3 chloride 101 bicarb 31 BUN 23 creatinine 0.61 glucose 189 calcium 9.7 IMAGING: CT head without contrast 10/23/2018: Chronic appearing periventricular white matter ischemic changes. Superficial soft tissue swelling with brought hematoma over the left frontal region. ASSESSMENT: Ms. Manuelito Swenson is a 63-year-old woman with past medical history of diabetes, COPD, stroke, fibromyalgia, hypertension presented to [facility] after a fall with generalized weakness, consulting neurology for tremors. Exam findings most consistent with essential tremor. RECOMMENDATIONS: 1. Propranolol 40mg BID. Hold if HR <60 2. Outpatient follow-up with Neurology in 2-3 months after discharge 3. Neurology will sign off. Past Medical History Past Medical History: Asthma, Cancer, COPD, CVA/TIA, Diabetes Mellitus, Fibromyalgia, Hyperlipidemia, Hypertension, Musculoskeletal Disorder, Neurologic Disorder, Osteoarthritis (OA), Pulmonary Embolus (PE), Skin Disorder Additional Past Medical History / Comment(s): 3 PEs-involved bilateral lungs, CVA with some increased memory problems, NIDDM type II, neuropathy bilateral legs/feet, migraines, chronic low back pain, skin cancer removed from nose, urinary incontinence at times, lately stool loose and has some incontinence of stool. History of Any Multi-Drug Resistant Organisms: None Reported Past Surgical History: Back Surgery, Cholecystectomy, Hysterectomy, Joint Replacement, Orthopedic Surgery Additional Past Surgical History / Comment(s): Back pain stimulator implant lumbar cataract removals, 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 Past Anesthesia/Blood Transfusion Reactions: No Reported Reaction Additional Past Anesthesia/Blood Transfusion Reaction / Comment(s): no hx blood transfusion Past Psychological History: Schizophrenia Smoking Status: Former smoker Past Alcohol Use History: None Reported Past Drug Use History: None Reported - Past Family History Mother History Unknown: Yes Family Medical History: COPD Additional Family Medical History / Comment(s): Mother at the age of 78yrs. Father History Unknown: Yes Family Medical History: Myocardial Infarction ([place]) Additional Family Medical History / Comment(s): Father of a massive [place] at the age of 50 yrs. Pt is not sure if ovidio may have moved to his heart-he had injury in WWII. Sister(s) Family Medical History: Cancer Medications and Allergies Home Medications Medication Instructions Recorded Confirmed Type DULoxetine HCL [Cymbalta] 120 mg PO QAM 06/19/14 10/23/18 History Montelukast [Singulair] 10 mg PO HS 06/19/14 10/23/18 History Apixaban [Eliquis] 5 mg PO BID 03/19/17 10/23/18 History Atorvastatin [Lipitor] 10 mg PO HS 03/19/17 10/23/18 History Gabapentin [Neurontin] 600 mg PO TID 03/19/17 10/23/18 History Budesonide-Formot 160-4.5 Mcg 2 puff INHALATION RT-BID #1 puff 03/24/18 10/23/18 Rx [Symbicort 160-4.5 Mcg Inhaler] Metoprolol Tartrate [Lopressor] 50 mg PO BID #60 tab 03/24/18 10/23/18 Rx Acetaminophen Tab [Tylenol] 650 mg PO Q4HR PRN tab 06/07/18 10/23/18 Rx Pantoprazole [Protonix] 40 mg PO DAILY tablet. 06/07/18 10/23/18 Rx Lisinopril [Zestril] 10 mg PO DAILY #1 tab 09/17/18 10/23/18 Rx OLANZapine [ZyPREXA] 20 mg PO HS #0 09/17/18 10/23/18 Rx INSULIN LISPRO (HumaLOG) [humaLOG] See Protocol SQ ACHS PRN 10/23/18 10/23/18 History Verapamil HCl [Verapamil ER] 120 mg PO DAILY 10/23/18 10/23/18 History hydrALAZINE HCL [Apresoline] 50 mg PO QID 10/23/18 10/23/18 History Allergies Allergy/AdvReac Type Severity Reaction Status Date / Time No Known Allergies Allergy Verified 10/23/18 10:07 Physical Examination - Vital Signs Vital Signs: Vital Signs Temp Pulse Pulse Resp BP BP BP 10/25/18 09:07 76 10/25/18 08:58 72 10/25/18 04:39 98.0 F 82 16 10/24/18 23:40 16 10/24/18 21:18 98.2 F 94 16 10/24/18 21:15 98.2 F 94 16 177/91 10/24/18 19:56 84 10/24/18 19:43 85 10/24/18 18:56 85 178/105 10/24/18 15:58 80 10/24/18 15:51 84 10/24/18 11:27 97.6 F 87 20 166/123 10/24/18 11:20 76 10/24/18 11:14 72 BP BP Pulse Ox 10/25/18 09:07 10/25/18 08:58 10/25/18 04:39 181/106 94 L 10/24/18 23:40 10/24/18 21:18 183/89 94 L 10/24/18 21:15 177/93 183/85 10/24/18 19:56 10/24/18 19:43 95 10/24/18 18:56 93 L 10/24/18 15:58 10/24/18 15:51 10/24/18 11:27 92 L 10/24/18 11:20 10/24/18 11:14 Intake and Output 10/24/18 10/25/18 10/25/18 22:59 06:59 14:59 Intake Total 720 240 Output Total 450 Balance 270 240 Intake: Oral 720 240 Output: Urine 450 Other: Voiding Method Bedside Commode Bedside Commode Incontinent # Voids 2 Results - Laboratory Findings CBC and BMP: 10/25/18 07:08 10/25/18 07:08 Abnormal Lab Findings: Abnormal Labs 10/23/18 10/23/18 10/24/18 09:30 09:30 10:55 WBC Hgb 11.2 L RDW 16.1 H Neutrophils # Carbon Dioxide BUN 18 H Glucose 192 H POC Glucose (mg/dL) 279 H Total Protein 6.2 L 10/24/18 10/24/18 10/25/18 16:59 20:30 06:51 WBC Hgb RDW Neutrophils # Carbon Dioxide BUN Glucose POC Glucose (mg/dL) 313 H 296 H 190 H Total Protein 10/25/18 10/25/18 07:08 07:08 WBC 17.6 H Hgb RDW 16.5 H Neutrophils # 15.7 H Carbon Dioxide 31 H BUN 23 H Glucose 189 H POC Glucose (mg/dL) Total Protein
[2018-10-26 11:54] LABS: Glucose,Whole Blood 229 mg/dL (75-99)
[2018-10-26] MEDS: DOCUSATE 100 MG CAP PO PRN ×2 (12:14→20:22)
--- NOTE | 2018-10-26 13:20 | P.PN ---
Subjective This is a 63-year-old white female with history of multiple PEs,TIAs, anticoagulation via Eliquis, fibromyalgia, CAD with prior angioplasty and sten ting, COPD, prior nicotine dependence, hypertension, hyperlipidemia, chronic asthma and multiple other medical issues presented to the ER with frequent falls, generalized weakness, mild shortness of breath with productive cough. Reports compliancy with medication regimen including Eliquis. Reports feeling increased generalized weakness, losing her balance, sustaining multiple falls. Patient currently has bruising under her left "black eye "secondary to a fall of last week. Denies syncope, unilateral weakness, speech changes or visual changes. Denies neck, back or extremity pain. Denies LOC. CT of brain/C-spine reported chronic paraventricular white matter ischemic changes, similar to prior study superficial soft tissue swelling with hematoma over the left frontal region. A CT reporting no acute posttraumatic changes facial bones. Chest x-ray prominent nonacute. EKG reporting normal sinus rhythm. Troponin negative 1 Magnesium 2.1, potassium 4.1. Denies chest pain, palpitations. Afebrile, normal WBC. Glucose on admission 192. UA negative. 92% on room air on admission., cu rrently requiring 3 L nasal cannula maintaining O2 sats in the 90s. Placed on scheduled nebulized bronchodilators, systemic IV steroids, antibiotics. 10/25/2018 continues on nebulized bronchodilators, steroids, antibiotics. Maintaining O2 sats in the 90s on 2 L nasal cannula. Evaluated by OT with subacute rehab recommended at discharge. Blood sugars uncontrolled. Afebrile, WBC 17.6. Preliminary blood cultures no growth at 24 hours. Neurology consult in place, recommendations pending. 10/26/2018: patient remains on room air with sats in the low 90's. She ambulates with a walekr. She wishes to return home. PT/OT thought subacute rehab. She has no CP?SOB, Cough, snausea or vomitting. IS overall improved. Neruology has seen the patient and recommendations noted regarding essential tremor. Objective - Vital Signs Vital signs: Vital Signs Temp 97.8 F 10/26/18 05:00 Pulse 64 10/26/18 11:57 Resp 18 10/26/18 05:00 BP 165/92 10/26/18 05:00 Pulse Ox 92 L 10/26/18 05:00 Intake & Output 10/25/18 10/26/18 10/26/18 18:59 06:59 18:59 Intake Total 1200 Balance 1200 Intake: Oral 1200 Other: Voiding Method Bedside Commode Bedside Commode Bedside Commode Diaper Diaper Diaper Incontinent Incontinent Incontinent # Voids 3 2 1 - Exam GENERAL: Sitting up in chair, alert and oriented 3, no acute distress HEAD: Atraumatic, normocephalic. EYES: Pupils equal round and reactive to light, extraocular movements intact, sclera anicteric, conjunctiva are normal. Left black eye with bruising under the left eye. No raccoon eye. ENT:nares patent, oropharynx clear without exudates. Moist mucous membranes. NECK: Normal range of motion, supple without lymphadenopathy or JVD, no thyromegaly LUNGS: Nonlabored, Coarse scattered rhonchi,end expiration. HEART: Regular rate and rhythm without murmurs, rubs or gallops.S1S2 Normal ABDOMEN: Soft, nontender, normoactive bowel sounds. No guarding, no rebound. No masses appreciated. EXTREMITIES: Normal range of motion, no pitting or edema. No clubbing or cyanosis. NEUROLOGICAL: Cranial nerves II through XII grossly intact. Strength and sensation grossly intact. Possible essential tremors. PSYCH: Normal mood, flat affect. SKIN: Warm, Dry, normal turgor, no rashes or lesions noted. - Labs CBC & Chem 7: 10/25/18 07:08 10/25/18 07:08 Labs: Abnormal Lab Results - Last 24 Hours (Table) 10/25/18 10/25/18 10/26/18 Range/Units 17:15 20:21 07:22 POC Glucose (mg/dL) 187 H 235 H 172 H (75-99) mg/dL 10/26/18 Range/Units 11:53 POC Glucose (mg/dL) 229 H (75-99) mg/dL Microbiology - Last 24 Hours (Table) 10/23/18 09:30 Blood Culture - Preliminary Blood No Growth after 72 hours Assessment and Plan (1) H/O: CVA (cerebrovascular accident) Current Visit: Yes Status: Acute Code(s): Z86.73 - PRSNL HX OF TIA (TIA), AND CEREB INFRC W/O RESID DEFICITS SNOMED Code(s): 723148307 (2) At risk for readmission to hospital Current Visit: Yes Status: Acute Code(s): Z91.89 - OTH PERSONAL RISK FACTORS, NOT ELSEWHERE CLASSIFIED SNOMED Code(s): 6133417137342 (3) COPD exacerbation Current Visit: Yes Status: Acute Code(s): J44.1 - CHRONIC OBSTRUCTIVE PULMONARY DISEASE W (ACUTE) EXACERBATION SNOMED Code(s): 538130276 (4) Cough Current Visit: Yes Status: Acute Code(s): R05 - COUGH SNOMED Code(s): 22432370 (5) Weakness Current Visit: Yes Status: Acute Code(s): R53.1 - WEAKNESS SNOMED Code(s): 01311296 (6) Hx pulmonary embolism Current Visit: No Status: Acute Code(s): Z86.711 - PERSONAL HISTORY OF PULMONARY EMBOLISM SNOMED Code(s): 882880198 (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
[2018-10-26 16:53] LABS: Glucose,Whole Blood 187 mg/dL (75-99)
[2018-10-26 19:53] LABS: Glucose,Whole Blood 244 mg/dL (75-99)
[2018-10-26] MEDS: ATORVASTATIN 10 MG TAB PO SCH (20:21)
[2018-10-26] MEDS: MONTELUKAST 10 MG TAB PO SCH (20:22)
[2018-10-26] MEDS: OLANZapine 10 MG TAB PO SCH (20:22)
[2018-10-26] MEDS: ZOLPIDEM 5 MG TAB PO PRN (22:52)
[2018-10-27 06:50] LABS: Glucose,Whole Blood 149 mg/dL (75-99)
[2018-10-27 07:41] LABS: African American GFR (CKD) >90 (>60 ml/min/1.73 sqM); Anion Gap 11 mmol/L; Blood Urea Nitrogen 27 mg/dL (7-17); Calcium 9.9 mg/dL (8.4-10.2); Carbon Dioxide 30 mmol/L (22-30); Chloride 99 mmol/L (98-107); Glucose 146 mg/dL (74-99); Potassium 4.1 mmol/L (3.5-5.1); Sodium 140 mmol/L (137-145)
[2018-10-27 07:44] LABS: Anisocytosis Slight; Basophils # (A) 0.1 k/uL (0-0.2); Basophils % (A) 0 %; Eosinophils % (A) 0 %; HCT 43.3 % (34.0-46.0); Lymphocytes # (A) 1.5 k/uL (1.0-4.8); Lymphocytes % (A) 9 %; MCH 29.3 pg (25.0-35.0); MCHC 33.3 g/dL (31.0-37.0); MCV 88.1 fL (80.0-100.0); Mean Platelet Volume 7.1; Monocytes # (A) 0.7 k/uL (0-1.0); Monocytes % (A) 4 %; Neutrophils # (A) 13.6 k/uL (1.3-7.7); Neutrophils % (A) 85 %; Platelet Count 395 k/uL (150-450); RBC 4.91 m/uL (3.80-5.40); RDW 17.2 % (11.5-15.5)
[2018-10-27 08:03] LABS: HGB 14.4 gm/dL (11.4-16.0)
[2018-10-27] MEDS: IPRATROPIUM-ALBUTEROL 3 ML NEB INHALATION SCH ×4 (08:27→19:52)
[2018-10-27] MEDS: SYMBICORT 160-4.5 MCG INHALER INHALATION SCH ×2 (08:27→19:52)
[2018-10-27] MEDS: AZITHROMYCIN 500 MG TAB PO SCH (08:50)
[2018-10-27] MEDS: GABAPENTIN 300 MG CAP PO SCH ×3 (08:50→21:05)
[2018-10-27] MEDS: METOPROLOL TARTRATE 50 MG TAB PO SCH ×2 (08:50→21:01)
[2018-10-27] MEDS: amLODIPine 5 MG TAB PO SCH (08:50)
[2018-10-27] MEDS: guaiFENesin 600 MG TABLET.ER PO SCH ×2 (08:50→21:01)
[2018-10-27] MEDS: DOCUSATE 100 MG CAP PO PRN (08:50)
[2018-10-27] MEDS: DULoxetine HCL 60 MG CAPSULE.DR PO SCH (08:50)
[2018-10-27] MEDS: APIXABAN 5 MG TAB PO SCH ×2 (08:51→21:01)
[2018-10-27] MEDS: hydrALAZINE HCL 50 MG TAB PO SCH ×4 (08:51→21:05)
[2018-10-27] MEDS: LISINOPRIL 10 MG TAB PO SCH (08:51)
[2018-10-27] MEDS: methylPREDNISolone SOD SUCCI 40 MG/ML 1 ML VIAL IV SCH (08:51)
[2018-10-27] MEDS: PANTOPRAZOLE 40 MG TABLET PO SCH (08:51)
[2018-10-27] MEDS: INSULIN DETEMIR (LEVEMIR) 100 UNIT/ML SYR SQ SCH (08:53)
[2018-10-27] MEDS: VERAPAMIL SR 120 MG TABLET.ER PO SCH (08:53)
[2018-10-27] MEDS: INSULIN ASPART (NovoLOG) 100 UNIT/ML VIAL SQ SCH ×7 (08:54→21:01)
[2018-10-27] MEDS: ACETAMINOPHEN TAB 325 MG TAB PO PRN ×3 (08:54→17:22)
[2018-10-27 11:41] LABS: Glucose,Whole Blood 162 mg/dL (75-99)
--- NOTE | 2018-10-27 16:18 | P.PN ---
Subjective This is a 63-year-old white female with history of multiple PEs,TIAs, anticoagulation via Eliquis, fibromyalgia, CAD with prior angioplasty and sten ting, COPD, prior nicotine dependence, hypertension, hyperlipidemia, chronic asthma and multiple other medical issues presented to the ER with frequent falls, generalized weakness, mild shortness of breath with productive cough. Reports compliancy with medication regimen including Eliquis. Reports feeling increased generalized weakness, losing her balance, sustaining multiple falls. Patient currently has bruising under her left "black eye "secondary to a fall of last week. Denies syncope, unilateral weakness, speech changes or visual changes. Denies neck, back or extremity pain. Denies LOC. CT of brain/C-spine reported chronic paraventricular white matter ischemic changes, similar to prior study superficial soft tissue swelling with hematoma over the left frontal region. A CT reporting no acute posttraumatic changes facial bones. Chest x-ray prominent nonacute. EKG reporting normal sinus rhythm. Troponin negative 1 Magnesium 2.1, potassium 4.1. Denies chest pain, palpitations. Afebrile, normal WBC. Glucose on admission 192. UA negative. 92% on room air on admission., cu rrently requiring 3 L nasal cannula maintaining O2 sats in the 90s. Placed on scheduled nebulized bronchodilators, systemic IV steroids, antibiotics. 10/25/2018 continues on nebulized bronchodilators, steroids, antibiotics. Maintaining O2 sats in the 90s on 2 L nasal cannula. Evaluated by OT with subacute rehab recommended at discharge. Blood sugars uncontrolled. Afebrile, WBC 17.6. Preliminary blood cultures no growth at 24 hours. Neurology consult in place, recommendations pending. 10/26/2018: patient remains on room air with sats in the low 90's. She ambulates with a walker. She wishes to return home. PT/OT thought subacute rehab. She has no CP, SOB, Cough, snausea or vomitting. IS overall improved. Neruology has seen the patient and recommendations noted regarding essential tr emor. 10/27/2018: Patient is breathing better. She reported a staph chest pain midsternal sharp in quality. She reports she has not had pain like this before. He indicates it's palpable. This point with her at bedside, she thinks she like to do rehabilitation. He denies any shortness of breath or cough this time. No nausea or vomiting. Objective - Vital Signs Vital signs: Vital Signs Temp 97.8 F 10/27/18 11:29 Pulse 68 10/27/18 15:55 Resp 20 10/27/18 15:11 BP 158/93 10/27/18 15:11 Pulse Ox 94 L 10/27/18 15:11 Intake & Output 10/26/18 10/27/18 10/27/18 18:59 06:59 18:59 Intake Total 600 Balance 600 Intake: Oral 600 Other: Voiding Method Bedside Commode Bedside Commode Bedside Commode Diaper Diaper Diaper Incontinent Incontinent Incontinent # Voids 2 2 2 # Bowel Movements 1 - Exam GENERAL: Sitting up in chair, alert and oriented 3, no acute distress HEAD: Atraumatic, normocephalic. EYES: Pupils equal round and reactive to light, extraocular movements intact, sclera anicteric, conjunctiva are normal. Left black eye with bruising under the left eye. No raccoon eye. ENT:nares patent, oropharynx clear without exudates. Moist mucous membranes. NECK: Normal range of motion, supple without lymphadenopathy or JVD, no thyromegaly LUNGS: Nonlabored, Coarse scattered rhonchi,end expiration. HEART: Regular rate and rhythm without murmurs, rubs or gallops.S1S2 Normal. T here is palpable chest pain to the rib cage on the left side medial to the breast. ABDOMEN: Soft, nontender, normoactive bowel sounds. No guarding, no rebound. No masses appreciated. EXTREMITIES: Normal range of motion, no pitting or edema. No clubbing or cyanosis. NEUROLOGICAL: Cranial nerves II through XII grossly intact. Strength and sensation grossly intact. Possible essential tremors. PSYCH: Normal mood, flat affect. SKIN: Warm, Dry, normal turgor, no rashes or lesions noted. - Labs CBC & Chem 7: 10/27/18 06:30 10/27/18 06:30 Labs: Abnormal Lab Results - Last 24 Hours (Table) 10/26/18 10/26/18 10/27/18 Range/Units 16:51 19:52 06:30 WBC 16.0 H (3.8-10.6) k/uL RDW 17.2 H (11.5-15.5) % Neutrophils # 13.6 H (1.3-7.7) k/uL BUN (7-17) mg/dL Glucose (74-99) mg/dL POC Glucose (mg/dL) 187 H 244 H (75-99) mg/dL 10/27/18 10/27/18 10/27/18 Range/Units 06:30 06:49 11:39 WBC (3.8-10.6) k/uL RDW (11.5-15.5) % Neutrophils # (1.3-7.7) k/uL BUN 27 H (7-17) mg/dL Glucose 146 H (74-99) mg/dL POC Glucose (mg/dL) 149 H 162 H (75-99) mg/dL Microbiology - Last 24 Hours (Table) 10/23/18 09:30 Blood Culture - Preliminary Blood No Growth after 96 hours Assessment and Plan (1) COPD exacerbation Current Visit: Yes Status: Acute Code(s): J44.1 - CHRONIC OBSTRUCTIVE PULMONARY DISEASE W (ACUTE) EXACERBATION SNOMED Code(s): 475148655 (2) H/O: CVA (cerebrovascular accident) Current Visit: Yes Status: Acute Code(s): Z86.73 - PRSNL HX OF TIA (TIA), AND CEREB INFRC W/O RESID DEFICITS SNOMED Code(s): 116828491 (3) At risk for readmission to hospital Current Visit: Yes Status: Acute Code(s): Z91.89 - OTH PERSONAL RISK FACTORS, NOT ELSEWHERE CLASSIFIED SNOMED Code(s): 7522315108942 (4) Cough Current Visit: Yes Status: Acute Code(s): R05 - COUGH SNOMED Code(s): 27112382 (5) Weakness Current Visit: Yes Status: Acute Code(s): R53.1 - WEAKNESS SNOMED Code(s): 34544763 (6) Hx pulmonary embolism Current Visit: No Status: Acute Code(s): Z86.711 - PERSONAL HISTORY OF PULMONARY EMBOLISM SNOMED Code(s): 966901056 (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 Current Visit: No Status: Acute Code(s): Z79.01 - FIBERGLASS TUBE MOLDER (CURRENT) USE OF ANTICOAGULANTS SNOMED Code(s): 734161623 (8) Non-ST elevation myocardial infarction (NSTEMI) Current Visit: No Status: Acute Code(s): I21.4 - NON-ST ELEVATION (NSTEMI) MYOCARDIAL INFARCTION SNOMED Code(s): 35470647 (9) Schizophrenia Current Visit: No Status: Acute Code(s): F20.9 - SCHIZOPHRENIA, UNSPECIFIED SNOMED Code(s): 12264082 (10) Chest pain Current Visit: Yes Status: Acute Code(s): R07.9 - CHEST PAIN, UNSPECIFIED SNOMED Code(s): 95804771 Plan: she will continue her current meds and treatments That EKG and troponin evaluate chest pain. will we'll consult discharge planning and expect ECF in the next 1-2 days.
[2018-10-27] MEDS ORDERED: predniSONE 10 MG TAB PO SCH (16:30)
[2018-10-27] MEDS ORDERED: predniSONE 50 MG TAB PO ONE (16:30)
[2018-10-27 16:58] LABS: Glucose,Whole Blood 142 mg/dL (75-99)
[2018-10-27 20:26] LABS: Glucose,Whole Blood 211 mg/dL (75-99)
[2018-10-27] MEDS: OLANZapine 10 MG TAB PO SCH (21:01)
[2018-10-27] MEDS: MONTELUKAST 10 MG TAB PO SCH (21:01)
[2018-10-27] MEDS: ATORVASTATIN 10 MG TAB PO SCH (21:01)
[2018-10-27] MEDS: ZOLPIDEM 5 MG TAB PO PRN (21:11)
[2018-10-28 06:55] LABS: Glucose,Whole Blood 130 mg/dL (75-99)
[2018-10-28] MEDS: SYMBICORT 160-4.5 MCG INHALER INHALATION SCH ×2 (07:16→19:15)
[2018-10-28] MEDS: IPRATROPIUM-ALBUTEROL 3 ML NEB INHALATION SCH ×4 (07:16→19:16)
[2018-10-28] MEDS: INSULIN ASPART (NovoLOG) 100 UNIT/ML VIAL SQ SCH ×8 (07:30→20:55)
[2018-10-28] MEDS: INSULIN DETEMIR (LEVEMIR) 100 UNIT/ML SYR SQ SCH (08:29)
[2018-10-28] MEDS: APIXABAN 5 MG TAB PO SCH ×2 (08:29→20:57)
[2018-10-28] MEDS: LISINOPRIL 10 MG TAB PO SCH (08:29)
[2018-10-28] MEDS: GABAPENTIN 300 MG CAP PO SCH ×3 (08:30→20:56)
[2018-10-28] MEDS: DULoxetine HCL 60 MG CAPSULE.DR PO SCH (08:30)
[2018-10-28] MEDS: guaiFENesin 600 MG TABLET.ER PO SCH ×2 (08:30→20:57)
[2018-10-28] MEDS: hydrALAZINE HCL 50 MG TAB PO SCH ×4 (08:30→20:57)
[2018-10-28] MEDS: amLODIPine 5 MG TAB PO SCH (08:30)
[2018-10-28] MEDS: AZITHROMYCIN 500 MG TAB PO SCH (08:31)
[2018-10-28] MEDS: PANTOPRAZOLE 40 MG TABLET PO SCH (08:31)
[2018-10-28] MEDS: VERAPAMIL SR 120 MG TABLET.ER PO SCH (08:31)
[2018-10-28] MEDS: METOPROLOL TARTRATE 50 MG TAB PO SCH ×2 (08:31→20:56)
[2018-10-28] MEDS: predniSONE 10 MG TAB PO SCH (08:31)
[2018-10-28 11:22] LABS: Glucose,Whole Blood 265 mg/dL (75-99)
[2018-10-28] MEDS: ACETAMINOPHEN TAB 325 MG TAB PO PRN ×3 (13:03→20:58)
--- NOTE | 2018-10-28 13:35 | P.DS ---
Providers Date of admission: 10/23/18 13:37 Expected date of discharge: 10/28/18 Attending physician: Farzad Hartley Consults: 10/24/18 15:36 Consult Physician Routine Consulting Provider: Danni Shukla Reason/Comments: tremors Do you want consulting provider notified?: Yes Primary care physician: Farzad Hartley Assessment: Patient was admitted to the hospital on 10/24/2018 with a history of multiple pulmonary embolus, TIAs, fibromyalgia, patient is currently being anticoagulated. Moni, known history of angioplasty with stenting nicotine dependence by history hypertension by history hyperlipidemia probably history other multiple medical issues patient presented to the emergency room with mild shortness of breath and fall Physical exam General: Large hematoma over the left eyebrow with bruising around the left eye HEENT: [PERRL. EOMI. No pharyngeal erythema or exudate.] Neck: [No adenopathy.] Cardiac: [Heart regular in rate and rhythm. No S3. No S4. No clicks, rubs. No murmur.] Lungs: [Clear to auscultation bilaterally.] Abdomen: [No mass. No organomegaly. Bowel sounds presnt and normoactive in all 4 quadrants.] Extremes: [No edema no cyanosis no claudication normal pulses] : [] Musculoskeletal: [No joint erythema, edema or tenderness.] Skin: [No rash.] Neurologic: [No lateralizing deficits. CN II - XII grossly intact.] Lymphatic: [No adenopathy.] Patient was admitted and monitored treated symptomatically with PT OT social sciences research scientist consult for all performed initially patient did not want to go to rehab unit has had neurology consultation currently has GI and DVT prophylactics in place has defervesced nicely and at this time wishes rehab placement Health Concerns: Patient is currently waiting on insurance to approve rehab placement which may occur today or tomorrow patient is currently ready for transfer to rehab when approval his meds and placement is Patient Condition at Discharge: Stable Plan - Discharge Summary Discharge Rx Participant: No New Discharge Prescriptions: No Action DULoxetine HCL [Cymbalta] 120 mg PO QAM Montelukast [Singulair] 10 mg PO HS Gabapentin [Neurontin] 600 mg PO TID Apixaban [Eliquis] 5 mg PO BID Atorvastatin [Lipitor] 10 mg PO HS Budesonide-Formot 160-4.5 Mcg [Symbicort 160-4.5 Mcg Inhaler] 2 puff INHALATION RT-BID #1 puff Metoprolol Tartrate [Lopressor] 50 mg PO BID #60 tab Pantoprazole [Protonix] 40 mg PO DAILY tablet. Acetaminophen Tab [Tylenol] 650 mg PO Q4HR PRN tab PRN Reason: Fever and/ or MILD Pain Lisinopril [Zestril] 10 mg PO DAILY #1 tab OLANZapine [ZyPREXA] 20 mg PO HS #0 hydrALAZINE HCL [Apresoline] 50 mg PO QID Verapamil HCl [Verapamil ER] 120 mg PO DAILY INSULIN LISPRO (HumaLOG) [humaLOG] See Protocol SQ ACHS PRN PRN Reason: Blood Sugar - High Discharge Medication List DULoxetine HCL [Cymbalta] 120 mg PO QAM 06/19/14 [History] Montelukast [Singulair] 10 mg PO HS 06/19/14 [History] Apixaban [Eliquis] 5 mg PO BID 03/19/17 [History] Atorvastatin [Lipitor] 10 mg PO HS 03/19/17 [History] Gabapentin [Neurontin] 600 mg PO TID 03/19/17 [History] Budesonide-Formot 160-4.5 Mcg [Symbicort 160-4.5 Mcg Inhaler] 2 puff INHALATION RT-BID #1 puff 03/24/18 [Rx] Metoprolol Tartrate [Lopressor] 50 mg PO BID #60 tab 03/24/18 [Rx] Acetaminophen Tab [Tylenol] 650 mg PO Q4HR PRN tab 06/07/18 [Rx] Pantoprazole [Protonix] 40 mg PO DAILY tablet. 06/07/18 [Rx] Lisinopril [Zestril] 10 mg PO DAILY #1 tab 09/17/18 [Rx] OLANZapine [ZyPREXA] 20 mg PO HS #0 09/17/18 [Rx] INSULIN LISPRO (HumaLOG) [humaLOG] See Protocol SQ ACHS PRN 10/23/18 [History] Verapamil HCl [Verapamil ER] 120 mg PO DAILY 10/23/18 [History] hydrALAZINE HCL [Apresoline] 50 mg PO QID 10/23/18 [History] Follow up Appointment(s)/Referral(s): Andrea Swain,Equipment [NON-STAFF] - 1 Week Farzad Hartley MD [Primary Care Provider] - 1-2 days [facility] Visiting Nurse, [NON-STAFF] - 1 Week Discharge Disposition: TRANSFER TO SNF/ECF Plan of Treatment: Waiting on preauthorization from insurance company for rehab placement
[2018-10-28 17:17] LABS: Glucose,Whole Blood 221 mg/dL (75-99)
[2018-10-28 20:01] LABS: Glucose,Whole Blood 252 mg/dL (75-99)
[2018-10-28] MEDS: MONTELUKAST 10 MG TAB PO SCH (20:57)
[2018-10-28] MEDS: ZOLPIDEM 5 MG TAB PO PRN (20:57)
[2018-10-28] MEDS: OLANZapine 10 MG TAB PO SCH (20:57)
[2018-10-28] MEDS: ATORVASTATIN 10 MG TAB PO SCH (20:57)
[2018-10-29 07:13] LABS: Glucose,Whole Blood 112 mg/dL (75-99)
[2018-10-29] MEDS: INSULIN DETEMIR (LEVEMIR) 100 UNIT/ML SYR SQ SCH (07:53)
[2018-10-29] MEDS: amLODIPine 5 MG TAB PO SCH (07:54)
[2018-10-29] MEDS: DULoxetine HCL 60 MG CAPSULE.DR PO SCH (07:54)
[2018-10-29] MEDS: PANTOPRAZOLE 40 MG TABLET PO SCH (07:54)
[2018-10-29] MEDS: IPRATROPIUM-ALBUTEROL 3 ML NEB INHALATION SCH ×4 (07:54→20:44)
[2018-10-29] MEDS: INSULIN ASPART (NovoLOG) 100 UNIT/ML VIAL SQ SCH ×7 (07:54→22:30)
[2018-10-29] MEDS: hydrALAZINE HCL 50 MG TAB PO SCH ×4 (07:54→22:18)
[2018-10-29] MEDS: METOPROLOL TARTRATE 50 MG TAB PO SCH ×2 (07:55→22:17)
[2018-10-29] MEDS: VERAPAMIL SR 120 MG TABLET.ER PO SCH (07:55)
[2018-10-29] MEDS: APIXABAN 5 MG TAB PO SCH ×2 (07:55→22:18)
[2018-10-29] MEDS: predniSONE 10 MG TAB PO SCH (07:55)
[2018-10-29] MEDS: guaiFENesin 600 MG TABLET.ER PO SCH ×2 (07:55→22:17)
[2018-10-29] MEDS: GABAPENTIN 300 MG CAP PO SCH ×3 (07:55→22:17)
[2018-10-29] MEDS: LISINOPRIL 10 MG TAB PO SCH (07:55)
[2018-10-29] MEDS: AZITHROMYCIN 500 MG TAB PO SCH (07:55)
[2018-10-29] MEDS: ACETAMINOPHEN TAB 325 MG TAB PO PRN ×4 (08:05→22:46)
[2018-10-29] MEDS: SYMBICORT 160-4.5 MCG INHALER INHALATION SCH ×2 (08:09→20:44)
[2018-10-29 11:46] LABS: Glucose,Whole Blood 172 mg/dL (75-99)
[2018-10-29 11:47] VITALS: BMI 33.5
[2018-10-29 17:15] LABS: Glucose,Whole Blood 188 mg/dL (75-99)
[2018-10-29 20:32] LABS: Glucose,Whole Blood 176 mg/dL (75-99)
[2018-10-29] MEDS: OLANZapine 10 MG TAB PO SCH (22:17)
[2018-10-29] MEDS: MONTELUKAST 10 MG TAB PO SCH (22:17)
[2018-10-29] MEDS: ZOLPIDEM 5 MG TAB PO PRN (22:17)
[2018-10-29] MEDS: ATORVASTATIN 10 MG TAB PO SCH (22:18)
[2018-10-30 06:48] LABS: Glucose,Whole Blood 101 mg/dL (75-99)
[2018-10-30] MEDS: INSULIN ASPART (NovoLOG) 100 UNIT/ML VIAL SQ SCH ×4 (07:02→12:17)
[2018-10-30] MEDS: SYMBICORT 160-4.5 MCG INHALER INHALATION SCH (07:34)
[2018-10-30] MEDS: IPRATROPIUM-ALBUTEROL 3 ML NEB INHALATION SCH ×3 (07:34→16:21)
[2018-10-30] MEDS: LISINOPRIL 10 MG TAB PO SCH (09:16)
[2018-10-30] MEDS: guaiFENesin 600 MG TABLET.ER PO SCH (09:16)
[2018-10-30] MEDS: PANTOPRAZOLE 40 MG TABLET PO SCH (09:16)
[2018-10-30] MEDS: GABAPENTIN 300 MG CAP PO SCH ×2 (09:16→15:35)
[2018-10-30] MEDS: AZITHROMYCIN 500 MG TAB PO SCH (09:16)
[2018-10-30] MEDS: INSULIN DETEMIR (LEVEMIR) 100 UNIT/ML SYR SQ SCH (09:16)
[2018-10-30] MEDS: predniSONE 10 MG TAB PO SCH (09:16)
[2018-10-30] MEDS: VERAPAMIL SR 120 MG TABLET.ER PO SCH (09:16)
[2018-10-30] MEDS: DULoxetine HCL 60 MG CAPSULE.DR PO SCH (09:16)
[2018-10-30] MEDS: APIXABAN 5 MG TAB PO SCH (09:16)
[2018-10-30] MEDS: METOPROLOL TARTRATE 50 MG TAB PO SCH (09:16)
[2018-10-30] MEDS: amLODIPine 5 MG TAB PO SCH (09:16)
[2018-10-30] MEDS: hydrALAZINE HCL 50 MG TAB PO SCH ×2 (09:16→12:17)
[2018-10-30] MEDS: DOCUSATE 100 MG CAP PO PRN (09:24)
[2018-10-30] MEDS: ACETAMINOPHEN TAB 325 MG TAB PO PRN ×2 (11:03→15:34)
[2018-10-30 11:19] LABS: Glucose,Whole Blood 199 mg/dL (75-99)
[2018-10-30 11:39] VITALS: BP 113/74; PULSE 63; RESP 18; TEMP 97.7
--- NOTE | 2018-10-30 15:23 | P.PN ---
Subjective Progress Note Date: 10/30/18 This is a 63-year-old white female with history of multiple PEs,TIAs, anticoagulation via Eliquis, fibromyalgia, CAD with prior angioplasty and stenting, COPD, prior nicotine dependence, hypertension, hyperlipidemia, chronic asthma and multiple other medical issues presented to the ER with frequent falls, generalized weakness, mild shortness of breath with productive cough. Reports compliancy with medication regimen including Eliquis. Reports feeling increased generalized weakness, losing her balance, sustaining multiple falls. Patient currently has bruising under her left "black eye "secondary to a fall of last week. Denies syncope, unilateral weakness, speech changes or visual changes. Denies neck, back or extremity pain. Denies LOC. CT of brain/C-spine reported chronic paraventricular white matter ischemic changes, similar to prior study superficial soft tissue swelling with hematoma over the left frontal region. A CT reporting no acute posttraumatic changes facial bones. Chest x-ray prominent nonacute. EKG reporting normal sinus rhythm. Troponin negative 1 Magnesium 2.1, potassium 4.1. Denies chest pain, palpitations. Afebrile, normal WBC. Glucose on admission 192. UA negative. 92% on room air on admission., currently requiring 3 L nasal cannula maintaining O2 sats in the 90s. Placed on scheduled nebulized bronchodilators, systemic IV steroids, antibiotics. 10/25/2018 continues on nebulized bronchodilators, steroids, antibiotics. Maintaining O2 sats in the 90s on 2 L nasal cannula. Evaluated by OT with subacute rehab recommended at discharge. Blood sugars uncontrolled. Afebrile, WBC 17.6. Preliminary blood cultures no growth at 24 hours. Neurology consult in place, recommendations pending. 10/26/2018: patient remains on room air with sats in the low 90's. She ambulates with a walker. She wishes to return home. PT/OT thought subacute rehab. She has no CP, SOB, Cough, snausea or vomitting. IS overall improved. Neruology has seen the patient and recommendations noted regarding essential tremor. 10/27/2018: Patient is breathing better. She reported a staph chest pain midsternal sharp in quality. She reports she has not had pain like this before. He indicates it's palpable. This point with her at bedside, she thinks she like to do rehabilitation. He denies any shortness of breath or cough this time. No nausea or vomiting. 10/29/2018 no overnight events. Vital signs stable. Preauthorization pending for subacute rehab. Objective - Vital Signs Vital signs: Vital Signs Temp 97.7 F 10/29/18 12:49 Pulse 84 10/29/18 16:20 Resp 17 10/29/18 12:49 BP 122/80 10/29/18 12:49 Pulse Ox 94 L 10/29/18 12:49 Intake & Output 10/28/18 10/29/18 10/29/18 18:59 06:59 18:59 Intake Total 1430 Balance 1430 Weight 88.451 kg Intake: Oral 1430 Other: Voiding Method Bedside Commode Bedside Commode Toilet Diaper Diaper Bedside Commode Diaper # Voids 3 3 5 - Exam GENERAL: Sitting up in chair, alert and oriented 3, no acute distress HEAD: Atraumatic, normocephalic. EYES: Pupils equal round and reactive to light, extraocular movements intact, sclera anicteric, conjunctiva are normal. ENT:nares patent, oropharynx clear without exudates. Moist mucous membranes. NECK: Normal range of motion, supple without lymphadenopathy or JVD, no thyromegaly LUNGS: Nonlabored, Coarse scattered rhonchi,end expiration. HEART: Regular rate and rhythm without murmurs, rubs or gallops.S1S2 Normal ABDOMEN: Soft, nontender, normoactive bowel sounds. No guarding, no rebound. No masses appreciated. EXTREMITIES: Normal range of motion, no pitting or edema. No clubbing or cyanosi s. NEUROLOGICAL: Cranial nerves II through XII grossly intact. Strength and sensation grossly intact. Possible essential tremors. PSYCH: Normal mood, flat affect. SKIN: Warm, Dry, normal turgor, no rashes or lesions noted. - Labs CBC & Chem 7: 10/27/18 06:30 10/27/18 06:30 Labs: Abnormal Lab Results - Last 24 Hours (Table) 10/28/18 10/28/18 10/29/18 Range/Units 17:14 19:59 07:09 POC Glucose (mg/dL) 221 H 252 H 112 H (75-99) mg/dL 10/29/18 Range/Units 11:33 POC Glucose (mg/dL) 172 H (75-99) mg/dL Microbiology - Last 24 Hours (Table) 10/23/18 09:30 Blood Culture - Final Blood No Growth after 144 hours Assessment and Plan Assessment: (1) COPD exacerbation Current Visit: Yes Status: Acute Code(s): J44.1 - CHRONIC OBSTRUCTIVE PULM ONARY DISEASE W (ACUTE) EXACERBATION SNOMED Code(s): 238322122 (2) H/O: CVA (cerebrovascular accident) Current Visit: Yes Status: Acute Code(s): Z86.73 - PRSNL HX OF TIA (TIA), AND CEREB INFRC W/O RESID DEFICITS SNOMED Code(s): 069465935 (3) high risk for readmission to hospital Current Visit: Yes Status: Acute Code(s): Z91.89 - OTH PERSONAL RISK FAC TORS, NOT ELSEWHERE CLASSIFIED SNOMED Code(s): 0970370791955 (5) Weakness Current Visit: Yes Status: Acute Code(s): R53.1 - WEAKNESS SNOMED Code(s): 13504064 (6) Hx pulmonary embolism Current Visit: No Status: Acute Code(s): Z86.711 - PERSONAL HISTORY OF PULMONARY EMBOLISM SNOMED Code(s): 403785636 (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 Current Visit: No Status: Acute Code(s): Z79.01 - HISTORIC PRESERVATIONIST (CURRENT) USE OF ANTICOAGULANTS SNOMED Code(s): 774588827 (8) Non-ST elevation myocardial infarction (NSTEMI) Current Visit: No Status: Acute Code(s): I21.4 - NON-ST ELEVATION (NSTEMI) MYOCARDIAL INFARCTION SNOMED Code(s): 37451914 (9) Schizophrenia Current Visit: No Status: Acute Code(s): F20.9 - SCHIZOPHRENIA, UNSPECIFIED SNOMED Code(s): 59728269 (10) Chest pain Current Visit: Yes Status: Acute Code(s): R07.9 - CHEST PAIN, UNSPECIFIED SNOMED Code(s): 93612668 Plan: Continue on current medication regime ,monitoring and symptomatic treatment. PT/OT. Authorization pending for subacute rehab. The impression and plan of care has been dictated as directed. : I performed a history and examination of this patient, discussed the same with the dictator. I agree with the dictator's note ,documented as a scribe. Any additional findings or plans will be noted. Time taken: 35 minutes
--- NOTE | 2018-11-01 15:13 | CDI ---
Documentation Clarification Form Date: 11/01/18 From: Jacki Dunlap Phone: If you have a question regarding this query, please contact Tracey Lambert at [phone] between 8am and 5pm. Admit Date: 10/23/2018 1:37:00 PM Patient Name: Shari Tabares Visit Number: [id number] Discharge Date: 10/30/2018 4:30:00 PM ATTENTION: The Clinical Documentation Specialists (CDI) and [facility] Coding Staff appreciate your assistance in clarifying documentation. Please respond to the clarification below the line at the bottom and electronically sign. The CDI & [facility] Coding staff will review the response and follow-up if needed. Please note: Queries are made part of the Legal Health Record. If you have any questions, please contact the author of this message via ITS. Dr. Farzad Hartley Developing pneumonia was documented in the ED note and possible early pneumonia was documented in the H&P and your Progress note on 10/25. History/Risk Factors: COPD exacerbation, acute respiratory failure with hypoxia Clinical Indicators: Generalized weakness, mild shortness of breath, productive cough Vital signs: T. 97.8, P. 80, R. 18, BP 111/76 WBC/Left shift: 7.8/71 on 10/23, 17.6/89 on 10/25 X-ray: No acute pulmonary process. Lung/Breathing assessment: Shortness of breath, increased respiratory effort. Breath sounds coarse, positive wheezes, expiratory rales and rhonchi. Treatment: Antibiotics: IV Ceftriaxone, PO Zithromax O2: 2 - 3 lpm on 10/23, 3 - 4 lpm on 10/24 Breathing Tx: Duoneb In order to capture the severity of condition, please clarify if the condition signifies and you are treating for: Pneumonia ruled out Aspiration Pneumonia, identify if: --->Bacterial Pneumonia, unknown organism Gram Negative Pneumonia Due to Strep Due to Staph Due to E. Coli Other bacteria (please specify) Viral Pneumonia, specify casual organism (if known) Other, please specify Unable to determine MTDD
== END 2018-10-30 16:30 | DRG 190 ==
LOC: EC 09:14 → 3NMEDONC 13:37
PROVIDERS: ADMIT Family Medicine; ATTEND Family Medicine
DX: J44.1 Chronic obstructive pulmonary disease with (acute) exacerbation (principal); G92 Toxic encephalopathy; J96.01 Acute respiratory failure with hypoxia; J15.9 Unspecified bacterial pneumonia; J44.0 Chronic obstructive pulmonary disease with (acute) lower respiratory infection; E11.42 Type 2 diabetes mellitus with diabetic polyneuropathy; F20.9 Schizophrenia, unspecified; R15.9 Full incontinence of feces; I69.911 Memory deficit following unspecified cerebrovascular disease; E78.00 Pure hypercholesterolemia, unspecified; E78.5 Hyperlipidemia, unspecified; G25.0 Essential tremor; I10 Essential (primary) hypertension; I25.10 Atherosclerotic heart disease of native coronary artery without angina pectoris; M79.7 Fibromyalgia; R29.6 Repeated falls; S00.12XA Contusion of left eyelid and periocular area, initial encounter; G43.909 Migraine, unspecified, not intractable, without status migrainosus; G89.29 Other chronic pain; M19.90 Unspecified osteoarthritis, unspecified site; R32 Unspecified urinary incontinence; M54.5 Low back pain; I25.2 Old myocardial infarction; R07.9 Chest pain, unspecified; Z79.01 Long term (current) use of anticoagulants; Z79.4 Long term (current) use of insulin; Z79.51 Long term (current) use of inhaled steroids; Z79.899 Other long term (current) drug therapy; Z85.828 Personal history of other malignant neoplasm of skin; Z86.711 Personal history of pulmonary embolism; Z87.891 Personal history of nicotine dependence; Z90.710 Acquired absence of both cervix and uterus; Z91.81 History of falling; Z96.60 Presence of unspecified orthopedic joint implant; Z98.42 Cataract extraction status, left eye; Z98.41 Cataract extraction status, right eye; Z96.1 Presence of intraocular lens; Z90.49 Acquired absence of other specified parts of digestive tract; Z82.5 Family history of asthma and other chronic lower respiratory diseases; Z82.49 Family history of ischemic heart disease and other diseases of the circulatory system; Z80.9 Family history of malignant neoplasm, unspecified; W19.XXXA Unspecified fall, initial encounter
CPT/HCPCS: 36415; 70450; 70486; 71046; 72125; 80048; 80053; 81003; 83605; 83735; 83880; 84484; 85025; 85610; 85730; 87040; 93005; 94640; 94760; 96365; 96375; 99285

== ENCOUNTER 2019-06-05 17:49 | Inpatient (IN) | payer BC, MEDICARE ==
[2019-06-05 18:34] LABS: Basophils % (A) 0 %; Eosinophils # (A) 0.1 k/uL (0-0.7); Eosinophils % (A) 1 %; HCT 40.9 % (34.0-46.0); HGB 13.1 gm/dL (11.4-16.0); Lymphocytes # (A) 2.4 k/uL (1.0-4.8); Lymphocytes % (A) 28 %; MCHC 32.1 g/dL (31.0-37.0); MCV 87.3 fL (80.0-100.0); Mean Platelet Volume 7.4; Monocytes # (A) 0.4 k/uL (0-1.0); Monocytes % (A) 5 %; Neutrophils # (A) 5.5 k/uL (1.3-7.7); Neutrophils % (A) 65 %; Platelet Count 299 k/uL (150-450); RBC 4.68 m/uL (3.80-5.40); RDW 14.7 % (11.5-15.5); WBC 8.5 k/uL (3.8-10.6)
[2019-06-05 18:43] LABS: ALT 15 U/L (4-34); AST 26 U/L (14-36); African American GFR (CKD) >90 (>60 ml/min/1.73 sqM); Albumin 4.2 g/dL (3.5-5.0); Alkaline Phosphatase 104 U/L (38-126); Anion Gap 9 mmol/L; Blood Urea Nitrogen 9 mg/dL (7-17); Calcium 9.4 mg/dL (8.4-10.2); Carbon Dioxide 27 mmol/L (22-30); Chloride 100 mmol/L (98-107); Glucose 169 mg/dL (74-99); Non-African American GFR(CKD) >90 (>60 ml/min/1.73 sqM); Sodium 136 mmol/L (137-145); Total Bilirubin 0.5 mg/dL (0.2-1.3); Total Protein 6.8 g/dL (6.3-8.2)
--- NOTE | 2019-06-05 18:43 | XR ---
EXAMINATION TYPE: XR chest 2V DATE OF EXAM: 06/05/2019 COMPARISON: 10/23/2018 HISTORY: Chest pain TECHNIQUE: Chest is examined in the frontal and lateral projections. FINDINGS: The heart size is normal. The pulmonary vasculature is normal. Some mild infiltrate is at t he right base. Lungs are otherwise clear. EKG leads overlie the chest. Stimulator leads are within th e mid thoracic region. IMPRESSION: 1. Mild right lower lobe infiltrate.
--- NOTE | 2019-06-05 18:55 | ED ---
Chest Pain HPI - General Chief Complaint: Chest Pain Stated Complaint: Chest pain, SOB, UTI Time Seen by Provider: 06/05/19 17:55 Source: patient Mode of arrival: wheelchair Limitations: no limitations - History of Present Illness Initial Comments: The patient is a 63-year-old female with past medical history of Parkinson's, COPD and diabetes who presents to the emergency department with reported chest pain. Reports that her chest pain began last night. Describes it as a midsternal pain without radiation. No provocative factors. No previous history of cardiac disease. States that she had a heart cath approximately 20 years ago. She has associated shortness of breath. She does have a history of COPD however is not on oxygen at home. She does have a history of DVT and PE for which she is supposed to be on [place]. States she has not taken her medication in one week she's had difficulty obtaining a prescription for it. Denies any calf pain or swelling. There are no other alleviating, precipitating or modifying factors - Related Data Home Medications Medication Instructions Recorded Confirmed DULoxetine HCL [Cymbalta] 120 mg PO DAILY 06/19/14 06/05/19 Montelukast [Singulair] 10 mg PO HS 06/19/14 06/05/19 Apixaban [Eliquis] 5 mg PO BID 03/19/17 06/05/19 Atorvastatin [Lipitor] 10 mg PO HS 03/19/17 06/05/19 Verapamil HCl [Verapamil ER] 120 mg PO DAILY 10/23/18 06/05/19 hydrALAZINE HCL [Apresoline] 50 mg PO QID 10/23/18 06/05/19 ALPRAZolam [Xanax] 0.5 mg PO BID 06/05/19 06/05/19 Acetaminophen Tab [Tylenol] 1,000 mg PO DAILY 06/05/19 06/05/19 Carbidopa-Levodopa 25-100 mg 1 tab PO BID@0900,1500 06/05/19 06/05/19 [Sinemet 25-100 mg] INSULIN LISPRO (HumaLOG) [humaLOG] See Protocol SQ ACHS 06/05/19 06/05/19 Lisinopril [Prinivil] 10 mg PO BID 06/05/19 06/05/19 OLANZapine [ZyPREXA] 30 mg PO HS 06/05/19 06/05/19 Previous Rx's Medication Instructions Recorded Budesonide-Formot 160-4.5 Mcg 2 puff INHALATION RT-BID #1 puff 03/24/18 [Symbicort 160-4.5 Mcg Inhaler] Metoprolol Tartrate [Lopressor] 50 mg PO BID #60 tab 03/24/18 Ipratropium-Albuterol Nebulize 3 ml INHALATION RT-QID ampul.neb 10/30/18 [Duoneb 0.5 mg-3 mg/3 ml Soln] Ipratropium-Albuterol Nebulize 3 ml INHALATION RT-Q2H PRN ml 06/07/19 [Duoneb 0.5 mg-3 mg/3 ml Soln] Allergies Allergy/AdvReac Type Severity Reaction Status Date / Time No Known Allergies Allergy Verified 06/05/19 20:09 Review of Systems ROS Statement: Those systems with pertinent positive or pertinent negative responses have been documented in the HPI. ROS Other: All systems not noted in ROS Statement are negative. EKG Findings - EKG Comments: EKG Findings:: EKG demonstrates a sinus tachycardia with a ventricular rate of 110. When necessary 136. QRS knee. QTC of 495. No acute ST segment elevations. Significant baseline artifact. Repeat EKG at 2031 demonstrates a sinus tachycardia with a ventricular rate of 111. AL interval 162. QRS any 6. QTC of 478. No acute ST segment elevation or depression. Repeat EKG at 2100 demonstrates a continued sinus tachycardia with a rate of 105. AL interval 132. Dressing 4. QTC 452. Baseline artifact however no acute ST segment elevation Past Medical History Past Medical History: Asthma, Cancer, COPD, CVA/TIA, Diabetes Mellitus, Fibromyalgia, Hyperlipidemia, Hypertension, Musculoskeletal Disorder, Neurologic Disorder, Osteoarthritis (OA), Pulmonary Embolus (PE), Skin Disorder Additional Past Medical History / Comment(s): 3 PEs-involved bilateral lungs, CVA with some increased memory problems, NIDDM type II, neuropathy bilateral legs/feet, migraines, chronic low back pain, skin cancer removed from nose, urinary incontinence at times, lately stool loose and has some incontinence of stool. History of Any Multi-Drug Resistant Organisms: None Reported Past Surgical History: Back Surgery, Cholecystectomy, Hysterectomy, Joint Replacement, Orthopedic Surgery Additional Past Surgical History / Comment(s): Back pain stimulator implant lumbar cataract removals, 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 Past Anesthesia/Blood Transfusion Reactions: No Reported Reaction Additional Past Anesthesia/Blood Transfusion Reaction / Comment(s): no hx blood transfusion Past Psychological History: Schizophrenia Smoking Status: Former smoker Past Alcohol Use History: None Reported Past Drug Use History: None Reported - Past Family History Mother History Unknown: Yes Family Medical History: COPD Additional Family Medical History / Comment(s): Mother at the age of 78yrs. Father History Unknown: Yes Family Medical History: Myocardial Infarction (MA) Additional Family Medical History / Comment(s): Father of a massive MA at the age of 50 yrs. Pt is not sure if schrapnel may have moved to his heart-he had injury in WWII. Sister(s) Family Medical History: Cancer General Exam Limitations: no limitations General appearance: alert, in no apparent distress Head exam: Present: atraumatic, normocephalic, normal inspection Eye exam: Present: normal appearance, PERRL, EOMI. Absent: scleral icterus, conjunctival injection, periorbital swelling ENT exam: Present: normal exam, mucous membranes moist Neck exam: Present: normal inspection. Absent: tenderness, meningismus, lymphadenopathy Respiratory exam: Present: decreased breath sounds. Absent: respiratory distress, wheezes, rales, rhonchi, stridor Cardiovascular Exam: Present: normal rhythm, tachycardia, normal heart sounds. Absent: systolic murmur, diastolic murmur, rubs, gallop, clicks GI/Abdominal exam: Present: soft, normal bowel sounds. Absent: distended, tenderness, guarding, rebound, rigid Extremities exam: Present: normal inspection, full ROM, normal capillary refill, other (bilateral upper extremity tremor, left> right). Absent: tenderness, pedal edema, joint swelling, calf tenderness Back exam: Present: normal inspection Neurological exam: Present: alert, oriented X3, CN II-XII intact Psychiatric exam: Present: normal affect, normal mood Skin exam: Present: warm, dry, intact, normal color. Absent: rash Course Vital Signs 06/05/19 06/05/19 06/05/19 17:50 18:23 19:36 Temperature 97.5 F L Pulse Rate 104 H 112 H 103 H Respiratory 20 18 18 Rate Blood Pressure 132/92 157/101 O2 Sat by Pulse 96 99 96 Oximetry 06/05/19 06/05/19 20:49 21:21 Temperature 97.9 F Pulse Rate 105 H Respiratory 18 Rate Blood Pressure 140/115 O2 Sat by Pulse 99 Oximetry Chest Pain MDM - MDM Upon arrival the patient is placed in trauma bay 2. A thorough history and physical exam was performed. 12-lead EKG was performed which demonstrates no acute ST segment elevation. IV was established. Laboratory studies were co nducted which do demonstrate an elevation in the patient's troponins 0.141. BNP is elevated at 1000. Chest x-ray demonstrates a mild right lower lobe infiltrates. The patient is then sent over for a CT of her chest because of her history of PE with tachycardia. It demonstrates no acute pulmonary embolism. I discussed these results with the patient. Heart rate has improved. I did repeat 2 subsequent EKGs with no changes. I did recommend heparinizing the patient with admission and cardio consult. The patient did agree to this. Discussed case with Dr. Hartley accepted admission. The patient was transferred to floor in stable condition Critical Care Time Critical Care Time: Yes Critical Care Time: 35 minutes for heparinzation of the patient due to diagnosis of NSTEMI Disposition Clinical Impression: Acute non-ST elevation myocardial infarction (NSTEMI), Chest pain, Tachycardia Disposition: ADMITTED IP TO THIS HOSP Condition: Stable Is patient prescribed a controlled substance at d/c from ED?: No Decision to Admit Reason: Admit from EC Decision Date: 06/05/19 Decision Time: 20:22
[2019-06-05 19:03] LABS: INR 0.9 (<1.2); Partial Thromboplastin Time 24.5 sec (22.0-30.0); Prothrombin Time 9.9 sec (9.0-12.0)
--- NOTE | 2019-06-05 19:54 | CT ---
CT CHEST FOR PULMONARY EMBOLISM. EXAMINATION TYPE: CT chest angio for PE DATE OF EXAM: 06/05/2019 INDICATION: tachycardia CT DLP: 506.1 mGycm, Automated exposure control for dose reduction was used. CONTRAST: Patient injected with 100 mL of Isovue 370. COMPARISON: None TECHNIQUE: CT of the chest is performed on a spiral scan at 2 mm thick sections. Study is performed with intravenous contrast timed for evaluation for pulmonary embolism. This will limit additional po rtions of the evaluation. 3-D MIP images reconstructed by the technologist are reviewed on the compu ter in the coronal and sagittal planes. FINDINGS: No persistent filling defects are evident to suggest an acute pulmonary embolism. No mediastinal or hilar adenopathy enlarged by CT criteria is evident. The ascending aorta diameter at the level of the main pulmonary artery is 3.5 cm. The main pulmonary artery diameter at the bifur cation is 2.7 cm. Lung windows are clear. Limited CT section through the upper abdomen are unremarkable. IMPRESSIONS: 1. No acute pulmonary embolism.
[2019-06-05] MEDS ORDERED: HEPARIN SODIUM,PORCINE 5,000 UNIT/ML 1 ML VIAL IV PRN (20:13)
[2019-06-05] MEDS ORDERED: HEPARIN SODIUM,PORCINE 5,000 UNIT/ML 1 ML VIAL IV ONE (20:13)
[2019-06-05] MEDS ORDERED: HEPARIN SOD,PORK IN 0.45% NACL 25,000 UNIT in 0.45% NACL 1 250ML.BAG IV SCH (20:15)
[2019-06-05] MEDS ORDERED: NALOXONE 0.4 MG/ML 1 ML VIAL IV PRN (20:18)
[2019-06-05 21:02] LABS: Appearance,Urine Clear (Clear); Bacteria,Urine Rare /hpf; Bilirubin,Urine Negative (Negative); Blood,Urine Negative (Negative); Color,Urine Light Yellow; Glucose,Urine (UA) Negative (Negative); Ketones,Urine Negative (Negative); Leukocyte Esterase,Urine Moderate (Negative); Nitrite,Urine Negative (Negative); PH, Urine 5.5 (5.0-8.0); Protein,Urine Negative (Negative); RBC,Urine <1 /hpf (0-5); Specific Gravity,Urine 1.006 (1.001-1.035); Urobilinogen,Urine <2.0 mg/dL (<2.0); WBC,Urine 5 /hpf (0-5)
[2019-06-05] MEDS ORDERED: hydrALAZINE HCL 20 MG/ML 1 ML VIAL IVP STA (21:30)
[2019-06-05 22:00] LABS: Glucose,Whole Blood 109 mg/dL (75-99)
[2019-06-05] MEDS: INSULIN ASPART (NovoLOG) 100 UNIT/ML VIAL SQ SCH (22:03)
[2019-06-05] MEDS: NITROGLYCERIN SL TABS 0.4 MG TAB SUBLINGUAL PRN ×3 (22:20→22:31)
[2019-06-05] MEDS: NITROGLYCERIN OINT 1 INCH/GM PACKET TOPICAL SCH (22:20)
[2019-06-05] MEDS: ALPRAZolam 0.5 MG TAB PO SCH ×2 (22:28→22:58)
[2019-06-05] MEDS: METOPROLOL TARTRATE 50 MG TAB PO SCH ×2 (22:28→22:57)
[2019-06-05] MEDS: LISINOPRIL 10 MG TAB PO SCH ×2 (22:28→22:58)
[2019-06-05] MEDS: ATORVASTATIN 10 MG TAB PO SCH ×2 (22:28→22:58)
[2019-06-05] MEDS: OLANZapine 10 MG TAB PO SCH ×2 (22:28→22:58)
[2019-06-05] MEDS: hydrALAZINE HCL 50 MG TAB PO SCH ×2 (22:28→22:58)
[2019-06-05] MEDS: MONTELUKAST 10 MG TAB PO SCH ×2 (22:28→22:58)
[2019-06-06 05:59] LABS: Basophils % (A) 0 %; Eosinophils # (A) 0.1 k/uL (0-0.7); Eosinophils % (A) 1 %; HCT 37.3 % (34.0-46.0); HGB 11.8 gm/dL (11.4-16.0); Lymphocytes # (A) 2.3 k/uL (1.0-4.8); Lymphocytes % (A) 29 %; MCHC 31.5 g/dL (31.0-37.0); MCV 88.8 fL (80.0-100.0); Mean Platelet Volume 7.4; Monocytes # (A) 0.4 k/uL (0-1.0); Monocytes % (A) 5 %; Neutrophils % (A) 63 %; Platelet Count 290 k/uL (150-450); RBC 4.21 m/uL (3.80-5.40); RDW 14.8 % (11.5-15.5)
[2019-06-06 06:09] LABS: INR 0.9 (<1.2); Prothrombin Time 9.9 sec (9.0-12.0)
[2019-06-06] MEDS: NITROGLYCERIN OINT 1 INCH/GM PACKET TOPICAL SCH ×3 (06:11→21:36)
[2019-06-06] MEDS: INSULIN ASPART (NovoLOG) 100 UNIT/ML VIAL SQ SCH ×4 (06:15→21:36)
[2019-06-06 06:16] LABS: Glucose,Whole Blood 130 mg/dL (75-99)
[2019-06-06] MEDS: SYMBICORT 160-4.5 MCG INHALER INHALATION SCH ×3 (07:00→20:19)
[2019-06-06] MEDS: IPRATROPIUM-ALBUTEROL 3 ML NEB INHALATION SCH ×4 (07:00→20:20)
[2019-06-06] MEDS ORDERED: SODIUM CHLORIDE 0.9% 1,000 ML IV SCH ×3 (07:30→21:00)
[2019-06-06] MEDS ORDERED: SODIUM CHLORIDE 0.9% 1,000 ML in EMPTY BAG 1 BAG IV ONE (07:32)
[2019-06-06] MEDS ORDERED: ASPIRIN 325 MG TAB PO ONE (07:35)
[2019-06-06] MEDS: DULoxetine HCL 60 MG CAPSULE.DR PO SCH (09:28)
[2019-06-06] MEDS: LISINOPRIL 10 MG TAB PO SCH ×2 (09:28→21:35)
[2019-06-06] MEDS: ALPRAZolam 0.5 MG TAB PO SCH ×2 (09:28→21:36)
[2019-06-06] MEDS: CARBIDOPA-LEVODOPA 25-100 MG 1 EACH TAB PO SCH ×2 (09:28→15:08)
[2019-06-06] MEDS: VERAPAMIL SR 120 MG TABLET.ER PO SCH (09:28)
[2019-06-06] MEDS: hydrALAZINE HCL 50 MG TAB PO SCH ×4 (09:29→21:35)
[2019-06-06] MEDS: METOPROLOL TARTRATE 50 MG TAB PO SCH ×2 (09:29→21:35)
[2019-06-06] MEDS ORDERED: IV FLUID CONTINUATION 400 ML IV ONE (09:58)
[2019-06-06] MEDS ORDERED: LIDOCAINE 1% INJ 10MG/ML (20 ML MDV) ONE (09:59)
[2019-06-06] MEDS ORDERED: VERAPAMIL 2.5 MG/ML 2 ML AMP ONE (09:59)
[2019-06-06] MEDS ORDERED: HEPARIN SODIUM 1,000 UN/ML (10ML VL) ONE (10:00)
--- NOTE | 2019-06-06 10:03 | CONS ---
CONSULTATION This is a 63-year-old lady with a history of CVA in the past with a good motor recovery, but she still had some memory issues and also speaks very slowly. She carries a diagnosis of hypertension and type 2 diabetes mellitus and takes insulin, metoprolol, lisinopril at home. She apparently is on Eliquis. She carries a remote history of pulmonary embolism, details of which are unavailable. However, she did not take Eliquis for about a week or so and it is unclear why this happened. Patient is not a good historian. However, after she came in she complained of chest pressure and heaviness and went on to have a CAT scan with contrast for pulmonary embolism and there was no evidence of pulmonary embolism noted. She is resting comfortably, but on questioning she indicates to me that she still has pressure in her chest. She is not a very good historian. I also picked up the phone and talked to her at length. She has 3 troponin values the first one was 0.14, 0.14 and 0.15. She complains of pressure and discomfort in the chest. Her EKG this morning revealed mild J-point elevation and ST-T abnormality in precordial leads. In view of her EKG changes, equivocal troponin ongoing chest pain, I am recommending coronary angiography and explained to the patient and her the rationale, risks, benefits, and options. She also has type 2 diabetes and hypertension and a significant risk factor profile. The patient and her understand the risks, benefits, options and wished to proceed with coronary angiography that will be performed later on today. PAST MEDICAL HISTORY: 1. History of CVA with some memory impairment. 2. Hypertension. 3. Hyperlipidemia. 4. History of pulmonary embolism, details are unclear. 5. History of parkinsonism. 6. Hypercholesterolemia. MEDICATIONS: Medications at home include verapamil SR 120 mg daily, Singulair 10 mg daily, Lopressor 50 mg b.i.d., Prinivil 10 mg daily. She also takes insulin, Lipitor 10 mg daily, Eliquis 5 mg b.i.d., which she has not taken for almost a week. The patient had previous back surgery, cholecystectomy and hysterectomy and some joint surgery as well. PHYSICAL EXAMINATION: On examination, blood pressure is 118/70, pulse rate is 78 per minute, regular. HEENT: Unremarkable. Fundus was not examined by me. Neck is supple. There is JVD 1 cm. No carotid bruit. Heart exam reveals S1, S2 heard normally in all areas, but heart sounds are heard distantly. Short systolic murmur at left lower sternal border. Lungs are clear. Abdomen is soft, nontender. Lower extremities reveal diminished pulses. Central nervous system grossly no focal major deficits, but I did not do a detailed exam. IMPRESSION: 1. Chest pain with mild troponin elevation suggestive of non-ST elevation myocardial infarction. 2. Hypertension. 3. Hyperlipidemia. 4. Type 2 diabetes. 5. History of previous cerebrovascular accident with good recovery. 6. Question of past history of pulmonary embolism, was on Eliquis. RECOMMENDATION: I am recommending that we proceed with coronary angiography. CT angio was negative. Risks, benefits, options, rationale explained. Patient and understand all details and wished to proceed with the procedure. Her BUN and creatinine were good. We will hydrate her at 100 mL/hour normal saline. MMODL / IJN: [id number] /
[2019-06-06] MEDS ORDERED: MIDAZOLAM 2 MG/2 ML VIAL IV ONE (10:12)
[2019-06-06] MEDS ORDERED: LIDOCAINE 1% INJ 10MG/ML (20 ML MDV) SQ ONE (10:13)
[2019-06-06] MEDS ORDERED: VERAPAMIL SYRINGE (5 MG/10 ML) INTRAARTER ONE (10:14)
[2019-06-06] MEDS ORDERED: HEPARIN SODIUM 1,000 UN/ML (10ML VL) IV ONE (10:17)
[2019-06-06] MEDS ORDERED: IPRATROPIUM-ALBUTEROL 3 ML NEB INHALATION PRN (10:30)
[2019-06-06] MEDS ORDERED: NITROGLYCERIN SL TABS 0.4 MG TAB SUBLINGUAL ONE ×2 (10:39→10:40)
[2019-06-06] MEDS ORDERED: NITROGLYCERIN 1000MCG/10ML SYRINGE INTRAARTER ONE (10:42)
[2019-06-06] MEDS ORDERED: IOPAMIDOL-370 100ML BTL INJ ONE (10:49)
[2019-06-06] MEDS: AZITHROMYCIN 500 MG in SODIUM CHLORIDE 0.9% 250 ML IVPB SCH (11:31)
[2019-06-06 11:41] LABS: Glucose,Whole Blood 150 mg/dL (75-99)
--- NOTE | 2019-06-06 11:45 | CC ---
CARDIAC CATHETERIZATION REPORT DATE OF SERVICE: 06/06/2019. PROCEDURE: Coronary angiography. PERFORMED BY: Dr. Octavio Greene. Moderate conscious sedation time was 35 minutes. Patient was administered Versed. Oxygen saturation, hemodynamics and EKG were monitored closely. CLINICAL INFORMATION: Mrs. Shari Tabares is a 63-year-old lady with history of hypertension, hyperlipidemia, previous CVA and remote history of pulmonary embolism, came into the hospital with chest pain, had a troponin elevation and equivocal EKG changes in the precordial leads. She was advised coronary angiography after due discussion with the patient and I also spoke to her at length. They understood all details and wished to proceed with the procedure. PROCEDURE NOTE: Under local anesthesia and strict aseptic precautions, a 6-[place] introducer was placed in the right radial artery. I used a standard right Lou catheter for selective coronary angiography of the right coronary artery. Because of extreme tortuosity and a bovine arch, I had a lot of difficulty getting the left catheter down. Finally after trying the JL3.5, and also the multipurpose wire, I switched to Ultimate 1 catheter. With this, I was able to perform selective coronary angiography of the left system. LV pressures were not checked. An LV gram was not performed. The sheath was taken out and a TR band applied as per protocol with the saturation of the fingers of the right hand of 90%. Patient tolerated procedure well. No complications were noted. She does not have significant CAD. Results were discussed with the patient during and after the procedure and I also called and spoke to her at length by phone. I expect she will be discharged tomorrow if she remains stable. CARDIAC CATHETERIZATION FINDINGS: CORONARY ANGIOGRAPHY FINDINGS: RIGHT CORONARY ARTERY: Very dominant vessel, tortuous, no significant disease, large in caliber, has no significant disease. LEFT MAIN CORONARY ARTERY: Short patent disease-free vessel that immediately bifurcates into LAD and circumflex. No significant disease in the left main. LEFT ANTERIOR DESCENDING CORONARY ARTERY: Good caliber vessel extends along the anterior wall, gives off a large diagonal branch proximally. After the diagonal branch, there is a smooth narrowing. Then the caliber improves. Vessel runs all the way to the apex supplying a sizable amount of myocardium. The LAD has a 35% mid lesion after the diagonal. The diagonal at its origin also has about a 35% narrowing. No significant disease in the LAD or diagonal after that. LEFT POSTERIOR CIRCUMFLEX CORONARY ARTERY: Technically nondominant vessel, gives off 2 obtuse marginal branches and gives off a distal posterolateral branch. No significant disease in the circumflex system. LEFT VENTRICULOGRAM: This was not performed. FINAL IMPRESSION: This patient has A 35% LAD lesion. She has a right dominant system. Left ventriculogram and left ventricular pressures were not checked. There is a 35% mid LAD lesion after the origin of diagonal branch. This was seen in multiple projections. The diagonal at the origin also has a 35% narrowing. Other than that, there is no other significant disease. Circumflex is nondominant and disease free. RCA super dominant and disease free. RECOMMENDATIONS: Findings were discussed with the patient and . I am recommending continued medical therapy with risk factor modification. No intervention necessary. Patient hopefully will be discharged tomorrow if she remains stable. MMODL / IJN: [id number] /
[2019-06-06] MEDS: PANTOPRAZOLE 40 MG/10 ML VIAL IVP SCH (13:33)
--- NOTE | 2019-06-06 14:13 | P.HPIM ---
History of Present Illness H&P Date: 06/06/19 Chief Complaint: Chest pain This is a 63-year-old white female with history of multiple PEs,TIAs, anticoagulation via Eliquis, fibromyalgia, CAD with prior angioplasty and sten ting, COPD, prior nicotine dependence, hypertension, hyperlipidemia, chronic asthma and multiple other medical issues presented to the ER with complaints of nonradiating midsternal chest pain, accompanied by increased shortness of breath, since the night before last. Reported to the ER that she had not taken her Eliquis 1 week related to difficulty obtaining prescription for it(patient is a vague historian). Chest x-ray reporting mild right lower lobe infiltrate. Chest CTA reported no acute PE. EKGs reported sinus tachycardia, septal infarct, age undetermined, left axis deviation. Troponins 0.141, 0.148, 0.156. Hematology unremarkable. Sodium 136, potassium 4, BUN 9, creatinine 0.65, magnesium 2. Minimally elevated blood sugars on admission. UA reported negative nitrates, moderate leukocytes esterase rare bacteria, 5 WBCs. Heparinized in the ER, cardiology consulted. Review of Systems ROS Statement: Those systems with pertinent positive or pertinent negative responses have been documented in the HPI. ROS Other: All systems not noted in ROS Statement are negative. Past Medical History Past Medical History: Asthma, Cancer, COPD, CVA/TIA, Diabetes Mellitus, Fibrom yalgia, Hyperlipidemia, Hypertension, Musculoskeletal Disorder, Neurologic Disorder, Osteoarthritis (OA), Pulmonary Embolus (PE), Skin Disorder Additional Past Medical History / Comment(s): 3 PEs-involved bilateral lungs, CVA with some increased memory problems, NIDDM type II, neuropathy bilateral legs/feet, migraines, chronic low back pain, skin cancer removed from nose, urinary incontinence at times, lately stool loose and has some incontinence of stool. History of Any Multi-Drug Resistant Organisms: None Reported Past Surgical History: Back Surgery, Cholecystectomy, Hysterectomy, Joint Replacement, Orthopedic Surgery Additional Past Surgical History / Comment(s): Back pain stimulator implant lumbar cataract removals, 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 Past Anesthesia/Blood Transfusion Reactions: No Reported Reaction Additional Past Anesthesia/Blood Transfusion Reaction / Comment(s): no hx blood transfusion Past Psychological History: Schizophrenia Smoking Status: Former smoker Past Alcohol Use History: None Reported Past Drug Use History: None Reported - Past Family History Mother History Unknown: Yes Family Medical History: COPD Additional Family Medical History / Comment(s): Mother at the age of 78yrs. Father History Unknown: Yes Family Medical History: Myocardial Infarction (NC) Additional Family Medical History / Comment(s): Father of a massive NC at the age of 50 yrs. Pt is not sure if ovidio may have moved to his heart-he had injury in WWII. Sister(s) Family Medical History: Cancer Medications and Allergies Home Medications Medication Instructions Recorded Confirmed Type DULoxetine HCL [Cymbalta] 120 mg PO DAILY 06/19/14 06/05/19 History Montelukast [Singulair] 10 mg PO HS 06/19/14 06/05/19 History Apixaban [Eliquis] 5 mg PO BID 03/19/17 06/05/19 History Atorvastatin [Lipitor] 10 mg PO HS 03/19/17 06/05/19 History Budesonide-Formot 160-4.5 Mcg 2 puff INHALATION RT-BID #1 puff 03/24/18 06/05/19 Rx [Symbicort 160-4.5 Mcg Inhaler] Metoprolol Tartrate [Lopressor] 50 mg PO BID #60 tab 03/24/18 06/05/19 Rx Verapamil HCl [Verapamil ER] 120 mg PO DAILY 10/23/18 06/05/19 History hydrALAZINE HCL [Apresoline] 50 mg PO QID 10/23/18 06/05/19 History Ipratropium-Albuterol Nebulize 3 ml INHALATION RT-QID ampul.neb 10/30/18 06/05/19 Rx [Duoneb 0.5 mg-3 mg/3 ml Soln] ALPRAZolam [Xanax] 0.5 mg PO BID 06/05/19 06/05/19 History Acetaminophen Tab [Tylenol Tab] 1,000 mg PO DAILY 06/05/19 06/05/19 History Carbidopa-Levodopa 25-100 mg 1 tab PO BID@0900,1500 06/05/19 06/05/19 History [Sinemet 25-100] INSULIN LISPRO (HumaLOG) [humaLOG] See Protocol SQ ACHS 06/05/19 06/05/19 History Lisinopril [Prinivil] 10 mg PO BID 06/05/19 06/05/19 History OLANZapine [ZyPREXA] 30 mg PO HS 06/05/19 06/05/19 History Allergies Allergy/AdvReac Type Severity Reaction Status Date / Time No Known Allergies Allergy Verified 06/05/19 20:09 Physical Exam Vitals: Vital Signs Temp Pulse Pulse Resp BP BP Pulse Ox 06/06/19 08:00 97.6 F 78 16 112/76 95 06/06/19 07:09 78 06/06/19 07:00 74 06/06/19 06:11 111/67 06/06/19 03:05 98.1 F 80 18 90/57 94 L 06/05/19 23:10 98 F 110 H 18 110/85 96 06/05/19 22:33 132 H 117/68 06/05/19 22:28 134 H 125/74 06/05/19 22:22 130 H 138/90 06/05/19 22:02 97.7 F 122 H 18 138/90 95 06/05/19 21:21 97.9 F 06/05/19 20:49 105 H 18 140/115 99 06/05/19 19:36 103 H 18 157/101 96 06/05/19 18:23 112 H 18 99 06/05/19 17:50 97.5 F L 104 H 20 132/92 96 Intake and Output 06/05/19 06/06/19 06/06/19 22:59 06:59 14:59 Other: # Voids 1 Weight 90.718 kg 92.5 kg PHYSICAL EXAM: VITAL SIGNS: As above GENERAL: Sitting up in bed, no acute distress, speaks slowly HEENT: Atraumatic, normocephalic. Conjunctivae normal. eyes normal. NECK: No JVD. No thyroid enlargement. No LNs CARDIOVASCULAR: S1, S2 regular.systolic murmur RESPIRATION: Essentially clear, Breath sounds diminished in the bases. No rhonchi or crackles. No wheezing. ABDOMEN: Soft, nontender . No guarding. no masses palpable. No ascites, No hepatosplenomegaly.Bowel sounds heard. LEGS: No edema. no swelling PSYCHIATRY: Alert and oriented X3, mood and affect normal. NERVOUS SYSTEM: Cranial N 2-12 grossly normal. Moves all 4 limbs. No focal deficits. Strength and sensation grossly intact. Essential tremors. Skin: no rash, warm, dry, normal turgor Lymphatic system. No LN neck axilla. Results CBC & Chem 7: 06/06/19 05:29 06/05/19 18:19 Labs: Abnormal Lab Results - Last 24 Hours (Table) 06/05/19 06/05/19 06/05/19 Range/Units 18:19 18:19 18:19 APTT (22.0-30.0) sec Sodium 136 L (137-145) mmol/L Glucose 169 H (74-99) mg/dL POC Glucose (mg/dL) (75-99) mg/dL Troponin I 0.141 H* (0.000-0.034) ng/mL Ur Leukocyte Esterase Moderate H (Negative) Urine Bacteria Rare H (None) /hpf 06/05/19 06/05/19 06/06/19 Range/Units 21:59 23:48 02:48 APTT 51.1 H (22.0-30.0) sec Sodium (137-145) mmol/L Glucose (74-99) mg/dL POC Glucose (mg/dL) 109 H (75-99) mg/dL Troponin I 0.148 H* (0.000-0.034) ng/mL Ur Leukocyte Esterase (Negative) Urine Bacteria (None) /hpf 06/06/19 06/06/19 Range/Units 05:29 06:15 APTT (22.0-30.0) sec Sodium (137-145) mmol/L Glucose (74-99) mg/dL POC Glucose (mg/dL) 130 H (75-99) mg/dL Troponin I 0.156 H* (0.000-0.034) ng/mL Ur Leukocyte Esterase (Negative) Urine Bacteria (None) /hpf Thrombosis Risk Factor Assmnt - Choose All That Apply Any of the Below Risk Factors Present?: Yes Each Factor Represents 1 point: Abnormal pulmonary function (COPD), Obesity (BMI >25), Swollen legs (current) Other Risk Factors: Yes Each Risk Factor Represents 2 Points: Age 61-74 years Each Risk Factor Represents 3 Points: History of DVT/PE Other congenital or acquired thrombophilia - If yes, enter type in comment: No Thrombosis Risk Factor Assessment Total Risk Factor Score: 8 Thrombosis Risk Factor Assessment Level: High Risk Assessment and Plan Assessment: -Acute chest pain with mildly elevated troponins, possible acute NSTEMI -Medication noncompliance in a patient with history of pulmonary embolism reporting off Eliquis 1 week -Possible mild acute right lower lobe pneumonia -Essential (primary) hypertension Current Visit: Yes Status: Acute Code(s): I10 - ESSENTIAL (PRIMARY) HYPERTENSION SNOMED Code(s): 61895372 - hypercholesterolemia Current Visit: Yes Status: Acute Code(s): E78.00 - PURE HYPERCHOLESTEROLEM IA, UNSPECIFIED SNOMED Code(s): 426670379 - CAD, history of stent placement -Chronic intermittent asthma -COPD -Diabetes mellitus - Schizophrenia Current Visit: Yes Status: Acute Code(s): F20.9 - SCHIZOPHRENIA, UNSPECIFIED SNOMED Code(s): 18783617 - IDDM (insulin dependent diabetes mellitus) Current Visit: Yes Status: Acute Code(s): E11.9 - TYPE 2 DIABETES MELLITUS WITHOUT COMPLICATIONS; Z79.4 - 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 Heparinized. Protonix added for GI prophylaxis. IV fluid hydration .Evaluated by cardiology, patient is scheduled for cardiac catheterization. Empiric antibiotics for potential acute right lower lobe pneumonia. Home meds have been reviewed and resumed accordingly. Further recommendations to follow. The impression and plan of care has been dictated as directed. : I performed a history and examination of this patient, discussed the same with the dictator. I agree with the dictator's note ,documented as a scribe. Any additional findings or plans will be noted.
--- NOTE | 2019-06-06 15:35 | ECHOF ---
Referral Reason:ACS MEASUREMENTS -------- HEIGHT: 162.6 cm WEIGHT: 92.1 kg BP: IVSd: 1.8 cm (0.6 - 1.1) LVIDd: 3.5 cm (3.9 - 5.3) LVPWd: 1.6 cm (0.6 - 1.1) IVSs: 2.3 cm LVIDs: 1.6 cm LVPWs: 1.7 cm LAESV Index (A-L): 27.57 ml/m Ao Diam: 3.4 cm (2.0 - 3.7) AV Cusp: 2.2 cm (1.5 - 2.6) LA Diam: 3.4 cm (2.7 - 3.8) MV EXCURSION: 8.677 mm (> 18.000) MV EF SLOPE: 23 mm/s (70 - 150) EPSS: 0.5 cm MV E Jose: 0.80 m/s MV DecT: 390 ms MV A Jose: 1.36 m/s MV E/A Ratio: 0.59 RAP: 5.00 mmHg RVSP: 26.20 mmHg FINDINGS -------- Sinus rhythm. This was a technically difficult study with suboptimal views. The left ventricular size is normal. There is moderate concentric left ventricular hypertrophy. O verall left ventricular systolic function is normal with, an EF between 55 - 60 %. The right ventricle is normal in size. Normal LA size by volume 22+/-6 ml/m2. The right atrial size is normal. Lumason used Aortic valve is trileaflet and is mildly thickened. Moderate mitral annular calcification present. Mild mitral regurgitation is present. Eikn-wz-[id number] rate mitral stenosis. The tricuspid valve appears structurally normal. Mild tricuspid regurgitation present. Right vent ricular systolic pressure is normal at < 35 mmHg. There is no pulmonic regurgitation present. The aortic root size is normal. IVC Not well visulized. There is no pericardial effusion. CONCLUSIONS -------- 1. There is moderate concentric left ventricular hypertrophy. 2. Overall left ventricular systolic function is normal with, an EF between 55 - 60 %. 3. 4. Normal LA size by volume 22+/-6 ml/m2. 5. Lumason used 6. Aortic valve is trileaflet and is mildly thickened. 7. Moderate mitral annular calcification present. 8. Mild mitral regurgitation is present. 9. Tkxc-tu-cjjyqjae mitral stenosis. 10. Mild tricuspid regurgitation present. [facility]STITUTE DIRECTOR: Martha Baldwin RDCS
[2019-06-06 16:48] LABS: Glucose,Whole Blood 133 mg/dL (75-99)
[2019-06-06 21:19] LABS: Glucose,Whole Blood 174 mg/dL (75-99)
[2019-06-06] MEDS: ATORVASTATIN 10 MG TAB PO SCH (21:35)
[2019-06-06] MEDS: MONTELUKAST 10 MG TAB PO SCH (21:36)
[2019-06-06] MEDS: OLANZapine 10 MG TAB PO SCH (21:37)
[2019-06-06 22:27] VITALS: RESP 18
[2019-06-07] MEDS: NITROGLYCERIN OINT 1 INCH/GM PACKET TOPICAL SCH (05:40)
[2019-06-07] MEDS: INSULIN ASPART (NovoLOG) 100 UNIT/ML VIAL SQ SCH ×2 (06:03→12:06)
[2019-06-07 06:06] LABS: Glucose,Whole Blood 132 mg/dL (75-99)
[2019-06-07 07:19] LABS: Basophils % (A) 0 %; Eosinophils # (A) 0.1 k/uL (0-0.7); Eosinophils % (A) 1 %; HCT 36.8 % (34.0-46.0); HGB 11.6 gm/dL (11.4-16.0); Lymphocytes # (A) 1.5 k/uL (1.0-4.8); Lymphocytes % (A) 19 %; MCH 28.4 pg (25.0-35.0); MCHC 31.4 g/dL (31.0-37.0); MCV 90.6 fL (80.0-100.0); Mean Platelet Volume 7.8; Monocytes # (A) 0.4 k/uL (0-1.0); Monocytes % (A) 5 %; Neutrophils # (A) 5.6 k/uL (1.3-7.7); Neutrophils % (A) 73 %; Platelet Count 225 k/uL (150-450); RBC 4.06 m/uL (3.80-5.40); RDW 14.9 % (11.5-15.5); WBC 7.8 k/uL (3.8-10.6)
[2019-06-07 07:27] LABS: INR 0.9 (<1.2); Partial Thromboplastin Time 23.1 sec (22.0-30.0); Prothrombin Time 9.5 sec (9.0-12.0)
[2019-06-07 07:39] LABS: African American GFR (CKD) >90 (>60 ml/min/1.73 sqM); Anion Gap 6 mmol/L; Blood Urea Nitrogen 10 mg/dL (7-17); Calcium 8.9 mg/dL (8.4-10.2); Carbon Dioxide 28 mmol/L (22-30); Chloride 106 mmol/L (98-107); Glucose 126 mg/dL (74-99); Non-African American GFR(CKD) >90 (>60 ml/min/1.73 sqM); Potassium 4.3 mmol/L (3.5-5.1); Sodium 140 mmol/L (137-145)
[2019-06-07] MEDS: SYMBICORT 160-4.5 MCG INHALER INHALATION SCH (08:40)
[2019-06-07] MEDS: IPRATROPIUM-ALBUTEROL 3 ML NEB INHALATION SCH ×2 (08:40→11:30)
--- NOTE | 2019-06-07 09:47 | PN ---
PROGRESS NOTE Mrs Shari Tabares is in a sinus rhythm, comfortable. She had a cardiac cath yesterday. Right radial site is clean and dry. She has no significant obstructive CAD. Her medications are good. She can be discharged on current medications. There is a question of remote pulmonary embolism and Eliquis. I am unable to obtain any meaningful information in this regard. I am requesting that her primary care physician Dr. Hartley be contacted regarding the usage of Eliquis and if that is so, she should be on Eliquis but no aspirin, that can be discontinued. Vitals are stable, no JVD, S1, S2 heard normally. No significant murmurs. Lungs are clear. Abdomen and lower extremity exam unchanged. Patient has no further chest pain, coronary angiogram did not reveal any significant disease. MMODL / IJN: [id number] /
[2019-06-07] MEDS: PANTOPRAZOLE 40 MG/10 ML VIAL IVP SCH (10:20)
[2019-06-07] MEDS: METOPROLOL TARTRATE 50 MG TAB PO SCH (10:21)
[2019-06-07] MEDS: DULoxetine HCL 60 MG CAPSULE.DR PO SCH (10:21)
[2019-06-07] MEDS: CARBIDOPA-LEVODOPA 25-100 MG 1 EACH TAB PO SCH (10:21)
[2019-06-07] MEDS: hydrALAZINE HCL 50 MG TAB PO SCH ×2 (10:21→12:07)
[2019-06-07] MEDS: ALPRAZolam 0.5 MG TAB PO SCH (10:21)
[2019-06-07] MEDS: LISINOPRIL 10 MG TAB PO SCH (10:22)
[2019-06-07] MEDS: VERAPAMIL SR 120 MG TABLET.ER PO SCH (10:31)
[2019-06-07 11:09] LABS: Glucose,Whole Blood 231 mg/dL (75-99)
[2019-06-07] MEDS: AZITHROMYCIN 500 MG in SODIUM CHLORIDE 0.9% 250 ML IVPB SCH (12:06)
--- NOTE | 2019-06-07 13:02 | P.DS ---
Providers Date of admission: 06/05/19 20:19 Expected date of discharge: 06/07/19 Attending physician: Farzad Hartley Consults: 06/05/19 20:18 Consult Physician Urgent Consulting Provider: [facility] Consult Reason/Comments: acute chest pain, nstemi Do you want consulting provider notified?: Yes Primary care physician: Farzad Hartley - Discharge Diagnosis(es) (1) Chest pain Current Visit: Yes Status: Acute (2) Tachycardia Current Visit: Yes Status: Acute Hospital Course: This is a 63-year-old white female with history of multiple PEs,TIAs, anticoagulation via Eliquis, fibromyalgia, CAD with prior angioplasty and stenting, COPD, prior nicotine dependence, hypertension, hyperlipidemia, chronic asthma and multiple other medical issues presented to the ER with complaints of nonradiating midsternal chest pain, accompanied by increased shortness of breath, since the night before last. Reported to the ER that she had not taken her Eliquis 1 week related to difficulty obtaining prescription for it(patient is a vague historian). Chest x-ray reporting mild right lower lobe infiltrate. Chest CTA reported no acute PE. EKGs reported sinus tachycardia, septal infarct, age undetermined, left axis deviation. Troponins 0.141, 0.148, 0.156. Hematology unremarkable. Sodium 136, potassium 4, BUN 9, creatinine 0.65, magnesium 2. Minimally elevated blood sugars on admission. UA reported negative nitrates, moderate leukocytes esterase rare bacteria, 5 WBCs. Heparinized in the ER, cardiology consulted. 06/07/19 patient post procedure day 1 cardiac cath via right radial artery. Currently sitting up in bed no complaints at this time. Exam blood pressure is 187/97 recheck later in the morning was 143/93 she received her morning dose of hydralazine approximately 10 AM and just received a second dose. Labs from this morning CBC within normal, chem panel within normal BUN of 10, creatinine 0.6,potassium of 4.3. Assessment: GENERAL: Well-appearing, well-nourished and in no acute distress. HEAD: Atraumatic, normocephalic. EYES: Pupils equal round and reactive to light, extraocular movements intact, sclera anicteric, conjunctiva are normal. ENT:nares patent, oropharynx clear without exudates. Moist mucous membranes. NECK: Normal range of motion, supple without lymphadenopathy or JVD, no thyromegaly LUNGS: Breath sounds clear to auscultation bilaterally and equal. No wheezes rales or rhonchi. HEART: Regular rate and rhythm without murmurs, rubs or gallops.S1S2 Normal ABDOMEN: Soft, nontender, normoactive bowel sounds. No guarding, no rebound. No masses appreciated. EXTREMITIES: Normal range of motion, no pitting or edema. No clubbing or cyanosis. NEUROLOGICAL: Cranial nerves II through XII grossly intact. Normal speech, normal gait. PSYCH: Normal mood, normal affect. SKIN: Warm, Dry, normal turgor, no rashes or lesions noted. Patient Condition at Discharge: Stable Plan - Discharge Summary Discharge Rx Participant: No New Discharge Prescriptions: New Ipratropium-Albuterol Nebulize [Duoneb 0.5 mg-3 mg/3 ml Soln] 3 ml INHALATION RT-Q2H PRN ml PRN Reason: Shortness Of Breath Or Wheezing Continue DULoxetine HCL [Cymbalta] 120 mg PO DAILY Montelukast [Singulair] 10 mg PO HS Apixaban [Eliquis] 5 mg PO BID Atorvastatin [Lipitor] 10 mg PO HS Budesonide-Formot 160-4.5 Mcg [Symbicort 160-4.5 Mcg Inhaler] 2 puff INHALATION RT-BID #1 puff Metoprolol Tartrate [Lopressor] 50 mg PO BID #60 tab hydrALAZINE HCL [Apresoline] 50 mg PO QID Verapamil HCl [Verapamil ER] 120 mg PO DAILY Ipratropium-Albuterol Nebulize [Duoneb 0.5 mg-3 mg/3 ml Soln] 3 ml INHALATION RT-QID ampul.neb Acetaminophen Tab [Tylenol] 1,000 mg PO DAILY ALPRAZolam [Xanax] 0.5 mg PO BID Carbidopa-Levodopa 25-100 mg [Sinemet 25-100 mg] 1 tab PO BID@0900,1500 Lisinopril [Prinivil] 10 mg PO BID OLANZapine [ZyPREXA] 30 mg PO HS INSULIN LISPRO (HumaLOG) [humaLOG] See Protocol SQ ACHS Discharge Medication List DULoxetine HCL [Cymbalta] 120 mg PO DAILY 06/19/14 [History] Montelukast [Singulair] 10 mg PO HS 06/19/14 [History] Apixaban [Eliquis] 5 mg PO BID 03/19/17 [History] Atorvastatin [Lipitor] 10 mg PO HS 03/19/17 [History] Budesonide-Formot 160-4.5 Mcg [Symbicort 160-4.5 Mcg Inhaler] 2 puff INHALATION RT-BID #1 puff 03/24/18 [Rx] Metoprolol Tartrate [Lopressor] 50 mg PO BID #60 tab 03/24/18 [Rx] Verapamil HCl [Verapamil ER] 120 mg PO DAILY 10/23/18 [History] hydrALAZINE HCL [Apresoline] 50 mg PO QID 10/23/18 [History] Ipratropium-Albuterol Nebulize [Duoneb 0.5 mg-3 mg/3 ml Soln] 3 ml INHALATION RT-QID ampul.neb 10/30/18 [Rx] ALPRAZolam [Xanax] 0.5 mg PO BID 06/05/19 [History] Acetaminophen Tab [Tylenol] 1,000 mg PO DAILY 06/05/19 [History] Carbidopa-Levodopa 25-100 mg [Sinemet 25-100 mg] 1 tab PO BID@0900,1500 06/05/19 [History] INSULIN LISPRO (HumaLOG) [humaLOG] See Protocol SQ ACHS 06/05/19 [History] Lisinopril [Prinivil] 10 mg PO BID 06/05/19 [History] OLANZapine [ZyPREXA] 30 mg PO HS 06/05/19 [History] Ipratropium-Albuterol Nebulize [Duoneb 0.5 mg-3 mg/3 ml Soln] 3 ml INHALATION RT-Q2H PRN ml 06/07/19 [Rx] Follow up Appointment(s)/Referral(s): Farzad Hartley MD [Primary Care Provider] - 1-2 days Emani Greene MD [STAFF PHYSICIAN] - 1 Week Patient Instructions/Handouts: Heart Catheterization (DC), After Radial Heart Catheterization (GEN) Discharge Disposition: HOME SELF-CARE Plan of Treatment: Medication noncompliance was without gallop post for 1 week prior to incident Cardiac cath noted 35% LAD lesion Patient will follow up with Dr. Hartley 1-2 days Patient will see cardiology in 2 weeks. We'll discontinue aspirin and continue on our Paxipam
[2019-06-07 14:14] VITALS: BP 143/93; PULSE 82; TEMP 98.2
[2019-06-08] MEDS ORDERED: PANTOPRAZOLE 40 MG TABLET PO SCH (07:30)
[2019-06-08] MEDS ORDERED: AZITHROMYCIN 500 MG TAB PO SCH (09:00)
== END 2019-06-07 15:17 | disposition home or self-care (01) | DRG 287 ==
LOC: EC 17:49 → 3SCARD 20:19
PROVIDERS: ADMIT Family Medicine; ATTEND Family Medicine
PROC: B2111ZZ Fluoroscopy of Multiple Coronary Arteries using Low Osmolar Contrast (ICD-10-PCS; principal; 2019-06-06 11:10)
DX: R07.89 Other chest pain (principal); E11.41 Type 2 diabetes mellitus with diabetic mononeuropathy; E11.65 Type 2 diabetes mellitus with hyperglycemia; E78.00 Pure hypercholesterolemia, unspecified; E78.5 Hyperlipidemia, unspecified; F20.9 Schizophrenia, unspecified; G20 Parkinson's disease; I10 Essential (primary) hypertension; I25.10 Atherosclerotic heart disease of native coronary artery without angina pectoris; J44.9 Chronic obstructive pulmonary disease, unspecified; J45.20 Mild intermittent asthma, uncomplicated; M79.7 Fibromyalgia; Z79.01 Long term (current) use of anticoagulants; Z79.4 Long term (current) use of insulin; Z79.51 Long term (current) use of inhaled steroids; Z79.899 Other long term (current) drug therapy; Z82.49 Family history of ischemic heart disease and other diseases of the circulatory system; Z82.5 Family history of asthma and other chronic lower respiratory diseases; Z85.828 Personal history of other malignant neoplasm of skin; Z86.711 Personal history of pulmonary embolism; Z86.718 Personal history of other venous thrombosis and embolism; Z86.73 Personal history of transient ischemic attack (TIA), and cerebral infarction without residual deficits; Z87.891 Personal history of nicotine dependence; Z90.710 Acquired absence of both cervix and uterus; Z91.14 Patient's other noncompliance with medication regimen
CPT/HCPCS: 36415; 71046; 71275; 80048; 80053; 81001; 83735; 83880; 84484; 85025; 85610; 85730; 93005; 93306; 93458; 94640; 96374; 99285

== ENCOUNTER → 2019-11-24 | Outpatient (CLI) | payer BC, MEDICARE ==
[2019-11-24 16:15] LABS: Basophils % (A) 0 %; Eosinophils # (A) 0.1 k/uL (0-0.7); Eosinophils % (A) 1 %; HCT 41.8 % (34.0-46.0); HGB 13.4 gm/dL (11.4-16.0); Lymphocytes # (A) 2.3 k/uL (1.0-4.8); Lymphocytes % (A) 22 %; MCH 28.8 pg (25.0-35.0); MCHC 32.1 g/dL (31.0-37.0); MCV 89.6 fL (80.0-100.0); Mean Platelet Volume 6.7; Monocytes # (A) 0.5 k/uL (0-1.0); Monocytes % (A) 5 %; Neutrophils # (A) 7.5 k/uL (1.3-7.7); Neutrophils % (A) 71 %; Platelet Count 354 k/uL (150-450); RBC 4.66 m/uL (3.80-5.40); RDW 15.3 % (11.5-15.5); WBC 10.6 k/uL (3.8-10.6)
== END | disposition home or self-care (01) ==
LOC: LABWHC1 14:53
PROVIDERS: ATTEND Nurse Practitioner Acute Care
DX: R41.3 Other amnesia (principal); R53.83 Other fatigue; E55.9 Vitamin D deficiency, unspecified
CPT/HCPCS: 36415; 82306; 82607; 84207; 84439; 84443; 84481; 85025

== ENCOUNTER 2019-11-26 16:58 | Observation (INO) | payer BC, MEDICARE ==
[2019-11-26] MEDS ORDERED: SODIUM CHLORIDE 0.9% 500 ML 500 ML IV STA (17:34)
[2019-11-26] MEDS ORDERED: SODIUM CHLORIDE 0.9% 1,000 ML IV STA (17:34)
--- NOTE | 2019-11-26 17:35 | ED ---
Abdominal Pain HPI - General Chief Complaint: Abdominal Pain Stated Complaint: abd pain, acid reflux Time Seen by Provider: 11/26/19 17:19 Source: patient, RN notes reviewed, old records reviewed Mode of arrival: wheelchair Limitations: no limitations - History of Present Illness Initial Comments: This is a 64-year-old female DF she presents today for evaluation multiple complaints chest pain abdominal pain nausea and vomiting, dysuria loss of urine, incontinence. No fevers. Otherwise no recent travel history or sick contacts. MD Complaint: abdominal pain, other (Chest pain) -: days(s) Location: diffuse Radiation: none Migration to: no migration Severity: moderate Severity scale (1-10): 4 Quality: cramping, aching Consistency: constant Improves With: nothing Worsens With: nothing Associated Symptoms: nausea - Related Data Home Medications Medication Instructions Recorded Confirmed DULoxetine HCL [Cymbalta] 120 mg PO DAILY 06/19/14 11/26/19 Montelukast [Singulair] 10 mg PO HS 06/19/14 11/26/19 Apixaban [Eliquis] 5 mg PO BID 03/19/17 11/26/19 Atorvastatin [Lipitor] 10 mg PO HS 03/19/17 11/26/19 Verapamil HCl [Verapamil ER] 120 mg PO DAILY 10/23/18 11/26/19 ALPRAZolam [Xanax] 0.5 mg PO BID 06/05/19 11/26/19 Acetaminophen Tab [Tylenol] 1,000 mg PO DAILY 06/05/19 11/26/19 Carbidopa-Levodopa 25-100 mg 1 tab PO BID@0900,1500 06/05/19 11/26/19 [Sinemet 25-100 mg] INSULIN LISPRO (HumaLOG) [humaLOG] See Protocol SQ ACHS 06/05/19 11/26/19 Lisinopril [Prinivil] 10 mg PO BID 06/05/19 11/26/19 OLANZapine [ZyPREXA] 30 mg PO HS 06/05/19 11/26/19 Previous Rx's Medication Instructions Recorded Budesonide-Formot 160-4.5 Mcg 2 puff INHALATION RT-BID #1 puff 03/24/18 [Symbicort 160-4.5 Mcg Inhaler] Metoprolol Tartrate [Lopressor] 50 mg PO BID #60 tab 03/24/18 Ipratropium-Albuterol Nebulize 3 ml INHALATION RT-QID ampul.neb 10/30/18 [Duoneb 0.5 mg-3 mg/3 ml Soln] Ipratropium-Albuterol Nebulize 3 ml INHALATION RT-Q2H PRN ml 06/07/19 [Duoneb 0.5 mg-3 mg/3 ml Soln] Allergies Allergy/AdvReac Type Severity Reaction Status Date / Time No Known Allergies Allergy Verified 11/26/19 18:54 Review of Systems ROS Statement: Those systems with pertinent positive or pertinent negative responses have been documented in the HPI. ROS Other: All systems not noted in ROS Statement are negative. Past Medical History Past Medical History: Asthma, Cancer, COPD, CVA/TIA, Diabetes Mellitus, Fibromya lgia, Hyperlipidemia, Hypertension, Musculoskeletal Disorder, Neurologic Disorder, Osteoarthritis (OA), Pulmonary Embolus (PE), Skin Disorder Additional Past Medical History / Comment(s): 3 PEs-involved bilateral lungs, CVA with some increased memory problems, NIDDM type II, neuropathy bilateral legs/feet, migraines, chronic low back pain, skin cancer removed from nose, ur inary incontinence at times, lately stool loose and has some incontinence of stool. parkinsons History of Any Multi-Drug Resistant Organisms: None Reported Past Surgical History: Back Surgery, Cholecystectomy, Hysterectomy, Joint Replacement, Orthopedic Surgery Additional Past Surgical History / Comment(s): Back pain stimulator implant lumbar cataract removals, 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 Past Anesthesia/Blood Transfusion Reactions: No Reported Reaction Additional Past Anesthesia/Blood Transfusion Reaction / Comment(s): no hx blood transfusion Past Psychological History: Schizophrenia Smoking Status: Never smoker Past Alcohol Use History: None Reported Past Drug Use History: None Reported - Past Family History Mother History Unknown: Yes Family Medical History: COPD Additional Family Medical History / Comment(s): Mother at the age of 78yrs. Father History Unknown: Yes Family Medical History: Myocardial Infarction (MO) Additional Family Medical History / Comment(s): Father of a massive MO at the age of 50 yrs. Pt is not sure if cariel may have moved to his heart-he had injury in WWII. Sister(s) Family Medical History: Cancer General Exam Limitations: no limitations General appearance: alert, in no apparent distress Head exam: Present: atraumatic, normocephalic, normal inspection Eye exam: Present: normal appearance, PERRL, EOMI. Absent: scleral icterus, co njunctival injection, periorbital swelling ENT exam: Present: normal exam, mucous membranes moist Neck exam: Present: normal inspection. Absent: tenderness, meningismus, lymphadenopathy Respiratory exam: Present: normal lung sounds bilaterally. Absent: respiratory distress, wheezes, rales, rhonchi, stridor Cardiovascular Exam: Present: regular rate, normal rhythm, normal heart sounds. Absent: systolic murmur, diastolic murmur, rubs, gallop, clicks GI/Abdominal exam: Present: soft, normal bowel sounds. Absent: distended, tenderness, guarding, rebound, rigid Extremities exam: Present: normal inspection, full ROM, normal capillary refill. Absent: tenderness, pedal edema, joint swelling, calf tenderness Back exam: Present: normal inspection Neurological exam: Present: alert, oriented X3, CN II-XII intact Psychiatric exam: Present: normal affect, normal mood Skin exam: Present: warm, dry, intact, normal color. Absent: rash Course Vital Signs 11/26/19 17:06 Temperature 98.3 F Pulse Rate 68 Respiratory 18 Rate Blood Pressure 161/100 O2 Sat by Pulse 99 Oximetry - Reevaluation(s) Reevaluation #1: 11/26/19 19:25 Medical record is reviewed Reevaluation #2: 11/26/19 19:25 Patient does feel weak and dehydrated Reevaluation #3: 11/26/19 19:26 Patient is no improvement here in the ER Reevaluation #4: 11/26/19 19:26 Spoke patient regarding findings, questions answered Medical Decision Making - Medical Decision Making 64-year-old female with a plethora length regarding abdominal pain dysuria he adache and chest pain. Patient be kept in his a chest pain observation will treat urinary tract infection. Hypertension we treated she has not been able to keep down her blood pressure medication - Lab Data Result diagrams: 11/26/19 17:45 11/26/19 17:45 Lab Results 11/26/19 11/26/19 11/26/19 Range/Units 17:45 17:45 17:45 WBC 14.2 H (3.8-10.6) k/uL RBC 4.24 (3.80-5.40) m/uL Hgb 12.9 (11.4-16.0) gm/dL Hct 37.1 (34.0-46.0) % MCV 87.6 (80.0-100.0) fL MCH 30.5 (25.0-35.0) pg MCHC 34.9 (31.0-37.0) g/dL RDW 15.3 (11.5-15.5) % Plt Count 358 (150-450) k/uL Neutrophils % 76 % Lymphocytes % 18 % Monocytes % 5 % Eosinophils % 0 % Basophils % 0 % Neutrophils # 10.8 H (1.3-7.7) k/uL Lymphocytes # 2.6 (1.0-4.8) k/uL Monocytes # 0.7 (0-1.0) k/uL Eosinophils # 0.0 (0-0.7) k/uL Basophils # 0.0 (0-0.2) k/uL Sodium 133 L (137-145) mmol/L Potassium 4.5 (3.5-5.1) mmol/L Chloride 99 (98-107) mmol/L Carbon Dioxide 28 (22-30) mmol/L Anion Gap 6 mmol/L BUN 24 H (7-17) mg/dL Creatinine 0.57 (0.52-1.04) mg/dL Est GFR (CKD-EPI)AfAm >90 (>60 ml/min/1.73 sqM) Est GFR (CKD-EPI)NonAf >90 (>60 ml/min/1.73 sqM) Glucose 123 H (74-99) mg/dL POC Glucose (mg/dL) (75-99) mg/dL POC Glu Paralegal Secretary ID Plasma Lactic Acid [place] (0.7-2.0) mmol/L Calcium 9.8 (8.4-10.2) mg/dL Total Bilirubin 0.4 (0.2-1.3) mg/dL AST 19 (14-36) U/L ALT 15 (4-34) U/L Alkaline Phosphatase 92 (38-126) U/L Creatine Kinase 47 (30-135) U/L Total Protein 6.7 (6.3-8.2) g/dL Albumin 4.2 (3.5-5.0) g/dL Amylase 48 (30-110) U/L Lipase 132 (23-300) U/L Urine Color Yellow Urine Appearance Clear (Clear) Urine pH 7.0 (5.0-8.0) Ur Specific [place] 1.012 (1.001-1.035) Urine Protein Negative (Negative) Urine Glucose (UA) Negative (Negative) Urine Ketones Negative (Negative) Urine Blood Negative (Negative) Urine Nitrite Negative (Negative) Urine Bilirubin Negative (Negative) Urine Urobilinogen <2.0 (<2.0) mg/dL Ur Leukocyte Esterase Large H (Negative) Urine RBC 2 (0-5) /hpf Urine WBC 11 H (0-5) /hpf Ur Squamous Epith Cells 1 (0-4) /hpf Urine Bacteria Rare H (None) /hpf Urine Mucus Rare H (None) /hpf 11/26/19 11/26/19 Range/Units 17:45 17:53 WBC (3.8-10.6) k/uL RBC (3.80-5.40) m/uL Hgb (11.4-16.0) gm/dL Hct (34.0-46.0) % MCV (80.0-100.0) fL MCH (25.0-35.0) pg MCHC (31.0-37.0) g/dL RDW (11.5-15.5) % Plt Count (150-450) k/uL Neutrophils % % Lymphocytes % % Monocytes % % Eosinophils % % Basophils % % Neutrophils # (1.3-7.7) k/uL Lymphocytes # (1.0-4.8) k/uL Monocytes # (0-1.0) k/uL Eosinophils # (0-0.7) k/uL Basophils # (0-0.2) k/uL Sodium (137-145) mmol/L Potassium (3.5-5.1) mmol/L Chloride (98-107) mmol/L Carbon Dioxide (22-30) mmol/L Anion Gap mmol/L BUN (7-17) mg/dL Creatinine (0.52-1.04) mg/dL Est GFR (CKD-EPI)AfAm (>60 ml/min/1.73 sqM) Est GFR (CKD-EPI)NonAf (>60 ml/min/1.73 sqM) Glucose (74-99) mg/dL POC Glucose (mg/dL) 116 H (75-99) mg/dL POC Glu Paralegal Secretary ID Muriel Travis Plasma Lactic Acid [place] 1.0 (0.7-2.0) mmol/L Calcium (8.4-10.2) mg/dL Total Bilirubin (0.2-1.3) mg/dL AST (14-36) U/L ALT (4-34) U/L Alkaline Phosphatase (38-126) U/L Creatine Kinase (30-135) U/L Total Protein (6.3-8.2) g/dL Albumin (3.5-5.0) g/dL Amylase (30-110) U/L Lipase (23-300) U/L Urine Color Urine Appearance (Clear) Urine pH (5.0-8.0) Ur Specific [place] (1.001-1.035) Urine Protein (Negative) Urine Glucose (UA) (Negative) Urine Ketones (Negative) Urine Blood (Negative) Urine Nitrite (Negative) Urine Bilirubin (Negative) Urine Urobilinogen (<2.0) mg/dL Ur Leukocyte Esterase (Negative) Urine RBC (0-5) /hpf Urine WBC (0-5) /hpf Ur Squamous Epith Cells (0-4) /hpf Urine Bacteria (None) /hpf Urine Mucus (None) /hpf - Radiology Data Radiology results: report reviewed (X-ray abdominal series and chest is negative for acute disease), image reviewed Disposition Clinical Impression: UTI (urinary tract infection), Weakness, Abdominal pain, Hypertension, Dehydration, Chest pain Disposition: ADMITTED IP TO THIS [facility] Condition: Good Is patient prescribed a controlled substance at d/c from ED?: No Referrals: Farzad Hartley MD [Primary Care Provider] - 1-2 days
[2019-11-26 17:57] LABS: Glucose,Whole Blood 116 mg/dL (75-99)
[2019-11-26 18:05] LABS: Appearance,Urine Clear (Clear); Bacteria,Urine Rare /hpf; Bilirubin,Urine Negative (Negative); Blood,Urine Negative (Negative); Color,Urine Yellow; Glucose,Urine (UA) Negative (Negative); Ketones,Urine Negative (Negative); Leukocyte Esterase,Urine Large (Negative); Mucus,Urine Rare /hpf; Nitrite,Urine Negative (Negative); Protein,Urine Negative (Negative); RBC,Urine 2 /hpf (0-5); Specific Gravity,Urine 1.012 (1.001-1.035); Squamous Epithelial Cell,Urine 1 /hpf (0-4); Urobilinogen,Urine <2.0 mg/dL (<2.0); WBC,Urine 11 /hpf (0-5)
[2019-11-26] MEDS ORDERED: DIAZEPAM 5 MG/ML 2 ML INJ IVP STA (18:16)
[2019-11-26] MEDS ORDERED: MORPHINE SULFATE 4 MG/ML SYRINGE IVP STA (18:16)
[2019-11-26] MEDS ORDERED: PANTOPRAZOLE 40 MG/10 ML VIAL IVP STA (18:16)
[2019-11-26 18:17] LABS: ALT 15 U/L (4-34); AST 19 U/L (14-36); African American GFR (CKD) >90 (>60 ml/min/1.73 sqM); Albumin 4.2 g/dL (3.5-5.0); Alkaline Phosphatase 92 U/L (38-126); Amylase 48 U/L (30-110); Anion Gap 6 mmol/L; Blood Urea Nitrogen 24 mg/dL (7-17); Calcium 9.8 mg/dL (8.4-10.2); Carbon Dioxide 28 mmol/L (22-30); Chloride 99 mmol/L (98-107); Creatine Kinase 47 U/L (30-135); Glucose 123 mg/dL (74-99); Non-African American GFR(CKD) >90 (>60 ml/min/1.73 sqM); Potassium 4.5 mmol/L (3.5-5.1); Sodium 133 mmol/L (137-145); Total Bilirubin 0.4 mg/dL (0.2-1.3); Total Protein 6.7 g/dL (6.3-8.2)
[2019-11-26 18:38] LABS: Basophils % (A) 0 %; Eosinophils % (A) 0 %; HCT 37.1 % (34.0-46.0); HGB 12.9 gm/dL (11.4-16.0); Lymphocytes # (A) 2.6 k/uL (1.0-4.8); Lymphocytes % (A) 18 %; MCH 30.5 pg (25.0-35.0); MCHC 34.9 g/dL (31.0-37.0); MCV 87.6 fL (80.0-100.0); Mean Platelet Volume 7.1; Monocytes # (A) 0.7 k/uL (0-1.0); Monocytes % (A) 5 %; Neutrophils # (A) 10.8 k/uL (1.3-7.7); Neutrophils % (A) 76 %; Platelet Count 358 k/uL (150-450); RBC 4.24 m/uL (3.80-5.40); RDW 15.3 % (11.5-15.5); WBC 14.2 k/uL (3.8-10.6)
--- NOTE | 2019-11-26 19:03 | XR ---
EXAMINATION TYPE: XR abdomen acute w cxr DATE OF EXAM: 11/26/2019 COMPARISON: 06/03/2018 pelvic radiograph. HISTORY: Upper abdominal pain TECHNIQUE: Upright and supine views of the abdomen are obtained. Frontal view of the chest obtained FINDINGS: Spinal stimulator. Cardiomediastinal silhouette is normal. No focal airspace opacity, pleural effusio n, or pneumothorax. Right upper quadrant surgical clips. Left hip prosthesis. Nonspecific bowel gas pattern. No pneumoper itoneum. No organomegaly. No unusual calcifications. Likely benign bone island of the right sacroilia c joint, unchanged from 06/03/2018. Degenerative changes of the spine. IMPRESSION: 1. No acute cardiopulmonary process. 2. Nonspecific bowel gas pattern. 3. No pneumoperitoneum.
[2019-11-26] MEDS ORDERED: MORPHINE SULFATE 4 MG/ML SYRINGE IV PRN (19:21)
[2019-11-26] MEDS ORDERED: ASPIRIN 81 MG PO STA (19:21)
[2019-11-26] MEDS ORDERED: NITROGLYCERIN SL TABS 0.4 MG TAB SUBLINGUAL PRN (19:21)
[2019-11-26] MEDS ORDERED: cefTRIAXone IN SWFI 1,000 MG/10 ML SYRINGE IVP STA (19:21)
[2019-11-26] MEDS ORDERED: IPRATROPIUM-ALBUTEROL 3 ML NEB INHALATION STA (19:28)
[2019-11-26] MEDS ORDERED: AZITHROMYCIN 500 MG in SODIUM CHLORIDE 0.9% 250 ML IVPB STA (19:28)
[2019-11-26] MEDS ORDERED: IPRATROPIUM-ALBUTEROL 3 ML NEB INHALATION PRN (20:11)
[2019-11-26] MEDS ORDERED: ATORVASTATIN 10 MG TAB PO SCH (23:00)
[2019-11-26] MEDS ORDERED: MONTELUKAST 10 MG TAB PO SCH (23:00)
[2019-11-26] MEDS ORDERED: OLANZapine 10 MG TAB PO SCH (23:00)
[2019-11-26] MEDS: METOPROLOL TARTRATE 50 MG TAB PO SCH (23:16)
[2019-11-26] MEDS: lisinopriL 10 MG TAB PO SCH (23:16)
[2019-11-26] MEDS: APIXABAN 5 MG TAB PO SCH (23:16)
[2019-11-27] MEDS ORDERED: IPRATROPIUM-ALBUTEROL 3 ML NEB INHALATION SCH
[2019-11-27 03:42] VITALS: RESP 16
[2019-11-27 06:04] LABS: Glucose,Whole Blood 133 mg/dL (75-99)
[2019-11-27 07:03] LABS: Cholesterol 176 mg/dL (<200); HDL Cholesterol 43 mg/dL (40-60); LDL Cholesterol,Calculated 83 mg/dL (0-99); Triglycerides 250 mg/dL (<150)
[2019-11-27] MEDS ORDERED: INSULIN ASPART (NovoLOG) 100 UNIT/ML VIAL SQ SCH (07:30)
[2019-11-27] MEDS ORDERED: ALPRAZolam 0.5 MG TAB PO SCH (09:00)
[2019-11-27] MEDS ORDERED: ASPIRIN 325 MG TAB PO SCH (09:00)
[2019-11-27] MEDS ORDERED: CARBIDOPA-LEVODOPA 25-100 MG 1 EACH TAB PO SCH (09:00)
[2019-11-27] MEDS ORDERED: DULoxetine HCL 60 MG CAPSULE.DR PO SCH (09:00)
[2019-11-27] MEDS ORDERED: ACETAMINOPHEN TAB 500 MG TAB PO SCH (09:00)
[2019-11-27] MEDS ORDERED: VERAPAMIL SR 120 MG TABLET.ER PO SCH (09:00)
[2019-11-27] MEDS ORDERED: ASPIRIN 81 MG PO SCH (09:00)
[2019-11-27] MEDS: IPRATROPIUM-ALBUTEROL 3 ML NEB INHALATION SCH ×3 (09:12→16:23)
[2019-11-27 09:17] VITALS: TEMP 97.6
[2019-11-27] MEDS: lisinopriL 10 MG TAB PO SCH (09:22)
[2019-11-27] MEDS: APIXABAN 5 MG TAB PO SCH (09:22)
[2019-11-27] MEDS: METOPROLOL TARTRATE 50 MG TAB PO SCH (09:34)
--- NOTE | 2019-11-27 10:32 | P.CRDCN ---
History of Present Illness Consult date: 11/27/19 Consult reason: chest pain Chief complaint: Abdominal pain, nausea vomiting, chest pain History of present illness: This is a 64-year-old female with documented history of hypertension, diabetes, hyperlipidemia, prior CVA, history of pulmonary embolism, history of Parkinson's, patient also underwent a cardiac catheterization in May of this year which did not reveal any significantly obstructive coronary artery disease. She had an echo performed at that time which revealed an ejection fraction of 55-60%. Patient also has a history of schizophrenia. She presents to the hospital on this admission with symptoms of abdominal pain with associated nausea and vomiting, patient was also experiencing some sharp stabbing type of chest pain. A cardiology consultation was requested because of the chest pain. Her EKG on presentation here showed a normal sinus rhythm with no acute changes. Abdominal x-ray was performed which did not reveal any acute process. Her blood pressure 160/90 with a heart rate in the 50s respirations 16. White blood cell count 14.2, hemoglobin 12.9, platelet count 358. Sodium 133, potassium 4.5, BUN 24, creatinine 0.5. Troponins are negative 3 Past Medical History Past Medical History: Asthma, Cancer, COPD, CVA/TIA, Diabetes Mellitus, Fibromyalgia, Hyperlipidemia, Hypertension, Musculoskeletal Disorder, Neurologic Disorder, Osteoarthritis (OA), Pulmonary Embolus (PE), Skin Disorder Additional Past Medical History / Comment(s): 3 PEs-involved bilateral lungs, CVA with some increased memory problems, NIDDM type II, neuropathy bilateral legs/feet, migraines, chronic low back pain, skin cancer removed from nose, urinary incontinence at times, lately stool loose and has some incontinence of stool. parkinsons History of Any Multi-Drug Resistant Organisms: None Reported Past Surgical History: Back Surgery, Cholecystectomy, Hysterectomy, Joint Rep lacement, Orthopedic Surgery Additional Past Surgical History / Comment(s): Back pain stimulator implant lumbar cataract removals, 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 Past Anesthesia/Blood Transfusion Reactions: No Reported Reaction Additional Past Anesthesia/Blood Transfusion Reaction / Comment(s): no hx blood transfusion Past Psychological History: Schizophrenia Additional Psychological History / Comment(s): Pt resides with her spouse who is very helpful to patient. Spouse does work during the day so pt is alone at that time. She has used [facility] in the past and she and spouse are interested in home care. Pt uses a cane or walker to ambulate. She no longer drives, her spouse takes her to appts, helps her manage her meds and assists her with getting cleaned up and dressed if necessary. He also assists her with meals. She has a lady, Rosie, who comes twice a week for companionship and she does housework. Smoking Status: Former smoker Past Alcohol Use History: None Reported Additional Past Alcohol Use History / Comment(s): Pt started smoking in 1972 and quit in February 2016. Past Drug Use History: None Reported Additional Drug Use History / Comment(s): occasional - Past Family History Mother History Unknown: Yes Family Medical History: COPD Additional Family Medical History / Comment(s): Mother at the age of 78yrs. Father History Unknown: Yes Family Medical History: Myocardial Infarction (MT) Additional Family Medical History / Comment(s): Father of a massive MT at the age of 50 yrs. Pt is not sure if ovidio may have moved to his heart-he had injury in WWII. Sister(s) Family Medical History: Cancer Medications and Allergies Home Medications Medication Instructions Recorded Confirmed Type DULoxetine HCL [Cymbalta] 120 mg PO DAILY 06/19/14 11/26/19 History Montelukast [Singulair] 10 mg PO HS 06/19/14 11/26/19 History Apixaban [Eliquis] 5 mg PO BID 03/19/17 11/26/19 History Budesonide-Formot 160-4.5 Mcg 2 puff INHALATION RT-BID #1 puff 03/24/18 11/26/19 Rx [Symbicort 160-4.5 Mcg Inhaler] Metoprolol Tartrate [Lopressor] 50 mg PO BID #60 tab 03/24/18 11/26/19 Rx Verapamil HCl [Verapamil ER] 120 mg PO DAILY 10/23/18 11/26/19 History Ipratropium-Albuterol Nebulize 3 ml INHALATION RT-QID ampul.neb 10/30/18 11/26/19 Rx [Duoneb 0.5 mg-3 mg/3 ml Soln] ALPRAZolam [Xanax] 0.5 mg PO BID 06/05/19 11/26/19 History Acetaminophen Tab [Tylenol] 1,000 mg PO DAILY 06/05/19 11/26/19 History Carbidopa-Levodopa 25-100 mg 1 tab PO BID@0900,1500 06/05/19 11/26/19 History [Sinemet 25-100 mg] INSULIN LISPRO (HumaLOG) [humaLOG] See Protocol SQ ACHS 06/05/19 11/26/19 History Lisinopril [Prinivil] 10 mg PO BID 06/05/19 11/26/19 History OLANZapine [ZyPREXA] 30 mg PO HS 06/05/19 11/26/19 History Ipratropium-Albuterol Nebulize 3 ml INHALATION RT-Q2H PRN ml 06/07/19 11/26/19 Rx [Duoneb 0.5 mg-3 mg/3 ml Soln] Atorvastatin [Lipitor] 20 mg PO HS 11/27/19 11/27/19 History Allergies Allergy/AdvReac Type Severity Reaction Status Date / Time No Known Allergies Allergy Verified 11/26/19 18:54 Physical Exam Vitals: Vital Signs Temp Pulse Pulse Resp BP BP Pulse Ox 11/27/19 09:00 97.6 F 52 L 16 181/94 96 11/27/19 03:00 97.7 F 52 L 16 169/92 98 11/26/19 21:30 97.5 F L 63 18 174/89 95 11/26/19 21:00 18 11/26/19 20:53 68 16 137/89 11/26/19 20:44 67 16 11/26/19 20:30 98.2 F 98 18 211/131 98 11/26/19 17:06 98.3 F 68 18 161/100 99 Intake and Output 11/26/19 11/27/19 11/27/19 22:59 06:59 14:59 Other: Voiding Method Bedside Commode Bedside Commode Incontinent Incontinent # Voids 2 1 Weight 90.718 kg PHYSICAL EXAMINATION: GENERAL: 64-year-old female in no acute distress at the time of my examination HEENT: Head is atraumatic, normocephalic. Pupils equal, round. Sclera anicteric. Conjunctiva are clear. Mucous membranes of the mouth are moist. Neck is supple. There is no elevated jugular venous pressure. No carotid bru it is heard. HEART EXAMINATION: Heart S1, S2 normal. No murmur or gallop heard. CHEST EXAMINATION: Lungs are clear to auscultation and precussion. No chest wall tenderness is noted on palpation or with deep breathing. ABDOMEN: Soft, mild generalized tenderness . Bowel sounds are heard. No organ omegaly noted. EXTREMITIES: 2+ peripheral pulses with no evidence of peripheral edema and no calf tenderness noted. NEUROLOGIC [patient is awake, alert and oriented 3 . Results 11/26/19 17:45 11/26/19 17:45 Cardiac Enzymes 11/26/19 11/26/19 11/26/19 Range/Units 17:45 17:45 20:27 AST 19 (14-36) U/L Troponin I <0.012 <0.012 (0.000-0.034) ng/mL 11/27/19 Range/Units 00:06 AST (14-36) U/L Troponin I <0.012 (0.000-0.034) ng/mL Lipids 11/27/19 Range/Units 06:21 Triglycerides 250 H (<150) mg/dL Cholesterol 176 (<200) mg/dL HDL Cholesterol 43 (40-60) mg/dL CBC 11/26/19 Range/Units 17:45 WBC 14.2 H (3.8-10.6) k/uL RBC 4.24 (3.80-5.40) m/uL Hgb 12.9 (11.4-16.0) gm/dL Hct 37.1 (34.0-46.0) % Plt Count 358 (150-450) k/uL Comprehensive Metabolic Panel 11/26/19 Range/Units 17:45 Sodium 133 L (137-145) mmol/L Potassium 4.5 (3.5-5.1) mmol/L Chloride 99 (98-107) mmol/L Carbon Dioxide 28 (22-30) mmol/L BUN 24 H (7-17) mg/dL Creatinine 0.57 (0.52-1.04) mg/dL Glucose 123 H (74-99) mg/dL Calcium 9.8 (8.4-10.2) mg/dL AST 19 (14-36) U/L ALT 15 (4-34) U/L Alkaline Phosphatase 92 (38-126) U/L Total Protein 6.7 (6.3-8.2) g/dL Albumin 4.2 (3.5-5.0) g/dL Current Medications Generic Name Dose Route Start Last Admin Trade Name Freq PRN Reason Stop Dose Admin Acetaminophen 1,000 mg 11/27/19 09:00 11/27/19 09:21 Acetaminophen Tab 500 Mg Tab PO 1,000 mg DAILY JUAN DAVID Administration Albuterol/Ipratropium 3 ml 11/27/19 08:00 11/27/19 09:12 Ipratropium-Albuterol 3 Ml Neb INHALATION Not Given RT-QID JUAN DAVID Albuterol/Ipratropium 3 ml 11/26/19 20:11 Ipratropium-Albuterol 3 Ml Neb INHALATION RT-Q2H PRN Shortness Of Breath Or Wheezing Alprazolam 0.5 mg 11/27/19 09:00 11/27/19 09:42 Alprazolam 0.5 Mg Tab PO Not Given BID [facility] Amlodipine Besylate 5 mg 11/28/19 09:00 Amlodipine 5 Mg Tab PO DAILY JUAN DAVID Apixaban 5 mg 11/26/19 23:00 11/27/19 09:22 Apixaban 5 Mg Tab PO 5 mg BID JUAN DAVID Administration Atorvastatin Calcium 10 mg 11/26/19 23:00 11/26/19 23:16 Atorvastatin 10 Mg Tab PO 10 mg HS JUAN DAVID Administration Carbidopa/Levodopa 1 each 11/27/19 09:00 11/27/19 09:22 Carbidopa-Levodopa 25-100 Mg 1 Each Tab PO 1 each BID@0900,1500 JUAN DAVID Administration Duloxetine HCl 120 mg 11/27/19 09:00 11/27/19 09:22 Duloxetine Hcl 60 Mg Capsule.Dr PO 120 mg DAILY JUAN DAVID Administration Azithromycin 500 mg/ Sodium 250 mls @ 250 mls/hr 11/27/19 20:00 Chloride IVPB DAILY@2000 [facility] Insulin Aspart 0 unit 11/27/19 07:30 11/27/19 07:40 Insulin Aspart (Novolog) 100 Unit/Ml Vial SQ 1 unit ACHS JUAN DAVID Administration Protocol Lisinopril 10 mg 11/26/19 22:53 11/27/19 09:22 Lisinopril 10 Mg Tab PO 10 mg BID JUAN DAVID Administration Metoprolol Tartrate 50 mg 11/26/19 22:53 11/27/19 09:34 Metoprolol Tartrate 50 Mg Tab PO 50 mg BID JUAN DAVID Administration Montelukast Sodium 10 mg 11/26/19 23:00 11/26/19 23:16 Montelukast 10 Mg Tab PO 10 mg HS JUAN DAVID Administration Morphine Sulfate 4 mg 11/26/19 19:21 11/26/19 20:38 Morphine Sulfate 4 Mg/Ml Syringe IV 4 mg Q4HR PRN Administration Chest Pain Nitroglycerin 0.4 mg 11/26/19 19:21 11/26/19 20:37 Nitroglycerin Sl Tabs 0.4 Mg Tab SUBLINGUAL 0.4 mg Q5M PRN Administration Chest Pain Olanzapine 30 mg 11/26/19 23:00 11/26/19 23:41 Olanzapine 10 Mg Tab PO 30 mg HS JUAN DAVID Administration Intake and Output 11/26/19 11/27/19 11/27/19 22:59 06:59 14:59 Other: Voiding Method Bedside Commode Bedside Commode Incontinent Incontinent # Voids 2 1 Weight 90.718 kg 11/26/19 17:45 11/26/19 17:45 EKG Interpretations (text) EKG shows normal sinus rhythm with no acute changes Assessment and Plan Plan: Assessment and plan #1 abdominal discomfort with associated nausea and vomiting, acute abdominal series did not reveal any acute cardiopulmonary process, nonspecific bowel gas pattern, no pneumoperitoneum. #2 atypical chest pain, troponins negative 3. EKG shows a normal sinus rhythm with no acute changes. Patient did undergo cardiac catheterization in May of this year which did not reveal any significantly obstructive coronary artery disease. An echocardiogram with Doppler study was also performed at that time which revealed an ejection fraction of 55-60% with mild to moderate mitral stenosis. #3 hypertension #4 hyperlipidemia #5 diabetes #6 history of prior PE, on Eliquis #7 Parkinson's #8 schizophrenia #9 history of prior CVA Plan We will not repeat an echocardiogram with Doppler study as the patient just had one performed in May which revealed a normal left ventricular systolic function. Cardiac catheterization performed at that time did not reveal any significantly obstructive coronary artery disease. From our perspective, patient can follow-up with Dr. Michael Greene once discharged home from the hospital, we will follow along with her now on an as-needed basis only, please don't hesitate to call if you have any questions. DNP note has been reviewed, I agree with a documented findings and plan of care. Patient was seen and examined.
[2019-11-27] MEDS ORDERED: amLODIPine 5 MG TAB PO SCH (10:45)
[2019-11-27 12:56] VITALS: PULSE 68
[2019-11-27 13:00] LABS: Glucose,Whole Blood 141 mg/dL (75-99)
--- NOTE | 2019-11-27 14:19 | P.HPIM ---
History of Present Illness H&P Date: 11/27/19 Chief Complaint: Chest pain, abdominal pain Patient well known to the practice, Patient seen by Dr. Hartley Patient probably developed UTI a week ago and was dehydrated Troponin within normal limits x3, Cardiology consult, echo was within normal limits, clear heart cath in May Review of Systems Constitutional: Reports as per HPI Ears, nose, mouth and throat: Reports as per HPI Breasts: Reports as per HPI Cardiovascular: Reports as per HPI Respiratory: Reports as per HPI Gastrointestinal: Reports abdominal pain (epigastric tenderness), Reports loss of appetite, Reports nausea Genitourinary: Reports dysuria, Reports flank pain, Reports urgency, Reports urinary frequency Menstruation: Reports as per HPI Musculoskeletal: Reports as per HPI Integumentary: Reports as per HPI Neurological: Reports as per HPI Psychiatric: Reports as per HPI Endocrine: Reports as per HPI Hematologic/Lymphatic: Reports as per HPI Allergic/Immunologic: Reports as per HPI (schizoaffective disorder by history) Past Medical History Past Medical History: Asthma, Cancer, COPD, CVA/TIA, Diabetes Mellitus, Fibromyalgia, Hyperlipidemia, Hypertension, Musculoskeletal Disorder, Neurologic Disorder, Osteoarthritis (OA), Pulmonary Embolus (PE), Skin Disorder Additional Past Medical History / Comment(s): 3 PEs-involved bilateral lungs, CVA with some increased memory problems, NIDDM type II, neuropathy bilateral legs/feet, migraines, chronic low back pain, skin cancer removed from nose, urinary incontinence at times, lately stool loose and has some incontinence of stool. parkinsons History of Any Multi-Drug Resistant Organisms: None Reported Past Surgical History: Back Surgery, Cholecystectomy, Hysterectomy, Joint Replacement, Orthopedic Surgery Additional Past Surgical History / Comment(s): Back pain stimulator implant lumbar cataract removals, 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 Past Anesthesia/Blood Transfusion Reactions: No Reported Reaction Additional Past Anesthesia/Blood Transfusion Reaction / Comment(s): no hx blood transfusion Past Psychological History: Schizophrenia Additional Psychological History / Comment(s): Pt resides with her spouse who is very helpful to patient. Spouse does work during the day so pt is alone at that time. She has used [facility] in the past and she and spouse are interested in home care. Pt uses a cane or walker to ambulate. She no longer drives, her spouse takes her to appts, helps her manage her meds and assists her with getting cleaned up and dressed if necessary. He also assists her with meals. She has a lady, Rosie, who comes twice a week for companionship and she does housework. Smoking Status: Former smoker Past Alcohol Use History: None Reported Additional Past Alcohol Use History / Comment(s): Pt started smoking in 1972 and quit in February 2016. Past Drug Use History: None Reported Additional Drug Use History / Comment(s): occasional - Past Family History Mother History Unknown: Yes Family Medical History: COPD Additional Family Medical History / Comment(s): Mother at the age of 78yrs. Father History Unknown: Yes Family Medical History: Myocardial Infarction (PA) Additional Family Medical History / Comment(s): Father of a massive PA at the age of 50 yrs. Pt is not sure if ovidio may have moved to his heart-he had injury in WWII. Sister(s) Family Medical History: Cancer Medications and Allergies Home Medications Medication Instructions Recorded Confirmed Type DULoxetine HCL [Cymbalta] 120 mg PO DAILY 06/19/14 11/26/19 History Montelukast [Singulair] 10 mg PO HS 06/19/14 11/26/19 History Apixaban [Eliquis] 5 mg PO BID 03/19/17 11/26/19 History Budesonide-Formot 160-4.5 Mcg 2 puff INHALATION RT-BID #1 puff 03/24/18 11/26/19 Rx [Symbicort 160-4.5 Mcg Inhaler] Metoprolol Tartrate [Lopressor] 50 mg PO BID #60 tab 03/24/18 11/26/19 Rx Verapamil HCl [Verapamil ER] 120 mg PO DAILY 10/23/18 11/26/19 History Ipratropium-Albuterol Nebulize 3 ml INHALATION RT-QID ampul.neb 10/30/18 11/26/19 Rx [Duoneb 0.5 mg-3 mg/3 ml Soln] ALPRAZolam [Xanax] 0.5 mg PO BID 06/05/19 11/26/19 History Acetaminophen Tab [Tylenol] 1,000 mg PO DAILY 06/05/19 11/26/19 History Carbidopa-Levodopa 25-100 mg 1 tab PO BID@0900,1500 06/05/19 11/26/19 History [Sinemet 25-100 mg] INSULIN LISPRO (HumaLOG) [humaLOG] See Protocol SQ ACHS 06/05/19 11/26/19 History Lisinopril [Prinivil] 10 mg PO BID 06/05/19 11/26/19 History OLANZapine [ZyPREXA] 30 mg PO HS 06/05/19 11/26/19 History Ipratropium-Albuterol Nebulize 3 ml INHALATION RT-Q2H PRN ml 06/07/19 11/26/19 Rx [Duoneb 0.5 mg-3 mg/3 ml Soln] Atorvastatin [Lipitor] 20 mg PO HS 11/27/19 11/27/19 History Allergies Allergy/AdvReac Type Severity Reaction Status Date / Time No Known Allergies Allergy Verified 11/26/19 18:54 Physical Exam Osteopathic Statement: *. No significant issues noted on an osteopathic structural exam other than those noted in the History and Physical/Consult. Vitals: Vital Signs Temp Pulse Pulse Resp BP BP Pulse Ox 11/27/19 12:55 68 11/27/19 12:45 60 11/27/19 09:00 97.6 F 52 L 16 181/94 96 11/27/19 03:00 97.7 F 52 L 16 169/92 98 11/26/19 21:30 97.5 F L 63 18 174/89 95 11/26/19 21:00 18 11/26/19 20:53 68 16 137/89 11/26/19 20:44 67 16 11/26/19 20:30 98.2 F 98 18 211/131 98 11/26/19 17:06 98.3 F 68 18 161/100 99 Intake and Output 11/26/19 11/27/19 11/27/19 22:59 06:59 14:59 Other: Voiding Method Bedside Commode Bedside Commode Bedside Commode Incontinent Incontinent Incontinent # Voids 2 1 Weight 90.718 kg General: [Patient awake, alert and oriented times 3. Patient in no acute distress.] HEENT: [PERRL. EOMI. No pharyngeal erythema or exudate.] Neck: [No adenopathy.] Cardiac: [Heart regular in rate and rhythm. No S3. No S4. No clicks, rubs. No murmur.] Lungs: [Clear to auscultation bilaterally.] Abdomen: [No mass. No organomegaly. Bowel sounds presnt and normoactive in all 4 quadrants. Suprapubic tenderness on exam] Extremes: [No edema no cyanosis no claudication normal pulses] : [normal female genitalia] Musculoskeletal: [No joint erythema, edema or tenderness.] Skin: [No rash.] Neurologic: [No lateralizing deficits. CN II - XII grossly intact.] Lymphatic: [No adenopathy.] Results CBC & Chem 7: 11/26/19 17:45 11/26/19 17:45 Labs: Abnormal Lab Results - Last 24 Hours (Table) 11/26/19 11/26/19 11/26/19 Range/Units 17:45 17:45 17:45 WBC 14.2 H (3.8-10.6) k/uL Neutrophils # 10.8 H (1.3-7.7) k/uL Sodium 133 L (137-145) mmol/L BUN 24 H (7-17) mg/dL Glucose 123 H (74-99) mg/dL POC Glucose (mg/dL) (75-99) mg/dL Triglycerides (<150) mg/dL Ur Leukocyte Esterase Large H (Negative) Urine WBC 11 H (0-5) /hpf Urine Bacteria Rare H (None) /hpf Urine Mucus Rare H (None) /hpf 11/26/19 11/27/19 11/27/19 Range/Units 17:53 06:02 06:21 WBC (3.8-10.6) k/uL Neutrophils # (1.3-7.7) k/uL Sodium (137-145) mmol/L BUN (7-17) mg/dL Glucose (74-99) mg/dL POC Glucose (mg/dL) 116 H 133 H (75-99) mg/dL Triglycerides 250 H (<150) mg/dL Ur Leukocyte Esterase (Negative) Urine WBC (0-5) /hpf Urine Bacteria (None) /hpf Urine Mucus (None) /hpf 11/27/19 Range/Units 12:59 WBC (3.8-10.6) k/uL Neutrophils # (1.3-7.7) k/uL Sodium (137-145) mmol/L BUN (7-17) mg/dL Glucose (74-99) mg/dL POC Glucose (mg/dL) 141 H (75-99) mg/dL Triglycerides (<150) mg/dL Ur Leukocyte Esterase (Negative) Urine WBC (0-5) /hpf Urine Bacteria (None) /hpf Urine Mucus (None) /hpf Microbiology - Last 24 Hours (Table) 11/26/19 17:45 Urine Culture - Preliminary Urine,Voided Thrombosis Risk Factor Assmnt - Choose All That Apply Each Factor Represents 1 point: Abnormal pulmonary function (COPD), Obesity (BMI >25) Each Risk Factor Represents 2 Points: Age 61-74 years Thrombosis Risk Factor Assessment Total Risk Factor Score: 4 Thrombosis Risk Factor Assessment Level: Moderate Risk Assessment and Plan (1) Atypical chest pain Current Visit: Yes Status: Acute Code(s): R07.89 - OTHER CHEST PAIN SNOMED Code(s): 977408520 (2) Abdominal pain Current Visit: Yes Status: Acute Code(s): R10.9 - UNSPECIFIED ABDOMINAL PAIN SNOMED Code(s): 63905363 (3) UTI (urinary tract infection) Current Visit: Yes Status: Acute Code(s): N39.0 - URINARY TRACT INFECTION, SITE NOT SPECIFIED SNOMED Code(s): 85141628 Plan: Patient with negative cardiac work up, positive UTI with cultures pending, dehydration. Will be discharging patient home with doxycycline and will follow up with Dr. Hartley in 3-5 days.
[2019-11-27 14:48] VITALS: BP 158/90
[2019-11-27] MEDS ORDERED: AZITHROMYCIN 500 MG in SODIUM CHLORIDE 0.9% 250 ML IVPB SCH (20:00)
[2019-11-27] MEDS ORDERED: DOXYCYCLINE 100 MG CAP PO SCH (21:00)
[2019-11-28] MEDS ORDERED: amLODIPine 5 MG TAB PO SCH (09:00)
== END 2019-11-27 16:18 | disposition home or self-care (01) ==
LOC: EC 16:58 → 3NCARDOBS 19:21
PROVIDERS: ADMIT Family Medicine; ATTEND Family Medicine
DX: N39.0 Urinary tract infection, site not specified (principal); R10.9 Unspecified abdominal pain; R11.2 Nausea with vomiting, unspecified; R07.89 Other chest pain; E11.41 Type 2 diabetes mellitus with diabetic mononeuropathy; E78.5 Hyperlipidemia, unspecified; E86.0 Dehydration; F20.9 Schizophrenia, unspecified; G20 Parkinson's disease; I05.0 Rheumatic mitral stenosis; I10 Essential (primary) hypertension; J44.9 Chronic obstructive pulmonary disease, unspecified; K21.9 Gastro-esophageal reflux disease without esophagitis; M79.7 Fibromyalgia; R32 Unspecified urinary incontinence; Z79.01 Long term (current) use of anticoagulants; Z79.51 Long term (current) use of inhaled steroids; Z79.899 Other long term (current) drug therapy; Z82.49 Family history of ischemic heart disease and other diseases of the circulatory system; Z82.5 Family history of asthma and other chronic lower respiratory diseases; Z85.828 Personal history of other malignant neoplasm of skin; Z86.711 Personal history of pulmonary embolism; Z86.73 Personal history of transient ischemic attack (TIA), and cerebral infarction without residual deficits; Z87.891 Personal history of nicotine dependence; Z90.710 Acquired absence of both cervix and uterus
CPT/HCPCS: 93005; 96376; 96361; 96365; 96375; 99285; 36415; 94640; 80061; 80053; 82150; 82550; 83605; 83690; 84484 ×2; 85025; 81001; 87086; 74022; G0378 ×2; J2270; J3360; J0456; J0696; C9113

== ENCOUNTER → 2019-12-08 | Outpatient (CLI) | payer BC, MEDICARE ==
--- NOTE | 2019-12-08 16:12 | XR ---
2 view abdomen HISTORY: R 10.8 2 views of the abdomen on 3 images correlated to prior exam 11/26/2019 There is a generator in the left gluteal region, there is thoracic cord stimulator lead superimposed over the thoracic spine. There are overlying artifacts, surgical clips present right upper quadrant. There are air-fluid levels without bowel distention. No evident pneumoperitoneum. Lung bases are aries r. Sclerotic focus in the right ilium is stable. Postop change noted to the left hip. Probable vascul ar calcifications are present within the pelvis. IMPRESSION: Correlate for enteritis, ileus, follow-up as indicated
== END | disposition home or self-care (01) ==
LOC: RAD 15:34
PROVIDERS: ATTEND Family Medicine
DX: R10.819 Abdominal tenderness, unspecified site (principal)
CPT/HCPCS: 74019

== ENCOUNTER → 2020-03-29 | Outpatient (CLI) | payer BC, MEDICARE ==
--- NOTE | 2020-03-30 09:39 | XR ---
EXAMINATION TYPE: XR shoulder complete LT DATE OF EXAM: 03/29/2020 COMPARISON: NONE HISTORY: Pain x2 weeks TECHNIQUE: Shoulder examined in 3 projections FINDINGS: The humeral head articulates with the glenoid. The acromio-clavicular junction is normal. No acute fractures or dislocations are evident. A follow up study can be performed 7-10 days from acute trauma for continued pain. IMPRESSION: 1. Normal three-view left Shoulder
== END | disposition home or self-care (01) ==
LOC: RADXRMAIN 16:43
PROVIDERS: ATTEND Family Medicine
DX: M25.512 Pain in left shoulder (principal)

== ENCOUNTER 2020-04-23 17:53 | Emergency (ER) | payer BC, MEDICARE ==
[2020-04-23] MEDS ORDERED: SODIUM CHLORIDE 0.9% 500 ML 500 ML IV ONE (19:12)
[2020-04-23 19:15] LABS: ALT 27 U/L (4-34); AST 32 U/L (14-36); African American GFR (CKD) >90 (>60 ml/min/1.73 sqM); Alkaline Phosphatase 98 U/L (38-126); Anion Gap 8 mmol/L; Blood Urea Nitrogen 25 mg/dL (7-17); Calcium 9.6 mg/dL (8.4-10.2); Carbon Dioxide 26 mmol/L (22-30); Chloride 99 mmol/L (98-107); Glucose 215 mg/dL (74-99); Non-African American GFR(CKD) 80 (>60 ml/min/1.73 sqM); Sodium 133 mmol/L (137-145); Total Bilirubin 0.4 mg/dL (0.2-1.3); Total Protein 6.5 g/dL (6.3-8.2)
[2020-04-23 19:16] LABS: Prothrombin Time 10.3 sec (9.0-12.0)
[2020-04-23 19:22] LABS: Basophils # (A) 0.1 k/uL (0-0.2); Basophils % (A) 1 %; Eosinophils # (A) 0.1 k/uL (0-0.7); Eosinophils % (A) 1 %; HCT 40.1 % (34.0-46.0); HGB 13.7 gm/dL (11.4-16.0); Lymphocytes # (A) 2.5 k/uL (1.0-4.8); Lymphocytes % (A) 26 %; MCH 28.9 pg (25.0-35.0); MCHC 34.2 g/dL (31.0-37.0); MCV 84.7 fL (80.0-100.0); Mean Platelet Volume 7.4; Monocytes # (A) 0.5 k/uL (0-1.0); Monocytes % (A) 5 %; Neutrophils # (A) 6.3 k/uL (1.3-7.7); Neutrophils % (A) 66 %; Platelet Count 314 k/uL (150-450); RBC 4.73 m/uL (3.80-5.40); RDW 14.8 % (11.5-15.5); WBC 9.6 k/uL (3.8-10.6)
--- NOTE | 2020-04-23 19:29 | ED ---
Dizziness HPI - General Chief Complaint: Dizziness Stated Complaint: near syncope Time Seen by Provider: 04/23/20 17:55 Source: patient Mode of arrival: wheelchair Limitations: no limitations - History of Present Illness Initial Comments: 64-year-old female with multiple comorbid medical conditions who presents to the emergency department with multiple complaints. Patient reports to insomnia, reflux, nausea, diarrhea and a presyncopal episode. Patient reports that she has had diarrhea, approximately 4 episodes daily for the past several days. Tod ay she went to the bathroom and upon getting up from the toilet she had a sensation that she was going to pass out. Denies passing out. Her visual changes. No fevers or chills. No sick contacts similar symptoms. Denies any chest pain or shortness of breath. Patient does have a history of PEs and has been taking her Eliquis as directed. Denies any abdominal pain. No unilateral numbness or weakness. No other alleviating, precipitating or modifying factors - Related Data Home Medications Medication Instructions Recorded Confirmed DULoxetine HCL [Cymbalta] 120 mg PO DAILY 06/19/14 11/26/19 Montelukast [Singulair] 10 mg PO HS 06/19/14 11/26/19 Apixaban [Eliquis] 5 mg PO BID 03/19/17 11/26/19 ALPRAZolam [Xanax] 0.5 mg PO BID 06/05/19 11/26/19 Acetaminophen Tab [Tylenol] 1,000 mg PO DAILY 06/05/19 11/26/19 Carbidopa-Levodopa 25-100 mg 1 tab PO BID@0900,1500 06/05/19 11/26/19 [Sinemet 25-100 mg] INSULIN LISPRO (HumaLOG) [humaLOG] See Protocol SQ ACHS 06/05/19 11/26/19 Lisinopril [Prinivil] 10 mg PO BID 06/05/19 11/26/19 OLANZapine [ZyPREXA] 30 mg PO HS 06/05/19 11/26/19 Atorvastatin [Lipitor] 20 mg PO HS 11/27/19 11/27/19 Previous Rx's Medication Instructions Recorded Budesonide-Formot 160-4.5 Mcg 2 puff INHALATION RT-BID #1 puff 03/24/18 [Symbicort 160-4.5 Mcg Inhaler] Metoprolol Tartrate [Lopressor] 50 mg PO BID #60 tab 03/24/18 Ipratropium-Albuterol Nebulize 3 ml INHALATION RT-QID ampul.neb 10/30/18 [Duoneb 0.5 mg-3 mg/3 ml Soln] Ipratropium-Albuterol Nebulize 3 ml INHALATION RT-Q2H PRN ml 06/07/19 [Duoneb 0.5 mg-3 mg/3 ml Soln] Doxycycline [Vibramycin] 100 mg PO BID 7 Days #14 capsule 11/27/19 amLODIPine [Norvasc] 5 mg PO DAILY #30 tab 11/27/19 Omeprazole [PriLOSEC] 20 mg PO AC-BRKFST #14 cap 04/23/20 Melatonin 5 mg PO HS PRN #20 tablet 04/24/20 Allergies Allergy/AdvReac Type Severity Reaction Status Date / Time No Known Allergies Allergy Verified 04/23/20 17:59 Review of Systems ROS Statement: Those systems with pertinent positive or pertinent negative responses have been documented in the HPI. ROS Other: All systems not noted in ROS Statement are negative. Past Medical History Past Medical History: Asthma, Cancer, COPD, CVA/TIA, Diabetes Mellitus, Fibromyalgia, Hyperlipidemia, Hypertension, Musculoskeletal Disorder, Neurologic Disorder, Osteoarthritis (OA), Pulmonary Embolus (PE), Skin Disorder Additional Past Medical History / Comment(s): 3 PEs-involved bilateral lungs, CVA with some increased memory problems, NIDDM type II, neuropathy bilateral legs/feet, migraines, chronic low back pain, skin cancer removed from nose, urinary incontinence at times, lately stool loose and has some incontinence of stool. parkinsons History of Any Multi-Drug Resistant Organisms: None Reported Past Surgical History: Back Surgery, Cholecystectomy, Hysterectomy, Joint Replacement, Orthopedic Surgery Additional Past Surgical History / Comment(s): Back pain stimulator implant lumbar cataract removals, 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 Past Anesthesia/Blood Transfusion Reactions: No Reported Reaction Additional Past Anesthesia/Blood Transfusion Reaction / Comment(s): no hx blood transfusion Past Psychological History: Schizophrenia Smoking Status: Former smoker Past Alcohol Use History: None Reported Past Drug Use History: None Reported - Past Family History Mother History Unknown: Yes Family Medical History: COPD Additional Family Medical History / Comment(s): Mother at the age of 78yrs. Father History Unknown: Yes Family Medical History: Myocardial Infarction (MT) Additional Family Medical History / Comment(s): Father of a massive MT at the age of 50 yrs. Pt is not sure if schrapnel may have moved to his heart-he had injury in WWII. Sister(s) Family Medical History: Cancer General Exam Limitations: no limitations General appearance: alert, in no apparent distress, other (resting tremor) Head exam: Present: atraumatic, normocephalic, normal inspection Eye exam: Present: normal appearance, PERRL, EOMI. Absent: scleral icterus, conjunctival injection, periorbital swelling ENT exam: Present: normal exam, mucous membranes moist Neck exam: Present: normal inspection. Absent: tenderness, meningismus, lymphadenopathy Respiratory exam: Present: normal lung sounds bilaterally. Absent: respiratory distress, wheezes, rales, rhonchi, stridor Cardiovascular Exam: Present: regular rate, normal rhythm, normal heart sounds. Absent: systolic murmur, diastolic murmur, rubs, gallop, clicks GI/Abdominal exam: Present: soft, normal bowel sounds. Absent: distended, tenderness, guarding, rebound, rigid Extremities exam: Present: normal inspection, full ROM, normal capillary refill. Absent: tenderness, pedal edema, joint swelling, calf tenderness Back exam: Present: normal inspection Neurological exam: Present: alert, oriented X3, CN II-XII intact Psychiatric exam: Present: normal affect, normal mood Skin exam: Present: warm, dry, intact, normal color. Absent: rash Course Vital Signs 04/23/20 04/23/20 04/23/20 17:55 19:26 20:50 Temperature 98.3 F Pulse Rate 86 82 91 Respiratory 20 18 16 Rate Blood Pressure 198/102 156/90 154/84 O2 Sat by Pulse 95 96 96 Oximetry 04/23/20 21:50 Temperature 97.9 F Pulse Rate 88 Respiratory 16 Rate Blood Pressure 141/88 O2 Sat by Pulse 97 Oximetry EKG Findings - EKG Comments: EKG Findings:: EKG demonstrates sinus tachycardia with a ventricular rate of 107. KS interval 154. QRS 72. QTC of 475. No acute ST segment elevations or depressions. Significant baseline artifact due to patient movement Medical Decision Making - Medical Decision Making Upon arrival patient is placed into room 28. A thorough history and physical exam was performed. Patient hooked up to continuous pulse ox and cardiac monitoring. 12-lead EKG is performed. Laboratory studies are conducted. Patient provided a urine sample. She was given 500 bolus of normal saline and sent for chest x-ray. Patient negative for Covan. Laboratory studies are rev iewed. Chest x-ray is clear. Blood pressure does improve throughout stay. Discuss results with the patient. Discussed diagnosis, differential treatment options. Patient does feel comfortable with discharge at this time and will call Dr. Hartley on Sunday to make an appointment. I will send him up results as she is out of this medication to the pharmacy. Patient also prescribed melatonin. She is to return to the emergency room for any new or worsening symptoms. patient was discharged home in stable condition - Lab Data Result diagrams: 04/23/20 18:53 04/23/20 18:53 Lab Results 04/23/20 04/23/20 04/23/20 Range/Units 18:53 18:53 18:53 WBC 9.6 (3.8-10.6) k/uL RBC 4.73 (3.80-5.40) m/uL Hgb 13.7 (11.4-16.0) gm/dL Hct 40.1 (34.0-46.0) % MCV 84.7 (80.0-100.0) fL MCH 28.9 (25.0-35.0) pg MCHC 34.2 (31.0-37.0) g/dL RDW 14.8 (11.5-15.5) % Plt Count 314 (150-450) k/uL MPV 7.4 Neutrophils % 66 % Lymphocytes % 26 % Monocytes % 5 % Eosinophils % 1 % Basophils % 1 % Neutrophils # 6.3 (1.3-7.7) k/uL Lymphocytes # 2.5 (1.0-4.8) k/uL Monocytes # 0.5 (0-1.0) k/uL Eosinophils # 0.1 (0-0.7) k/uL Basophils # 0.1 (0-0.2) k/uL PT 10.3 (9.0-12.0) sec INR 1.0 (<1.2) Sodium 133 L (137-145) mmol/L Potassium 4.0 (3.5-5.1) mmol/L Chloride 99 (98-107) mmol/L Carbon Dioxide 26 (22-30) mmol/L Anion Gap 8 mmol/L BUN 25 H (7-17) mg/dL Creatinine 0.78 (0.52-1.04) mg/dL Est GFR (CKD-EPI)AfAm >90 (>60 ml/min/1.73 sqM) Est GFR (CKD-EPI)NonAf 80 (>60 ml/min/1.73 sqM) Glucose 215 H (74-99) mg/dL Calcium 9.6 (8.4-10.2) mg/dL Total Bilirubin 0.4 (0.2-1.3) mg/dL AST 32 (14-36) U/L ALT 27 (4-34) U/L Alkaline Phosphatase 98 (38-126) U/L Troponin I (0.000-0.034) ng/mL Total Protein 6.5 (6.3-8.2) g/dL Albumin 4.0 (3.5-5.0) g/dL Urine Color Urine Appearance (Clear) Urine pH (5.0-8.0) Ur Specific [place] (1.001-1.035) Urine Protein (Negative) Urine Glucose (UA) (Negative) Urine Ketones (Negative) Urine Blood (Negative) Urine Nitrite (Negative) Urine Bilirubin (Negative) Urine Urobilinogen (<2.0) mg/dL Ur Leukocyte Esterase (Negative) Urine RBC (0-5) /hpf Urine WBC (0-5) /hpf Ur Squamous Epith Cells (0-4) /hpf Coronavirus (PCR) (Not Detectd) 04/23/20 04/23/20 04/23/20 Range/Units 18:53 19:24 20:19 WBC (3.8-10.6) k/uL RBC (3.80-5.40) m/uL Hgb (11.4-16.0) gm/dL Hct (34.0-46.0) % MCV (80.0-100.0) fL MCH (25.0-35.0) pg MCHC (31.0-37.0) g/dL RDW (11.5-15.5) % Plt Count (150-450) k/uL MPV Neutrophils % % Lymphocytes % % Monocytes % % Eosinophils % % Basophils % % Neutrophils # (1.3-7.7) k/uL Lymphocytes # (1.0-4.8) k/uL Monocytes # (0-1.0) k/uL Eosinophils # (0-0.7) k/uL Basophils # (0-0.2) k/uL PT (9.0-12.0) sec INR (<1.2) Sodium (137-145) mmol/L Potassium (3.5-5.1) mmol/L Chloride (98-107) mmol/L Carbon Dioxide (22-30) mmol/L Anion Gap mmol/L BUN (7-17) mg/dL Creatinine (0.52-1.04) mg/dL Est GFR (CKD-EPI)AfAm (>60 ml/min/1.73 sqM) Est GFR (CKD-EPI)NonAf (>60 ml/min/1.73 sqM) Glucose (74-99) mg/dL Calcium (8.4-10.2) mg/dL Total Bilirubin (0.2-1.3) mg/dL AST (14-36) U/L ALT (4-34) U/L Alkaline Phosphatase (38-126) U/L Troponin I 0.015 (0.000-0.034) ng/mL Total Protein (6.3-8.2) g/dL Albumin (3.5-5.0) g/dL Urine Color Yellow Urine Appearance Clear (Clear) Urine pH 5.0 (5.0-8.0) Ur Specific [place] 1.016 (1.001-1.035) Urine Protein Negative (Negative) Urine Glucose (UA) Negative (Negative) Urine Ketones Negative (Negative) Urine Blood Negative (Negative) Urine Nitrite Negative (Negative) Urine Bilirubin Negative (Negative) Urine Urobilinogen <2.0 (<2.0) mg/dL Ur Leukocyte Esterase Small H (Negative) Urine RBC 1 (0-5) /hpf Urine WBC 1 (0-5) /hpf Ur Squamous Epith Cells 1 (0-4) /hpf Coronavirus (PCR) Not Detected (Not Detectd) Disposition Clinical Impression: Dehydration, Pre-syncope, Diarrhea Disposition: HOME SELF-CARE Condition: Stable Instructions (If sedation given, give patient instructions): Acute Diarrhea (ED), Near Syncope (ED) Additional Instructions: Please call Dr. Hartley on Sunday to make an appointment. Return to the emergency room for any new or worsening symptoms Prescriptions: Melatonin 5 mg PO HS PRN #20 tablet PRN Reason: Insomnia Omeprazole [PriLOSEC] 20 mg PO AC-BRKFST #14 cap Is patient prescribed a controlled substance at d/c from ED?: No Referrals: Farzad Hartley MD [Primary Care Provider] - 1-2 days Time of Disposition: 21:29
--- NOTE | 2020-04-23 19:35 | XR ---
EXAMINATION TYPE: XR chest 2V DATE OF EXAM: 04/23/2020 COMPARISON: 11/26/2019 HISTORY: Syncope TECHNIQUE: FINDINGS: There is no heart failure nor confluent pneumonic infiltrate. Thoracic aorta is atheromatou s. There is no pleural effusion. There is neural stimulator in the thoracic spine. There is mild aneu rysm of the aortic arch. Thoracic spine is intact. IMPRESSION: No active cardiopulmonary disease. No change.
[2020-04-23 20:38] LABS: Appearance,Urine Clear (Clear); Bilirubin,Urine Negative (Negative); Blood,Urine Negative (Negative); Color,Urine Yellow; Glucose,Urine (UA) Negative (Negative); Ketones,Urine Negative (Negative); Leukocyte Esterase,Urine Small (Negative); Nitrite,Urine Negative (Negative); Protein,Urine Negative (Negative); RBC,Urine 1 /hpf (0-5); Specific Gravity,Urine 1.016 (1.001-1.035); Squamous Epithelial Cell,Urine 1 /hpf (0-4); Urobilinogen,Urine <2.0 mg/dL (<2.0); WBC,Urine 1 /hpf (0-5)
[2020-04-23 22:02] VITALS: RESP 16
[2020-04-23 22:04] VITALS: BP 141/88; PULSE 88; TEMP 97.9
== END 2020-04-23 21:50 | disposition home or self-care (01) ==
LOC: EC 17:53
DX: E86.0 Dehydration (principal); R55 Syncope and collapse; R19.7 Diarrhea, unspecified; E11.36 Type 2 diabetes mellitus with diabetic cataract; E78.5 Hyperlipidemia, unspecified; I10 Essential (primary) hypertension; K21.9 Gastro-esophageal reflux disease without esophagitis; Z79.4 Long term (current) use of insulin; Z79.51 Long term (current) use of inhaled steroids; Z86.711 Personal history of pulmonary embolism; Z86.73 Personal history of transient ischemic attack (TIA), and cerebral infarction without residual deficits; Z87.891 Personal history of nicotine dependence; Z79.01 Long term (current) use of anticoagulants; Z20.822 Contact with and (suspected) exposure to COVID-19; Z79.899 Other long term (current) drug therapy
CPT/HCPCS: 36415; 71046; 80053; 81001; 84484; 85025; 85610; 87635; 93005; 99284

== ENCOUNTER → 2020-06-07 | Outpatient (CLI) | payer BC, MEDICARE ==
--- NOTE | 2020-06-07 14:27 | XR ---
EXAMINATION TYPE: XR foot complete LT DATE OF EXAM: 06/07/2020 Comparison: None Clinical History: 64-year-old female M79.672 Findings: Mortons toe. Prominent enthesopathy at the base of the fifth metatarsal. No acute fracture, subluxati on, dislocation. Impression: Prominent enthesopathy at the base of the fifth metatarsal. Findings could reflect underlying peroneu s brevis insertional tendinopathy. Archer's toe. No acute osseous abnormality seen.
== END | disposition home or self-care (01) ==
LOC: RADXRMAIN 13:58
PROVIDERS: ATTEND Family Medicine
DX: M77.8 Other enthesopathies, not elsewhere classified (principal)

== ENCOUNTER 2020-07-22 14:28 | Observation (INO) | payer BC, MEDICARE ==
[2020-07-22] MEDS ORDERED: ASPIRIN 81 MG PO STA (15:18)
[2020-07-22] MEDS ORDERED: MORPHINE SULFATE 2 MG/ML SYRINGE IVP ONE (15:19)
--- NOTE | 2020-07-22 15:42 | ED ---
Chest Pain HPI - General Chief Complaint: Chest Pain Stated Complaint: Chest pain,dizzy Time Seen by Provider: 07/22/20 15:10 Source: patient Mode of arrival: wheelchair Limitations: no limitations - History of Present Illness Initial Comments: Patient is a 64-year-old female with multiple comorbidities including COPD, diabetes, history of PEs, on eliquis, presenting to the emergency Department with complaints of some increased shortness of breath and chest pain that started this morning. Patient doesn't history of COPD, she is not on home oxygen. She states she woke up this morning feeling more short of breath than usual, she also felt a little dizziness. Along with this shortness of breath she is having anterior chest pains. She states the pains have been pretty constant, currently rates it as 7/10. She denies history of heart disease. She denies any nausea or vomiting, no fevers or chills, no increasing coughing. She denies any further complaints at this time. Upon arrival to the ER, she has tachycardia at 1:15, 94% on room air, afebrile. - Related Data Home Medications Medication Instructions Recorded Confirmed DULoxetine HCL [Cymbalta] 120 mg PO DAILY 06/19/14 07/22/20 Montelukast [Singulair] 10 mg PO HS 06/19/14 07/22/20 Apixaban [Eliquis] 5 mg PO BID 03/19/17 07/22/20 Carbidopa-Levodopa 25-100 mg 1 tab PO TID 06/05/19 07/22/20 [Sinemet 25-100 mg] INSULIN LISPRO (HumaLOG) [humaLOG] See Protocol SQ ACHS PRN 06/05/19 07/22/20 Atorvastatin [Lipitor] 20 mg PO HS 11/27/19 07/22/20 OLANZapine 20 mg PO HS 07/22/20 07/22/20 Pantoprazole Sodium [Protonix] 40 mg PO DAILY 07/22/20 07/22/20 Sucralfate [Carafate] 1 gm PO QID 07/22/20 07/22/20 Previous Rx's Medication Instructions Recorded Ipratropium-Albuterol Nebulize 3 ml INHALATION RT-QID ampul.neb 10/30/18 [Duoneb 0.5 mg-3 mg/3 ml Soln] Melatonin 5 mg PO HS PRN #20 tablet 04/24/20 Allergies Allergy/AdvReac Type Severity Reaction Status Date / Time No Known Allergies Allergy Verified 07/22/20 16:17 Review of Systems ROS Statement: Those systems with pertinent positive or pertinent negative responses have been documented in the HPI. ROS Other: All systems not noted in ROS Statement are negative. EKG Findings - EKG Comments: EKG Findings:: Poor data quality, sinus tachycardia, possible left atrial enlargement, left axis deviation, left ventricular hypertrophy, no signs of acute ischemia. Ventricular rate 112, VT interval 148, QT 348. Similar to previous on 04/23/2020. Past Medical History Past Medical History: Asthma, Cancer, COPD, CVA/TIA, Diabetes Mellitus, Fibromyalgia, Hyperlipidemia, Hypertension, Musculoskeletal Disorder, Neurologic Disorder, Osteoarthritis (OA), Pulmonary Embolus (PE), Skin Disorder Additional Past Medical History / Comment(s): 3 PEs-involved bilateral lungs, CVA with some increased memory problems, NIDDM type II, neuropathy bilateral legs/feet, migraines, chronic low back pain, skin cancer removed from nose, urinary incontinence at times, lately stool loose and has some incontinence of s tool. parkinsons History of Any Multi-Drug Resistant Organisms: None Reported Past Surgical History: Back Surgery, Cholecystectomy, Hysterectomy, Joint Replacement, Orthopedic Surgery Additional Past Surgical History / Comment(s): Back pain stimulator implant lumbar cataract removals, 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 Past Anesthesia/Blood Transfusion Reactions: No Reported Reaction Additional Past Anesthesia/Blood Transfusion Reaction / Comment(s): no hx blood transfusion Past Psychological History: Schizophrenia Smoking Status: Former smoker Past Alcohol Use History: None Reported Past Drug Use History: None Reported - Past Family History Mother History Unknown: Yes Family Medical History: COPD Additional Family Medical History / Comment(s): Mother at the age of 78yrs. Father History Unknown: Yes Family Medical History: Myocardial Infarction ([place]) Additional Family Medical History / Comment(s): Father of a massive [place] at the age of 50 yrs. Pt is not sure if ovidio may have moved to his heart-he had injury in WWII. Sister(s) Family Medical History: Cancer General Exam - General Exam Comments Initial Comments: GENERAL: Patient is well-developed and well-nourished. Patient is nontoxic and in mild distress. HEAD: Atraumatic, normocephalic. EYES: Pupils equal round and reactive to light, extraocular movements intact, sclera anicteric, conjunctiva are normal. Eyelids were unremarkable. ENT: TMs normal, nares patent, oropharynx clear without exudates. Moist mucous membranes. NECK: Normal range of motion, supple without lymphadenopathy or JVD. LUNGS: Unlabored respirations. Breath sounds clear to auscultation bilaterally and equal. No wheezes rales or rhonchi. HEART: Tachycardia rate and rhythm without murmurs, rubs or gallops. ABDOMEN: Soft, nontender, normoactive bowel sounds. No guarding, no rebound. No masses appreciated. : Deferred MUSCULOSKELETAL: Normal extremities with adequate strength and normal range of motion, no pitting or edema. No clubbing or cyanosis. NEUROLOGICAL: Patient is alert and oriented x 3. Motor and sensory are also intact. Cranial nerves II through XII grossly intact. Symmetrical smile. Normal speech, normal gait. Patient has history of Parkinson's, tremors present. PSYCH: Normal mood, normal affect. SKIN: Warm, Dry, normal turgor, no rashes or lesions noted. Limitations: no limitations Course Vital Signs 07/22/20 07/22/20 07/22/20 14:34 15:19 16:28 Temperature 98.5 F Pulse Rate 115 H 111 H 104 H Respiratory 18 20 Rate Blood Pressure 140/90 161/114 O2 Sat by Pulse 94 L 95 Oximetry 07/22/20 07/22/20 07/22/20 16:39 18:16 19:34 Temperature Pulse Rate 102 H 106 H 109 H Respiratory 20 18 Rate Blood Pressure 153/119 138/120 O2 Sat by Pulse 96 95 Oximetry 07/22/20 07/22/20 20:09 20:40 Temperature Pulse Rate 106 H 105 H Respiratory 18 18 Rate Blood Pressure 129/106 139/102 O2 Sat by Pulse 94 L 94 L Oximetry Chest Pain [facility] Patient is a 64-year-old female, with history of multiple comorbidities, presenting with anterior chest pain, dyspnea that started this morning. Patient arrived tachycardic at 115, 94% on room air. Initial lab work is normal, tropon in is normal, BNP is 115. EKG shows no signs of acute ischemia, chest x-ray is normal. Patient was placed on oxygen, she does report some mild improvement in her symptoms. Given patient's anterior chest discomfort, I recommended admission for serial troponins and cardiac consult. Patient was accepted by Dr. Stokes. I did add on a d-dimer per , this is pending. I will consult cardiology. Patient is in agreement with this plan of care. Case discussed with Dr. Garcia. Disposition Clinical Impression: Chest pain, Dyspnea Disposition: ADMITTED IP TO THIS HOSP Condition: Stable Decision Date: 07/22/20 Decision Time: 17:56
[2020-07-22 15:43] LABS: Basophils % (A) 0 %; Eosinophils # (A) 0.1 k/uL (0-0.7); Eosinophils % (A) 1 %; Lymphocytes # (A) 2.1 k/uL (1.0-4.8); Lymphocytes % (A) 23 %; MCH 28.5 pg (25.0-35.0); MCHC 33.3 g/dL (31.0-37.0); MCV 85.6 fL (80.0-100.0); Mean Platelet Volume 7.4; Monocytes # (A) 0.4 k/uL (0-1.0); Monocytes % (A) 5 %; Neutrophils # (A) 6.2 k/uL (1.3-7.7); Neutrophils % (A) 69 %; Platelet Count 280 k/uL (150-450); RDW 15.7 % (11.5-15.5)
[2020-07-22 15:47] LABS: INR 0.9 (<1.2); Partial Thromboplastin Time 22.1 sec (22.0-30.0)
[2020-07-22 15:51] LABS: ALT 9 U/L (4-34); AST 28 U/L (14-36); African American GFR (CKD) >90 (>60 ml/min/1.73 sqM); Albumin 4.3 g/dL (3.5-5.0); Alkaline Phosphatase 126 U/L (38-126); Anion Gap 10 mmol/L; Blood Urea Nitrogen 16 mg/dL (7-17); Calcium 9.7 mg/dL (8.4-10.2); Carbon Dioxide 29 mmol/L (22-30); Chloride 97 mmol/L (98-107); Glucose 189 mg/dL (74-99); Magnesium 1.8 mg/dL (1.6-2.3); Non-African American GFR(CKD) 88 (>60 ml/min/1.73 sqM); Potassium 4.2 mmol/L (3.5-5.1); Sodium 136 mmol/L (137-145); Total Bilirubin 0.3 mg/dL (0.2-1.3); Total Protein 6.7 g/dL (6.3-8.2)
[2020-07-22] MEDS ORDERED: IPRATROPIUM-ALBUTEROL 3 ML NEB INHALATION STA (16:17)
--- NOTE | 2020-07-22 16:19 | XR ---
EXAMINATION TYPE: XR chest 2V DATE OF EXAM: 07/22/2020 COMPARISON: 04/23/2020 TECHNIQUE: PA and lateral views submitted. HISTORY: Syncope FINDINGS: The lungs are clear and there is no pneumothorax, pleural effusion, or focal pneumonia. Heart size normal. There appears to be a catheter overlying the thoracic spine. No overt failure. Hypertrophic c hanges of the spine. IMPRESSION: 1. No acute process.
[2020-07-22] MEDS ORDERED: hydrALAZINE HCL 10 MG TAB PO STA (19:45)
[2020-07-22] MEDS: ACETAMINOPHEN TAB 325 MG TAB PO PRN (20:40)
[2020-07-22] MEDS: SODIUM CHLORIDE 0.9% 1,000 ML IV STA (22:40)
[2020-07-23] MEDS ORDERED: hydrALAZINE HCL 25 MG TAB PO STA ×2 (00:39→15:54)
[2020-07-23] MEDS: lisinopriL 5 MG TAB PO SCH ×2 (00:57→12:47)
[2020-07-23] MEDS ORDERED: ASPIRIN 325 MG TAB PO SCH (09:00)
[2020-07-23] MEDS ORDERED: MELATONIN 5 MG TABLET PO PRN (10:49)
[2020-07-23] MEDS: SODIUM CHLORIDE 0.9% 1,000 ML IV STA (10:59)
--- NOTE | 2020-07-23 11:47 | CT ---
EXAMINATION TYPE: CT angio chest DATE OF EXAM: 07/23/2020 11:35 AM COMPARISON: Chest CT December 04, 2013 HISTORY: Chest pain CT DLP: 463.4 mGycm Automated exposure control for dose reduction was used. CONTRAST: CTA scan of the thorax is performed with IV Contrast, patient injected with 76 mL of Isovue 370, pulm onary embolism protocol. MIP images are created and reviewed. FINDINGS: LUNGS: Mild underlying emphysematous change. Focal mild linear scarring in the lingula on axial image 89. No suspicious focal consolidation or groundglass opacity. No concerning pulmonary nodules or mas ses. No pleural effusion or pneumothorax seen. MEDIASTINUM: There is suboptimal bolus with heterogeneity and poor opacification but no convincing CT evidence for acute pulmonary embolism. There are no greater than 1 cm hilar or mediastinal lymph no gallito. No is cardiomegaly or pericardial effusion is seen. Calcification at level of the mitral valve . Coronary artery calcification is present, noted marked of underlying coronary artery disease. OTHER: Liver is diffusely low dense consistent with fatty infiltration. Hepatomegaly suspected. IMPRESSION: Suboptimal study without acute pulmonary embolism. No acute pulmonary process.
[2020-07-23 12:04] LABS: Glucose,Whole Blood 161 mg/dL (75-99)
[2020-07-23] MEDS: CARBIDOPA-LEVODOPA 25-100 MG 1 EACH TAB PO SCH ×3 (12:21→20:34)
[2020-07-23] MEDS: DULoxetine HCL 60 MG CAPSULE.DR PO SCH (12:21)
[2020-07-23] MEDS: PANTOPRAZOLE 40 MG TABLET PO SCH (12:21)
--- NOTE | 2020-07-23 12:40 | P.CRDCN ---
History of Present Illness History of present illness: HISTORY OF PRESENTING ILLNESS This is a pleasant 64-year-old female past medical history significant for history of bilateral PEs, diabetes mellitus, hypertension, dyslipidemia, CO PD, neuropathy and fibromyalgia. 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 We have been asked to see in consultation for chest pain. She states yesterday morning she woke up with an achy sensation in the left precordial region that was exacerbated by deep breathing. At times she would have sharp pains and it was also associated with feeling lightheaded. The pain persisted all day with no specific alleviating factor. At the time of my exam she continues to have ongoing discomfort which is less intense than it was yesterday however during my examination when asking her to take a deep breath the pain worsened. She denies any significant shortness of breath, nausea, vomiting or diaphoresis. According to her who does her medications she has been out of Eliquis for the previous 4-5 days and has had a difficult time getting a refill. She underwent cardiac catheterization May [address] Greene revealing a lesion in the midportion of the LAD after the diagonal branch of 35%. No significant disease noted in the RCA, left main or circumflex artery. Most recent echocardiogram obtained May 2019 revealed preserved LV systolic function with ejection fraction 55-60%, mild mitral regurgitation, mild to moderate mitral stenosis and mild tricuspid regurgitation. DIAGNOSTICS EKG reveals sinus tachycardia heart rate of 112, left axis deviation and nonspecific abnormalities in the septal leads. Telemetry tracings indicate sinus mechanism with no acute arrhythmia. Chest xray negative for an acute cardiopulmonary process. Laboratory reviewed, CBC unremarkable, d-dimer 0.61, sodium 136, potassium 4.2, creatinine 0.72, magnesium 1.8, cardiac enzymes negative 3, NT proBNP 115. Current cardiac medications include Eliquis 5 mg twice a day and atorvastatin 20 mg at bedtime. REVIEW OF SYSTEMS At the time of my exam: CONSTITUTIONAL: Denies fever or chills. CARDIOVASCULAR: Complains of pleuritic chest pain. Denies shortness of breath, orthopnea, PND or palpitations. RESPIRATORY: Denies cough. GASTROINTESTINAL: Denies abdominal pain, diarrhea, constipation, nausea or vomiting. MUSCULOSKELETAL: Denies myalgias. NEUROLOGIC: Denies numbness, tingling, headacbe or weakness. ENDOCRINE: Denies fatigue, weight change, polydipsia or polyurina. GENITOURINARY: Denies burning, hematuria or urgency with micturation. HEMATOLOGIC: Denies history of anemia or bleeding. PHYSICAL EXAMINATION Blood pressure 123/95 heart rate 94 afebrile and maintaining oxygen saturation on room air. CONSTITUTIONAL: No apparent distress. HEENT: Head is normocephalic. Pupils are equal, round. Sclerae anicteric. Mucous membranes of the mouth are moist. No JVD. No carotid bruit. CHEST EXAMINATION: Lungs are clear to auscultation. Left anterior chest wall discomfort noted with deep inspiration. No chest wall tenderness is noted on palpation. HEART EXAMINATION: Regular rate and rhythm. S1, S2 heard. No murmurs, gallops or rub. ABDOMEN: Soft, nontender. Positive bowel sounds. EXTREMITIES: 2+ peripheral pulses, no lower extremity edema and no calf tenderness. NEUROLOGIC EXAMINATION: Patient is awake, alert and oriented x3. ASSESSMENT Pleuritic chest pain History of bilateral PE Dyslipidemia Diabetes mellitus PLAN An acute coronary event has been ruled out. Pain is pleuritic in nature and not suggestive of angina. Obtain CT of the chest to rule out PE. Obtain 2-D echocardiogram and Doppler study to assess cardiac structure and function. Decrease aspirin to 81 mg daily and resume atorvastatin as previously ordered. Thank you kindly for this consultation. Nurse Practitioner note has been reviewed, I agree with a documented findings and plan of care. Patient was seen and examined. Past Medical History Past Medical History: Asthma, Cancer, COPD, CVA/TIA, Diabetes Mellitus, Fibromyalgia, Hyperlipidemia, Hypertension, Musculoskeletal Disorder, Neurologic Disorder, Osteoarthritis (OA), Pulmonary Embolus (PE), Skin Disorder Additional Past Medical History / Comment(s): 3 PEs-involved bilateral lungs, CVA with some increased memory problems, NIDDM type II, neuropathy bilateral legs/feet, migraines, chronic low back pain, skin cancer removed from nose, urinary incontinence at times, lately stool loose and has some incontinence of stool. parkinsons History of Any Multi-Drug Resistant Organisms: None Reported Past Surgical History: Back Surgery, Cholecystectomy, Hysterectomy, Joint Replacement, Orthopedic Surgery Additional Past Surgical History / Comment(s): Back pain stimulator implant lumbar cataract removals, 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 Past Anesthesia/Blood Transfusion Reactions: No Reported Reaction Additional Past Anesthesia/Blood Transfusion Reaction / Comment(s): no hx blood transfusion Past Psychological History: Schizophrenia Smoking Status: Former smoker Past Alcohol Use History: None Reported Past Drug Use History: None Reported - Past Family History Mother History Unknown: Yes Family Medical History: COPD Additional Family Medical History / Comment(s): Mother at the age of 78yrs. Father History Unknown: Yes Family Medical History: Myocardial Infarction ([place]) Additional Family Medical History / Comment(s): Father of a massive [place] at the age of 50 yrs. Pt is not sure if ovidio may have moved to his heart-he had injury in WWII. Sister(s) Family Medical History: Cancer Medications and Allergies Home Medications Medication Instructions Recorded Confirmed Type DULoxetine HCL [Cymbalta] 120 mg PO DAILY 06/19/14 07/22/20 History Montelukast [Singulair] 10 mg PO HS 06/19/14 07/22/20 History Apixaban [Eliquis] 5 mg PO BID 03/19/17 07/22/20 History Ipratropium-Albuterol Nebulize 3 ml INHALATION RT-QID ampul.neb 10/30/18 07/22/20 Rx [Duoneb 0.5 mg-3 mg/3 ml Soln] Carbidopa-Levodopa 25-100 mg 1 tab PO TID 06/05/19 07/22/20 History [Sinemet 25-100 mg] INSULIN LISPRO (HumaLOG) [humaLOG] See Protocol SQ ACHS PRN 06/05/19 07/22/20 History Atorvastatin [Lipitor] 20 mg PO HS 11/27/19 07/22/20 History Melatonin 5 mg PO HS PRN #20 tablet 04/24/20 07/22/20 Rx OLANZapine 20 mg PO HS 07/22/20 07/22/20 History Pantoprazole Sodium [Protonix] 40 mg PO DAILY 07/22/20 07/22/20 History Sucralfate [Carafate] 1 gm PO QID 07/22/20 07/22/20 History Allergies Allergy/AdvReac Type Severity Reaction Status Date / Time No Known Allergies Allergy Verified 07/22/20 16:17 Physical Exam Vitals: Vital Signs Temp Pulse Pulse Resp BP BP Pulse Ox 07/23/20 07:38 98 F 94 18 123/95 96 06/04/21 07:00 97.9 F 100 16 156/99 95 07/23/20 06:00 98.1 F 91 18 151/119 95 07/23/20 05:00 91 18 142/95 97 07/23/20 04:00 88 18 134/98 97 07/23/20 03:00 89 18 138/101 97 07/23/20 02:47 77 18 132/82 95 07/23/20 02:00 76 18 138/105 95 07/23/20 01:00 77 18 134/114 97 07/23/20 00:00 98.7 F 102 H 18 128/105 95 07/22/20 22:00 104 H 18 143/113 93 L 07/22/20 20:40 105 H 18 139/102 94 L 07/22/20 20:09 106 H 18 129/106 94 L 07/22/20 19:34 109 H 18 138/120 95 07/22/20 18:16 106 H 20 153/119 96 07/22/20 16:39 102 H 07/22/20 16:28 104 H 07/22/20 15:19 111 H 20 161/114 95 07/22/20 14:34 98.5 F 115 H 18 140/90 94 L Results 07/22/20 15:34 07/22/20 15:34 Cardiac Enzymes 07/22/20 07/22/20 07/22/20 Range/Units 15:25 15:34 18:14 AST 28 (14-36) U/L Troponin I <0.012 <0.012 (0.000-0.034) ng/mL 07/22/20 Range/Units 21:00 AST (14-36) U/L Troponin I 0.012 (0.000-0.034) ng/mL Coagulation 07/22/20 Range/Units 15:34 PT 10.0 (9.0-12.0) sec APTT 22.1 (22.0-30.0) sec CBC 07/22/20 Range/Units 15:34 WBC 9.0 (3.8-10.6) k/uL RBC 4.90 (3.80-5.40) m/uL Hgb 14.0 (11.4-16.0) gm/dL Hct 42.0 (34.0-46.0) % Plt Count 280 (150-450) k/uL Comprehensive Metabolic Panel 07/22/20 Range/Units 15:34 Sodium 136 L (137-145) mmol/L Potassium 4.2 (3.5-5.1) mmol/L Chloride 97 L (98-107) mmol/L Carbon Dioxide 29 (22-30) mmol/L BUN 16 (7-17) mg/dL Creatinine 0.72 (0.52-1.04) mg/dL Glucose 189 H (74-99) mg/dL Calcium 9.7 (8.4-10.2) mg/dL AST 28 (14-36) U/L ALT 9 (4-34) U/L Alkaline Phosphatase 126 (38-126) U/L Total Protein 6.7 (6.3-8.2) g/dL Albumin 4.3 (3.5-5.0) g/dL Current Medications Generic Name Dose Route Start Last Admin Trade Name Freq PRN Reason Stop Dose Admin Acetaminophen 650 mg 07/22/20 17:54 07/22/20 20:40 Acetaminophen Tab 325 Mg Tab PO 650 mg Q4HR PRN Administration Pain Aspirin 325 mg 07/23/20 09:00 Aspirin 325 Mg Tab PO DAILY JUAN DAVID Sodium Chloride 1,000 mls @ 75 mls/hr 07/22/20 22:37 07/22/20 22:40 Saline 0.9% IV 07/23/20 11:56 75 mls/hr .[id number] STA Administration Lisinopril 5 mg 07/23/20 00:45 07/23/20 00:57 Lisinopril 5 Mg Tab PO 5 mg Q12H JUAN DAVID Administration 07/22/20 15:34 07/22/20 15:34
[2020-07-23] MEDS: IPRATROPIUM-ALBUTEROL 3 ML NEB INHALATION SCH ×3 (12:45→20:53)
[2020-07-23] MEDS: INSULIN ASPART (NovoLOG) 100 UNIT/ML VIAL SQ SCH ×3 (12:47→20:31)
[2020-07-23] MEDS: SUCRALFATE 1 GM TAB PO SCH ×3 (12:47→20:32)
[2020-07-23 13:20] LABS: Chol/HDL Ratio 5.19
[2020-07-23 13:21] LABS: Appearance,Urine Clear (Clear); Bilirubin,Urine Negative (Negative); Blood,Urine Negative (Negative); Color,Urine Light Yellow; Glucose,Urine (UA) Negative (Negative); Ketones,Urine Negative (Negative); Leukocyte Esterase,Urine Moderate (Negative); Nitrite,Urine Negative (Negative); PH, Urine 6.5 (5.0-8.0); Protein,Urine Negative (Negative); RBC,Urine 2 /hpf (0-5); Squamous Epithelial Cell,Urine 3 /hpf (0-4); Urobilinogen,Urine <2.0 mg/dL (<2.0); WBC,Urine 3 /hpf (0-5)
[2020-07-23 13:31] LABS: Specific Gravity,Urine >1.050 (1.001-1.035)
--- NOTE | 2020-07-23 13:45 | ECHOF ---
Referral Reason:cp MEASUREMENTS -------- HEIGHT: 152.4 cm WEIGHT: 90.7 kg BP: 156/99 RVIDd: 3.3 cm (< 3.3) IVSd: 2.0 cm (0.6 - 1.1) LVIDd: 2.7 cm (3.9 - 5.3) LVPWd: 2.0 cm (0.6 - 1.1) IVSs: 2.2 cm LVIDs: 1.6 cm LVPWs: 2.5 cm LAESV Index (A-L): 27.83 ml/m Ao Diam: 3.7 cm (2.0 - 3.7) AV Cusp: 2.2 cm (1.5 - 2.6) MV E Jose: 0.80 m/s MV DecT: 90 ms MV A Jose: 1.77 m/s MV E/A Ratio: 0.45 FINDINGS -------- Sinus rhythm. This was a technically adequate study. The left ventricular size is normal. There is severe concentric left ventricular hypertrophy. Ove rall left ventricular systolic function is normal with, an EF between 55 - 60 %. The right ventricle is mildly enlarged. Normal LA size by volume 22+/-6 ml/m2. The right atrial size is normal. Interatrial and interventricular septum intact. There is no evidence of aortic regurgitation. There is no evidence of aortic stenosis. Mild mitral regurgitation is present. Mild tricuspid regurgitation present. There is no evidence of pulmonary hypertension. The right v entricular systolic pressure, as measured by Doppler, is {RVSP}. There is no pulmonic regurgitation present. The aortic root size is normal. IVC Not well visulized. There is no pericardial effusion. CONCLUSIONS -------- 1. The left ventricular size is normal. 2. There is severe concentric left ventricular hypertrophy. 3. Overall left ventricular systolic function is normal with, an EF between 55 - 60 %. 4. The right ventricle is mildly enlarged. 5. Mild mitral regurgitation is present. 6. Mild tricuspid regurgitation present. FIELD SERVICE REPRESENTATIVE: Marilou Johnson [facility]
--- NOTE | 2020-07-23 14:23 | P.HPIM ---
History of Present Illness H&P Date: 07/23/20 Chief Complaint: Chest pain History and Physical and Discharge Summary This is 64-year-old female with past medical history of multiple PEs,TIAs, anticoagulation via Eliquis, fibromyalgia, CAD with prior angioplasty and stenting, COPD, prior nicotine dependence, hypertension, hyperlipidemia, chronic asthma and multiple other medical issues presented to the ER with complaints of nonradiating midsternal chest pain, accompanied by increased shortness of breath, upon awakening yesterday and presented to the ER. Her at bedsid e reporting patient has been off of Eliquis 1 week, reports insurance company required reauthorization, notify office-but did not inform office that patient was out of Eliquis. (Similar occurrence one year ago-refer to visit 06/08). Denies nausea vomiting or diarrhea. Denies abdominal pain. Reports initially felt lightheaded, but that has resolved. Denies dizziness or focal deficits. Chronic Essential tremors present. Chest x-ray reporting no acute process, EKG reporting sinus tachycardia, left axis deviation, heart rate 112, possible septal abnormalities. Troponins negative 3. D-dimer 0.61, CTA ordered. Hematology/chemistry unremarkable. Triglycerides 260, cholesterol 140, LDL 61, HDL 27. Chronic virus not detected. Moderate leukocytes in UA, negative nitrates. Afebrile. On admission blood pressure 140/90, increased to 161/114 and received a dose of hydralazine. RANDOLPH inhibitor added to med regimen. Blood pressure currently 123/95 Review of Systems ROS Statement: Those systems with pertinent positive or pertinent negative responses have been documented in the HPI. ROS Other: All systems not noted in ROS Statement are negative. Past Medical History Past Medical History: Asthma, Cancer, COPD, CVA/TIA, Diabetes Mellitus, Fibromyalgia, Hyperlipidemia, Hypertension, Musculoskeletal Disorder, Neurologic Disorder, Osteoarthritis (OA), Pulmonary Embolus (PE), Skin Disorder Additional Past Medical History / Comment(s): 3 PEs-involved bilateral lungs, CVA with some increased memory problems, NIDDM type II, neuropathy bilateral legs/feet, migraines, chronic low back pain, skin cancer removed from nose, urinary incontinence at times, lately stool loose and has some incontinence of stool. parkinsons History of Any Multi-Drug Resistant Organisms: None Reported Past Surgical History: Back Surgery, Cholecystectomy, Hysterectomy, Joint Replacement, Orthopedic Surgery Additional Past Surgical History / Comment(s): Back pain stimulator implant lumbar cataract removals, 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 Past Anesthesia/Blood Transfusion Reactions: No Reported Reaction Additional Past Anesthesia/Blood Transfusion Reaction / Comment(s): no hx blood transfusion Past Psychological History: Schizophrenia Smoking Status: Former smoker Past Alcohol Use History: None Reported Past Drug Use History: None Reported - Past Family History Mother History Unknown: Yes Family Medical History: COPD Additional Family Medical History / Comment(s): Mother at the age of 78yrs. Father History Unknown: Yes Family Medical History: Myocardial Infarction ([place]) Additional Family Medical History / Comment(s): Father of a massive [place] at the age of 50 yrs. Pt is not sure if ovidio may have moved to his heart-he had injury in WWII. Sister(s) Family Medical History: Cancer Medications and Allergies Home Medications Medication Instructions Recorded Confirmed Type DULoxetine HCL [Cymbalta] 120 mg PO DAILY 06/19/14 07/22/20 History Montelukast [Singulair] 10 mg PO HS 06/19/14 07/22/20 History Apixaban [Eliquis] 5 mg PO BID 03/19/17 07/22/20 History Ipratropium-Albuterol Nebulize 3 ml INHALATION RT-QID ampul.neb 10/30/18 07/22/20 Rx [Duoneb 0.5 mg-3 mg/3 ml Soln] Carbidopa-Levodopa 25-100 mg 1 tab PO TID 06/05/19 07/22/20 History [Sinemet 25-100 mg] INSULIN LISPRO (HumaLOG) [humaLOG] See Protocol SQ ACHS PRN 06/05/19 07/22/20 History Atorvastatin [Lipitor] 20 mg PO HS 11/27/19 07/22/20 History Melatonin 5 mg PO HS PRN #20 tablet 04/24/20 07/22/20 Rx OLANZapine 20 mg PO HS 07/22/20 07/22/20 History Pantoprazole Sodium [Protonix] 40 mg PO DAILY 07/22/20 07/22/20 History Sucralfate [Carafate] 1 gm PO QID 07/22/20 07/22/20 History lisinopriL [Zestril] 5 mg PO Q12H #60 tab 07/23/20 Rx Allergies Allergy/AdvReac Type Severity Reaction Status Date / Time No Known Allergies Allergy Verified 07/22/20 16:17 Physical Exam Vitals: Vital Signs Temp Pulse Pulse Resp BP BP Pulse Ox 07/23/20 07:38 98 F 94 18 123/95 96 07/23/20 07:00 97.9 F 100 16 156/99 95 07/23/20 06:00 98.1 F 91 18 151/119 95 07/23/20 05:00 91 18 142/95 97 07/23/20 04:00 88 18 134/98 97 07/23/20 03:00 89 18 138/101 97 07/23/20 02:47 77 18 132/82 95 07/23/20 02:00 76 18 138/105 95 07/23/20 01:00 77 18 134/114 97 07/23/20 00:00 98.7 F 102 H 18 128/105 95 07/22/20 22:00 104 H 18 143/113 93 L 07/22/20 20:40 105 H 18 139/102 94 L 07/22/20 20:09 106 H 18 129/106 94 L 07/22/20 19:34 109 H 18 138/120 95 07/22/20 18:16 106 H 20 153/119 96 07/22/20 16:39 102 H 07/22/20 16:28 104 H 07/22/20 15:19 111 H 20 161/114 95 07/22/20 14:34 98.5 F 115 H 18 140/90 94 L Intake and Output 07/22/20 07/23/20 07/23/20 22:59 06:59 14:59 Other: # Voids 2 Weight 90.718 kg PHYSICAL EXAM: VITAL SIGNS: As above GENERAL: Sitting up in bed, no acute distress, speaks slowly HEENT: Atraumatic, normocephalic. Conjunctivae normal. eyes normal. NECK: No JVD. No thyroid enlargement. No LNs CARDIOVASCULAR: S1, S2 regular.systolic murmur RESPIRATION: Essentially clear, Breath sounds diminished in the bases. No rhonchi or crackles. No wheezing. ABDOMEN: Soft, nontender . No guarding. no masses palpable. No ascites, No hepatosplenomegaly.Bowel sounds heard. LEGS: No edema. no swelling PSYCHIATRY: Alert and oriented X3, mood and affect normal. NERVOUS SYSTEM: Cranial N 2-12 grossly normal. Moves all 4 limbs. No focal deficits. Strength and sensation grossly intact. Essential tremors. Skin: no rash, warm, dry, normal turgor Lymphatic system. No LN neck axilla. Results CBC & Chem 7: 07/22/20 15:34 07/22/20 15:34 Labs: Abnormal Lab Results - Last 24 Hours (Table) 07/22/20 07/22/20 07/22/20 Range/Units 15:34 15:34 15:34 RDW 15.7 H (11.5-15.5) % D-Dimer 0.61 H (<0.60) mg/L FEU Sodium 136 L (137-145) mmol/L Chloride 97 L (98-107) mmol/L Glucose 189 H (74-99) mg/dL Thrombosis Risk Factor Assmnt - Choose All That Apply Any of the Below Risk Factors Present?: Yes Each Factor Represents 1 point: Abnormal pulmonary function (COPD), Obesity (BMI >25) Other Risk Factors: Yes Each Risk Factor Represents 2 Points: Age 61-74 years Each Risk Factor Represents 3 Points: History of DVT/PE Other congenital or acquired thrombophilia - If yes, enter type in comment: No Thrombosis Risk Factor Assessment Total Risk Factor Score: 7 Thrombosis Risk Factor Assessment Level: High Risk Assessment and Plan Assessment: -Acute chest pain, negative troponin, pleuritic in nature -Medication noncompliance in a patient with history of pulmonary embolism reporting off Eliquis 1 week -Essential hypertension -Hypercholesterolemia - CAD, history of stent placement -Chronic intermittent asthma -COPD -Diabetes mellitus, insulin-dependent -Schizophrenia -history of nicotine dependence -History of CVA/TIA Plan: Continue on current medication regime ,monitoring and symptomatic treatment. Evaluated by cardiology. Echo ordered. CTA suboptimal, reporting without acute PE, no acute pulmonary process. RANDOLPH inhibitor added on for uncontrolled hypertension. O2 sat on room air after ambulation pending. Patient will be discharged home today in stable condition with a prognosis, pending final DC recommendations, clearance per cardiology. Medication compliance reinforced, including notifying office patient is out of medication. The impression and plan of care has been dictated as directed. : I performed a history and examination of this patient, discussed the same with the dictator. I agree with the dictator's note ,documented as a scribe. Any additional findings or plans will be noted.
[2020-07-23] MEDS: ACETAMINOPHEN TAB 325 MG TAB PO PRN (15:08)
[2020-07-23 17:33] LABS: Glucose,Whole Blood 121 mg/dL (75-99)
[2020-07-23] MEDS: amLODIPine 5 MG TAB PO SCH (18:18)
[2020-07-23 20:09] LABS: Glucose,Whole Blood 162 mg/dL (75-99)
[2020-07-23] MEDS: MONTELUKAST 10 MG TAB PO SCH (20:31)
[2020-07-23] MEDS: OLANZapine 10 MG TAB PO SCH (20:32)
[2020-07-23] MEDS: ATORVASTATIN 20 MG TAB PO SCH (20:32)
[2020-07-23] MEDS: APIXABAN 5 MG TAB PO SCH (20:32)
[2020-07-24 07:11] LABS: Glucose,Whole Blood 185 mg/dL (75-99)
[2020-07-24] MEDS: IPRATROPIUM-ALBUTEROL 3 ML NEB INHALATION SCH ×4 (07:41→19:33)
[2020-07-24] MEDS: SUCRALFATE 1 GM TAB PO SCH ×4 (08:00→20:52)
[2020-07-24] MEDS: INSULIN ASPART (NovoLOG) 100 UNIT/ML VIAL SQ SCH ×4 (08:00→20:52)
[2020-07-24] MEDS: ASPIRIN 81 MG PO SCH (09:11)
[2020-07-24] MEDS: lisinopriL 20 MG TAB PO SCH (09:12)
[2020-07-24] MEDS: CARBIDOPA-LEVODOPA 25-100 MG 1 EACH TAB PO SCH ×3 (09:12→20:53)
[2020-07-24] MEDS: PANTOPRAZOLE 40 MG TABLET PO SCH (09:12)
[2020-07-24] MEDS: APIXABAN 5 MG TAB PO SCH ×2 (09:12→20:52)
[2020-07-24] MEDS: amLODIPine 5 MG TAB PO SCH (09:13)
[2020-07-24] MEDS: DULoxetine HCL 60 MG CAPSULE.DR PO SCH (09:13)
[2020-07-24] MEDS: ACETAMINOPHEN TAB 325 MG TAB PO PRN ×3 (09:13→23:09)
--- NOTE | 2020-07-24 11:29 | P.DS ---
Providers Date of admission: 07/22/20 17:27 Expected date of discharge: 07/24/20 Attending physician: Tito Diaz Consults: 07/22/20 17:54 Consult Physician Urgent Consulting Provider: [facility] Consult Reason/Comments: chest pain, dyspnea Do you want consulting provider notified?: Yes Primary care physician: Farzad Hartley - Discharge Diagnosis(es) (1) Mild intermittent chronic asthma with acute exacerbation Current Visit: Yes Status: Acute (2) Nicotine dependence Current Visit: Yes Status: Acute (3) Chest pain Current Visit: Yes Status: Acute (4) Essential (primary) hypertension Current Visit: No Status: Acute (5) H/O: CVA (cerebrovascular accident) Current Visit: No Status: Acute (6) Hypertension Current Visit: No Status: Acute (7) IDDM (insulin dependent diabetes mellitus) Current Visit: No Status: Acute (8) Pure hypercholesterolemia Current Visit: No Status: Acute (9) Schizophrenia Current Visit: No Status: Acute (10) Weakness Current Visit: No Status: Acute (11) COPD (chronic obstructive pulmonary disease) Current Visit: No Status: Chronic Hospital Course: 58-year-old female patient presented emergency room with complaints of nonradiating midsternal chest pain, and by increased shortness of breath. The symptoms presented upon awakening on 07/22/2020. Chest past medical history of multiple PEs, TIAs, anticoagulation via L gross, fibromyalgia, CAD with prior angioplasty and stenting, COPD, nicotine dependence, hypertension, hyperlipidemia, chronic asthma, and noncompliance with medications. Patient had been off follow-up was for approximately 1 week as insurance required reauthorization. Currently patient denies nausea vomiting diarrhea, visual changes, chest pain or pressure. Patient does admit to a slight headache which is relieved by Tylenol. Most recent blood pressure was done via cuff 148/82 and utilizing the same cuff was 124/74 earlier in the morning. There has been some concern with proper cuff as she has had some elevated blood pressures with the ill fitting cuff. Patient has been up walking on the unit with standby assistance without issue. Patient Condition at Discharge: Stable Plan - Discharge Summary Discharge Rx Participant: No New Discharge Prescriptions: New Aspirin 81 mg PO DAILY 30 Days #30 chew Atorvastatin [Lipitor] 20 mg PO HS tab lisinopriL [Zestril] 20 mg PO DAILY 30 Days #30 tab amLODIPine [Norvasc] 5 mg PO DAILY 30 Days #30 tab INSULIN ASPART (NovoLOG) [NovoLOG (formulary)] 0 unit SQ ACHS vial Continue DULoxetine HCL [Cymbalta] 120 mg PO DAILY Montelukast [Singulair] 10 mg PO HS Apixaban [Eliquis] 5 mg PO BID Ipratropium-Albuterol Nebulize [Duoneb 0.5 mg-3 mg/3 ml Soln] 3 ml INHALATION RT-QID ampul.neb Carbidopa-Levodopa 25-100 mg [Sinemet 25-100 mg] 1 tab PO TID INSULIN LISPRO (HumaLOG) [humaLOG] See Protocol SQ ACHS PRN PRN Reason: Blood Sugar - High Atorvastatin [Lipitor] 20 mg PO HS Melatonin 5 mg PO HS PRN #20 tablet PRN Reason: Insomnia Pantoprazole Sodium [Protonix] 40 mg PO DAILY OLANZapine 20 mg PO HS Sucralfate [Carafate] 1 gm PO QID Discharge Medication List DULoxetine HCL [Cymbalta] 120 mg PO DAILY 06/19/14 [History] Montelukast [Singulair] 10 mg PO HS 06/19/14 [History] Apixaban [Eliquis] 5 mg PO BID 03/19/17 [History] Ipratropium-Albuterol Nebulize [Duoneb 0.5 mg-3 mg/3 ml Soln] 3 ml INHALATION RT-QID ampul.neb 10/30/18 [Rx] Carbidopa-Levodopa 25-100 mg [Sinemet 25-100 mg] 1 tab PO TID 06/05/19 [History] INSULIN LISPRO (HumaLOG) [humaLOG] See Protocol SQ ACHS PRN 06/05/19 [History] Atorvastatin [Lipitor] 20 mg PO HS 11/27/19 [History] Melatonin 5 mg PO HS PRN #20 tablet 04/24/20 [Rx] OLANZapine 20 mg PO HS 07/22/20 [History] Pantoprazole Sodium [Protonix] 40 mg PO DAILY 07/22/20 [History] Sucralfate [Carafate] 1 gm PO QID 07/22/20 [History] Aspirin 81 mg PO DAILY 30 Days #30 chew 07/24/20 [Rx] Atorvastatin [Lipitor] 20 mg PO HS tab 07/24/20 [Rx] INSULIN ASPART (NovoLOG) [NovoLOG (formulary)] 0 unit SQ ACHS vial 07/24/20 [Rx] amLODIPine [Norvasc] 5 mg PO DAILY 30 Days #30 tab 07/24/20 [Rx] lisinopriL [Zestril] 20 mg PO DAILY 30 Days #30 tab 07/24/20 [Rx] Follow up Appointment(s)/Referral(s): Emani Greene MD [STAFF PHYSICIAN] - 2 Weeks Farzad Hartley MD [Primary Care Provider] - 3 Days Ambulatory/Diagnostic Orders: Complete Blood Count w/diff [LAB.AMB] Time Frame: 3 Days, Location: None Selected Patient Instructions/Handouts: Chest Pain (DC) Activity/Diet/Wound Care/Special Instructions: O2 sat on room air after ambulation pending. Pending Dr. Diaz evaluation/echo /cardiology clearance. Discharge Disposition: HOME SELF-CARE
[2020-07-24 12:05] LABS: Glucose,Whole Blood 235 mg/dL (75-99)
[2020-07-24 17:22] LABS: Glucose,Whole Blood 164 mg/dL (75-99)
[2020-07-24 18:12] LABS: Hemoglobin A1C 8.4 % (4.0-6.0)
[2020-07-24] MEDS ORDERED: lisinopriL 10 MG TAB PO STA (20:28)
[2020-07-24 20:30] LABS: Glucose,Whole Blood 189 mg/dL (75-99)
[2020-07-24] MEDS: MONTELUKAST 10 MG TAB PO SCH (20:52)
[2020-07-24] MEDS: ATORVASTATIN 20 MG TAB PO SCH (20:53)
[2020-07-24] MEDS: OLANZapine 10 MG TAB PO SCH (20:53)
[2020-07-25 07:06] VITALS: RESP 16; TEMP 98.6
[2020-07-25 07:11] LABS: Glucose,Whole Blood 203 mg/dL (75-99)
[2020-07-25] MEDS: INSULIN ASPART (NovoLOG) 100 UNIT/ML VIAL SQ SCH (07:58)
[2020-07-25] MEDS: SUCRALFATE 1 GM TAB PO SCH (07:58)
[2020-07-25] MEDS: IPRATROPIUM-ALBUTEROL 3 ML NEB INHALATION SCH ×2 (08:01→10:52)
[2020-07-25 08:15] VITALS: BP 149/84
[2020-07-25] MEDS: PANTOPRAZOLE 40 MG TABLET PO SCH (08:55)
[2020-07-25] MEDS: ASPIRIN 81 MG PO SCH (08:55)
[2020-07-25] MEDS: lisinopriL 20 MG TAB PO SCH (08:55)
[2020-07-25] MEDS: APIXABAN 5 MG TAB PO SCH (08:55)
[2020-07-25] MEDS: amLODIPine 5 MG TAB PO SCH (08:55)
[2020-07-25] MEDS: DULoxetine HCL 60 MG CAPSULE.DR PO SCH (08:55)
[2020-07-25] MEDS: CARBIDOPA-LEVODOPA 25-100 MG 1 EACH TAB PO SCH (08:55)
[2020-07-25] MEDS: ACETAMINOPHEN TAB 325 MG TAB PO PRN (08:58)
[2020-07-25 10:54] VITALS: PULSE 108
--- NOTE | 2020-07-25 11:08 | P.PN ---
Subjective Progress Note Date: 07/25/20 Principal diagnosis: SOB, Chest pain Yesterday's D/C delayed. Patient is cleared to be discharge today after CMP and Mag level is drawn. She will follow in the office in 1-3 days. Patient is w/o complaints at this time and is resting comfortably in at this time. B/P is stable, 95% on room air, mildy tachycardic. Objective - Vital Signs Vital signs: Vital Signs Temp 98.6 F 07/25/20 07:00 Pulse 112 H 07/25/20 08:10 Resp 16 07/25/20 07:00 BP 149/84 07/25/20 07:00 Pulse Ox 97 07/25/20 07:00 Intake & Output 07/24/20 07/25/20 07/25/20 18:59 06:59 18:59 Intake Total 200 Balance 200 Intake: Oral 200 Other: # Voids 2 1 - Exam Alert and oriented x 3, following commands lungs sounds are clear to ausculatation heart sounds are regular, tachycardic, S1S2, no murmur Bowel sounds active, abdomen is soft and non-tender - Labs CBC & Chem 7: 07/22/20 15:34 07/22/20 15:34 Labs: Abnormal Lab Results - Last 24 Hours (Table) 07/24/20 07/24/20 07/24/20 Range/Units 05:47 12:03 17:21 POC Glucose (mg/dL) 235 H 164 H (75-99) mg/dL Hemoglobin A1c 8.4 H (4.0-6.0) % 07/24/20 07/25/20 Range/Units 20:28 07:09 POC Glucose (mg/dL) 189 H 203 H (75-99) mg/dL Hemoglobin A1c (4.0-6.0) % Assessment and Plan (1) Mild intermittent chronic asthma with acute exacerbation Current Visit: Yes Status: Acute Code(s): J45.21 - MILD INTERMITTENT ASTHMA WITH (ACUTE) EXACERBATION SNOMED Code(s): 149197758 (2) Nicotine dependence Current Visit: Yes Status: Acute Code(s): F17.200 - NICOTINE DEPENDENCE, UNSPECIFIED, UNCOMPLICATED SNOMED Code(s): 72954651 (3) Chest pain Current Visit: Yes Status: Acute Code(s): R07.9 - CHEST PAIN, UNSPECIFIED SNOMED Code(s): 48434160 (4) Essential (primary) hypertension Current Visit: No Status: Acute Code(s): I10 - ESSENTIAL (PRIMARY) HYPERTENSION SNOMED Code(s): 29424376 (5) H/O: CVA (cerebrovascular accident) Current Visit: No Status: Acute Code(s): Z86.73 - PRSNL HX OF TIA (TIA), AND CEREB INFRC W/O RESID DEFICITS SNOMED Code(s): 765962130 (6) Hypertension Current Visit: No Status: Acute Code(s): I10 - ESSENTIAL (PRIMARY) HYPERTENSION SNOMED Code(s): 27034247 (7) IDDM (insulin dependent diabetes mellitus) Current Visit: No Status: Acute Code(s): E11.9 - TYPE 2 DIABETES MELLITUS WITHOUT COMPLICATIONS; Z79.4 - [employer] (CURRENT) USE OF INSULIN SNOMED Code(s): 99174755 (8) Pure hypercholesterolemia Current Visit: No Status: Acute Code(s): E78.00 - PURE HYPERCHOLESTEROLEMIA, UNSPECIFIED SNOMED Code(s): 108979055 (9) Schizophrenia Current Visit: No Status: Acute Code(s): F20.9 - SCHIZOPHRENIA, UNSPECIFIED SNOMED Code(s): 33403601 (10) Weakness Current Visit: No Status: Acute Code(s): R53.1 - WEAKNESS SNOMED Code(s): 57185009 (11) COPD (chronic obstructive pulmonary disease) Current Visit: No Status: Chronic Code(s): J44.9 - CHRONIC OBSTRUCTIVE PULMONARY DISEASE, UNSPECIFIED SNOMED Code(s): 79542483 Plan: Comp and mag level to be drawn before discharge Ok for discharge home today follow in office in 1-3 days maintain oral hydration at home Time with Patient: Greater than 30
[2020-07-25 11:36] LABS: Basophils # (A) 0.1 k/uL (0-0.2); Basophils % (A) 1 %; Eosinophils # (A) 0.1 k/uL (0-0.7); Eosinophils % (A) 1 %; HCT 41.3 % (34.0-46.0); HGB 13.6 gm/dL (11.4-16.0); Lymphocytes % (A) 21 %; MCH 28.4 pg (25.0-35.0); MCHC 32.9 g/dL (31.0-37.0); MCV 86.4 fL (80.0-100.0); Mean Platelet Volume 7.2; Monocytes # (A) 0.4 k/uL (0-1.0); Monocytes % (A) 4 %; Neutrophils # (A) 6.8 k/uL (1.3-7.7); Neutrophils % (A) 72 %; Platelet Count 288 k/uL (150-450); RBC 4.78 m/uL (3.80-5.40); RDW 15.9 % (11.5-15.5); WBC 9.4 k/uL (3.8-10.6)
== END 2020-07-25 11:45 | disposition home or self-care (01) ==
LOC: EC 14:28 → 6NMEDSUR 17:27
PROVIDERS: ADMIT Family Medicine; ATTEND Family Medicine
DX: R07.89 Other chest pain (principal); J45.21 Mild intermittent asthma with (acute) exacerbation; J44.9 Chronic obstructive pulmonary disease, unspecified; I25.10 Atherosclerotic heart disease of native coronary artery without angina pectoris; I10 Essential (primary) hypertension; E11.42 Type 2 diabetes mellitus with diabetic polyneuropathy; I08.1 Rheumatic disorders of both mitral and tricuspid valves; E78.5 Hyperlipidemia, unspecified; E78.00 Pure hypercholesterolemia, unspecified; G20 Parkinson's disease; R42 Dizziness and giddiness; G43.909 Migraine, unspecified, not intractable, without status migrainosus; M79.7 Fibromyalgia; G89.29 Other chronic pain; M54.5 Low back pain; F20.9 Schizophrenia, unspecified; G25.0 Essential tremor; L98.9 Disorder of the skin and subcutaneous tissue, unspecified; R53.1 Weakness; M19.90 Unspecified osteoarthritis, unspecified site; I69.911 Memory deficit following unspecified cerebrovascular disease; F17.200 Nicotine dependence, unspecified, uncomplicated; E66.9 Obesity, unspecified; Z68.39 Body mass index [BMI] 39.0-39.9, adult; Z20.822 Contact with and (suspected) exposure to COVID-19; Z91.14 Patient's other noncompliance with medication regimen; Z79.01 Long term (current) use of anticoagulants; Z79.4 Long term (current) use of insulin; Z79.899 Other long term (current) drug therapy; Z85.828 Personal history of other malignant neoplasm of skin; Z90.49 Acquired absence of other specified parts of digestive tract; Z86.711 Personal history of pulmonary embolism; Z90.710 Acquired absence of both cervix and uterus; Z95.5 Presence of coronary angioplasty implant and graft; Z96.82 Presence of neurostimulator; Z96.60 Presence of unspecified orthopedic joint implant; Z82.5 Family history of asthma and other chronic lower respiratory diseases; Z82.49 Family history of ischemic heart disease and other diseases of the circulatory system; Z80.9 Family history of malignant neoplasm, unspecified
CPT/HCPCS: 96361 ×4; 93005 ×2; 96374; 99285; 36415; 94640 ×6; 93306; 85379; 83880; 80061; 80053; 83735 ×2; 84484; 85025 ×2; 85610; 85730; 81001; 83036; 87635; 71046; 71275; G0378 ×4; J2270; Q9967

== ENCOUNTER → 2022-09-29 | Outpatient (CLI) | payer BC, MEDICARE ==
--- NOTE | 2022-09-29 10:07 | US ---
EXAMINATION TYPE: US abdomen complete DATE OF EXAM: 09/29/2022 COMPARISON: NONE CLINICAL INDICATION: Female, 67 years old with history of E11.59 TYPE 2 DIABETES, R10.11 R UPPER QUAD ; Pt states pain, GB removed TECHNIQUE: Multiple sonographic images of the abdomen are obtained. FINDINGS: EXAM MEASUREMENTS: Liver Length: 17.7 cm CBD: 1.1 cm Spleen: 11.2 cm Right Kidney: 10.7 x 4.8 x 5.0 cm Left Kidney: 10.8 x 5.2 x 4.4 cm FOLD SKIVER NOTES: Pancreas: Obscured by bowel gas Liver: Heterogeneous, difficult to penetrate Gallbladder: Surgically absent Evidence for sonographic Zaman's sign: No CBD: ?dilated for post johnie Spleen: wnl Right Kidney: wnl Left Kidney: wnl Upper IVC: Obscured by overlying bowel gas Abd Aorta: Obscured by overlying bowel gas The intrahepatic portion of the IVC and proximal abdominal aorta are within normal limits. The visua lized portions of the pancreas are homogenous. The spleen is unremarkable. Kidneys are symmetric an d free of hydronephrosis. No renal lesions are seen. IMPRESSION: 1. Fatty liver. 2. Postcholecystectomy change.
== END | disposition home or self-care (01) ==
LOC: RADUSWWP 08:56
PROVIDERS: ATTEND Family Medicine
DX: E11.59 Type 2 diabetes mellitus with other circulatory complications (principal); R10.11 Right upper quadrant pain; K76.0 Fatty (change of) liver, not elsewhere classified; Z90.49 Acquired absence of other specified parts of digestive tract
CPT/HCPCS: 76700

== ENCOUNTER 2023-02-07 17:00 | Observation (INO) | payer BC, MEDICARE ==
[2023-02-07] MEDS ORDERED: SODIUM CHLORIDE 0.9% 1,000 ML IV STA ×2 (17:41→20:17)
[2023-02-07 18:05] LABS: Basophils % (A) 0 %; Eosinophils % (A) 0 %; HCT 41.6 % (34.0-46.0); HGB 13.9 gm/dL (11.4-16.0); Lymphocytes # (A) 1.1 k/uL (1.0-4.8); Lymphocytes % (A) 14 %; MCH 28.9 pg (25.0-35.0); MCHC 33.5 g/dL (31.0-37.0); MCV 86.4 fL (80.0-100.0); Mean Platelet Volume 7.6; Monocytes # (A) 0.7 k/uL (0-1.0); Monocytes % (A) 8 %; Neutrophils % (A) 74 %; Platelet Count 241 k/uL (150-450); RBC 4.82 m/uL (3.80-5.40); RDW 14.4 % (11.5-15.5); WBC 8.1 k/uL (3.8-10.6)
[2023-02-07 18:13] LABS: ALT 15 U/L (4-34); AST 20 U/L (14-36); African American GFR (CKD) 74 (>60 ml/min/1.73 sqM); Albumin 4.1 g/dL (3.5-5.0); Alkaline Phosphatase 98 U/L (38-126); Anion Gap 12 mmol/L; Blood Urea Nitrogen 31 mg/dL (7-17); Calcium 9.6 mg/dL (8.4-10.2); Carbon Dioxide 27 mmol/L (22-30); Chloride 97 mmol/L (98-107); Creatine Kinase 29 U/L (30-135); Glucose 172 mg/dL (74-99); Non-African American GFR(CKD) 65 (>60 ml/min/1.73 sqM); Potassium 3.8 mmol/L (3.5-5.1); Sodium 136 mmol/L (137-145); Total Bilirubin 0.5 mg/dL (0.2-1.3); Total Protein 7.2 g/dL (6.3-8.2)
[2023-02-07] MEDS ORDERED: ACETAMINOPHEN IV (For NPO) 1,000 MG in EMPTY BAG 1 BAG IVPB STA (18:28)
--- NOTE | 2023-02-07 18:28 | ED ---
Altered Mental Status HPI - General Chief Complaint: Altered Mental Status Stated Complaint: Lack of Commucation, History of Stroke Time Seen by Provider: 02/07/23 17:40 Source: patient, RN notes reviewed, old records reviewed Mode of arrival: ambulatory Limitations: no limitations - History of Present Illness Initial Comments: This is a 67-year-old female to the emergency department for evaluation. Patient presents today for evaluation of altered mental status, elevated heart rate increasing weakness right-sided weakness slurred speech. Patient is brought in by is concern for worsening stroke or CVA. Patient does have underlying history of stroke and nose baseline stroke symptoms are worsening currently, patient is found to be weak sweaty but bodyaches, does admit to mild shortness of breath but mildly poor historian history mainly obtained from MD Complaint: altered mental status, confusion, decreased responsiveness, weakness -: days(s) Severity: severe Consistency of Symptoms: getting worse Associated Symptoms: weakness - Related Data Home Medications Medication Instructions Recorded Confirmed DULoxetine HCL [Cymbalta] 120 mg PO DAILY 06/19/14 02/07/23 Apixaban [Eliquis] 5 mg PO BID 03/19/17 02/07/23 Carbidopa-Levodopa 25-100 mg 2 tab PO AC-BID 06/05/19 02/07/23 [Sinemet 25-100 mg] OLANZapine 20 mg PO DAILY 07/22/20 02/07/23 Pantoprazole Sodium [Protonix] 40 mg PO DAILY 07/22/20 02/07/23 Atorvastatin [Lipitor] 20 mg PO DAILY 02/07/23 02/07/23 Metoprolol Tartrate [Lopressor] 50 mg PO BID 02/07/23 02/07/23 Tiotropium 2.5 Mcg/Puff [Spiriva 2 puff INHALATION RT-DAILY 02/07/23 02/07/23 Respimat 2.5 Mcg] metFORMIN HCL 500 mg PO BID 02/07/23 02/07/23 sitaGLIPtin [Januvia] 50 mg PO DAILY 02/07/23 02/07/23 Previous Rx's Medication Instructions Recorded Albuterol Inhaler [Ventolin Hfa 2 puff INHALATION RT-QID PRN #1 02/11/23 Inhaler] each Valsartan [Diovan] 160 mg PO DAILY 30 Days #30 tab 02/11/23 hydrALAZINE HCL [Apresoline] 25 mg PO QID 30 Days #120 tab 02/11/23 Allergies Allergy/AdvReac Type Severity Reaction Status Date / Time No Known Allergies Allergy Verified 02/07/23 19:25 Review of Systems ROS Statement: Those systems with pertinent positive or pertinent negative responses have been documented in the HPI. ROS Other: All systems not noted in ROS Statement are negative. Past Medical History Past Medical History: Asthma, Cancer, COPD, CVA/TIA, Diabetes Mellitus, Fibromyalgia, Hyperlipidemia, Hypertension, Musculoskeletal Disorder, Neurologic Disorder, Osteoarthritis (OA), Pulmonary Embolus (PE), Skin Disorder Additional Past Medical History / Comment(s): 3 PEs-involved bilateral lungs, CVA with some increased memory problems, NIDDM type II, neuropathy bilateral legs/feet, migraines, chronic low back pain, skin cancer removed from nose, urinary incontinence at times, lately stool loose and has some incontinence of stool. parkinsons History of Any Multi-Drug Resistant Organisms: None Reported Past Surgical History: Back Surgery, Cholecystectomy, Hysterectomy, Joint Replacement, Orthopedic Surgery Additional Past Surgical History / Comment(s): Back pain stimulator implant lumbar cataract removals, 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 Past Anesthesia/Blood Transfusion Reactions: No Reported Reaction Additional Past Anesthesia/Blood Transfusion Reaction / Comment(s): no hx blood transfusion Past Psychological History: Schizophrenia Smoking Status: Former smoker Past Alcohol Use History: None Reported Past Drug Use History: None Reported - Past Family History Mother History Unknown: Yes Family Medical History: COPD Additional Family Medical History / Comment(s): Mother at the age of 78yrs. Father History Unknown: Yes Family Medical History: Myocardial Infarction (NH) Additional Family Medical History / Comment(s): Father of a massive NH at the age of 50 yrs. Pt is not sure if ovidio may have moved to his heart-he had injury in WWII. Sister(s) Family Medical History: Cancer General Exam - General Exam Comments Initial Comments: NIH of 2 on top of her baseline in NIH 2, total for Limitations: no limitations General appearance: alert, in no apparent distress, anxious Head exam: Present: atraumatic, normocephalic, normal inspection Eye exam: Present: normal appearance, PERRL, EOMI. Absent: scleral icterus, conjunctival injection, periorbital swelling ENT exam: Present: normal exam, mucous membranes moist Neck exam: Present: normal inspection. Absent: tenderness, meningismus, lymphadenopathy Respiratory exam: Present: normal lung sounds bilaterally. Absent: respiratory distress, wheezes, rales, rhonchi, stridor Cardiovascular Exam: Present: normal rhythm, tachycardia, normal heart sounds. Absent: systolic murmur, diastolic murmur, rubs, gallop, clicks GI/Abdominal exam: Present: soft, normal bowel sounds. Absent: distended, tenderness, guarding, rebound, rigid Extremities exam: Present: normal inspection, full ROM, normal capillary refill. Absent: tenderness, pedal edema, joint swelling, calf tenderness Back exam: Present: normal inspection Neurological exam: Present: alert, oriented X3, CN II-XII intact Psychiatric exam: Present: normal affect, normal mood Skin exam: Present: warm, dry, intact, normal color. Absent: rash Course Vital Signs 02/07/23 02/07/23 02/07/23 17:03 17:30 17:40 Temperature 99.4 F Pulse Rate 68 138 H 135 H Pulse Rate [ Pulse Oximetery ] Respiratory 17 20 18 Rate Blood Pressure 150/94 147/107 144/104 Blood Pressure [Left Arm Sitting] Blood Pressure [Right Arm] O2 Sat by Pulse 99 94 L 93 L Oximetry 02/07/23 02/07/23 02/07/23 17:50 18:00 18:10 Temperature Pulse Rate 134 H 130 H 129 H Pulse Rate [ Pulse Oximetery ] Respiratory 18 20 18 Rate Blood Pressure 142/109 127/101 160/103 Blood Pressure [Left Arm Sitting] Blood Pressure [Right Arm] O2 Sat by Pulse 93 L 93 L 93 L Oximetry 02/07/23 02/07/23 02/07/23 18:20 18:28 18:30 Temperature 99.5 F Pulse Rate 128 H 130 H Pulse Rate [ Pulse Oximetery ] Respiratory 18 18 Rate Blood Pressure 154/108 162/110 Blood Pressure [Left Arm Sitting] Blood Pressure [Right Arm] O2 Sat by Pulse 91 L 93 L Oximetry 02/07/23 02/07/23 02/07/23 18:40 18:50 19:00 Temperature Pulse Rate 133 H 125 H 128 H Pulse Rate [ Pulse Oximetery ] Respiratory 20 17 16 Rate Blood Pressure 157/114 169/108 171/112 Blood Pressure [Left Arm Sitting] Blood Pressure [Right Arm] O2 Sat by Pulse 93 L 92 L 93 L Oximetry 02/07/23 02/07/23 02/07/23 19:10 19:20 22:03 Temperature 98.0 F Pulse Rate 128 H 112 H 106 H Pulse Rate [ Pulse Oximetery ] Respiratory 20 20 18 Rate Blood Pressure 179/119 182/122 136/100 Blood Pressure [Left Arm Sitting] Blood Pressure [Right Arm] O2 Sat by Pulse 94 L 93 L 98 Oximetry 02/07/23 02/08/23 02/08/23 23:16 02:00 06:00 Temperature 99 F 98.8 F Pulse Rate 104 H 102 H 102 H Pulse Rate [ Pulse Oximetery ] Respiratory 20 20 20 Rate Blood Pressure 154/90 151/90 164/112 Blood Pressure [Left Arm Sitting] Blood Pressure [Right Arm] O2 Sat by Pulse 97 96 95 Oximetry 02/08/23 02/08/23 02/08/23 08:45 09:03 09:30 Temperature Pulse Rate 92 118 H 116 H Pulse Rate [ Pulse Oximetery ] Respiratory 18 18 18 Rate Blood Pressure 151/121 153/94 153/94 Blood Pressure [Left Arm Sitting] Blood Pressure [Right Arm] O2 Sat by Pulse 95 98 Oximetry 02/08/23 02/08/23 02/08/23 10:00 10:07 11:00 Temperature Pulse Rate 113 H 86 Pulse Rate [ Pulse Oximetery ] Respiratory 18 18 17 Rate Blood Pressure 153/94 152/97 Blood Pressure [Left Arm Sitting] Blood Pressure [Right Arm] O2 Sat by Pulse 98 98 Oximetry 02/08/23 02/08/23 02/08/23 12:12 13:00 13:31 Temperature Pulse Rate 83 Pulse Rate [ Pulse Oximetery ] Respiratory 18 18 Rate Blood Pressure 152/97 Blood Pressure [Left Arm Sitting] Blood Pressure [Right Arm] O2 Sat by Pulse Oximetry 02/08/23 02/08/23 02/08/23 14:10 15:16 17:16 Temperature Pulse Rate 81 80 Pulse Rate [ Pulse Oximetery ] Respiratory 18 18 18 Rate Blood Pressure 130/88 Blood Pressure 148/106 [Left Arm Sitting] Blood Pressure [Right Arm] O2 Sat by Pulse 95 88 L 94 L Oximetry 02/08/23 02/08/23 02/08/23 18:16 19:16 23:16 Temperature 98.2 F 97.8 F 97.9 F Pulse Rate 83 Pulse Rate [ 81 70 Pulse Oximetery ] Respiratory 18 16 15 Rate Blood Pressure 134/90 Blood Pressure 140/94 140/103 [Left Arm Sitting] Blood Pressure 146/100 [Right Arm] O2 Sat by Pulse 95 94 L 96 Oximetry 02/09/23 02/09/23 02/09/23 03:16 07:57 07:59 Temperature 98.1 F 98.0 F Pulse Rate 68 Pulse Rate [ 67 Pulse Oximetery ] Respiratory 15 20 Rate Blood Pressure 164/115 Blood Pressure 161/99 [Left Arm Sitting] Blood Pressure 156/108 [Right Arm] O2 Sat by Pulse 95 97 98 Oximetry 02/09/23 02/09/23 02/09/23 09:33 11:49 14:42 Temperature 97.7 F Pulse Rate 63 60 71 Pulse Rate [ Pulse Oximetery ] Respiratory 18 20 18 Rate Blood Pressure 162/96 165/105 166/99 Blood Pressure [Left Arm Sitting] Blood Pressure [Right Arm] O2 Sat by Pulse 95 93 L Oximetry - Reevaluation(s) Reevaluation #1: 02/07/23 21:25 Medical records reviewed Code stroke paged on patient arrival Reevaluation #2: 02/07/23 21:26 Patient's symptoms continued to improve with hydration, heart rate control fever control Reevaluation #3: 02/07/23 21:26 Patient informed results questions answered Reevaluation #4: 02/07/23 21:09 Was pt. sent in by a medical professional or institution (, PA, LABEL D[employer]ER, urgent care, hospital, or long-term...) When possible be specific @ -no Did you speak to anyone other than the patient for history (EMS, parent, family, police, friend...)? What history was obtained from this source @ -no Did you review nursing and triage notes (agree or disagree)? Why? @ -agree Are old charts reviewed (outside hosp., previous admission, EMS record, old EKG, old radiological studies, urgent care reports/EKG's, long-term records)? Report findings @ -yes Differential Diagnosis (chest pain, altered mental status, abdominal pain women, abdominal pain men, vaginal bleeding, weakness, fever, dyspnea, syncope, headache, dizziness, GI bleed, back pain, seizure, CVA, palpatations, mental health, musculoskeletal)? @ -prior EKG interpreted by me (3pts min.). @ -yes X-rays interpreted by me (1pt min.). @ -no CT interpreted by me (1pt min.). @ -Yes negative for acute disease U/S interpreted by me (1pt. min.). @ -no What testing was considered but not performed or refused? (CT, X-rays, U/S, labs)? Why? @ -none What meds were considered but not given or refused? Why? @ -none Did you discuss the management of the patient with other professionals (professionals i.e. Dr., PA, LAB[employer], lab, RT, psych nurse, high school social studies teacher, mattress finisher, teacher, quality officer, hospice case manager)? Give summary @ -no Was smoking cessation discussed for >3mins.? @ -no Was critical care preformed (if so, how long)? @ -yes31 Were there social determinants of health that impacted care today? How? (Homelessness, low income, unemployed, alcoholism, drug addiction, transportation, low edu. Level, literacy, decrease access to med. care, halfway, rehab)? @ -none Was there de-escalation of care discussed even if they declined (Discuss DNR or withdrawal of care, Hospice)? DNR status @ -no What co-morbidities impacted this encounter? (DM, HTN, Smoking, COPD, CAD, Cancer, CVA, ARF, Chemo, Hep., AIDS, mental health diagnosis, sleep apnea, morbid obesity)? @ -none Was patient admitted / discharged? Hospital course, mention meds given and route, prescriptions, significant lab abnormalities, going to OR and other pertinent info. @ - 67 female to the emergency department today today. Patient is recent emergency department today for evaluation of possibility of CVA history of CVA and baseline CVA symptoms are currently worsened patient does have severe dehydration fever tachycardia coronavirus found here in the ER, patient will be admitted for further evaluation management Admitted Undiagnosed new problem with uncertain prognosis? @ -no Drug Therapy requiring intensive monitoring for toxicity (Heparin, Nitro, Insulin, Cardizem)? @ -no Were any procedures done? @ -no Diagnosis/symptom? @ -CVA, TIA, coronavirus Acute, or Chronic, or Acute on Chronic? @ -Acute Uncomplicated (without systemic symptoms) or Complicated (systemic symptoms)? @ -Complicated Side effects of treatment? @ -no Exacerbation, Progression, or Severe Exacerbation? @ -exacerbation Poses a threat to life or bodily function? How? (Chest pain, USA, NH, pneumonia, PE, COPD, DKA, ARF, appy, cholecystitis, CVA, Diverticulitis, Homicidal, Suicidal, threat to staff... and all critical care pts) @ -yes recent CVA with worsening symptoms, with recent fever coronavirus here in the ER Reevaluation #5: 02/07/23 21:26 Differential CVA Ischemic stroke, hemorrhagic stroke, brain tumor, atypical migraine, Wernicke's encephalopathy, seizure, multiple sclerosis, meningitis, encephalitis, hypoglycemia, Guillain-Greenberg, electrolytes disturbance, myasthenia gravis.... This is not meant to be an all-inclusive list - Consultations Consultation #1: spoke w admitting ok to admit Medical Decision Making - Medical Decision Making 67 female to the emergency department today today. Patient is recent emergency department today for evaluation of possibility of CVA history of CVA and baseline CVA symptoms are currently worsened patient does have severe dehydr ation fever tachycardia coronavirus found here in the ER, patient will be admitted for further evaluation management - Lab Data Result diagrams: 02/11/23 06:30 02/11/23 06:30 Lab Results 02/07/23 02/07/23 02/07/23 Range/Units 17:56 17:56 17:56 WBC 8.1 (3.8-10.6) k/uL RBC 4.82 (3.80-5.40) m/uL Hgb 13.9 (11.4-16.0) gm/dL Hct 41.6 (34.0-46.0) % MCV 86.4 (80.0-100.0) fL MCH 28.9 (25.0-35.0) pg MCHC 33.5 (31.0-37.0) g/dL RDW 14.4 (11.5-15.5) % Plt Count 241 (150-450) k/uL MPV 7.6 Neutrophils % 74 % Lymphocytes % 14 % Monocytes % 8 % Eosinophils % 0 % Basophils % 0 % Neutrophils # 6.0 (1.3-7.7) k/uL Lymphocytes # 1.1 (1.0-4.8) k/uL Monocytes # 0.7 (0-1.0) k/uL Eosinophils # 0.0 (0-0.7) k/uL Basophils # 0.0 (0-0.2) k/uL PT 11.2 (10.0-12.5) sec INR 1.0 (<1.2) APTT 20.6 L (22.0-30.0) sec Sodium 136 L (137-145) mmol/L Potassium 3.8 (3.5-5.1) mmol/L Chloride 97 L (98-107) mmol/L Carbon Dioxide 27 (22-30) mmol/L Anion Gap 12 mmol/L BUN 31 H (7-17) mg/dL Creatinine 0.91 (0.52-1.04) mg/dL Est GFR (CKD-EPI)AfAm 74 (>60 ml/min/1.73 sqM) Est GFR (CKD-EPI)NonAf 65 (>60 ml/min/1.73 sqM) Glucose 172 H (74-99) mg/dL Calcium 9.6 (8.4-10.2) mg/dL Total Bilirubin 0.5 (0.2-1.3) mg/dL AST 20 (14-36) U/L ALT 15 (4-34) U/L Alkaline Phosphatase 98 (38-126) U/L Creatine Kinase 29 L (30-135) U/L Troponin I (0.000-0.034) ng/mL Total Protein 7.2 (6.3-8.2) g/dL Albumin 4.1 (3.5-5.0) g/dL Influenza Type A (PCR) (Not Detectd) Influenza Type B (PCR) (Not Detectd) RSV (PCR) (Not Detectd) SARS-CoV-2 (PCR) (Not Detectd) 02/07/23 02/07/23 Range/Units 17:56 18:39 WBC (3.8-10.6) k/uL RBC (3.80-5.40) m/uL Hgb (11.4-16.0) gm/dL Hct (34.0-46.0) % MCV (80.0-100.0) fL MCH (25.0-35.0) pg MCHC (31.0-37.0) g/dL RDW (11.5-15.5) % Plt Count (150-450) k/uL MPV Neutrophils % % Lymphocytes % % Monocytes % % Eosinophils % % Basophils % % Neutrophils # (1.3-7.7) k/uL Lymphocytes # (1.0-4.8) k/uL Monocytes # (0-1.0) k/uL Eosinophils # (0-0.7) k/uL Basophils # (0-0.2) k/uL PT (10.0-12.5) sec INR (<1.2) APTT (22.0-30.0) sec Sodium (137-145) mmol/L Potassium (3.5-5.1) mmol/L Chloride (98-107) mmol/L Carbon Dioxide (22-30) mmol/L Anion Gap mmol/L BUN (7-17) mg/dL Creatinine (0.52-1.04) mg/dL Est GFR (CKD-EPI)AfAm (>60 ml/min/1.73 sqM) Est GFR (CKD-EPI)NonAf (>60 ml/min/1.73 sqM) Glucose (74-99) mg/dL Calcium (8.4-10.2) mg/dL Total Bilirubin (0.2-1.3) mg/dL AST (14-36) U/L ALT (4-34) U/L Alkaline Phosphatase (38-126) U/L Creatine Kinase (30-135) U/L Troponin I 0.036 H* (0.000-0.034) ng/mL Total Protein (6.3-8.2) g/dL Albumin (3.5-5.0) g/dL Influenza Type A (PCR) Not Detected (Not Detectd) Influenza Type B (PCR) Not Detected (Not Detectd) RSV (PCR) Not Detected (Not Detectd) SARS-CoV-2 (PCR) Detected A (Not Detectd) - EKG Data -: EKG Interpreted by Me (EKG is sinus tachycardia 136 HI 136 QRS 83 QTC 381) - Radiology Data Radiology results: report reviewed (CT brain CT had neck chest x-rays negative for acute disease), image reviewed Critical Care Time Critical Care Time: Yes Total Critical Care Time: 31 Disposition Clinical Impression: CVA (cerebral vascular accident), TIA (transient ischemic attack), Delirium due to general medical condition, Weakness, Coronavirus infection, Tachycardia Disposition: ADMITTED IP TO THIS HOSP Condition: Fair Is patient prescribed a controlled substance at d/c from ED?: No Time of Disposition: 20:00
[2023-02-07 18:36] LABS: Prothrombin Time 11.2 sec (10.0-12.5)
[2023-02-07 18:37] LABS: Partial Thromboplastin Time 20.6 sec (22.0-30.0)
--- NOTE | 2023-02-07 19:10 | CT ---
EXAMINATION TYPE: CT brain wo con for TPA CT DLP: 1086.1 mGycm, Automated exposure control for dose reduction was used. DATE OF EXAM: 02/07/2023 6:02 PM COMPARISON: None. CLINICAL INDICATION:Female, 67 years old with history of Neuro deficit, acute, stroke suspected, code stroke, neruo deficit, acute, stroke suspected TECHNIQUE: Brain: Axial CT images of the brain were obtained with coronal and sagittal reformats created and rev iewed. Contrast used: None. Oral contrast used: None. FINDINGS: Extra-axial spaces: No abnormal extra-axial fluid collections. Ventricular system: Appear dilated in proportion to the degree of cerebral atrophy. Cerebral parenchyma: No increased attenuation to suggest acute intraparenchymal hemorrhage. The gra y-white matter interface appears maintained. Moderate generalized brain atrophy. Scattered hypoatte nuating areas are seen within the cerebral white matter, nonspecific but most often seen with chronic microvascular ischemic changes; moderate in degree. Cerebellum: No acute abnormality. Mass effect: No evidence of mass effect or midline shift. Intracranial vasculature: Unremarkable Soft tissues: Normal. Visualized orbits: Orbital contents appear grossly intact. Bilateral aphakia Calvarium/osseous structures: No evidence of calvarial fracture. Paranasal sinuses and mastoid air cells: Moderate scattered paranasal sinus mucosal thickening. Likel y operative openings in the medial maxillary sinus gambino bilaterally. MRI is more sensitive for detecting acute processes such as infarct, and may be considered if clinica lly warranted. IMPRESSION: No CT evidence of an acute intracranial abnormality. Atrophy and chronic microvascular ischemic white matter changes.
--- NOTE | 2023-02-07 19:41 | CT ---
EXAMINATION TYPE: CT angio head neck DATE OF EXAM: 02/07/2023 6:17 PM COMPARISON: Correlation with noncontrast CT head immediately prior. CLINICAL INDICATION:Female, 67 years old with history of Neuro deficit, acute, stroke suspected; [facility], TECHNIQUE: Axially acquired helical CT angiogram of the head and neck was obtained with contrast. Axi al images are supplemented with 3D reconstructions which [facility] NASCET criteria used. Contrast used: mL of , IV contrast was given but the dose is not currently available to nc Oral contrast used: None. CT DLP: 467.1 mGycm, Automated exposure control for dose reduction was used. FINDINGS: CTA Neck: A 3 vessel aortic arch is shown. Aortic arch shows no evidence of dissection. There is mos tly calcified plaque at the origins of the left common carotid and subclavian arteries without signif icant stenosis seen. Left subclavian takes a tortuous course posteriorly before giving off the left v ertebral anterolateral to the spine. No significant narrowing of the vertebral origin. The left verte bral is dominant, and appears patent throughout the neck to the skull base. Right subclavian artery s hows some atherosclerotic calcification proximally without significant stenosis seen. Right vertebral artery also takes off posteriorly anterolateral to the spine. Right vertebral is tortuous without si gnificant stenosis identified in its proximal portions. The vessel is patent to the skull base, but c alcification is seen distally at the C1 level with under 50% diameter stenosis. Right carotid system: Common carotid is patent without significant atherosclerotic disease or stenosi s in its proximal portions. At the bifurcation and proximal right ICA there is some calcified plaque seen without significant stenosis. ICA is patent to the skull base but tortuous distally. ECA is solano nt. There is no hemodynamically significant diameter stenosis, dissection, nor pseudoaneurysm present Left carotid system: Common carotid shows a small calcific focus at its midportion without significan t stenosis. At the carotid bifurcation, there is tiny calcified plaque with no significant stenosis o f the ICA or ECA. ICA is patent to the skull base with mild tortuosity. There is no hemodynamically s ignificant diameter stenosis, dissection, nor pseudoaneurysm present. Other: Soft tissues of the neck show no definite acute abnormality. There is what appears to be a lip indu in the left upper neck suboccipital region extending posteriorly. Included upper chest shows mil d/moderate emphysematous changes of the lung apices, no acute infiltrate or pneumothorax. The small v isualized portion of the pulmonary artery is unremarkable. Osseous structures in the [id number] show mild degenerative changes of the cervical spine without suggestion of significant canal stenosis. No acute osseous abnormalities are seen. CTA Head: Posterior circulation: The intracranial vertebral arteries are patent, left is dominant. Basilar bharti ry is patent. There is tortuosity at the bifurcation, the bilateral plasma table operator appear patent. No evidence o f basilar tip aneurysm. Patent posterior communicating arteries are not readily identified. Anterior circulation: Minimal calcification along the left carotid siphon and the distal right ICA wi thout significant stenosis seen. The carotid bifurcations are patent. Bilateral ACAs are patent. An a nterior communicating artery is not definitely seen. The bilateral MCAs appear patent. No hemodynamic ally significant stenosis, aneurysm, dissection, or arteriovenous malformation is shown. The dural venous sinuses appear grossly patent without evidence of thrombosis. Please refer to head CT report for further description of findings. IMPRESSION: CTA neck: 1. No dissection or pseudoaneurysm detected in the carotid or vertebral arteries in the neck. 2. Atherosclerotic disease is present, with no hemodynamically significant diameter stenosis shown. CTA head: No intracranial major vascular occlusion or significant stenosis, or sizable aneurysm detected in the limits of CTA.
[2023-02-07] MEDS ORDERED: ASPIRIN 325 MG TAB PO STA (20:15)
[2023-02-07] MEDS ORDERED: IBUPROFEN IV 800 MG in SODIUM CHLORIDE 0.9% 250 ML IV ONE (20:16)
--- NOTE | 2023-02-07 20:55 | XR ---
EXAMINATION TYPE: XR chest 1V portable DATE OF EXAM: 02/07/2023 HISTORY: Shortness of breath. COMPARISON: 07/22/2020 TECHNIQUE: Single view of the chest is submitted. FINDINGS: Demonstrated are scattered senescent parenchymal change. There is no evidence for focal infiltrate. The heart is stable. Hilar and mediastinal structures are within normal limits. Degenerative changes are seen of the dorsal spine. IMPRESSION: 1. Chronic changes without evidence for acute pulmonary disease.
[2023-02-08] MEDS: SODIUM CHLORIDE 0.9% 1,000 ML IV SCH ×3 (00:20→16:01)
[2023-02-08 05:44] LABS: Appearance,Urine Clear (Clear); Color,Urine Yellow; Glucose,Urine (UA) Negative (Negative); Protein,Urine Trace (Negative)
[2023-02-08 05:45] LABS: Bilirubin,Urine Negative (Negative); Blood,Urine Negative (Negative); Ketones,Urine Trace (Negative); Leukocyte Esterase,Urine Negative (Negative); Nitrite,Urine Positive (Negative); Urobilinogen,Urine <2.0 mg/dL (<2.0)
[2023-02-08 05:46] LABS: Bacteria,Urine Few /hpf; Mucus,Urine Rare /hpf; RBC,Urine 2 /hpf (0-5); Squamous Epithelial Cell,Urine 1 /hpf (0-4); WBC,Urine 2 /hpf (0-5)
[2023-02-08] MEDS: ASPIRIN 325 MG TAB PO SCH (09:00)
[2023-02-08] MEDS: METOPROLOL TARTRATE 50 MG TAB PO SCH ×2 (09:34→21:28)
[2023-02-08] MEDS: CARBIDOPA-LEVODOPA 25-100 MG 1 EACH TAB PO SCH ×2 (09:34→14:08)
[2023-02-08] MEDS: DULoxetine HCL 60 MG CAPSULE.DR PO SCH (09:34)
[2023-02-08] MEDS: APIXABAN 5 MG TAB PO SCH ×2 (09:34→21:27)
[2023-02-08] MEDS: LINAGLIPTIN 5 MG TABLET PO SCH (09:34)
[2023-02-08] MEDS: ATORVASTATIN 20 MG TAB PO SCH (09:34)
[2023-02-08] MEDS: OLANZapine 10 MG TAB PO SCH (09:35)
[2023-02-08] MEDS: PANTOPRAZOLE 40 MG TABLET PO SCH (09:35)
[2023-02-08] MEDS: dexAMETHasone 2 MG TAB PO SCH (09:35)
[2023-02-08 11:26] LABS: Chol/HDL Ratio 5.18 Ratio; LDL Cholesterol,Calculated 124.2 mg/dL (0.0-131.0)
--- NOTE | 2023-02-08 11:50 | P.CNNES ---
History of Present Illness Consult date: 02/08/23 Requesting physician: Magdy Cardona Reason for Consult: cva History of Present Illness: This is a 67-year-old woman who presented emergency department because of the generalized weakness mostly in the legs, cough and shortness of breath. She is not a great historian According to patient she's been having productive cough and per the nurse it seems that her significant other has history of COVID. She's been also having some confusion. She has a chronic underlying low back pain. Per the ED team is reported that she has underlying history of stroke and has worsening weakness sweaty She does have underlying history of Parkinson's disease and follows up with a neurologist as an outpatient. She states she follows up with Dr. Zuniga as an outpatient. Patient is on the home medication of eliquis 5mg bid. While she was in the hospital she was tested for COVID-19 and she was positive. Some other workup during his hospital visit consisted of: CBC with differential is unremarkable Sodium is 136, glucose is 172, calcium is 9.6, CK is 29, BUN is 31 and creatinine is 0.91. AST is 20 and ALTs 13. Lipid panels triglycerides 186, cholesterol is 200, LDL is 124, HDL is 38. SARS-CoV-[address] the head is reported as no CT evidence of acute intracranial abnormality. Atrophy and chronic microvascular ischemic white matter changes. I personally reviewed the CT and there is no acute or subacute ischemia. There is no bleed. CT angiography of the head and neck was reported as for CT angiography of the neck is reported as no dissection or pseudoaneurysm detected in the carotid or vertebral artery in the neck. Atherosclerotic disease is present with no hemodynamic significant diameter stenosis shown. CT angiography of the head is reported as no intracranial major vascular occlusion or significant stenosis or sizable aneurysm detected in the limits of CT angiography. Review of Systems Limited but the positive and negative as per HPI. Past Medical History Past Medical History: Asthma, Cancer, COPD, CVA/TIA, Diabetes Mellitus, Fibromyalgia, Hyperlipidemia, Hypertension, Musculoskeletal Disorder, Neurologic Disorder, Osteoarthritis (OA), Pulmonary Embolus (PE), Skin Disorder Additional Past Medical History / Comment(s): 3 PEs-involved bilateral lungs, CVA with some increased memory problems, NIDDM type II, neuropathy bilateral legs/feet, migraines, chronic low back pain, skin cancer removed from nose, urinary incontinence at times, lately stool loose and has some incontinence of s tool. parkinsons, multiple falls at home History of Any Multi-Drug Resistant Organisms: None Reported Past Surgical History: Back Surgery, Cholecystectomy, Hysterectomy, Joint Replacement, Orthopedic Surgery Additional Past Surgical History / Comment(s): Back pain stimulator implant lumbar, cataract removals, excision R nasal skin cancer with grafts, excision R buttock benign lesion, left and right total hip replacement Past Anesthesia/Blood Transfusion Reactions: No Reported Reaction Additional Past Anesthesia/Blood Transfusion Reaction / Comment(s): no hx blood transfusion Past Psychological History: Schizophrenia Additional Psychological History / Comment(s): Pt resides with her spouse who is very helpful to patient. Spouse does work during the day so pt is alone at that time. She has used [facility] in the past and she and spouse are interested in home care. Pt uses a cane or walker to ambulate. She no longer drives, her spouse takes her to appts, helps her manage her meds and assists her with getting cleaned up and dressed if necessary. He also assists her with meals. She has a lady from [facility] who comes twice a week for companionship and she does housework. Pt has had delusional disorder. Smoking Status: Former smoker Past Alcohol Use History: Rare Additional Past Alcohol Use History / Comment(s): Pt started smoking in 1972 and quit in February 2016. Past Drug Use History: None Reported - Past Family History Mother History Unknown: Yes Family Medical History: COPD Additional Family Medical History / Comment(s): Mother at the age of 78yrs. Father History Unknown: Yes Family Medical History: Myocardial Infarction (OR) Additional Family Medical History / Comment(s): Father of a massive OR at the age of 50 yrs. Pt is not sure if ovidio may have moved to his heart-he had injury in WWII. Sister(s) Family Medical History: Cancer Medications and Allergies Home Medications Medication Instructions Recorded Confirmed Type DULoxetine HCL [Cymbalta] 120 mg PO DAILY 06/19/14 02/07/23 History Apixaban [Eliquis] 5 mg PO BID 03/19/17 02/07/23 History Carbidopa-Levodopa 25-100 mg 2 tab PO AC-BID 06/05/19 02/07/23 History [Sinemet 25-100 mg] OLANZapine 20 mg PO DAILY 07/22/20 02/07/23 History Pantoprazole Sodium [Protonix] 40 mg PO DAILY 07/22/20 02/07/23 History Atorvastatin [Lipitor] 20 mg PO DAILY 02/07/23 02/07/23 History Metoprolol Tartrate [Lopressor] 50 mg PO BID 02/07/23 02/07/23 History Tiotropium 2.5 Mcg/Puff [Spiriva 2 puff INHALATION RT-DAILY 02/07/23 02/07/23 History Respimat 2.5 Mcg] metFORMIN HCL 500 mg PO BID 02/07/23 02/07/23 History sitaGLIPtin [Januvia] 50 mg PO DAILY 02/07/23 02/07/23 History Allergies Allergy/AdvReac Type Severity Reaction Status Date / Time No Known Allergies Allergy Verified 02/07/23 19:25 Physical Examination - Vital Signs Vital Signs: Vital Signs Temp Pulse Resp BP Pulse Ox 02/08/23 10:07 18 02/08/23 09:03 118 H 18 153/94 95 02/08/23 08:45 92 18 151/121 02/08/23 06:00 98.8 F 102 H 20 164/112 95 02/08/23 02:00 99 F 102 H 20 151/90 96 02/07/23 23:16 104 H 20 154/90 97 02/07/23 22:03 98.0 F 106 H 18 136/100 98 02/07/23 19:20 112 H 20 182/122 93 L 02/07/23 19:10 128 H 20 179/119 94 L 02/07/23 19:00 128 H 16 171/112 93 L 02/07/23 18:50 125 H 17 169/108 92 L 02/07/23 18:40 133 H 20 157/114 93 L 02/07/23 18:30 130 H 18 162/110 93 L 02/07/23 18:28 99.5 F 02/07/23 18:20 128 H 18 154/108 91 L 02/07/23 18:10 129 H 18 160/103 93 L 02/07/23 18:00 130 H 20 127/101 93 L 02/07/23 17:50 134 H 18 142/109 93 L 02/07/23 17:40 135 H 18 144/104 93 L 02/07/23 17:30 138 H 20 147/107 94 L 02/07/23 17:03 99.4 F 68 17 150/94 99 Intake and Output 02/07/23 02/08/23 02/08/23 22:59 06:59 14:59 Other: Weight 86.636 kg General: Lying in bed and does not appear in acute distress. Lung: Having dry cough. Neuro: Somewhat limited because of her underlying confusion. She is mildly drowsy but is awake we'll . She is oriented to self and the she correctly stated the the place and she stated the month currently. She could not tell me the year. She is able to follow a few simple commands. In which is limited. No neglect. The pupils are round equal reactive to light. The visual olson are full to confrontation. No facial weakness. No dysarthria. Motor the strength is hard to assess individual muscle strength but she is moving upwards more than the lowers above gravity. Hoven she moved the right upper extremity more than the left but she is having the pain chronic the low back pain that's limiting her examination. Sensation is normal to touch Reflexes is 2 positive. Plantars are on the right is a downgoing, while on the left is upgoing. Results - Laboratory Findings CBC and BMP: 02/07/23 17:56 02/07/23 17:56 Abnormal Lab Findings: Abnormal Labs 02/07/23 02/07/23 02/07/23 17:56 17:56 17:56 APTT 20.6 L Sodium 136 L Chloride 97 L BUN 31 H Glucose 172 H Creatine Kinase 29 L Troponin I 0.036 H* Triglycerides HDL Cholesterol Urine Protein Urine Bacteria Urine Mucus SARS-CoV-2 (PCR) 02/07/23 02/07/23 02/07/23 18:39 20:42 23:51 APTT Sodium Chloride BUN Glucose Creatine Kinase Troponin I 0.048 H* 0.051 H* Triglycerides HDL Cholesterol Urine Protein Urine Bacteria Urine Mucus SARS-CoV-2 (PCR) Detected A 02/08/23 02/08/23 05:27 06:13 APTT Sodium Chloride BUN Glucose Creatine Kinase Troponin I Triglycerides 186.00 H HDL Cholesterol 38.60 L Urine Protein Trace H Urine Bacteria Few H Urine Mucus Rare H SARS-CoV-2 (PCR) Assessment and Plan Assessment: This is a 67-year-old woman presented emergency department because of cough, shortness of breath and generalized weakness with confusion. She was found to be COVID-19 positive. Generalized weakness with encephalopathy is likely due to her underlying COVID- 19/hypoxic encephalopathy Acute COVID-19 infection History of Stroke/TIA History of some cognitive impairment per EMR History of Parkison's disease History of PE and is on eliquis History of chronic low back pain DM Diabetic neuropathy Plan: I doubt the patient has a stroke but we'll pursue MRI to rule out any underlying acute or subacute ischemia. I ordered CT of the lumbar since patient states she has worsening of the leg weakness but she has chronic low back pain. Her TSH, ammonia level, vitamin B-12 and folate. If patient does have a stroke we'll get the rest of the stroke workup. She is on her home dose of Eliquis 5mg bid. She was started on ASA 325mg daily by ED team. If MRI is negative for stroke then no need for ASA from neurological perspective. Is continued on her home Lipitor 20mg daily Continue neuro checks PT, OT and [facility] are consulted Defer the rest of the medical management to primary team DVT prophylaxis the patient is on Eliquis. The plan is discussed with her nurse. Thank you for the consultation. Dr. Craven will resume neurology service tomorrow A.M. Time with Patient: Greater than 30
--- NOTE | 2023-02-08 13:31 | P.HPIM ---
History of Present Illness H&P Date: 02/08/23 Chief Complaint: COVID 19 and confusion Henry is a 67-year-old white, female well known to me. She has Of CVA, Parkinson's disease, diabetes, long-term anticoagulation due to Pulmonary embolus,copd, and multpile other medical problems.Send it from home to emergency room with weakness and confusion along with bodyaches. She had mildly shortness of breath at this time. In the intensive caring unit, she received IV fluids and some of her medication. She was feral and tech card but this is resolved. Currently patient is seen this morning and is much improved. She is at her baseline mentation. And has no complaints. Does have some mild sinus tachycardia at this time. She was positive for COVID-19. Review of Systems All systems: negative Past Medical History Past Medical History: Asthma, Cancer, COPD, CVA/TIA, Diabetes Mellitus, Fibromyalgia, Hyperlipidemia, Hypertension, Musculoskeletal Disorder, Neurologic Disorder, Osteoarthritis (OA), Pulmonary Embolus (PE), Skin Disorder Additional Past Medical History / Comment(s): 3 PEs-involved bilateral lungs, CVA with some increased memory problems, NIDDM type II, neuropathy bilateral legs/feet, migraines, chronic low back pain, skin cancer removed from nose, urinary incontinence at times, lately stool loose and has some incontinence of stool. parkinsons, multiple falls at home History of Any Multi-Drug Resistant Organisms: None Reported Past Surgical History: Back Surgery, Cholecystectomy, Hysterectomy, Joint Replacement, Orthopedic Surgery Additional Past Surgical History / Comment(s): Back pain stimulator implant lumbar, cataract removals, excision R nasal skin cancer with grafts, excision R buttock benign lesion, left and right total hip replacement Past Anesthesia/Blood Transfusion Reactions: No Reported Reaction Additional Past Anesthesia/Blood Transfusion Reaction / Comment(s): no hx blood transfusion Past Psychological History: Schizophrenia Additional Psychological History / Comment(s): Pt resides with her spouse who is very helpful to patient. Spouse does work during the day so pt is alone at that time. She has used [facility] in the past and she and spouse are interested in home care. Pt uses a cane or walker to ambulate. She no longer drives, her spouse takes her to appts, helps her manage her meds and assists her with getting cleaned up and dressed if necessary. He also assists her with meals. She has a lady from [facility] who comes twice a week for companionship and she does housework. Pt has had delusional disorder. Smoking Status: Former smoker Past Alcohol Use History: Rare Additional Past Alcohol Use History / Comment(s): Pt started smoking in 1972 and quit in February 2016. Past Drug Use History: None Reported - Past Family History Mother History Unknown: Yes Family Medical History: COPD Additional Family Medical History / Comment(s): Mother at the age of 78yrs. Father History Unknown: Yes Family Medical History: Myocardial Infarction (PR) Additional Family Medical History / Comment(s): Father of a massive PR at the age of 50 yrs. Pt is not sure if ovidio may have moved to his heart-he had injury in WWII. Sister(s) Family Medical History: Cancer Medications and Allergies Home Medications Medication Instructions Recorded Confirmed Type DULoxetine HCL [Cymbalta] 120 mg PO DAILY 06/19/14 02/07/23 History Apixaban [Eliquis] 5 mg PO BID 03/19/17 02/07/23 History Carbidopa-Levodopa 25-100 mg 2 tab PO AC-BID 06/05/19 02/07/23 History [Sinemet 25-100 mg] OLANZapine 20 mg PO DAILY 07/22/20 02/07/23 History Pantoprazole Sodium [Protonix] 40 mg PO DAILY 07/22/20 02/07/23 History Atorvastatin [Lipitor] 20 mg PO DAILY 02/07/23 02/07/23 History Metoprolol Tartrate [Lopressor] 50 mg PO BID 02/07/23 02/07/23 History Tiotropium 2.5 Mcg/Puff [Spiriva 2 puff INHALATION RT-DAILY 02/07/23 02/07/23 History Respimat 2.5 Mcg] metFORMIN HCL 500 mg PO BID 02/07/23 02/07/23 History sitaGLIPtin [Januvia] 50 mg PO DAILY 02/07/23 02/07/23 History Allergies Allergy/AdvReac Type Severity Reaction Status Date / Time No Known Allergies Allergy Verified 02/07/23 19:25 Physical Exam Vitals: Vital Signs Temp Pulse Resp BP Pulse Ox 02/08/23 12:12 18 02/08/23 10:07 18 02/08/23 09:03 118 H 18 153/94 95 02/08/23 08:45 92 18 151/121 02/08/23 06:00 98.8 F 102 H 20 164/112 95 02/08/23 02:00 99 F 102 H 20 151/90 96 02/07/23 23:16 104 H 20 154/90 97 02/07/23 22:03 98.0 F 106 H 18 136/100 98 02/07/23 19:20 112 H 20 182/122 93 L 02/07/23 19:10 128 H 20 179/119 94 L 02/07/23 19:00 128 H 16 171/112 93 L 02/07/23 18:50 125 H 17 169/108 92 L 02/07/23 18:40 133 H 20 157/114 93 L 02/07/23 18:30 130 H 18 162/110 93 L 02/07/23 18:28 99.5 F 02/07/23 18:20 128 H 18 154/108 91 L 02/07/23 18:10 129 H 18 160/103 93 L 02/07/23 18:00 130 H 20 127/101 93 L 02/07/23 17:50 134 H 18 142/109 93 L 02/07/23 17:40 135 H 18 144/104 93 L 02/07/23 17:30 138 H 20 147/107 94 L 02/07/23 17:03 99.4 F 68 17 150/94 99 Intake and Output 02/07/23 02/08/23 02/08/23 22:59 06:59 14:59 Other: Weight 86.636 kg General: The patient is awake and alert, in minimal distress, and does not appear acutely ill. HEENT: PERRLA, EOMI, normal oropharynx Neck: The neck is supple, there is no thyromegaly, lymphadenopathy, tenderness or JVD. Cardiovascular: S1S2 is normal, There is a tachy rate and regular rhythm. No murmur, rub or gallop is appreciated. Respiratory: Lungs are clear to auscultationb bilaterally, respirations are non- labored, breath sounds are equal. Gastrointestinal: Soft, non-distended, without masses or organomegaly noted. There is no rebound or guarding present. Bowel sounds are unremarkable. Musculoskeletal: Normal ROM, no tenderness, There is no pedal edema. There is no calf tenderness or swelling. No cords were appreciated. Neurological: CN II-XII intact, she has generalized weakenss form parkinsons Speech is sow but normal (baseline).she is awake alert and oriented 3 today. Skin: Skin is warm and dry and no rashes or lesions are noted. Results CBC & Chem 7: 02/07/23 17:56 02/07/23 17:56 Labs: Abnormal Lab Results - Last 24 Hours (Table) 02/07/23 02/07/23 02/07/23 Range/Units 17:56 17:56 17:56 APTT 20.6 L (22.0-30.0) sec Sodium 136 L (137-145) mmol/L Chloride 97 L (98-107) mmol/L BUN 31 H (7-17) mg/dL Glucose 172 H (74-99) mg/dL Creatine Kinase 29 L (30-135) U/L Troponin I 0.036 H* (0.000-0.034) ng/mL Triglycerides (0.00-149.00) mg/dL HDL Cholesterol (40.00-60.00) mg/dL Urine Protein (Negative) Urine Bacteria (None) /hpf Urine Mucus (None) /hpf SARS-CoV-2 (PCR) (Not Detectd) 02/07/23 02/07/23 02/07/23 Range/Units 18:39 20:42 23:51 APTT (22.0-30.0) sec Sodium (137-145) mmol/L Chloride (98-107) mmol/L BUN (7-17) mg/dL Glucose (74-99) mg/dL Creatine Kinase (30-135) U/L Troponin I 0.048 H* 0.051 H* (0.000-0.034) ng/mL Triglycerides (0.00-149.00) mg/dL HDL Cholesterol (40.00-60.00) mg/dL Urine Protein (Negative) Urine Bacteria (None) /hpf Urine Mucus (None) /hpf SARS-CoV-2 (PCR) Detected A (Not Detectd) 02/08/23 02/08/23 Range/Units 05:27 06:13 APTT (22.0-30.0) sec Sodium (137-145) mmol/L Chloride (98-107) mmol/L BUN (7-17) mg/dL Glucose (74-99) mg/dL Creatine Kinase (30-135) U/L Troponin I (0.000-0.034) ng/mL Triglycerides 186.00 H (0.00-149.00) mg/dL HDL Cholesterol 38.60 L (40.00-60.00) mg/dL Urine Protein Trace H (Negative) Urine Bacteria Few H (None) /hpf Urine Mucus Rare H (None) /hpf SARS-CoV-2 (PCR) (Not Detectd) Chest x-ray: report reviewed CT Scan - head: report reviewed Thrombosis Risk Factor Assmnt - DVT/VTE Prophylaxis DVT/VTE Prophylaxis: Pharmacologic Prophylaxis ordered (restart home eliquis) Assessment and Plan (1) COVID-19 Current Visit: Yes Status: Acute Code(s): U07.1 - COVID-19 SNOMED Code(s): 380990534 (2) Encephalopathy acute Current Visit: No Status: Acute Code(s): G93.40 - ENCEPHALOPATHY, UNSPECIFIED SNOMED Code(s): 63516028 (3) Type 2 diabetes mellitus with other circulatory complications Current Visit: Yes Status: Acute Code(s): E11.59 - TYPE 2 DIABETES MELLITUS WITH OTH CIRCULATORY COMPLICATIONS SNOMED Code(s): 35911087 (4) H/O: CVA (cerebrovascular accident) Current Visit: No Status: Acute Code(s): Z86.73 - PRSNL HX OF TIA (TIA), AND CEREB INFRC W/O RESID DEFICITS SNOMED Code(s): 854162474 (5) Hx pulmonary embolism Current Visit: No Status: Acute Code(s): Z86.711 - PERSONAL HISTORY OF PULMONARY EMBOLISM SNOMED Code(s): 636366658 (6) Hypertension Current Visit: No Status: Acute Code(s): I10 - ESSENTIAL (PRIMARY) HYPERTENSION SNOMED Code(s): 20589077 (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 Await their recommendations. Covid protocol. Resume home medication. Will be reevaluating her in the next 24 hours.
--- NOTE | 2023-02-08 15:55 | CT ---
EXAMINATION TYPE: CT lumbar spine wo con CT DLP: 1040.4 mGycm, Automated exposure control for dose reduction was used. DATE OF EXAM: 02/08/2023 12:32 PM COMPARISON: 09/08/2015. CLINICAL INDICATION:Female, 67 years old with history of leg weakness, b/l leg weakness TECHNIQUE: Multiple axial images were obtained from the midportion of T11 through the sacroiliac jeff nts. Soft tissue and bone windows in coronal and sagittal planes were obtained and reviewed. Contrast used: mL of , none. Oral contrast used: none. FINDINGS: Multilevel degeneration changes throughout the spine with osteophyte formation and disc space narrowi ng. Findings worse at L4-L5 with grade 1 anterolisthesis with disc bulging and severe spinal canal st enosis and mild to moderate bilateral neural foraminal stenosis. No evidence for pars interarticulari s defects. There is pseudoarthrosis of the spinous processes throughout the lower spine. No additiona l evidence for significant neural foraminal stenosis or significant spinal canal stenosis. No evidenc e of fracture. Neurostimulator device with leads terminating in the posterior spine is present. Atherosclerosis of the arterial vasculature. IMPRESSION: Moderate disc degeneration changes with grade 1 anterolisthesis of L4 and L5 with severe spinal canal stenosis and mild to moderate bilateral neural foraminal stenosis.
[2023-02-08] MEDS: INSULIN ASPART (NovoLOG) 100 UNIT/ML VIAL SQ SCH ×2 (18:25→21:28)
[2023-02-08 18:26] LABS: Glucose,Whole Blood 310 mg/dL (70-110)
[2023-02-08] MEDS: ACETAMINOPHEN TAB 325 MG TAB PO PRN (18:28)
[2023-02-08 20:50] LABS: Glucose,Whole Blood 208 mg/dL (70-110)
--- NOTE | 2023-02-09 01:45 | CT ---
EXAM: CT Head Without Intravenous Contrast CLINICAL HISTORY: ITS.REASON CT Reason: r/o TIA TECHNIQUE: Axial computed tomography images of the head/brain without intravenous contrast. CTDI is 49.2 mGy and DLP is 1124.4 mGy-cm. This CT exam was performed using one or more of the following dose reduction techniques: automated exposure control, adjustment of the mA and/or kV according to patient size, and/or use of iterative reconstruction technique. COMPARISON: No relevant prior studies available. FINDINGS: Brain: No hemorrhage, herniation, or mass effect. Chronic microvascular ischemic changes. Ventricles: No hydrocephalus. Age related cerebral volume loss. Bones/joints: Unremarkable. Soft tissues: Unremarkable. Sinuses: Mild paranasal sinus mucosal thickening. Mastoid air cells: Clear. IMPRESSION: No acute hemorrhage, hydrocephalus, or mass effect.
[2023-02-09] MEDS: SODIUM CHLORIDE 0.9% 1,000 ML IV SCH ×3 (03:38→20:21)
[2023-02-09 06:21] LABS: Glucose,Whole Blood 122 mg/dL (70-110)
[2023-02-09] MEDS: INSULIN ASPART (NovoLOG) 100 UNIT/ML VIAL SQ SCH ×4 (06:26→20:20)
[2023-02-09] MEDS: CARBIDOPA-LEVODOPA 25-100 MG 1 EACH TAB PO SCH ×2 (06:35→11:51)
[2023-02-09] MEDS: PANTOPRAZOLE 40 MG TABLET PO SCH (06:35)
[2023-02-09] MEDS: ACETAMINOPHEN TAB 325 MG TAB PO PRN ×2 (06:38→20:21)
[2023-02-09] MEDS: TIOTROPIUM 2.5 MCG INHALER INHALATION SCH (07:48)
[2023-02-09] MEDS: dexAMETHasone 2 MG TAB PO SCH (08:02)
[2023-02-09] MEDS: DULoxetine HCL 60 MG CAPSULE.DR PO SCH (08:02)
[2023-02-09] MEDS: ATORVASTATIN 20 MG TAB PO SCH (08:02)
[2023-02-09] MEDS: METOPROLOL TARTRATE 50 MG TAB PO SCH ×2 (08:03→20:19)
[2023-02-09] MEDS: ASPIRIN 325 MG TAB PO SCH (08:03)
[2023-02-09] MEDS: APIXABAN 5 MG TAB PO SCH ×2 (08:03→20:20)
[2023-02-09] MEDS: OLANZapine 10 MG TAB PO SCH (08:04)
[2023-02-09] MEDS: LINAGLIPTIN 5 MG TABLET PO SCH (08:04)
[2023-02-09 08:22] LABS: Basophils % (A) 0 %; Eosinophils % (A) 0 %; HCT 34.9 % (34.0-46.0); HGB 11.6 gm/dL (11.4-16.0); Hypochromasia Slight; Lymphocytes # (A) 1.1 k/uL (1.0-4.8); Lymphocytes % (A) 20 %; MCH 29.1 pg (25.0-35.0); MCHC 33.1 g/dL (31.0-37.0); MCV 87.9 fL (80.0-100.0); Mean Platelet Volume 7.6; Monocytes # (A) 0.4 k/uL (0-1.0); Monocytes % (A) 7 %; Neutrophils % (A) 71 %; Platelet Count 222 k/uL (150-450); RBC 3.98 m/uL (3.80-5.40); RDW 14.5 % (11.5-15.5); WBC 5.6 k/uL (3.8-10.6)
[2023-02-09] MEDS ORDERED: traMADol 50 MG TAB PO STA (08:24)
[2023-02-09 08:32] LABS: ALT <6 U/L (4-34); AST 20 U/L (14-36); African American GFR (CKD) >90 (>60 ml/min/1.73 sqM); Albumin 3.1 g/dL (3.5-5.0); Alkaline Phosphatase 75 U/L (38-126); Anion Gap 8 mmol/L; Blood Urea Nitrogen 14 mg/dL (7-17); Calcium 8.4 mg/dL (8.4-10.2); Carbon Dioxide 23 mmol/L (22-30); Chloride 104 mmol/L (98-107); Glucose 118 mg/dL (74-99); LDH 179 U/L (120-246); Non-African American GFR(CKD) >90 (>60 ml/min/1.73 sqM); Sodium 135 mmol/L (137-145); Total Bilirubin 0.5 mg/dL (0.2-1.3); Total Protein 5.7 g/dL (6.3-8.2)
[2023-02-09 08:33] LABS: Partial Thromboplastin Time 25.9 sec (22.0-30.0); Prothrombin Time 10.6 sec (10.0-12.5)
[2023-02-09 08:40] LABS: NT-Pro-B-Type Natriuretic Pept 735 pg/mL
[2023-02-09 08:55] LABS: C Reactive Protein 3.8 mg/dL (<1.0)
--- NOTE | 2023-02-09 11:42 | P.PN ---
Subjective 02/08/23 Shari is a 67-year-old white, female well known to me. She has Of CVA, Parkinson's disease, diabetes, long-term anticoagulation due to Pulmonary embolus,copd, and multpile other medical problems.Send it from home to emergency room with weakness and confusion along with bodyaches. She had mildly shortness of breath at this time. In the intensive caring unit, she received IV fluids and some of her medication. She was feral and tech card but this is resolved. Currently patient is seen this morning and is much improved. She is at her [facility]. And has no complaints. Does have some mild sinus tachycardia at this time. She was positive for COVID-19. 02/09/2023: Shari remains in the ER as no beds were available for her to avoid admission along with her episodic confusion and hemiplegia. Neurology feels as the one that most likely her symptoms are from her old stroke and are exacerbated by the recent colon. Today she was found in hospital bed in the ER. She was on 2 L O2 and her pulse oximetry 76% during my examination. Other vitals remained stable now. She's had elevated blood pressures. Labs today showed a normal CBCcount. Chemistries are essentially normal D dimer is elevated at 2.53 however she is anticoagulated with Elequis. CRP is 3.8. A CT brain and lumbar spine reviewed. Showed chronic changes. She has a history of anterior listhesis of the lumbar spine is once again seen. She has an MRI pending soon. Objective - Vital Signs Vital signs: Vital Signs Temp 98.0 F 02/09/23 07:59 Pulse 63 02/09/23 09:33 Resp 18 02/09/23 09:33 BP 162/96 02/09/23 09:33 Pulse Ox 98 02/09/23 07:59 FiO2 Intake & Output 02/08/23 02/09/23 02/09/23 18:59 06:59 18:59 Intake Total 1740 Output Total 1150 Balance 590 Intake: Intake, IV Titration 1200 Amount Sodium Chloride 0.9% 1, 1200 000 ml @ 100 mls/hr IV . Q10H [facility] Rx#:[id number] Oral 540 Output: Urine 1150 Other: Voiding Method External Catheter - Exam General: The patient is awake and alert, in minimal distress, and does not appear acutely ill. sHe has oxygen 2 L/m via nasal cannula Neck: The neck is supple, there is no thyromegaly, lymphadenopathy, tenderness or JVD. Cardiovascular: S1S2 is normal, There is a tachy rate and regular rhythm. No murmur, rub or gallop is appreciated. Respiratory: Lungs are somewhat coarse to auscultationb bilaterally, respirations are non-labored, breath sounds are equal. Gastrointestinal: Soft, non-distended, without masses or organomegaly noted. There is no rebound or guarding present. Bowel sounds are unremarkable. Musculoskeletal: Normal ROM, no tenderness, There is no pedal edema. There is no calf tenderness or swelling. No cords were appreciated. Neurological: CN II-XII intact, she has generalized weakenss form parkinsons Speech is sow but normal (baseline).she is awake alert and oriented 3 today. Skin: Skin is warm and dry and no rashes or lesions are noted. - Labs CBC & Chem 7: 02/09/23 08:00 02/09/23 08:00 Labs: Abnormal Lab Results - Last 24 Hours (Table) 02/08/23 02/08/23 02/09/23 Range/Units 18:25 20:49 06:20 D-Dimer (<0.60) mg/L FEU Sodium (137-145) mmol/L Glucose (74-99) mg/dL POC Glucose (mg/dL) 310 H 208 H 122 H (70-110) mg/dL C-Reactive Protein (<1.0) mg/dL Total Protein (6.3-8.2) g/dL Albumin (3.5-5.0) g/dL 02/09/23 02/09/23 Range/Units 08:00 08:00 D-Dimer 2.53 H (<0.60) mg/L FEU Sodium 135 L (137-145) mmol/L Glucose 118 H (74-99) mg/dL POC Glucose (mg/dL) (70-110) mg/dL C-Reactive Protein 3.8 H (<1.0) mg/dL Total Protein 5.7 L (6.3-8.2) g/dL Albumin 3.1 L (3.5-5.0) g/dL Assessment and Plan (1) COVID-19 Current Visit: Yes Status: Acute Code(s): U07.1 - COVID-19 SNOMED Code(s): 529146277 (2) Encephalopathy acute Current Visit: No Status: Acute Code(s): G93.40 - ENCEPHALOPATHY, UNSPECIFIED SNOMED Code(s): 71468494 (3) Type 2 diabetes mellitus with other circulatory complications Current Visit: Yes Status: Acute Code(s): E11.59 - TYPE 2 DIABETES MELLITUS WITH OTH CIRCULATORY COMPLICATIONS SNOMED Code(s): 60576834 (4) H/O: CVA (cerebrovascular accident) Current Visit: No Status: Acute Code(s): Z86.73 - PRSNL HX OF TIA (TIA), AND CEREB INFRC W/O RESID DEFICITS SNOMED Code(s): 261817718 (5) Hx pulmonary embolism Current Visit: No Status: Acute Code(s): Z86.711 - PERSONAL HISTORY OF PULMONARY EMBOLISM SNOMED Code(s): 027948833 (6) Hypertension Current Visit: No Status: Acute Code(s): I10 - ESSENTIAL (PRIMARY) HYPERTENSION SNOMED Code(s): 69195210 (7) [facility] current use of anticoagulant Current Visit: No Status: Acute Code(s): Z79.01 - MCFP (CURRENT) USE OF ANTICOAGULANTS SNOMED Code(s): 563858439 (8) Pure hypercholesterolemia Current Visit: No Status: Acute Code(s): E78.00 - PURE HYPERCHOLESTEROLEMIA, UNSPECIFIED SNOMED Code(s): 176475860 (9) Schizophrenia Current Visit: No Status: Acute Code(s): F20.9 - SCHIZOPHRENIA, UNSPECIFIED SNOMED Code(s): 77754271 (10) Hypoxemia Current Visit: Yes Status: Acute Code(s): R09.02 - HYPOXEMIA SNOMED Code(s): 005399002 Plan: She has no MRI of the brain pending to reevaluate her history of stroke or any new onset or issues. Due to hypoxia I will consult pulmonology at this time. She remains on covid protocol. We'll repeat labs in a.m. She'll be reevaluated next 24 hours.
[2023-02-09] MEDS ORDERED: ALBUTEROL HFA INHALER INHALATION PRN (11:44)
[2023-02-09 11:45] LABS: Glucose,Whole Blood 196 mg/dL (70-110)
[2023-02-09] MEDS: VALSARTAN 160 MG TAB PO SCH (11:51)
[2023-02-09 16:54] LABS: Glucose,Whole Blood 270 mg/dL (70-110)
--- NOTE | 2023-02-09 18:48 | P.PN ---
Subjective Progress Note Date: 02/09/23 Patient was initially seen by Dr. Jd Crews. Please refer to his note for details. Patient is a 67-year-old female with altered mental status, weakness. ED was concerned about CVA. She is Covid positive. MRI of the brain is pending. Patient also has significant back pain. Patient says that she is feeling good. Patient states she has been having headaches, backaches that is extending to the legs for last 6 months. She also has history of tremors. Patient states that for the last 6 months she has been using a walker or a cane, depending upon how her shakes are. Some other workup during his hospital visit consisted of: CBC with differential is unremarkable Sodium is 136, glucose is 172, calcium is 9.6, CK is 29, BUN is 31 and creatinine is 0.91. AST is 20 and ALTs 13. Lipid panels triglycerides 186, cholesterol is 200, LDL is 124, HDL is 38. SARS-CoV-[address] the head is reported as no CT evidence of acute intracranial abnormality. Atrophy and chronic microvascular ischemic white matter changes. I personally reviewed the CT and there is no acute or subacute ischemia. There is no bleed. CT angiography of the head and neck was reported as for CT angiography of the neck is reported as no dissection or pseudoaneurysm detected in the carotid or vertebral artery in the neck. Atherosclerotic disease is present with no hemodynamic significant diameter stenosis shown. CT angiography of the head is reported as no intracranial major vascular occlusion or significant stenosis or sizable aneurysm detected in the limits of CT angiography. Objective - Vital Signs Vital signs: Vital Signs Temp 98.4 F 02/09/23 15:35 Pulse 76 02/09/23 15:35 Resp 18 02/09/23 15:35 BP 160/99 02/09/23 15:35 Pulse Ox 95 02/09/23 15:35 FiO2 Intake & Output 02/08/23 02/09/23 02/09/23 18:59 06:59 18:59 Intake Total 1740 Output Total 1150 Balance 590 Weight 86.636 kg Intake: Intake, IV Titration 1200 Amount Sodium Chloride 0.9% 1, 1200 000 ml @ 100 mls/hr IV . Q10H [facility] Rx#:[id number] Oral 540 Output: Urine 1150 Other: Voiding Method External Catheter External Catheter - Exam Patient is alert and awake in no distress. Her speech is slightly hoarse but no aphasia or dysarthria. She knows it is [facility] and that it is the month of February 10, could not, for the year. Visual olson are full, extraocular muscles are intact. Face is symmetric. Muscle strength is normal in the arms and legs. Patient has moderate tremors at rest. She also has tremors while walking hanging onto the walker. Tone is normal bilaterally. She does have mild bradykinesia. Patient walks with a walker. - Labs CBC & Chem 7: 02/10/23 08:18 02/10/23 08:18 Labs: Abnormal Lab Results - Last 24 Hours (Table) 02/08/23 02/08/23 02/09/23 Range/Units 18:25 20:49 06:20 D-Dimer (<0.60) mg/L FEU Sodium (137-145) mmol/L Glucose (74-99) mg/dL POC Glucose (mg/dL) 310 H 208 H 122 H (70-110) mg/dL C-Reactive Protein (<1.0) mg/dL Total Protein (6.3-8.2) g/dL Albumin (3.5-5.0) g/dL 02/09/23 02/09/23 02/09/23 Range/Units 08:00 08:00 11:43 D-Dimer 2.53 H (<0.60) mg/L FEU Sodium 135 L (137-145) mmol/L Glucose 118 H (74-99) mg/dL POC Glucose (mg/dL) 196 H (70-110) mg/dL C-Reactive Protein 3.8 H (<1.0) mg/dL Total Protein 5.7 L (6.3-8.2) g/dL Albumin 3.1 L (3.5-5.0) g/dL 02/09/23 Range/Units 16:46 D-Dimer (<0.60) mg/L FEU Sodium (137-145) mmol/L Glucose (74-99) mg/dL POC Glucose (mg/dL) 270 H (70-110) mg/dL C-Reactive Protein (<1.0) mg/dL Total Protein (6.3-8.2) g/dL Albumin (3.5-5.0) g/dL Assessment and Plan Assessment: This is a 67-year-old woman presented emergency department because of cough, shortness of breath and generalized weakness with confusion. She was found to be COVID-19 positive. Generalized weakness with encephalopathy is likely due to her underlying COVID- 19/hypoxic encephalopathy Acute COVID-19 infection History of Stroke/TIA History of some cognitive impairment per EMR History of Parkison's disease History of PE and is on eliquis History of chronic low back pain DM Diabetic neuropathy Plan: No clinical evidence of CVA. Patient has a spinal cord stimulator, cannot have MRI. We will cancel MRI. CT of the lumbar spine revealed moderate disc degenerative changes with grade 1 anterolisthesis of L4 and L5 with severe spinal canal stenosis and mild to moderate bilateral neuroforaminal stenosis. Consider orthopedic spine for severe spinal stenosis. TSH 1.74, ammonia level, vitamin B-12 398 and folate 16.9. She is on her home dose of Eliquis 5mg bid. CTA of head and neck showed no significant stenosis. No need for aspirin. Is continued on her home Lipitor 20mg daily Continue neuro checks PT, OT and [employer] are consulted Defer the rest of the medical management to primary team DVT prophylaxis the patient is on Eliquis. Neurologically clear for discharge. Recommend follow-up with her neurologist for her subjective memory disturbance and tremors. Slight worsening of tremors could be related to acute Covid infection. Overall, these conditions can be managed as an outpatient.
[2023-02-09 20:02] LABS: Glucose,Whole Blood 172 mg/dL (70-110)
[2023-02-10] MEDS ORDERED: hydrALAZINE HCL 25 MG TAB PO STA (01:22)
--- NOTE | 2023-02-10 01:23 | EEG ---
ELECTROENCEPHALOGRAM REPORT PREAMBLE: This is a 67-year-old female with possible TIA. Patient has COVID. EEG FINDINGS: This is a 21-channel digital EEG recorded with video component, utilizing 10/20 international system with referential and bipolar montages. Background consists of well-developed, moderately well regulated, mixed frequencies of 8 to 9 hertz alpha, with some 6 to 7 hertz theta activity seen in bihemispheric region. The background is reactive to eye opening and closing. Photic stimulation was not performed. Hyperventilation not done. Some drowsiness was seen with appearance of bilaterally symmetric theta frequency rhythm. Brief stage 2 sleep was attained at the end of the study with presence of sleep spindles. No focal or generalized epileptiform activity was seen. Some myoclonic twitches were seen, but there was no electrographic correlate. EKG channel showed no obvious arrhythmia. IMPRESSION: This is an abnormal EEG due to background slowing of mild degree, suggestive of encephalopathy. No focal, lateralized or epileptiform activity was seen. MMODL / IJN: [id number] /
[2023-02-10] MEDS: ACETAMINOPHEN TAB 325 MG TAB PO PRN (01:29)
[2023-02-10 06:13] LABS: Glucose,Whole Blood 133 mg/dL (70-110)
[2023-02-10] MEDS: INSULIN ASPART (NovoLOG) 100 UNIT/ML VIAL SQ SCH ×4 (06:16→21:16)
[2023-02-10] MEDS: CARBIDOPA-LEVODOPA 25-100 MG 1 EACH TAB PO SCH ×2 (06:34→12:43)
[2023-02-10] MEDS: PANTOPRAZOLE 40 MG TABLET PO SCH (06:34)
[2023-02-10] MEDS: TIOTROPIUM 2.5 MCG INHALER INHALATION SCH (08:03)
[2023-02-10 09:21] LABS: Basophils % (A) 0 %; Eosinophils % (A) 0 %; HCT 36.5 % (34.0-46.0); HGB 11.7 gm/dL (11.4-16.0); Hypochromasia Slight; Lymphocytes # (A) 1.6 k/uL (1.0-4.8); Lymphocytes % (A) 22 %; MCH 28.4 pg (25.0-35.0); MCHC 32.1 g/dL (31.0-37.0); MCV 88.5 fL (80.0-100.0); Mean Platelet Volume 8.3; Monocytes # (A) 0.4 k/uL (0-1.0); Monocytes % (A) 6 %; Neutrophils # (A) 5.1 k/uL (1.3-7.7); Neutrophils % (A) 70 %; Platelet Count 248 k/uL (150-450); RBC 4.12 m/uL (3.80-5.40); RDW 14.6 % (11.5-15.5); WBC 7.2 k/uL (3.8-10.6)
[2023-02-10 09:30] LABS: INR 0.9 (<1.2); Partial Thromboplastin Time 23.1 sec (22.0-30.0)
[2023-02-10 09:46] LABS: ALT 10 U/L (4-34); AST 20 U/L (14-36); African American GFR (CKD) >90 (>60 ml/min/1.73 sqM); Albumin 3.4 g/dL (3.5-5.0); Alkaline Phosphatase 78 U/L (38-126); Anion Gap 13 mmol/L; Blood Urea Nitrogen 17 mg/dL (7-17); C Reactive Protein 1.8 mg/dL (<1.0); Calcium 8.8 mg/dL (8.4-10.2); Carbon Dioxide 21 mmol/L (22-30); Chloride 102 mmol/L (98-107); Glucose 186 mg/dL (74-99); LDH 164 U/L (120-246); Magnesium 1.9 mg/dL (1.6-2.3); Non-African American GFR(CKD) >90 (>60 ml/min/1.73 sqM); Potassium 3.6 mmol/L (3.5-5.1); Sodium 136 mmol/L (137-145); Total Bilirubin 0.4 mg/dL (0.2-1.3)
[2023-02-10 09:49] LABS: NT-Pro-B-Type Natriuretic Pept 1620 pg/mL
[2023-02-10] MEDS: DULoxetine HCL 60 MG CAPSULE.DR PO SCH (10:48)
[2023-02-10] MEDS: METOPROLOL TARTRATE 50 MG TAB PO SCH ×2 (10:48→21:16)
[2023-02-10] MEDS: VALSARTAN 160 MG TAB PO SCH (10:48)
[2023-02-10] MEDS: OLANZapine 10 MG TAB PO SCH (10:48)
[2023-02-10] MEDS: ASPIRIN 325 MG TAB PO SCH (10:48)
[2023-02-10] MEDS: LINAGLIPTIN 5 MG TABLET PO SCH (10:48)
[2023-02-10] MEDS: ATORVASTATIN 20 MG TAB PO SCH (10:49)
[2023-02-10] MEDS: APIXABAN 5 MG TAB PO SCH ×2 (10:49→21:16)
[2023-02-10] MEDS: dexAMETHasone 2 MG TAB PO SCH (10:49)
[2023-02-10 11:24] LABS: Glucose,Whole Blood 154 mg/dL (70-110)
--- NOTE | 2023-02-10 12:01 | P.CNPUL ---
History of Present Illness Consult date: 02/10/23 Requesting physician: Farzad Hartley Reason for consult: other Chief complaint: Dizziness, weakness, possible stroke. History of present illness: Pulmonary consult dated 02/10/2023. 67-year-old female who apparently presented to the emergency department, on February 07, complaining of mental status changes, poor speech, weakness, right- sided weakness, slurred speech, dizziness, and generally just not feeling well. The patient was evaluated for possible stroke. We were consulted, for shortness of breath, which the patient apparently has from time to time. The shortness of breath, did not bring the patient into the hospital. Currently, the patient is seen in room 353. The patient did test positive for coronavirus. Her chest x- ray was normal. She was on 2 L of oxygen with excellent saturations. She was getting saline at 100 mL an hour. We don't believe she benefits from Decadron, so it was discontinued. She also vague history of asthma, CVA, diabetes, fibromyalgia, hyperlipidemia, hypertension, osteoarthritis, pulmonary embolism, among other things. Computed tomography scan of the brain was negative for anything acute. Angiography CT was also negative. Chest x-ray was not showing anything acute. A repeat computed tomography scan of the brain showed no acute hemorrhage, hydrocephalus or mass effect. White count 7.2, hemoglobin 11.7, hematocrit 36.5, and platelet count 248,000. D-dimer was 2.56. Sodium 136, potassium 3.6, chlorides 102, CO2 21, anion gap 13, BUN 17, and creatinine 0.62. Albumin was 3.4. N-terminal proBNP was 1620. Review of Systems REVIEW OF SYSTEMS: CONSTITUTIONAL: [Negative.] NEUROLOGIC: Lightheadedness, dizziness, slurred speech, weakness. HEENT: [ Negative.] CARDIAC: [Negative.] PULMONARY: Mild shortness of breath. GI: [Negative.] : [Negative.] RHEUMATOLOGIC: [ Negative.] IMMUNOLOGIC: [ Negative.] ENDOCRINE: [Negative. ] DERMATOLOGIC: [Negative.] Past Medical History Past Medical History: Asthma, Cancer, COPD, CVA/TIA, Diabetes Mellitus, Fibro myalgia, Hyperlipidemia, Hypertension, Musculoskeletal Disorder, Neurologic Disorder, Osteoarthritis (OA), Pulmonary Embolus (PE), Skin Disorder Additional Past Medical History / Comment(s): 3 PEs-involved bilateral lungs, CVA with some increased memory problems, NIDDM type II, neuropathy bilateral legs/feet, migraines, chronic low back pain, skin cancer removed from nose, urinary incontinence at times, lately stool loose and has some incontinence of stool. parkinsons, multiple falls at home History of Any Multi-Drug Resistant Organisms: None Reported Past Surgical History: Back Surgery, Cholecystectomy, Hysterectomy, Joint Replacement, Orthopedic Surgery Additional Past Surgical History / Comment(s): Back pain stimulator implant lumbar, cataract removals, excision R nasal skin cancer with grafts, excision R buttock benign lesion, left and right total hip replacement Past Anesthesia/Blood Transfusion Reactions: No Reported Reaction Additional Past Anesthesia/Blood Transfusion Reaction / Comment(s): no hx blood transfusion Past Psychological History: Schizophrenia Additional Psychological History / Comment(s): Pt resides with her spouse who is very helpful to patient. Spouse does work during the day so pt is alone at that time. She has used [facility] in the past and she and spouse are interested in home care. Pt uses a cane or walker to ambulate. She no longer drives, her spouse takes her to [employer], helps her manage her meds and assists her with getting cleaned up and dressed if necessary. He also assists her with meals. She has a lady from [facility] who comes twice a week for companionship and she does housework. Pt has had delusional disorder. Smoking Status: Former smoker Past Alcohol Use History: Rare Additional Past Alcohol Use History / Comment(s): Pt started smoking in 1972 and quit in February 2016. Past Drug Use History: None Reported Additional Drug Use History / Comment(s): occasional - Past Family History Mother History Unknown: Yes Family Medical History: COPD Additional Family Medical History / Comment(s): Mother at the age of 78yrs. Father History Unknown: Yes Family Medical History: Myocardial Infarction (ID) Additional Family Medical History / Comment(s): Father of a massive ID at the age of 50 yrs. Pt is not sure if ovidio may have moved to his heart-he had injury in WWII. Sister(s) Family Medical History: Cancer Medications and Allergies Home Medications Medication Instructions Recorded Confirmed Type DULoxetine HCL [Cymbalta] 120 mg PO DAILY 06/19/14 02/07/23 History Apixaban [Eliquis] 5 mg PO BID 03/19/17 02/07/23 History Carbidopa-Levodopa 25-100 mg 2 tab PO AC-BID 06/05/19 02/07/23 History [Sinemet 25-100 mg] OLANZapine 20 mg PO DAILY 07/22/20 02/07/23 History Pantoprazole Sodium [Protonix] 40 mg PO DAILY 07/22/20 02/07/23 History Atorvastatin [Lipitor] 20 mg PO DAILY 02/07/23 02/07/23 History Metoprolol Tartrate [Lopressor] 50 mg PO BID 02/07/23 02/07/23 History Tiotropium 2.5 Mcg/Puff [Spiriva 2 puff INHALATION RT-DAILY 02/07/23 02/07/23 History Respimat 2.5 Mcg] metFORMIN HCL 500 mg PO BID 02/07/23 02/07/23 History sitaGLIPtin [Januvia] 50 mg PO DAILY 02/07/23 02/07/23 History Allergies Allergy/AdvReac Type Severity Reaction Status Date / Time No Known Allergies Allergy Verified 02/07/23 19:25 Physical Exam Osteopathic Statement: *. No significant issues noted on an osteopathic structural exam other than those noted in the History and Physical/Consult. Vitals: Vital Signs Temp Pulse Pulse Resp BP BP Pulse Ox 02/10/23 10:30 77 17 02/10/23 08:05 96 02/10/23 07:55 97.8 F 77 17 174/95 96 02/10/23 03:41 59 L 18 192/96 98 02/10/23 03:40 192/96 02/10/23 02:15 177/93 02/10/23 00:00 56 L 18 190/100 96 02/09/23 20:00 97.7 F 72 18 138/101 95 02/09/23 15:35 98.4 F 76 18 160/99 95 02/09/23 14:42 97.7 F 71 18 166/99 93 L Intake and Output 02/09/23 02/10/23 02/10/23 22:59 06:59 14:59 Intake Total 360 Output Total 700 600 Balance 360 -700 -600 Intake: Oral 360 Output: Urine 700 600 Other: Voiding Method External Catheter External Catheter External Catheter # Voids 3 # Bowel Movements 1 Weight 86.636 kg No acute distress, oriented 3. Currently on 2 L. No respiratory distress. Saturations are 98%. HEENT examination is grossly unremarkable. Neck supple. Full range of motion. No adenopathy thyromegaly or neck vein distention. Cardiovascular examination reveals regular rhythm rate. S1-S2 normal. No S3 or S4. No discernible murmur noted. Heart rate 77 bpm. Lungs reveal clear breath sounds. Breath sounds are equal bilaterally. No adventitious lung sounds including wheezes rhonchi or crackles. Abdomen soft bowel sounds are heard. No masses or tenderness. Extremities are intact. No cyanosis clubbing or edema. Skin is without rash or lesion. Neurologic examination is brief but nonfocal. Results - Laboratory Findings CBC and BMP: 02/10/23 08:18 02/10/23 08:18 PT/INR, D-dimer PT 10.0 sec (10.0-12.5) 02/10/23 08:18 INR 0.9 (<1.2) 02/10/23 08:18 D-Dimer 2.56 mg/L FEU (<0.60) H 02/10/23 08:18 Abnormal lab findings: Abnormal Labs 02/07/23 02/07/23 02/07/23 17:56 17:56 17:56 APTT 20.6 L D-Dimer Sodium 136 L Chloride 97 L Carbon Dioxide BUN 31 H Glucose 172 H POC Glucose (mg/dL) Creatine Kinase 29 L Troponin I 0.036 H* C-Reactive Protein Total Protein Albumin Triglycerides HDL Cholesterol Urine Protein Urine Bacteria Urine Mucus SARS-CoV-2 (PCR) 02/07/23 02/07/23 02/07/23 18:39 20:42 23:51 APTT D-Dimer Sodium Chloride Carbon Dioxide BUN Glucose POC Glucose (mg/dL) Creatine Kinase Troponin I 0.048 H* 0.051 H* C-Reactive Protein Total Protein Albumin Triglycerides HDL Cholesterol Urine Protein Urine Bacteria Urine Mucus SARS-CoV-2 (PCR) Detected A 02/08/23 02/08/23 02/08/23 05:27 06:13 18:25 APTT D-Dimer Sodium Chloride Carbon Dioxide BUN Glucose POC Glucose (mg/dL) 310 H Creatine Kinase Troponin I C-Reactive Protein Total Protein Albumin Triglycerides 186.00 H HDL Cholesterol 38.60 L Urine Protein Trace H Urine Bacteria Few H Urine Mucus Rare H SARS-CoV-2 (PCR) 02/08/23 02/09/23 02/09/23 20:49 06:20 08:00 APTT D-Dimer 2.53 H Sodium Chloride Carbon Dioxide BUN Glucose POC Glucose (mg/dL) 208 H 122 H Creatine Kinase Troponin I C-Reactive Protein Total Protein Albumin Triglycerides HDL Cholesterol Urine Protein Urine Bacteria Urine Mucus SARS-CoV-2 (PCR) 02/09/23 02/09/23 02/09/23 08:00 11:43 16:46 APTT D-Dimer Sodium 135 L Chloride Carbon Dioxide BUN Glucose 118 H POC Glucose (mg/dL) 196 H 270 H Creatine Kinase Troponin I C-Reactive Protein 3.8 H Total Protein 5.7 L Albumin 3.1 L Triglycerides HDL Cholesterol Urine Protein Urine Bacteria Urine Mucus SARS-CoV-2 (PCR) 02/09/23 02/10/23 02/10/23 20:00 06:12 08:18 APTT D-Dimer 2.56 H Sodium Chloride Carbon Dioxide BUN Glucose POC Glucose (mg/dL) 172 H 133 H Creatine Kinase Troponin I C-Reactive Protein Total Protein Albumin Triglycerides HDL Cholesterol Urine Protein Urine Bacteria Urine Mucus SARS-CoV-2 (PCR) 02/10/23 02/10/23 08:18 11:22 APTT D-Dimer Sodium 136 L Chloride Carbon Dioxide 21 L BUN Glucose 186 H POC Glucose (mg/dL) 154 H Creatine Kinase Troponin I C-Reactive Protein 1.8 H Total Protein 6.0 L Albumin 3.4 L Triglycerides HDL Cholesterol Urine Protein Urine Bacteria Urine Mucus SARS-CoV-2 (PCR) - Diagnostic Findings Chest x-ray: image reviewed Assessment and Plan Assessment: Acute mental status changes, lightheadedness, dizziness, weakness, slurred speech, without clear evidence of CVA/TIA. Intermittent/mild shortness of breath, likely related to the patient's history of mild asthma/COPD. Coronavirus infection, without coronavirus associated pneumonia. History of Parkinson's disease. Prior history of CVA/TIA. History of diabetes mellitus. History of fibromyalgia. History of hypertension. History of hyperlipidemia. His stream pulmonary embolism. Multiple other medical problems and comorbidities. Plan: Plan dated 02/10/2023. The patient has been chronically on a factor X a inhibitor. Shortness of breath is relatively mild, and, it is unlikely that she has coronavirus associated pneumonia. Her chest x-ray from most practical purposes, is normal. Her major complaints were all neurologic. Computed tomography scan of the brain 2, did not show anything acute. Angiography CT was also negative. Neurology has been consulted. It's unlikely the patient had another pulmonary embolism, given the fact that she is on a factor X a inhibitor. Of note, her d-dimer was 2.56. A CT angiogram could be ordered, just to rule out another pulmonary embolism. I will leave that up to the primary service, as I don't feel strongly that it should be done. Additional recommendations and suggestions are forthcoming. Prognosis is guarded. Time with Patient: Greater than 30
--- NOTE | 2023-02-10 12:17 | P.PN ---
Subjective 02/08/23 Shari is a 67-year-old white, female well known to me. She has Of CVA, Parkinson's disease, diabetes, long-term anticoagulation due to Pulmonary embolus,copd, and multpile other medical problems.Send it from home to emergency room with weakness and confusion along with bodyaches. She had mildly shortness of breath at this time. In the intensive caring unit, she received IV fluids and some of her medication. She was feral and tech card but this is resolved. Currently patient is seen this morning and is much improved. She is at her [facility] mentation. And has no complaints. Does have some mild sinus tachycardia at this time. She was positive for COVID-19. 02/09/2023: Shari remains in the ER as no beds were available for her to avoid admission along with her episodic confusion and hemiplegia. Neurology feels as the one that most likely her symptoms are from her old stroke and are exacerbated by the recent colon. Today she was found in hospital bed in the ER. She was on 2 L O2 and her pulse oximetry 76% during my examination. Other vitals remained stable now. She's had elevated blood pressures. Labs today showed a normal CBCcount. Chemistries are essentially normal D dimer is elevated at 2.53 however she is anticoagulated with Elequis. CRP is 3.8. A CT brain and lumbar spine reviewed. Showed chronic changes. She has a history of anterior listhesis of the lumbar spine is once again seen. She has an MRI pending soon. 02/10/2023: Patient was reevaluated today. She is a known history of confusion and issues regarding her hemiplegia, old CVA, Parkinson's disease. I'm suspicious she has some mild Parkinson's dementia as well. Her is very attentive. She was admitted for Coban and mental status changes. She is at baseline now mentally. She does continue to cough. Otherwise she seems stable. Pulmonology notes reviewed. Blood pressures on the biggest concern. It has been ongoing elevated. He is currently on Crixivan for history of PE, valsartan, metoprolol, and now hydralazine. Labs reviewed and are essentially normal today , with the exception a C-reactive protein which was slightly elevated and her d-dimer. Objective - Vital Signs Vital signs: Vital Signs Temp 97.8 F 02/10/23 07:55 Pulse 77 02/10/23 10:30 Resp 17 02/10/23 10:30 BP 174/95 02/10/23 07:55 Pulse Ox 96 02/10/23 08:05 FiO2 Intake & Output 02/09/23 02/10/23 02/10/23 18:59 06:59 18:59 Intake Total 360 Output Total 700 600 Balance 360 -700 -600 Weight 86.636 kg Intake: Oral 360 Output: Urine 700 600 Other: Voiding Method External Catheter External Catheter External Catheter # Voids 3 # Bowel Movements 1 - Exam General: The patient is awake and alert, in minimal distress, and does not appear acutely ill. sHe has oxygen 2 L/m via nasal cannula Neck: The neck is supple, there is no thyromegaly, lymphadenopathy, tenderness or JVD. Cardiovascular: S1S2 is normal, There is a tachy rate and regular rhythm. No murmur, rub or gallop is appreciated. Respiratory: Lungs are somewhat coarse to auscultation bilaterally, respirations are non-labored, breath sounds are equal. Gastrointestinal: Soft, non-distended, without masses or organomegaly noted. There is no rebound or guarding present. Bowel sounds are unremarkable. Musculoskeletal: Normal ROM, no tenderness, There is no pedal edema. There is no calf tenderness or swelling. No cords were appreciated. Neurological: CN II-XII intact, she has generalized weakenss form parkinsons Speech is slow but normal (baseline).she is awake alert and oriented 2 today. Skin: Skin is warm and dry and no rashes or lesions are noted. - Labs CBC & Chem 7: 02/10/23 08:18 02/10/23 08:18 Labs: Abnormal Lab Results - Last 24 Hours (Table) 02/09/23 02/09/23 02/10/23 Range/Units 16:46 20:00 06:12 D-Dimer (<0.60) mg/L FEU Sodium (137-145) mmol/L Carbon Dioxide (22-30) mmol/L Glucose (74-99) mg/dL POC Glucose (mg/dL) 270 H 172 H 133 H (70-110) mg/dL C-Reactive Protein (<1.0) mg/dL Total Protein (6.3-8.2) g/dL Albumin (3.5-5.0) g/dL 02/10/23 02/10/23 02/10/23 Range/Units 08:18 08:18 11:22 D-Dimer 2.56 H (<0.60) mg/L FEU Sodium 136 L (137-145) mmol/L Carbon Dioxide 21 L (22-30) mmol/L Glucose 186 H (74-99) mg/dL POC Glucose (mg/dL) 154 H (70-110) mg/dL C-Reactive Protein 1.8 H (<1.0) mg/dL Total Protein 6.0 L (6.3-8.2) g/dL Albumin 3.4 L (3.5-5.0) g/dL Assessment and Plan (1) COVID-19 Current Visit: Yes Status: Acute Code(s): U07.1 - COVID-19 SNOMED Code(s): 361415023 (2) Encephalopathy acute Current Visit: No Status: Acute Code(s): G93.40 - ENCEPHALOPATHY, UNSPECIFIED SNOMED Code(s): 83161688 (3) Type 2 diabetes mellitus with other circulatory complications Current Visit: Yes Status: Acute Code(s): E11.59 - TYPE 2 DIABETES MELLITUS WITH OTH CIRCULATORY COMPLICATIONS SNOMED Code(s): 68834468 (4) H/O: CVA (cerebrovascular accident) Current Visit: No Status: Acute Code(s): Z86.73 - PRSNL HX OF TIA (TIA), AND CEREB INFRC W/O RESID DEFICITS SNOMED Code(s): 397657549 (5) Hx pulmonary embolism Current Visit: No Status: Acute Code(s): Z86.711 - PERSONAL HISTORY OF PULMONARY EMBOLISM SNOMED Code(s): 475032698 (6) Hypertension Current Visit: No Status: Acute Code(s): I10 - ESSENTIAL (PRIMARY) HYPERTENSION SNOMED Code(s): 40537267 (7) senior care current use of anticoagulant Current Visit: No Status: Acute Code(s): Z79.01 - [facility] (CURRENT) USE OF ANTICOAGULANTS SNOMED Code(s): 982143834 (8) Pure hypercholesterolemia Current Visit: No Status: Acute Code(s): E78.00 - PURE HYPERCHOLESTEROLEMIA, UNSPECIFIED SNOMED Code(s): 907459119 (9) Schizophrenia Current Visit: No Status: Acute Code(s): F20.9 - SCHIZOPHRENIA, UNSPECIFIED SNOMED Code(s): 92973755 (10) Hypoxemia Current Visit: Yes Status: Acute Code(s): R09.02 - HYPOXEMIA SNOMED Code(s): 673901419 Plan: She is now mentally baseline. She does have coated currently and seems to be tolerating that well. Her blood pressures been an issue. We will adjust her medications and she'll be reevaluated by nursing staff regularly for this. If her blood pressure remained stable she may be seen at home. Which time I recommended Tonia for her for discharge.
[2023-02-10] MEDS: hydrALAZINE HCL 25 MG TAB PO SCH ×3 (12:43→21:16)
[2023-02-10 16:16] LABS: Glucose,Whole Blood 108 mg/dL (70-110)
[2023-02-10 20:45] LABS: Glucose,Whole Blood 121 mg/dL (70-110)
[2023-02-10] MEDS: SODIUM CHLORIDE 0.9% 1,000 ML IV SCH ×2 (21:15→22:28)
[2023-02-11 06:07] LABS: Glucose,Whole Blood 128 mg/dL (70-110)
[2023-02-11] MEDS: SODIUM CHLORIDE 0.9% 1,000 ML IV SCH (06:10)
[2023-02-11] MEDS: INSULIN ASPART (NovoLOG) 100 UNIT/ML VIAL SQ SCH ×2 (06:11→13:25)
[2023-02-11] MEDS: CARBIDOPA-LEVODOPA 25-100 MG 1 EACH TAB PO SCH ×2 (06:18→13:25)
[2023-02-11] MEDS: PANTOPRAZOLE 40 MG TABLET PO SCH (06:18)
[2023-02-11 06:46] VITALS: RESP 16
[2023-02-11] MEDS: hydrALAZINE HCL 25 MG TAB PO SCH (06:49)
[2023-02-11 07:56] LABS: Basophils % (A) 0 %; Eosinophils % (A) 1 %; HCT 40.2 % (34.0-46.0); Lymphocytes # (A) 1.6 k/uL (1.0-4.8); Lymphocytes % (A) 18 %; MCH 28.1 pg (25.0-35.0); MCHC 32.2 g/dL (31.0-37.0); MCV 87.3 fL (80.0-100.0); Mean Platelet Volume 7.7; Monocytes # (A) 0.4 k/uL (0-1.0); Monocytes % (A) 5 %; Neutrophils # (A) 6.7 k/uL (1.3-7.7); Neutrophils % (A) 76 %; Platelet Count 261 k/uL (150-450); RDW 14.4 % (11.5-15.5); WBC 8.9 k/uL (3.8-10.6)
[2023-02-11] MEDS: TIOTROPIUM 2.5 MCG INHALER INHALATION SCH (07:56)
[2023-02-11 08:05] LABS: INR 0.9 (<1.2); Partial Thromboplastin Time 24.7 sec (22.0-30.0); Prothrombin Time 10.3 sec (10.0-12.5)
[2023-02-11] MEDS: DULoxetine HCL 60 MG CAPSULE.DR PO SCH (08:45)
[2023-02-11] MEDS: VALSARTAN 160 MG TAB PO SCH (08:45)
[2023-02-11] MEDS: METOPROLOL TARTRATE 50 MG TAB PO SCH (08:45)
[2023-02-11] MEDS: OLANZapine 10 MG TAB PO SCH (08:45)
[2023-02-11] MEDS: LINAGLIPTIN 5 MG TABLET PO SCH (08:45)
[2023-02-11] MEDS: ATORVASTATIN 20 MG TAB PO SCH (08:45)
[2023-02-11] MEDS: ASPIRIN 325 MG TAB PO SCH (08:45)
[2023-02-11] MEDS: APIXABAN 5 MG TAB PO SCH (08:46)
[2023-02-11] MEDS: ACETAMINOPHEN TAB 325 MG TAB PO PRN (08:49)
[2023-02-11 09:07] VITALS: BP 134/91; PULSE 73; TEMP 97.9
--- NOTE | 2023-02-11 10:21 | P.PN ---
Subjective Progress Note Date: 02/11/23 Principal diagnosis: Shortness of breath. Pulmonary consult dated 02/10/2023. 67-year-old female who apparently presented to the emergency department, on February 07, complaining of mental status changes, poor speech, weakness, right- sided weakness, slurred speech, dizziness, and generally just not feeling well. The patient was evaluated for possible stroke. We were consulted, for shortness of breath, which the patient apparently has from time to time. The shortness of breath, did not bring the patient into the hospital. Currently, the patient is seen in room 353. The patient did test positive for coronavirus. Her chest x- ray was normal. She was on 2 L of oxygen with excellent saturations. She was getting saline at 100 mL an hour. We don't believe she benefits from Decadron, so it was discontinued. She also vague history of asthma, CVA, diabetes, fibromyalgia, hyperlipidemia, hypertension, osteoarthritis, pulmonary embolism, among other things. Computed tomography scan of the brain was negative for anything acute. Angiography CT was also negative. Chest x-ray was not showing anything acute. A repeat computed tomography scan of the brain showed no acute hemorrhage, hydrocephalus or mass effect. White count 7.2, hemoglobin 11.7, hematocrit 36.5, and platelet count 248,000. D-dimer was 2.56. Sodium 136, potassium 3.6, chlorides 102, CO2 21, anion gap 13, BUN 17, and creatinine 0.62. Albumin was 3.4. N-terminal proBNP was 1620. Progress note dated 02/11/2023. 67-year-old female initially admitted with a diagnosis of possible mental status changes, and possible CVA/TIA. We are asked to see the patient for shortness of breath, and mild hypoxemia. The patient did test positive for coronavirus, but her chest x-ray was normal. A room 353. Getting saline at 20 mL an hour. She is on oxygen at 2 L by nasal cannula. The patient states that she feels much better today. White count 8.9, hemoglobin 13, hematocrit 40.2, and platelet count normal. PT 10.3. D-dimer was 1.8. Troponin was normal. Objective - Vital Signs Vital signs: Vital Signs Temp 97.9 F 02/11/23 08:40 Pulse 73 02/11/23 08:40 Resp 16 02/11/23 08:40 BP 134/91 02/11/23 08:40 Pulse Ox 96 02/11/23 07:58 FiO2 Intake & Output 02/10/23 02/11/23 02/11/23 18:59 06:59 18:59 Intake Total 236 225 Output Total 1600 3350 Balance -1364 -3350 225 Intake: Oral 236 225 Output: Urine 1600 3350 Other: Voiding Method External Catheter External Catheter External Catheter # Bowel Movements 1 - Exam No acute distress, oriented 3. Currently on 2 L. No respiratory distress. Saturations are 97 %. HEENT examination is grossly unremarkable. Neck supple. Full range of motion. No adenopathy thyromegaly or neck vein distention. Cardiovascular examination reveals regular rhythm rate. S1-S2 normal. No S3 or S4. No discernible murmur noted. Heart rate 73 bpm. Lungs reveal clear breath sounds. Breath sounds are equal bilaterally. No adventitious lung sounds including wheezes rhonchi or crackles. Abdomen soft bowel sounds are heard. No masses or tenderness. Extremities are intact. No cyanosis clubbing or edema. Skin is without rash or lesion. Neurologic examination is brief but nonfocal. - Labs CBC & Chem 7: 02/11/23 06:30 02/10/23 08:18 Labs: Abnormal Lab Results - Last 24 Hours (Table) 02/10/23 02/10/23 02/11/23 Range/Units 11:22 20:43 06:06 D-Dimer (<0.60) mg/L FEU POC Glucose (mg/dL) 154 H 121 H 128 H (70-110) mg/dL 02/11/23 Range/Units 06:30 D-Dimer 1.80 H (<0.60) mg/L FEU POC Glucose (mg/dL) (70-110) mg/dL Assessment and Plan Assessment: Acute mental status changes, lightheadedness, dizziness, weakness, slurred speech, without clear evidence of CVA/TIA. Intermittent/mild shortness of breath, likely related to the patient's history of mild asthma/COPD. Coronavirus infection, without coronavirus associated pneumonia. History of Parkinson's disease. Prior history of CVA/TIA. History of diabetes mellitus. History of fibromyalgia. History of hypertension. History of hyperlipidemia. His stream pulmonary embolism. Multiple other medical problems and comorbidities. Plan: Plan dated 02/10/2023. The patient has been chronically on a factor X a inhibitor. Shortness of breath is relatively mild, and, it is unlikely that she has coronavirus associated pneumonia. Her chest x-ray from most practical purposes, is normal. Her major complaints were all neurologic. Computed tomography scan of the brain 2, did not show anything acute. Angiography CT was also negative. Neurology has been consulted. It's unlikely the patient had another pulmonary embolism, given the fact that she is on a factor X a inhibitor. Of note, her d-dimer was 2.56. A CT angiogram could be ordered, just to rule out another pulmonary embolism. I will leave that up to the primary service, as I don't feel strongly that it should be done. Additional recommendations and suggestions are forthcoming. Prognosis is guarded. Plan dated 02/11/2023. The patient is feeling better today. She's not having any shortness of breath. She remains on 2 L of oxygen. Labs, x-rays, and medications are reviewed. Additional recommendations and suggestions are forthcoming. We will continue to follow and make recommendations. Prognosis is thought to be good. Neurology has been consulted. Time with Patient: Less than 30
[2023-02-11 11:23] LABS: Glucose,Whole Blood 158 mg/dL (70-110)
[2023-02-11 11:32] LABS: NT-Pro-B-Type Natriuretic Pept 1030 pg/mL
[2023-02-11 11:37] LABS: ALT 13 U/L (4-34); AST 19 U/L (14-36); African American GFR (CKD) >90 (>60 ml/min/1.73 sqM); Albumin 3.7 g/dL (3.5-5.0); Alkaline Phosphatase 91 U/L (38-126); Anion Gap 11 mmol/L; Blood Urea Nitrogen 13 mg/dL (7-17); C Reactive Protein 2.2 mg/dL (<1.0); Calcium 8.9 mg/dL (8.4-10.2); Carbon Dioxide 27 mmol/L (22-30); Chloride 100 mmol/L (98-107); Glucose 111 mg/dL (74-99); LDH 192 U/L (120-246); Magnesium 1.9 mg/dL (1.6-2.3); Non-African American GFR(CKD) >90 (>60 ml/min/1.73 sqM); Potassium 3.7 mmol/L (3.5-5.1); Sodium 138 mmol/L (137-145); Total Bilirubin 0.4 mg/dL (0.2-1.3); Total Protein 6.3 g/dL (6.3-8.2)
--- NOTE | 2023-02-11 11:54 | P.DS ---
Providers Date of admission: 02/07/23 20:15 Expected date of discharge: 02/11/23 Attending physician: Farzad Hartley Consults: 02/07/23 20:16 Consult Physician Routine Consulting Provider: Jd Crews Consult Reason/Comments: cva Do you want consulting provider notified?: Yes 02/09/23 11:09 Consult Physician Stat Consulting Provider: Fausto Crews Consult Reason/Comments: hypoxia/Covid Positive Do you want consulting provider notified?: Yes Primary care physician: Farzad Hartley - Discharge Diagnosis(es) (1) COVID-19 Current Visit: Yes Status: Acute (2) Encephalopathy acute Current Visit: No Status: Acute (3) Type 2 diabetes mellitus with other circulatory complications Current Visit: Yes Status: Acute (4) H/O: CVA (cerebrovascular accident) Current Visit: No Status: Acute (5) Hx pulmonary embolism Current Visit: No Status: Acute (6) Hypertension Current Visit: No Status: Acute (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 She has Of CVA, Parkinson's disease, diabetes, long-term anticoagulation due to Pulmonary embolus,copd, and multpile other medical problems.Send it from home to emergency room with weakness and confusion along with bodyaches. She had mildly shortness of breath at this time. In the intensive caring unit, she received IV fluids and some of her medication. She was feral and tech card but this is resolved. Currently patient is seen this morning and is much improved. She is at her baseline mentation. And has no complaints. Does have some mild sinus tachycardia at this time. She was positive for COVID-19. 02/09/2023: Shari remains in the ER as no beds were available for her to avoid admission along with her episodic confusion and hemiplegia. Neurology feels as the one that most likely her symptoms are from her old stroke and are exacerbated by the recent colon. Today she was found in hospital bed in the ER. She was on 2 L O2 and her pulse oximetry 76% during my examination. Other vitals remained stable now. She's had elevated blood pressures. Labs today showed a normal CBCcount. Chemistries are essentially normal D dimer is elevated at 2.53 however she is anticoagulated with Elequis. CRP is 3.8. A CT brain and lumbar spine reviewed. Showed chronic changes. She has a history of anterior listhesis of the lumbar spine is once again seen. She has an MRI pending soon. 02/10/2023: Patient was reevaluated today. She is a known history of confusion and issues regarding her hemiplegia, old CVA, Parkinson's disease. I'm suspicious she has some mild Parkinson's dementia as well. Her is very attentive. She was admitted for Coban and mental status changes. She is at baseline now mentally. She does continue to cough. Otherwise she seems stable. Pulmonology notes reviewed. Blood pressures on the biggest concern. It has been ongoing elevated. He is currently on Crixivan for history of PE, valsartan, metoprolol, and now hydralazine. Labs reviewed and are essentially normal today , with the exception a C-reactive protein which was slightly elevated and her d-dimer. 02/11/2023: Patient admitted with COVID-19, fatigue and dehydration. This is all resolved. COVID-19 symptoms are mild and controlled with shortness of breath. Patient had elevated blood pressures once again last night. Her hydralazine was increased to 4 times a day. She remains on metoprolol 50 mg twice a day and valsartan 160 mg daily. Neurology and pulmonology following. She's been doing otherwise quite well. She did need a little oxygen last night on room air pulse oximetry dropped to 92% and they reported nighttime confusion. Most likely this was some owner's are their issues regarding her Parkinson's disease and early Parkinson's dementia. At this time it's felt the patient could be safely discharged home. We'll have her follow-up in the office in the next several days. she can contact us directly if needed the on-call pager. Patient Condition at Discharge: Fair Plan - Discharge Summary Discharge Rx Participant: No New Discharge Prescriptions: New hydrALAZINE HCL [Apresoline] 25 mg PO QID 30 Days #120 tab Valsartan [Diovan] 160 mg PO DAILY 30 Days #30 tab Albuterol Inhaler [Ventolin Hfa Inhaler] 2 puff INHALATION RT-QID PRN #1 each PRN Reason: Shortness Of Breath Or Wheezing Continue DULoxetine HCL [Cymbalta] 120 mg PO DAILY Apixaban [Eliquis] 5 mg PO BID Carbidopa-Levodopa 25-100 mg [Sinemet 25-100 mg] 2 tab PO AC-BID Pantoprazole Sodium [Protonix] 40 mg PO DAILY OLANZapine 20 mg PO DAILY sitaGLIPtin [Januvia] 50 mg PO DAILY Tiotropium 2.5 Mcg/Puff [Spiriva Respimat 2.5 Mcg] 2 puff INHALATION RT-DAILY metFORMIN HCL 500 mg PO BID Metoprolol Tartrate [Lopressor] 50 mg PO BID Atorvastatin [Lipitor] 20 mg PO DAILY Discharge Medication List DULoxetine HCL [Cymbalta] 120 mg PO DAILY 06/19/14 [History] Apixaban [Eliquis] 5 mg PO BID 03/19/17 [History] Carbidopa-Levodopa 25-100 mg [Sinemet 25-100 mg] 2 tab PO AC-BID 06/05/19 [History] OLANZapine 20 mg PO DAILY 07/22/20 [History] Pantoprazole Sodium [Protonix] 40 mg PO DAILY 07/22/20 [History] Atorvastatin [Lipitor] 20 mg PO DAILY 02/07/23 [History] Metoprolol Tartrate [Lopressor] 50 mg PO BID 02/07/23 [History] Tiotropium 2.5 Mcg/Puff [Spiriva Respimat 2.5 Mcg] 2 puff INHALATION RT-DAILY 02/07/23 [History] metFORMIN HCL 500 mg PO BID 02/07/23 [History] sitaGLIPtin [Januvia] 50 mg PO DAILY 02/07/23 [History] Albuterol Inhaler [Ventolin Hfa Inhaler] 2 puff INHALATION RT-QID PRN #1 each 02/11/23 [Rx] Valsartan [Diovan] 160 mg PO DAILY 30 Days #30 tab 02/11/23 [Rx] hydrALAZINE HCL [Apresoline] 25 mg PO QID 30 Days #120 tab 02/11/23 [Rx] Follow up Appointment(s)/Referral(s): Farzad Hartley MD [Primary Care Provider] - 1-2 days Discharge Disposition: HOME SELF-CARE
[2023-02-11] MEDS ORDERED: hydrALAZINE HCL 25 MG TAB PO SCH (13:00)
== END 2023-02-11 13:47 | disposition home or self-care (01) ==
LOC: EC 17:00 → 6NMEDSUR 20:15 → 3SCARD 20:56
PROVIDERS: ADMIT Family Medicine; ATTEND Family Medicine
DX: R41.82 Altered mental status, unspecified (principal); R09.02 Hypoxemia; U07.1 COVID-19; G93.40 Encephalopathy, unspecified; Z86.73 Personal history of transient ischemic attack (TIA), and cerebral infarction without residual deficits; Z86.718 Personal history of other venous thrombosis and embolism; Z79.01 Long term (current) use of anticoagulants; E78.00 Pure hypercholesterolemia, unspecified; F20.9 Schizophrenia, unspecified; F05 Delirium due to known physiological condition; G20.A1 Parkinson's disease without dyskinesia, without mention of fluctuations; I10 Essential (primary) hypertension; Z79.84 Long term (current) use of oral hypoglycemic drugs; M79.7 Fibromyalgia; Z82.49 Family history of ischemic heart disease and other diseases of the circulatory system; Z82.5 Family history of asthma and other chronic lower respiratory diseases; Z85.828 Personal history of other malignant neoplasm of skin; Z86.711 Personal history of pulmonary embolism; Z90.710 Acquired absence of both cervix and uterus; Z87.891 Personal history of nicotine dependence; Z96.641 Presence of right artificial hip joint
CPT/HCPCS: 96361 ×5; 96365; 96367; 99291; 36415; 94640 ×3; 94760 ×3; 95816; 93005 ×2; 97162; 85379 ×3; 83880 ×3; 80061; 80053 ×4; 84443; 82607; 82728 ×3; 82140; 82550; 82746; 83615 ×3; 83735 ×3; 84484 ×5; 85025 ×4; 85384 ×3; 85610 ×4; 85730 ×4; 86140 ×3; 81001; 87636; 71045; 72131; 70496; 70450 ×2; 70498; G0378 ×6; J8540 ×2; J0131; J1741; Q9967

== ENCOUNTER 2024-01-09 17:11 | Emergency (ER) | payer BC, MEDICARE ==
[2024-01-09 17:23] VITALS: RESP 18
--- NOTE | 2024-01-09 17:49 | ED ---
Fall HPI - General Chief Complaint: Fall Stated Complaint: Fall/R hip pain Time Seen by Provider: 01/09/24 17:28 Source: patient, family, RN notes reviewed Mode of arrival: wheelchair Limitations: physical limitation - History of Present Illness Initial Comments: This is a 68-year-old female presenting with for right hip pain (8 out of 10) following a fall at home. Patient endorses history of Parkinson's with gait issues causing a loss of balance with a subsequent fall without 2 hours ago. Patient denies striking her head, loss of consciousness, headache, neck pain, RUE pain, radiculopathy, saddle paresthesia, urinary issues. Patient en dorses history of left total hip replacement. Endorses history of PE in 2017. Currently takes Eliquis. Complaint: fall Onset/Timin -: hour(s) Fall Witnessed: yes, by family Place Fall Occurred: home Loss of Consciousness: none Prolonged Down Time?: no Symptoms Prior to Fall: none Location: pelvis Severity scale (1-10): 8 Context: tripped/slipped Associated Symptoms: denies - Related Data Home Medications Medication Instructions Recorded Confirmed DULoxetine HCL [Cymbalta] 120 mg PO DAILY 06/19/14 02/07/23 Apixaban [Eliquis] 5 mg PO BID 03/19/17 02/07/23 Carbidopa-Levodopa 25-100 mg 2 tab PO AC-BID 06/05/19 02/07/23 [Sinemet 25-100 mg] OLANZapine 20 mg PO DAILY 07/22/20 02/07/23 Pantoprazole Sodium [Protonix] 40 mg PO DAILY 07/22/20 02/07/23 Atorvastatin [Lipitor] 20 mg PO DAILY 02/07/23 02/07/23 Metoprolol Tartrate [Lopressor] 50 mg PO BID 02/07/23 02/07/23 Tiotropium 2.5 Mcg/Puff [Spiriva 2 puff INHALATION RT-DAILY 02/07/23 02/07/23 Respimat 2.5 Mcg] metFORMIN HCL 500 mg PO BID 02/07/23 02/07/23 sitaGLIPtin [Januvia] 50 mg PO DAILY 02/07/23 02/07/23 Previous Rx's Medication Instructions Recorded Albuterol Inhaler [Ventolin Hfa 2 puff INHALATION RT-QID PRN #1 02/11/23 Inhaler] each Valsartan [Diovan] 160 mg PO DAILY 30 Days #30 tab 02/11/23 hydrALAZINE HCL [Apresoline] 25 mg PO QID 30 Days #120 tab 02/11/23 Ibuprofen [Motrin] 800 mg PO Q8H PRN #30 tab 01/09/24 Allergies Allergy/AdvReac Type Severity Reaction Status Date / Time No Known Allergies Allergy Verified 01/09/24 17:20 Review of Systems ROS Statement: Those systems with pertinent positive or pertinent negative responses have been documented in the HPI. ROS Other: All systems not noted in ROS Statement are negative. Past Medical History Past Medical History: Asthma, Cancer, COPD, CVA/TIA, Diabetes Mellitus, Fibromyalgia, Hyperlipidemia, Hypertension, Musculoskeletal Disorder, Neurologic Disorder, Osteoarthritis (OA), Pulmonary Embolus (PE), Skin Disorder Additional Past Medical History / Comment(s): 3 PEs-involved bilateral lungs, CVA with some increased memory problems, NIDDM type II, neuropathy bilateral legs/feet, migraines, chronic low back pain, skin cancer removed from nose, urinary incontinence at times, lately stool loose and has some incontinence of stool. parkinsons History of Any Multi-Drug Resistant Organisms: None Reported Past Surgical History: Back Surgery, Cholecystectomy, Hysterectomy, Joint Replacement, Orthopedic Surgery Additional Past Surgical History / Comment(s): Back pain stimulator implant lumbar cataract removals, 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 Past Anesthesia/Blood Transfusion Reactions: No Reported Reaction Additional Past Anesthesia/Blood Transfusion Reaction / Comment(s): no hx blood transfusion Past Psychological History: Schizophrenia Smoking Status: Former smoker Past Alcohol Use History: None Reported Past Drug Use History: None Reported - Past Family History Mother History Unknown: Yes Family Medical History: COPD Additional Family Medical History / Comment(s): Mother at the age of 78yrs. Father History Unknown: Yes Family Medical History: Myocardial Infarction (MT) Additional Family Medical History / Comment(s): Father of a massive MT at the age of 50 yrs. Pt is not sure if cariel may have moved to his heart-he had injury in WWII. Sister(s) Family Medical History: Cancer General Exam Limitations: physical limitation General appearance: alert, in no apparent distress Head exam: Present: atraumatic, normocephalic, normal inspection Eye exam: Present: normal appearance, PERRL, EOMI. Absent: scleral icterus, conjunctival injection, periorbital swelling ENT exam: Present: normal exam, mucous membranes moist Neck exam: Present: normal inspection. Absent: tenderness, meningismus, lymphadenopathy Respiratory exam: Present: normal lung sounds bilaterally. Absent: respiratory distress, wheezes, rales, rhonchi, stridor Cardiovascular Exam: Present: regular rate, normal rhythm, normal heart sounds. Absent: systolic murmur, diastolic murmur, rubs, gallop, clicks GI/Abdominal exam: Present: soft, normal bowel sounds. Absent: distended, tenderness, guarding, rebound, rigid Extremities exam: Present: tenderness (Positive right lateral hip and proximal femur tenderness without obvious crepitus or deformity.), normal capillary refill, calf tenderness (Positive right Homans' sign), other (Mild edema of right lower extremity without erythema/stasis or pitting. Bilateral posterior tibialis pulse +2.). Absent: pedal edema, joint swelling Back exam: Present: normal inspection Neurological exam: Present: alert, oriented X3, CN II-XII intact Psychiatric exam: Present: normal affect, normal mood Skin exam: Present: warm, dry, intact, normal color. Absent: rash Course Vital Signs 01/09/24 01/09/24 17:20 21:23 Temperature 97.4 F L 97.8 F Pulse Rate 70 72 Respiratory 18 18 Rate Blood Pressure 178/113 150/86 O2 Sat by Pulse 96 97 Oximetry Medical Decision Making - Medical Decision Making Was pt. sent in by a medical professional or institution (JOSE Castillo, GRAIN OPERATOR, urgent care, hospital, or senior care...) When possible be specific @ -No Did you speak to anyone other than the patient for history (EMS, parent, family, police, friend...)? What history was obtained from this source @ -No Did you review nursing and triage notes (agree or disagree)? Why? @ -I reviewed and agree with nursing and triage notes Were old charts reviewed (outside hosp., previous admission, EMS record, old EKG, old radiological studies, urgent care reports/EKG's, senior care records)? Report findings @ -No old charts were reviewed Differential Diagnosis (chest pain, altered mental status, abdominal pain women, abdominal pain men, vaginal bleeding, weakness, fever, dyspnea, syncope, headache, dizziness, GI bleed, back pain, seizure, CVA, palpatations, mental health, musculoskeletal)? @ -Differential Back Pain: Strain, zoster, cauda equina syndrome, epidural abscess, vertebral osteomyelitis, discitis, fracture, subluxation, disc herniation, DJD, spinal stenosis, dissection, AAA, pancreatitis, peptic ulcer disease, pyelonephritis, kidney stone, this is not meant to be an all-inclusive list. EKG interpreted by me (3pts min.). @ -Not done X-rays interpreted by me (1pt min.). @ -Right hip x-ray revealed no fracture or dislocation. CT interpreted by me (1pt min.). @ -None done U/S interpreted by me (1pt. min.). @ -RLE venous Doppler revealed no acute DVT. What testing was considered but not performed or refused? (CT, X-rays, U/S, labs)? Why? @ -None What meds were considered but not given or refused? Why? @ -None Did you discuss the management of the patient with other professionals (professionals i.e. , PA, GRAIN OPERATOR, lab, RT, psych nurse, social services counselor, embedded software architect, teacher, life science technical officer, pillowcase cutter)? Give summary @ -No Was smoking cessation discussed for >3mins.? @ -No Was critical care preformed (if so, how long)? @ -No Were there social determinants of health that impacted care today? How? (Homelessness, low income, unemployed, alcoholism, drug addiction, transportation, low edu. Level, literacy, decrease access to med. care, fci, rehab)? @ -No Was there de-escalation of care discussed even if they declined (Discuss DNR or withdrawal of care, Hospice)? DNR status @ -No What co-morbidities impacted this encounter? (DM, HTN, Smoking, COPD, CAD, Cancer, CVA, ARF, Chemo, Hep., AIDS, mental health diagnosis, sleep apnea, morbid obesity)? @ -Parkinson's Was patient admitted / discharged? Hospital course, mention meds given and route, prescriptions, significant lab abnormalities, going to OR and other perti nent info. @ -Discharge. Right hip x-ray revealed no fracture or dislocation. RLE venous Doppler revealed no acute DVT. Basic lab work was unremarkable. Patient pain controlled by IV Toradol. Patient able to demonstrate ability to ambulate. Patient sent home with T3 starter pack for breakthrough pain and p.o. Motrin sent to pharmacy. Undiagnosed new problem with uncertain prognosis? @ -No Drug Therapy requiring intensive monitoring for toxicity (Heparin, Nitro, Insuli n, Cardizem)? @ -No Were any procedures done? @ -No Diagnosis/symptom? @ -Right hip contusion Acute, or Chronic, or Acute on Chronic? @ -Acute Uncomplicated (without systemic symptoms) or Complicated (systemic symptoms)? @ -Uncomplicated Side effects of treatment? @ -No Exacerbation, Progression, or Severe Exacerbation? @ -No Poses a threat to life or bodily function? How? (Chest pain, USA, MT, pneumonia, PE, COPD, DKA, ARF, appy, cholecystitis, CVA, Diverticulitis, Homicidal, Suicidal, threat to staff... and all critical care pts) @ -No - Lab Data Result diagrams: 01/09/24 18:20 01/09/24 18:26 Lab Results 01/09/24 01/09/24 01/09/24 Range/Units 18:20 18:26 18:26 WBC 7.4 (3.8-10.6) k/uL RBC 4.66 (3.80-5.40) m/uL Hgb 12.7 (11.4-16.0) gm/dL Hct 39.7 (34.0-46.0) % MCV 85.2 (80.0-100.0) fL MCH 27.2 (25.0-35.0) pg MCHC 32.0 (31.0-37.0) g/dL RDW 15.5 (11.5-15.5) % Plt Count 299 (150-450) k/uL MPV 7.2 Neutrophils % 68 % Lymphocytes % 24 % Monocytes % 5 % Eosinophils % 1 % Basophils % 0 % Neutrophils # 5.0 (1.3-7.7) k/uL Lymphocytes # 1.8 (1.0-4.8) k/uL Monocytes # 0.4 (0-1.0) k/uL Eosinophils # 0.1 (0-0.7) k/uL Basophils # 0.0 (0-0.2) k/uL PT 10.5 (10.0-12.5) sec INR 1.0 (<1.2) APTT 28.0 (22.0-30.0) sec Sodium 137 (137-145) mmol/L Potassium 3.9 (3.5-5.1) mmol/L Chloride 103 (98-107) mmol/L Carbon Dioxide 28 (22-30) mmol/L Anion Gap 6 mmol/L BUN 23 H (7-17) mg/dL Creatinine 0.83 (0.52-1.04) mg/dL Est GFR (CKD-EPI)AfAm 83 (>60 ml/min/1.73 sqM) Est GFR (CKD-EPI)NonAf 72 (>60 ml/min/1.73 sqM) Glucose 114 H (74-99) mg/dL Calcium 9.3 (8.4-10.2) mg/dL Total Bilirubin 0.4 (0.2-1.3) mg/dL AST 14 (14-36) U/L ALT 7 (4-34) U/L Alkaline Phosphatase 81 (38-126) U/L Total Protein 6.8 (6.3-8.2) g/dL Albumin 4.2 (3.5-5.0) g/dL Disposition Clinical Impression: Fall, Contusion of hip, right Disposition: HOME SELF-CARE Condition: Good Instructions (If sedation given, give patient instructions): Fall Prevention for Older Adults (ED) Prescriptions: Ibuprofen [Motrin] 800 mg PO Q8H PRN #30 tab PRN Reason: Pain Is patient prescribed a controlled substance at d/c from ED?: No Referrals: Farzad Hartley MD [Primary Care Provider] - 1-2 days Time of Disposition: 20:59
--- NOTE | 2024-01-09 18:29 | XR ---
EXAMINATION TYPE: XR Hip Complete RT DATE OF EXAM: 01/09/2024 6:11 PM COMPARISON: None available. CLINICAL INDICATION: Female, 68 years old with history of Fall with right hip pain; [facility] TECHNIQUE: XR Hip Complete RT; Frontal and lateral views FINDINGS: No evidence for acute process, joint dislocation or significant soft tissue swelling. IMPRESSION: No acute fracture or dislocation. [facility], , 01/09/2024 6:26 PM
[2024-01-09] MEDS: KETOROLAC 15 MG/ML 1 ML VIAL IVP STA ×2 (18:39→21:12)
[2024-01-09 18:44] LABS: Basophils % (A) 0 %; Eosinophils # (A) 0.1 k/uL (0-0.7); Eosinophils % (A) 1 %; HCT 39.7 % (34.0-46.0); HGB 12.7 gm/dL (11.4-16.0); Lymphocytes # (A) 1.8 k/uL (1.0-4.8); Lymphocytes % (A) 24 %; MCH 27.2 pg (25.0-35.0); MCV 85.2 fL (80.0-100.0); Mean Platelet Volume 7.2; Monocytes # (A) 0.4 k/uL (0-1.0); Monocytes % (A) 5 %; Neutrophils % (A) 68 %; Platelet Count 299 k/uL (150-450); RBC 4.66 m/uL (3.80-5.40); RDW 15.5 % (11.5-15.5); WBC 7.4 k/uL (3.8-10.6)
[2024-01-09 18:54] LABS: ALT 7 U/L (4-34); AST 14 U/L (14-36); African American GFR (CKD) 83 (>60 ml/min/1.73 sqM); Albumin 4.2 g/dL (3.5-5.0); Alkaline Phosphatase 81 U/L (38-126); Anion Gap 6 mmol/L; Blood Urea Nitrogen 23 mg/dL (7-17); Calcium 9.3 mg/dL (8.4-10.2); Carbon Dioxide 28 mmol/L (22-30); Chloride 103 mmol/L (98-107); Glucose 114 mg/dL (74-99); Non-African American GFR(CKD) 72 (>60 ml/min/1.73 sqM); Potassium 3.9 mmol/L (3.5-5.1); Sodium 137 mmol/L (137-145); Total Bilirubin 0.4 mg/dL (0.2-1.3); Total Protein 6.8 g/dL (6.3-8.2)
[2024-01-09 19:01] LABS: Prothrombin Time 10.5 sec (10.0-12.5)
--- NOTE | 2024-01-09 20:22 | US ---
EXAMINATION TYPE: US venous doppler duplex LE RT DATE OF EXAM: 01/09/2024 7:21 PM COMPARISON: US 2017 CLINICAL INDICATION: Female, 68 years old with history of RLE injury, mild calf edema, positive Juan s' sign; Fall, HX PE. Patient is on eliquis , TECHNIQUE: The lower extremity deep venous system is examined utilizing real time linear array sonog damion with graded compression, color doppler sonography, and spectral doppler. SIDE PERFORMED: Right FINDINGS: VESSELS IMAGED: Common Femoral Vein Deep Femoral Vein Greater Saphenous Vein * Femoral Vein Popliteal Vein Small Saphenous Vein * Proximal Calf Veins Right Leg: Nonspecific internal echoes and slow flow seen within the prox and mid femoral vein compat ible with nonocclusive chronic thrombus. Femoral vein otherwise demonstrates preserved compression. N o evidence of acute deep vein thrombosis in the remaining vessels. IMPRESSION: 1. No ultrasound evidence for deep venous thrombosis. 2. Internal echoes in slow flow within the proximal and mid left femoral vein which could reflect ch ronic nonocclusive thrombus. [facility], , 01/09/2024 8:20 PM
[2024-01-09] MEDS: ACET/COD 300 MG/30 MG STARTER PACK 6 TAB BTL PO STA (21:13)
[2024-01-09 21:25] VITALS: BP 150/86; PULSE 72; TEMP 97.8
== END 2024-01-09 21:25 | disposition home or self-care (01) ==
LOC: EC 17:11
DX: S70.01XA Contusion of right hip, initial encounter (principal); Z86.73 Personal history of transient ischemic attack (TIA), and cerebral infarction without residual deficits; Z87.891 Personal history of nicotine dependence; W01.0XXA Fall on same level from slipping, tripping and stumbling without subsequent striking against object, initial encounter
CPT/HCPCS: 36415; 80053; 85025; 85610; 85730; 73502; 93971; 99284; 96374; J1885